=== PATIENT | female | born 1965 | race Caucasian/White ===

== ENCOUNTER 2016-08-19 09:04 | Emergency (ER) | payer MEDICARE ==
[~2016-08-19] VITALS: Ht 154.9 cm; Wt 74.4 kg
--- NOTE | ~2016-08-19 | EKG ---
[place], [place] ELECTROCARDIOGRAM REPORT NAME: JUDY ZAVALA UNIT #: [id number] ROOM: DOCTOR: NATALIIA JOHNSON MD BIRTHDATE: [birth year] DOS: 08/19/2016 TIME: 0922 hours. Sinus tachycardia at 115 beats per minute. The tracing is otherwise within normal limits. No previous tracing is available for comparison. NATALIIA JOHNSON MD CM:EKGRPT:ELECTROCARDIOGRAM REPORT [id number] NATALIIA JOHNSON MD
[~2016-08-19 09:04] MED LIST: ACETAMINOPHEN-H1 TA1 PO; ADVAIR 100/501 E1 INH; ADVAIR 100/501 EA INH; AEROSOL THERAPY1 DEV; ALBUTEROL; ANUSOL-HC25 MG RC; Anusol Hc,Anuco25 MG R; BACTRIM DS 8001 TA1 PO; CIPROFLOXACIN500 MG PO; CLARITIN-D 12 H1 TAB PO; CLARITIN10 MG PO; CYMBALTA60 M1 PO; CYMBALTA60 MG PO; DIAZEPAM10 MG PO; DOXYCYCLINE MO100 MG PO; FLONASE 0.05% 121 EA NAS; HYCODAN/HYDROMET5 ML PO; IMDUR ER30 MG PO; IMDUR30 MG PO; MEDROL DOSEPAK4 MG PO; MUCINEX600 MG PO; Miralax Powder255 GM PO; NATURE'S BLEND F1 MG PO; NEXIUM40 MG PO; NICOTINE T21 MG/24 H T; PHENERGAN25 M1 PO; PHENERGAN25 M3 PO; PREDNISONE10 MG PO; PROVENTIL0.09 MG/AC IH; PYRIDIUM200 MG PO; TALWIN NX PO; TRAMADOL HCL50 MG PO; TRICOR145 MG PO; VALIUM10 MG; VENTOLIN; VENTOLIN,PR2 MG/5 ML INH; VIBRA-TAB100 M1 PO; VICODIN 5/500 505 MG PO; VICODIN ES 7501 TA1 PO; VICODIN ES 7501 TAB PO; VIT D; VITAMIN D32000 IU PO; ZOFRAN ODT4 MG SL; ZOFRAN4 MG PO; Zofran4 MG PO
[2016-08-19] MEDS ORDERED: VALIUM10 MG PO (09:10)
[2016-08-19 09:41] LABS: BASO % 0.4 % (0.0-1.0); EOS # 0.1 10*3/uL (0.0-0.4); HEMOGLOBIN 13.6 g/dl (12.0-16.0); LYMPH # 0.9 10*3/uL (1.3-4.4); LYMPH % 12.2 % (27.0-41.0); MEAN CELL VOLUME 92.4 fl (81.0-99.0); MEAN CORPUSCULAR HGB 31.4 pg (27.0-31.0); MONO % 13.2 % (3.0-9.0); NEUT # 5.3 10*3/uL (2.3-7.9); NEUT % 72.8 % (47.0-73.0); PLATELET COUNT AUTOMATED 336 10*3/uL (130-400); RED BLOOD COUNT 4.33 10*6/uL (4.10-5.10); RED CELL DISTRI WIDTH 12.9 % (0-14.5); WHITE BLOOD COUNT 7.3 10*3/uL (4.8-10.8)
[2016-08-19 09:59] LABS: ALBUMIN 3.7 gm/dl (3.1-4.5); ALKALINE PHOSPHATASE 71 U/L (45-117); BILIRUBIN, TOTAL 0.2 mg/dl (0.2-1.0); BUN 10 mg/dl (7-24); CARBON DIOXIDE 22 mmol/L (21-32); CHLORIDE 105 mmol/L (98-107); EST GLOM FILT AFRICAN AMERICAN 56 ml/min; GLUCOSE 93 mg/dL (65-99); POTASSIUM 3.6 mmol/L (3.5-5.1); SGOT/AST 18 IU/L (3-35); SGPT/ALT 21 U/L (12-78); SODIUM 137 mmol/L (136-145); TOTAL PROTEIN 7.4 gm/dL (6.4-8.2); TROPONIN I < 0.015 ng/ml (<0.5)
== END 2016-08-19 10:42 | disposition home or self-care (01) ==
LOC: ED 09:04
PROVIDERS: Nurse Practitioner Family
DX: B34.9 Viral infection, unspecified (principal); R03.0 Elevated blood-pressure reading, without diagnosis of hypertension; F17.200 Nicotine dependence, unspecified, uncomplicated; Z98.51 Tubal ligation status; Z98.890 Other specified postprocedural states; Z88.0 Allergy status to penicillin; Z88.1 Allergy status to other antibiotic agents; Z88.6 Allergy status to analgesic agent; Z88.8 Allergy status to other drugs, medicaments and biological substances

== ENCOUNTER 2016-12-06 15:31 | Emergency (ER) | payer MEDICARE ==
[~2016-12-06] VITALS: Ht 165.1 cm; Wt 73.0 kg
[~2016-12-06 15:31] MED LIST changes: +VALIUM10 MG PO
[2016-12-06 16:42] LABS: BASO # 0.1 10*3/uL (0.0-0.1); BASO % 0.9 % (0.0-1.0); EOS # 0.4 10*3/uL (0.0-0.4); EOS % 4.1 % (1.0-4.0); HEMATOCRIT 42.2 % (37.0-47.0); HEMOGLOBIN 14.2 g/dl (12.0-16.0); LYMPH # 3.4 10*3/uL (1.3-4.4); LYMPH % 33.3 % (27.0-41.0); MEAN CORPUSCULAR HGB 31.3 pg (27.0-31.0); MEAN CORPUSCULAR HGB CONC 33.6 g/dl (33.0-37.0); MEAN PLATELET VOLUME 10.7 fl (9.6-12.3); MONO # 0.9 10*3/uL (0.1-1.0); MONO % 8.9 % (3.0-9.0); NEUT # 5.3 10*3/uL (2.3-7.9); NEUT % 52.5 % (47.0-73.0); PLATELET COUNT AUTOMATED 361 10*3/uL (130-400); RED BLOOD COUNT 4.54 10*6/uL (4.10-5.10); RED CELL DISTRI WIDTH 13.1 % (0-14.5); WHITE BLOOD COUNT 10.2 10*3/uL (4.8-10.8)
[2016-12-06 16:56] LABS: ALBUMIN 3.9 gm/dl (3.1-4.5); ALKALINE PHOSPHATASE 117 U/L (45-117); BILIRUBIN, TOTAL 0.2 mg/dl (0.2-1.0); BUN 5 mg/dl (7-24); CARBON DIOXIDE 23 mmol/L (21-32); CHLORIDE 106 mmol/L (98-107); EST GLOM FILT AFRICAN AMERICAN > 60 ml/min; GLUCOSE 83 mg/dL (65-99); POTASSIUM 3.8 mmol/L (3.5-5.1); SGOT/AST 17 IU/L (3-35); SGPT/ALT 20 U/L (12-78); SODIUM 141 mmol/L (136-145); TOTAL PROTEIN 7.6 gm/dL (6.4-8.2)
[2016-12-06 17:55] LABS: BILIRUBIN NEGATIVE (NEGATIVE); BLOOD NEGATIVE (NEGATIVE); CLARITY SL CLOUDY (CLEAR); COLOR YELLOW (YELLOW); GLUCOSE NEGATIVE (NEGATIVE); KETONE NEGATIVE (NEGATIVE); LEUKO ESTERASE NEGATIVE (NEGATIVE); NITRITE NEGATIVE (NEGATIVE); PH 5.5 (5.0-9.0); PROTEIN NEGATIVE (NEGATIVE); SPECIFIC GRAVITY <= 1.005 (1.005-1.030); UROBILINOGEN 0.2 E.U./dl (0.2-1.0)
[2016-12-06 18:09] LABS: RBC 0-2 rbc/hpf (0-2); WBC 0-2 wbc/hpf (0-5)
[2016-12-06 18:10] LABS: BACTERIA TRACE; URINE REFLEX COMMENT NO (NO)
[2016-12-06] MEDS ORDERED: SIMETHICONE PO (18:49)
[2016-12-06] MEDS ORDERED: PROBIOTIC & AC1 EACH PO (18:49)
[2016-12-06] MEDS ORDERED: ZOFRAN ODT4 MG SL (18:51)
== END 2016-12-06 19:16 | disposition home or self-care (01) ==
LOC: ED 15:31
PROVIDERS: Nurse Practitioner Family
DX: R10.9 Unspecified abdominal pain (principal); F17.200 Nicotine dependence, unspecified, uncomplicated; Z88.0 Allergy status to penicillin; Z88.1 Allergy status to other antibiotic agents; Z88.6 Allergy status to analgesic agent; Z88.8 Allergy status to other drugs, medicaments and biological substances; Z79.899 Other long term (current) drug therapy; Z90.49 Acquired absence of other specified parts of digestive tract

== ENCOUNTER → 2016-12-31 | Day surgery (SDC) | payer MEDICARE ==
[~2016-12-31] VITALS: Ht 160 cm; Wt 73.9 kg
[~2016-12-31] MED LIST changes: +DULOXETINE HCL30 MG PO; +ESOMEPRAZOLE MA40 M1 PO; +FENOFIBRATE145 M1 PO; +FLONASE ALLERG9.9 ML NAS; +IMDUR SA30 MG PO; +OHM ALLERGY REL10 MG PO; +PROBIOTIC & AC1 EACH PO; +SIMETHICONE PO; +VITAMIN D-32000 UNIT PO
--- NOTE | ~2016-12-31 | PROC NOTE ---
[place], [place] PROCEDURE NOTE [id number] UNIT #: [id number] ROOM: DOCTOR: CLAYTON MARTE MD BIRTHDATE: [birth year] DOS: 12/31/2016 PREOPERATIVE DIAGNOSIS: Screening examination. POSTOPERATIVE DIAGNOSIS: Screening examination. PROCEDURE: Colonoscopy. ENDOSCOPIST: Clayton Marte MD GROUP PROGRAM MANAGER: MS3. ANESTHESIA: MAC. INDICATIONS: This is a 51-year-old lady who is here for a screening examination. The procedure and its complications were explained to the patient in detail preoperatively. Complications that were discussed included but were not limited to bleeding, colon perforation, and missed lesions. She agreed to proceed. DESCRIPTION OF PROCEDURE: After identifying the patient, the patient was brought to the operating suite and laid in the left lateral position. After IV sedation was administered, a timeout procedure was called. A digital rectal exam was performed, which was within normal limits. An adult colonoscope was now introduced into the anal canal and advanced sequentially into the rectum, sigmoid colon, descending colon, transverse colon and ascending colon up to the cecum. The prep was found to be optimal. Upon reaching the cecum, the scope was withdrawn. There were no obvious mucosal lesions that could be identified or seen all throughout the colon. Total withdrawal time was approximately 7 minutes. Upon withdrawal of the scope, the patient was taken to the recovery room in stable fashion. There were no complications. Dr. Clayton Marte, the attending surgeon, was present throughout the operating case. Based on these findings, the patient is recommended to have another colonoscopy in 10 years or sooner if she has any new complications or new symptoms. These findings will be discussed with the patient herself in the recovery room and in my office in 3 weeks. Clayton Marte MD CM:PROCNOTE:PROCEDURE NOTE 2228 CLAYTON MARTE MD
[2016-12-31 08:46] VITALS: BP 131/83
[2016-12-31 09:37] VITALS: BP 93/49
[2016-12-31 09:50] VITALS: BP 109/65
[2016-12-31 10:02] VITALS: BP 118/75
== END | disposition home or self-care (01) ==
LOC: SDC 12-30 17:00
DX: Z12.11 Encounter for screening for malignant neoplasm of colon (principal); J44.9 Chronic obstructive pulmonary disease, unspecified; F41.9 Anxiety disorder, unspecified; K21.9 Gastro-esophageal reflux disease without esophagitis; F32.9 Major depressive disorder, single episode, unspecified; D64.9 Anemia, unspecified; Z98.51 Tubal ligation status; Z98.890 Other specified postprocedural states; Z83.3 Family history of diabetes mellitus; F17.210 Nicotine dependence, cigarettes, uncomplicated
CPT/HCPCS: 00810; G0121

== ENCOUNTER 2017-02-11 02:34 | Inpatient (IN) | payer MEDICARE ==
[~2017-02-11] VITALS: Ht 157.4 cm; Wt 73.5 kg
[2017-02-11] VITALS (8 sets, daily range): BP systolic 111–133; BP diastolic 61–95
--- NOTE | ~2017-02-11 | EKG ---
[place], [place] ELECTROCARDIOGRAM REPORT NAME: JUDY ZAVALA UNIT #: [id number] ROOM: [facility] DOCTOR: NATALIIA JOHNSON MD BIRTHDATE: [birth year] DOS: 02/11/2017 TIME: 0244 hours. Normal sinus rhythm at 89 beats per minute. The tracing is normal. No previous tracing is available for comparison. NATALIIA JOHNSON MD CM:EKGRPT:ELECTROCARDIOGRAM REPORT [id number] 1939 NATALIIA JOHNSON MD
--- NOTE | ~2017-02-11 | CON ---
[place], [place] REPORT OF CONSULTATION NAME: JUDY ZAVALA UNIT #: [id number] ROOM: 515 DOCTOR: OSIRIS HAIR MD BIRTHDATE: [birth year] DOS: 02/12/2017 HISTORY OF PRESENT ILLNESS: A 51-year-old female, apparently with a history of tobacco abuse without any significant coronary artery disease, admitted with ear pain, chest pain, abdominal pain, back pain. No acute EKG changes, suggestion of myocardial injury or infarction. The patient states that her chest pain is happening for a while; also reports to having lower back pain, very nonspecific symptoms. The patient is being treated for otitis media. Hemodynamically, she is stable. She is a smoker, history of [place] and oxygen dependent and COPD. While in the Emergency Room, the patient had an EKG and a CAT scan, showed no intra-abdominal process. PAST MEDICAL HISTORY: Depression, gastroesophageal reflux disease, tobacco abuse. PAST SURGICAL HISTORY: History of tubal ligation. SOCIAL HISTORY: Continues to smoke heavy. Denies any alcohol abuse. FAMILY HISTORY: Positive for coronary artery disease. ALLERGIES: PENICILLIN, AMPICILLIN AND AZITHROMYCIN. HOME MEDICATIONS: Folic acid, isosorbide, loratadine, promethazine and cholecalciferol. REVIEW OF SYSTEMS: CONSTITUTIONAL: No fever, no chills. HEENT: No visual disturbances or hearing problems. CARDIOVASCULAR: As per HPI. RESPIRATORY: Does have shortness of breath. GASTROINTESTINAL: No nausea, no vomiting. NEUROLOGIC: Intact. PSYCHIATRIC: Normal. ENDOCRINE: Intact. PHYSICAL EXAMINATION: VITAL SIGNS: Blood pressure is 130/70, in sinus rhythm. HEENT: Unremarkable. NECK: Supple, no JVD, no thyromegaly, no lymphadenopathy. LUNGS: Diminished breath sounds. HEART: Sounds are regular. ABDOMEN: Soft, nontender. NEUROLOGIC: Stable. LABORATORY DATA: Electrolytes are normal. Potassium is 3.0, which has been supplemented. Cardiac enzymes are all normal. EKG is not done. Rhythm strip shows sinus rhythm with nonspecific ST-T changes. ASSESSMENT: The patient with otitis media, ear pain, atypical chest pain, [place], [place] REPORT OF CONSULTATION NAME: JUDY ZAVALA UNIT #: [id number] ROOM: 515 DOCTOR: OSIRIS HAIR MD BIRTHDATE: [birth year] mildly abnormal EKG, hyperglycemia, tobacco abuse. RECOMMENDATIONS: Continue the treatment for the otitis media. We will schedule a stress test as an outpatient and I will closely follow up. Continue isosorbide. OSIRIS HAIR MD CM:CONSTR:REPORT OF CONSULTATION 0737 02/12/17 1457 interface
[2017-02-11 02:57] LABS: BASO # 0.1 10*3/uL (0.0-0.1); BASO % 0.6 % (0.0-1.0); EOS # 0.4 10*3/uL (0.0-0.4); EOS % 3.5 % (1.0-4.0); HEMATOCRIT 38.5 % (37.0-47.0); HEMOGLOBIN 13.1 g/dl (12.0-16.0); IG # 0.1 10*3/uL (0.0-0.1); LYMPH % 39.6 % (27.0-41.0); MEAN PLATELET VOLUME 10.6 fl (9.6-12.3); NEUT % 47.8 % (47.0-73.0); PLATELET COUNT AUTOMATED 349 10*3/uL (130-400); RED BLOOD COUNT 4.23 10*6/uL (4.10-5.10); RED CELL DISTRI WIDTH 13.2 % (0-14.5); WHITE BLOOD COUNT 12.5 10*3/uL (4.8-10.8)
[2017-02-11 03:07] LABS: INTERNATIONAL NORM RATIO 0.9 (2.0-3.5); PROTHROMBIN TIME 9.6 SECONDS (9.0-12.4)
[2017-02-11 03:13] LABS: ALBUMIN 3.5 gm/dl (3.1-4.5); ALKALINE PHOSPHATASE 127 U/L (45-117); BILIRUBIN, TOTAL 0.1 mg/dl (0.2-1.0); BUN 5 mg/dl (7-24); C-REACTIVE PROTEIN < 0.29 MG/DL (0-0.3); CARBON DIOXIDE 21 mmol/L (21-32); CHLORIDE 105 mmol/L (98-107); CKMB 0.6 ng/ml (0.5-3.6); CPK 94 U/L (26-192); EST GLOM FILT AFRICAN AMERICAN > 60 ml/min; GLUCOSE 115 mg/dL (65-99); MAGNESIUM 1.8 mg/dL (1.5-2.1); SGOT/AST 16 IU/L (3-35); SGPT/ALT 25 U/L (12-78); SODIUM 139 mmol/L (136-145); TOTAL PROTEIN 7.2 gm/dL (6.4-8.2); TROPONIN I < 0.015 ng/ml (<0.045)
[2017-02-11] MEDS ORDERED: LEXAPRO20 MG PO (10:23)
[2017-02-11] MEDS ORDERED: HYDROXYZINE HCL25 M1 PO (10:24)
[2017-02-12] VITALS: BP 105/60
[2017-02-12 06:56] LABS: BASO # 0.1 10*3/uL (0.0-0.1); BASO % 0.5 % (0.0-1.0); EOS # 0.5 10*3/uL (0.0-0.4); EOS % 4.3 % (1.0-4.0); HEMATOCRIT 33.8 % (37.0-47.0); HEMOGLOBIN 11.4 g/dl (12.0-16.0); IG # 0.1 10*3/uL (0.0-0.1); LYMPH # 3.4 10*3/uL (1.3-4.4); LYMPH % 28.3 % (27.0-41.0); MEAN CELL VOLUME 93.6 fl (81.0-99.0); MEAN CORPUSCULAR HGB 31.6 pg (27.0-31.0); MEAN CORPUSCULAR HGB CONC 33.7 g/dl (33.0-37.0); MEAN PLATELET VOLUME 11.2 fl (9.6-12.3); MONO # 1.1 10*3/uL (0.1-1.0); MONO % 8.8 % (3.0-9.0); NEUT % 57.7 % (47.0-73.0); PLATELET COUNT AUTOMATED 298 10*3/uL (130-400); RED BLOOD COUNT 3.61 10*6/uL (4.10-5.10); RED CELL DISTRI WIDTH 13.5 % (0-14.5); WHITE BLOOD COUNT 12.1 10*3/uL (4.8-10.8)
[2017-02-12 07:23] LABS: ALBUMIN 3.1 gm/dl (3.1-4.5); BILIRUBIN, TOTAL 0.2 mg/dl (0.2-1.0); BUN 12 mg/dl (7-24); CARBON DIOXIDE 26 mmol/L (21-32); CHLORIDE 105 mmol/L (98-107); EST GLOM FILT AFRICAN AMERICAN > 60 ml/min; GLUCOSE 94 mg/dL (65-99); MAGNESIUM 1.7 mg/dL (1.5-2.1); PHOSPHOROUS 4.4 mg/dL (2.5-4.9); SGOT/AST 19 IU/L (3-35); SGPT/ALT 26 U/L (12-78); SODIUM 140 mmol/L (136-145); TOTAL PROTEIN 6.2 gm/dL (6.4-8.2)
[2017-02-12 07:26] LABS: INTERNATIONAL NORM RATIO 0.9 (2.0-3.5); PROTHROMBIN TIME 9.8 SECONDS (9.0-12.4)
[2017-02-12 07:29] LABS: ALKALINE PHOSPHATASE 111 U/L (45-117); FREE T4 0.71 ng/dl (0.76-1.46)
[2017-02-12 07:34] LABS: FOLIC ACID 7.51 ng/mL (>5.38); POTASSIUM 4.1 mmol/L (3.5-5.1); VITAMIN D, 25-HYDROXY 30.3 ng/mL (30-100)
[2017-02-12 08:00] VITALS: BP 114/68
[2017-02-12 12:00] VITALS: BP 139/63
[2017-02-12] MEDS ORDERED: CEFDINIR300 MG PO (12:19)
[2017-02-15] MEDS ORDERED: NITROSTAT0.4 MG SL (06:14)
== END 2017-02-12 14:03 | disposition home or self-care (01) | DRG 872 ==
LOC: ED 02:34 → EDHOLD 04:36 → 5E 04:36
PROVIDERS: Internal Medicine; Student in an Organized Health Care Education/Training Program
DX: A41.9 Sepsis, unspecified organism (principal); J96.10 Chronic respiratory failure, unspecified whether with hypoxia or hypercapnia; Z99.81 Dependence on supplemental oxygen; F32.9 Major depressive disorder, single episode, unspecified; J44.9 Chronic obstructive pulmonary disease, unspecified; H66.91 Otitis media, unspecified, right ear; K21.9 Gastro-esophageal reflux disease without esophagitis; E87.6 Hypokalemia; F17.210 Nicotine dependence, cigarettes, uncomplicated; R73.9 Hyperglycemia, unspecified; E55.9 Vitamin D deficiency, unspecified; E78.5 Hyperlipidemia, unspecified; E53.8 Deficiency of other specified B group vitamins; E66.9 Obesity, unspecified; Z71.6 Tobacco abuse counseling; I25.2 Old myocardial infarction; Z82.49 Family history of ischemic heart disease and other diseases of the circulatory system; Z88.0 Allergy status to penicillin; Z88.1 Allergy status to other antibiotic agents; Z88.6 Allergy status to analgesic agent; Z88.8 Allergy status to other drugs, medicaments and biological substances; Z98.51 Tubal ligation status; Z83.3 Family history of diabetes mellitus; Z82.5 Family history of asthma and other chronic lower respiratory diseases; J30.2 Other seasonal allergic rhinitis

== ENCOUNTER → 2017-02-15 | Outpatient (CLI) | payer MEDICARE ==
[~2017-02-15] MED LIST changes: +CEFDINIR300 MG PO; +HYDROXYZINE HCL25 M1 PO; +LEXAPRO20 MG PO; +NITROSTAT0.4 MG SL
--- NOTE | ~2017-02-15 | ST ---
[place], [place] EXERCISE STRESS TEST REPORT NAME: JUDY ZAVALA UNIT #: [id number] ROOM: DOCTOR: OSIRIS HAIR MD BIRTHDATE: [birth year] DOS: Lexiscan portion of the Lexiscan Cardiolite. Baseline cardiogram sinus rhythm with nonspecific ST-T changes, 0.4 mg of Lexiscan, duration of 10 seconds of a 1 minute test duration. No new EKG changes. No chest discomfort. Blood pressure and heart rate response was normal. FINAL IMPRESSION: No EKG changes with Lexiscan. No chest pain with Lexiscan. No dysrhythmia with Lexiscan. Blood pressure and heart rate response was normal. Nuclear images will be reported separately. OSIRIS HAIR MD CM:STRESS:EXERCISE STRESS TEST REPORT [id number] RASHID CAREY MD
== END | disposition home or self-care (01) ==
LOC: CARD 02:08
DX: I25.10 Atherosclerotic heart disease of native coronary artery without angina pectoris (principal); R53.81 Other malaise

== ENCOUNTER 2017-03-17 22:36 | Inpatient (IN) | payer MEDICARE ==
[~2017-03-17] VITALS: Ht 154.9 cm; Wt 78.5 kg
--- NOTE | ~2017-03-17 | CON ---
[place], [place] REPORT OF CONSULTATION NAME: JUDY ZAVALA UNIT #: [id number] ROOM: [facility] DOCTOR: KHANH BROWN MD BIRTHDATE: [birth year] DOS: 03/19/2017 CHIEF COMPLAINT: "I just need to get help, I would never hurt myself." HISTORY OF PRESENT ILLNESS: This is a 52-year-old white female who presented to the [facility] via EMS with a complaint of alcohol intoxication and syncope. On the day of admission, it was her birthday and she celebrated by drinking in excess of five 12 ounce beers passed out. The patient reports that she has battled depression on and off throughout her life, most recently states that she has been depressed at least for the last several months. She endorses poor sleep with difficulty falling asleep, sleep continuity disturbance, power grader operator awakening, anergia, anhedonia, hopeless, helpless feelings, crying spells and inability to cope. She is bothered by increased stressors including chronic pain issues. She is open to receiving treatment and vehemently denies that she is actively suicidal, stating that she made the mistake of saying those things and has many things to live for. PAST MEDICAL HISTORY: Remarkable for COPD, depression, GERD, hyperlipidemia, obesity, vitamin D deficiency and nicotine abuse. MENTAL STATUS: She is alert and oriented. Mood is depressed. Affect is flat and blunted. There is no hypomania or leeanne. There are no overt auditory or visual hallucinations. No delusions. No paranoia. Memory is intact. DIAGNOSIS: Major depression, recurrent. PLAN: I will discontinue her Restoril and her Cymbalta, which was started in lieu of Remeron 15 mg at bedtime. This will more dramatically improve sleep and appetite. I will also augment with Zyprexa 2.5 mg twice daily. This should help speed the action of the antidepressant. One of her chief complaint to me was ongoing issues with GERD and an upset stomach that leads to nausea. Both of these have antinausea properties and should rapidly relieve all of her symptomatology. The patient is willing to follow up with Dr. Sandip Martinez, psychologist for counseling and willing to follow up in my office on [address] also for medication management. At this point, I do not see her as acutely lethal and would be comfortable with you discharging her home at this point. KHANH BROWN MD CM:CONSTR:REPORT OF CONSULTATION 1146 03/19/17 1338 interface
[~2017-03-17 22:36] MED LIST changes: +ADVAIR 250/501 EA INH; +CYMBALTA30 MG PO; -DULOXETINE HCL30 MG PO; -ESOMEPRAZOLE MA40 M1 PO; -FENOFIBRATE145 M1 PO; +TRICOR145 M1 PO
[2017-03-17 22:37] VITALS: BP 104/71
[2017-03-17 23:04] LABS: BASO # 0.1 10*3/uL (0.0-0.1); EOS # 0.2 10*3/uL (0.0-0.4); EOS % 2.5 % (1.0-4.0); HEMATOCRIT 39.5 % (37.0-47.0); HEMOGLOBIN 13.4 g/dl (12.0-16.0); LYMPH # 2.9 10*3/uL (1.3-4.4); LYMPH % 30.6 % (27.0-41.0); MEAN CELL VOLUME 91.6 fl (81.0-99.0); MEAN CORPUSCULAR HGB 31.1 pg (27.0-31.0); MEAN CORPUSCULAR HGB CONC 33.9 g/dl (33.0-37.0); MEAN PLATELET VOLUME 10.3 fl (9.6-12.3); MONO # 0.5 10*3/uL (0.1-1.0); MONO % 5.4 % (3.0-9.0); NEUT # 5.6 10*3/uL (2.3-7.9); NEUT % 60.1 % (47.0-73.0); PLATELET COUNT AUTOMATED 368 10*3/uL (130-400); RED BLOOD COUNT 4.31 10*6/uL (4.10-5.10); RED CELL DISTRI WIDTH 13.2 % (0-14.5); WHITE BLOOD COUNT 9.4 10*3/uL (4.8-10.8)
[2017-03-17 23:22] LABS: ALBUMIN 3.7 gm/dl (3.1-4.5); ALKALINE PHOSPHATASE 92 U/L (45-117); BUN 5 mg/dl (7-24); CHLORIDE 105 mmol/L (98-107); CREATININE 0.91 mg/dL (0.55-1.02); LIPASE 198 U/L (73-393); MAGNESIUM 2.2 mg/dL (1.5-2.1); POTASSIUM 3.2 mmol/L (3.5-5.1); SGOT/AST 21 IU/L (3-35); SGPT/ALT 18 U/L (12-78); SODIUM 140 mmol/L (136-145); TOTAL PROTEIN 7.4 gm/dL (6.4-8.2)
[2017-03-17 23:24] LABS: TROPONIN I < 0.015 ng/ml (<0.045)
--- NOTE | 2017-03-17 23:25 | NUR ---
Patient had unwitnessed fall in her room. Patient reports no headache. Patient reports she doesn't remember getting out of her bed. Patient continues to not know why she is here. Patient assisted back to bed. Reinforced call light use. Patient reports that she will not get out of bed without assitance. Dr. Ward notified. Nursing color making supervisor notified.
[2017-03-18 00:15] VITALS: BP 95/51
--- NOTE | 2017-03-18 00:15 | NUR ---
A 52, admitted to [facility]U, under the services of GREGORY Sims DO with a diagnosis of ALCOHOL INTOXICATION. Chief complaint is PATIENT WAS DRINKING FOR HER BIRTHDAY. SHE WAS PASSING OUT AT HOME. Patient arrived via stretcher from ER. Monitor applied. Initial assessment completed. Vital signs taken and recorded. RGEGORY SIMS DO notified of admission to the unit. Orders received. See assessment for past medical history, medications and allergies. Patient and/or family oriented to unit. [facility] visitation policy reviewed. Clothing/patient valuable form completed. PADDY GRAMAJO
--- NOTE | 2017-03-18 01:10 | NUR ---
MEDICATED WITH PO TYLENOL ORDERED PER PT REQUEST FOR C/O HEADACHE FROM HITTING HER HEAD EARLIER TONIGHT.
--- NOTE | 2017-03-18 01:54 | NUR ---
DR GUAN HERE AND NOTIFIED OF SUICIDE SCORE, INABILITY TO DO MED REC BECAUSE PT CANNOT VERIFY MEDS AND NO SCRIPTS ARE PRESENT, ALSO THAT PT ADMITS TO PASSING OUT "FOR MONTHS" AND THAT SHE DID NOT TELL DR HAIR LAST MONTH DURING HER VISIT/STRESS TEST.
--- NOTE | 2017-03-18 02:30 | NUR ---
MEDICATED WITH IV ZOFRAN ORDERED FOR C/O NAUSEA.
--- NOTE | 2017-03-18 03:00 | NUR ---
MEDICATED WITH PO RESTORIL ORDERED PER PT REQUEST FOR C/O INSOMNIA.
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
[2017-03-18 04:00] VITALS: BP 124/71
--- NOTE | 2017-03-18 04:04 | NUR ---
PROTONIX GIVEN EARLY FOR C/O HEARTBURN. PT EDUCATED ON CONTRIBUTING FACTORS SUCH ALCOHOL, COFFEE AND NICOTINE, WHICH SHE ADMITS TO CONSUMING ALL 3 AND STATES THAT AT HOME SHE TAKES NEXIUM TID. MEDICATED WITH PO VISTARIL ORDERED PER PT REQUEST FOR C/O ANXIETY. PREVIOUS MEDICATIONS NOT EFFECTIVE.
--- NOTE | 2017-03-18 06:34 | NUR ---
DR MCKEON INFORMED THAT DR PAINTING IS OUT OF TOWN. HE WILL SPEAK WITH DR GUAN REGARDING THIS MATTER.
[2017-03-18 08:00] VITALS: BP 115/71
--- NOTE | 2017-03-18 08:30 | NUR ---
WHEN QUESTIONED PT R/T HOME MEDS PT STATES HER BOYFRIEND IS GOING TO BRING IN HER BOTTLES. SHE GETS SOME MEDS FROM [facility] BUT OTHER THROUGH THE MAIL.
--- NOTE | 2017-03-18 09:50 | NUR ---
DR RUDOLPH IN TO SEE PT. DR RUDOLPH PINKED SLIPPED PT R/T PT VOICING SUICIDAL THOUGHTS. NEW ORDERS RECEIVED TO CONSULT DR BROWN R/T PT'S SUICIDAL THOUGHTS.
--- NOTE | 2017-03-18 10:18 | NUR ---
MEDICATED PT PER PRN ORDER WITH NORCO FOR C/O BILATERAL EAR PAIN THAT RATES A 10 ON PAIN SCALE 1-10. KDUR GVEN TO PT PER 1X ORDER ALSO.
--- NOTE | 2017-03-18 10:49 | NUR ---
Manometer Technician in to talk to patient. Patient states lives at home with boyfriend. There are 0 steps in the home. Physician: tiffanie Pharmacy: [facility] Home health services: no Patient's level of ADLs: INDEPENDENT Patient has working utilities: yes DME: none Follow-up physician's appointment after d/c: Mima, Does patient want to access PORTAL?: no Discharge plan Home, denies any needs at this time. ALEN JEAN
--- NOTE | 2017-03-18 10:59 | NUR ---
DR BROWN NOTIFIED OF CONSULT. HE STATED HE WILL SEE PT TOMORROW.
--- NOTE | 2017-03-18 11:00 | NUR ---
PT STATES LITTLE RELIEF OF EAR PAIN WITH EARLIER NORCO.
[2017-03-18 11:54] VITALS: BP 106/70
[2017-03-18 13:17] LABS: URINE AMPHETAMINES < 1000 (1000ng/ml); URINE BARBITURATES < 200 (200ng/ml); URINE BENZODIAZEPINES < 200 (200ng/ml); URINE CANNABINOIDS (THC) < 50 (50ng/ml); URINE COCAINE < 300 (300ng/ml); URINE METHADONE < 300 (300ng/ml); URINE OPIATES < 300 (300ng/ml)
[2017-03-18 13:18] LABS: URINE PHENCYCLIDINE < 25 (25ng/ml)
[2017-03-18] MEDS ORDERED: SINGULAIR10 M1 PO (13:30)
[2017-03-18] MEDS ORDERED: HYDROXYZINE HCL25 MG PO (13:39)
[2017-03-18] MEDS ORDERED: ACIDOPHILUS-PE1 EAC1 PO (13:42)
[2017-03-18] MEDS ORDERED: VENTOLIN,PR2 MG/5 ML PO (13:44)
[2017-03-18] MEDS ORDERED: AZELASTINE NAS (13:49)
--- NOTE | 2017-03-18 13:55 | NUR ---
PT'S BOYFRIEND BROUGHT HOME MEDS IN. REVEIWED MEDS WITH PT. PT IS UNSURE OF MEDS. STATES "I JUST TAKE THEM THE BOTTLE SAYS" MED REC UPDATED.
[2017-03-18 16:00] VITALS: BP 116/69
--- NOTE | 2017-03-18 19:33 | NUR ---
KIA DOSHI NOTIFED OF CONSULT.
[2017-03-18 19:50] VITALS: BP 126/63
--- NOTE | 2017-03-18 19:58 | NUR ---
pt medicated with norco 1 tab for c/o headache and abd pain.
--- NOTE | 2017-03-18 21:42 | NUR ---
PT STATED NORCO WAS EFFECTIVE IN HELPING TO EASE HER HEADACHE BUT THAT SHE IF FEELING ANXIOUS NOW. PT MEDICATED WITH PO VISTARIL ORDERED FOR ANXIETY.
[2017-03-19] VITALS: BP 116/63
--- NOTE | 2017-03-19 00:14 | NUR ---
MEDICATED WITH PO RESTORIL ORDERED PER PATIENT REQUEST WITH COMPLAINTS OF INSOMIA.
[2017-03-19 04:00] VITALS: BP 138/78
--- NOTE | 2017-03-19 04:00 | NUR ---
MEDICATION EFFECTED FOR INSOMNIA.
[2017-03-19 05:41] LABS: BASO # 0.1 10*3/uL (0.0-0.1); BASO % 0.9 % (0.0-1.0); EOS # 0.4 10*3/uL (0.0-0.4); EOS % 5.2 % (1.0-4.0); HEMOGLOBIN 11.1 g/dl (12.0-16.0); LYMPH # 3.9 10*3/uL (1.3-4.4); LYMPH % 47.9 % (27.0-41.0); MEAN CELL VOLUME 94.3 fl (81.0-99.0); MEAN CORPUSCULAR HGB 31.7 pg (27.0-31.0); MEAN CORPUSCULAR HGB CONC 33.6 g/dl (33.0-37.0); MEAN PLATELET VOLUME 10.7 fl (9.6-12.3); MONO # 0.7 10*3/uL (0.1-1.0); NEUT % 36.8 % (47.0-73.0); PLATELET COUNT AUTOMATED 294 10*3/uL (130-400); RED CELL DISTRI WIDTH 13.8 % (0-14.5)
[2017-03-19 05:51] LABS: ALBUMIN 3.1 gm/dl (3.1-4.5); ALKALINE PHOSPHATASE 100 U/L (45-117); BUN 6 mg/dl (7-24); CHLORIDE 108 mmol/L (98-107); CREATININE 1.02 mg/dL (0.55-1.02); MAGNESIUM 1.5 mg/dL (1.5-2.1); PHOSPHOROUS 3.8 mg/dL (2.5-4.9); POTASSIUM 3.8 mmol/L (3.5-5.1); SGOT/AST 12 IU/L (3-35); SGPT/ALT 17 U/L (12-78); SODIUM 143 mmol/L (136-145); TOTAL PROTEIN 6.1 gm/dL (6.4-8.2)
[2017-03-19 05:59] LABS: ETHYL ALCOHOL < 3.0 mg/dl (<3)
[2017-03-19 08:00] VITALS: BP 145/85
--- NOTE | 2017-03-19 08:10 | NUR ---
RESTING IN BED. PLEASANT AND COOPERATIVE. VITALS STABLE. PULSE OX 98% ON 3L NASAL CANNULA. DIMINISHED BILATERALLY. NO EDEMA NOTED. AFEBRILE.
--- NOTE | 2017-03-19 10:21 | NUR ---
MEDICATED WITH VISTARIL ORDERED FOR ANXIETY. DR. RUDOLPH HERE TO SEE PATIENT.
--- NOTE | 2017-03-19 10:42 | NUR ---
SPOKE WITH KIA DOSHI REGARDING PATIENT. DEMOGRAPHICS GIVEN TO HER VIA PHONE. SHE CALLED BACK AND STATES THAT A BED SHOULD BE AVAILABLE AT [facility]. DEMOS AND LABS FAXED TO [phone].
--- NOTE | 2017-03-19 11:45 | NUR ---
DR. BROWN HERE TO SEE PATIENT. HE STATES THAT PATIENT IS NOT HARM TO HERSELF AND THAT SHE IS WILLING TO ADJUST MED'S AND FOLLOW OUTPT. WITH DR. PAINTING.
[2017-03-19 16:00] VITALS: BP 133/76
--- NOTE | 2017-03-19 16:24 | NUR ---
MEDICATED WITH NORCO ORDERED FOR COMPLAINTS OF ABDOMINAL PAIN. RATES PAIN A 10 ON A PAIN SCALE OF 1-10.
--- NOTE | 2017-03-19 16:46 | NUR ---
MEDICATED WITH VISTARIL ORDERED FOR COMPLAINTS OF ANXIETY. VOICES THAT HER FEET ARE NUMB. VOICES THAT NORCO IS NOT EFFECTIVE YET FOR ABDOMINAL PAIN.
--- NOTE | 2017-03-19 17:18 | NUR ---
DR. BROWN HAS AGREED TO REMOVE PINK SLIP AND PATIENT CAN BE MOVED TO REGULAR MEDICAL FLOOR. AIR CONTROL ELECTRONICS OPERATOR NOTIFIED.
--- NOTE | 2017-03-19 17:40 | NUR ---
TRANSFERRED TO ROOM 403-2 VIA BED.
[2017-03-19 20:00] VITALS: BP 130/75
[2017-03-20] VITALS: BP 133/68
--- NOTE | 2017-03-20 00:21 | NUR ---
24 HR chart check completed.
--- NOTE | 2017-03-20 04:17 | NUR ---
Medicated with Tylenol po prn for c/o headache. Will monitor effectiveness. Call light within reach.
--- NOTE | 2017-03-20 05:20 | NUR ---
Patient resting quietly in bed with eyes closed. Tylenol effective. Will continue to monitor. Call light within reach.
[2017-03-20 08:00] VITALS: BP 154/80
--- NOTE | 2017-03-20 08:49 | NUR ---
ZOFRAN GIVEN FOR C/O NAUSEA. WILL MONITOR.
--- NOTE | 2017-03-20 08:51 | NUR ---
NORCO GIVEN FOR C/O GENERALIZED DISCOMFORT. WILL MONITOR.
--- NOTE | 2017-03-20 10:00 | NUR ---
BETTY AND LINN EFFECTIVE PER PT.
[2017-03-20] MEDS ORDERED: ZYPREXA2.5 MG PO (11:43)
--- NOTE | 2017-03-20 12:48 | NUR ---
MSDIS Discharge instructions reviewed with patient/family. Patient receptive and verbalizes understanding. Follow-up care arranged. Written instructions given to patient/family. ZEKE ROMERO
== END 2017-03-20 12:48 | disposition home or self-care (01) | DRG 896 ==
LOC: ED 22:36 → ICCU 23:42 → EDHOLD 23:42 → ICCU 23:57 → 4E 03-19 17:36
PROVIDERS: Family Medicine; Student in an Organized Health Care Education/Training Program; ADMIT Emergency Medicine
DX: F10.121 Alcohol abuse with intoxication delirium (principal); R40.20 Unspecified coma; G93.41 Metabolic encephalopathy; F33.9 Major depressive disorder, recurrent, unspecified; R45.851 Suicidal ideations; E83.41 Hypermagnesemia; E87.6 Hypokalemia; Y90.8 Blood alcohol level of 240 mg/100 ml or more; K21.9 Gastro-esophageal reflux disease without esophagitis; E78.5 Hyperlipidemia, unspecified; J44.9 Chronic obstructive pulmonary disease, unspecified; E66.9 Obesity, unspecified; I10 Essential (primary) hypertension; F17.200 Nicotine dependence, unspecified, uncomplicated; Z68.32 Body mass index [BMI] 32.0-32.9, adult; Z98.51 Tubal ligation status; Z88.0 Allergy status to penicillin; Z88.1 Allergy status to other antibiotic agents; Z99.81 Dependence on supplemental oxygen; Z88.6 Allergy status to analgesic agent; I25.2 Old myocardial infarction; Z88.8 Allergy status to other drugs, medicaments and biological substances; Z79.899 Other long term (current) drug therapy; Z82.49 Family history of ischemic heart disease and other diseases of the circulatory system; Z82.5 Family history of asthma and other chronic lower respiratory diseases

== ENCOUNTER 2017-04-08 22:58 | Inpatient (IN) | payer MEDICARE ==
[~2017-04-08] VITALS: Ht 157.4 cm; Wt 81.7 kg
--- NOTE | ~2017-04-08 | PR ---
[place], [place] PROGRESS NOTE NAME: JUDY ZAVALA UNIT #: [id number] ROOM: [facility] DOCTOR: MERT DAILEY,TONY RASHID) BIRTHDATE: [birth year] DOS: 04/11/2017 At the present time, this patient now states that she is suicidal. She will be held on an emergency psychiatric hold by Dr. Jacinto who is her attending physician. She stated that she is suicidal and if she leaves the hospital, she will kill herself. supervisor ship maintenance services/discharge planning will attempt to find her a bed in a psychiatric facility. DIAGNOSIS: Major depressive disorder, recurrent. Thank you very much for this consult. TONY PAINTING ED.D CM:ISHA 1725 [id number] TONY PAINTING ED (BOB).D 04/12/17 0056 interface
--- NOTE | ~2017-04-08 | CON ---
[place], [place] REPORT OF CONSULTATION NAME: [id number] UNIT #: [id number] ROOM: [facility] DOCTOR: TONY PAINTING ED.D) BIRTHDATE: [birth year] DOS: 04/11/2017 HISTORY OF PRESENT ILLNESS: The patient is a 52-year-old female referred by the hospitalist for psychological evaluation. At the present time, this patient is on the 5th floor at [facility] [place] [facility]. She states she is and has 2 children. She is on social security disability. Family physician is Dr. Kate and her medical history is pertinent for COPD, depression, GERD, morbid obesity, oxygen dependent, vitamin D deficiency. Her medications include Proventil, vitamin D, Cymbalta, Lexapro, Nexium, Nitrostat, vitamin D, Zyprexa, Phenergan, hydroxyzine, Singulair and Tricor. This patient did have a positive drug screen for cocaine, but denies using any cocaine whatsoever. She states she does drink a 6-pack of beer each week. This patient was awake, alert and oriented in all three spheres. She does admit to being depressed; however, she states she is not suicidal and will do nothing to harm herself. Apparently, she was admitted to the Behavioral Health Unit here at the hospital one time and states she did attempt suicide in the past, but is not suicidal at this time. She states she does not want to go to any type of psychiatric facility. I did suggest that she continues to follow up outpatient. She states that she had an appointment with me in several weeks. Since she is denying any suicidal ideation or plan, she may be discharged when she is medically stable. DIAGNOSES: 1. Major depressive disorder, recurrent. 2. Personality disorder, not otherwise specified. RECOMMENDATIONS: 1. The patient should follow up outpatient for psychotherapy. 2. The patient should take her psychotropic medications. Thank you very much for this consult. TONY PAINTING ED.D CM:CONSTR:REPORT OF CONSULTATION 1340 04/12/17 0021 interface
[~2017-04-08 22:58] MED LIST changes: +ACIDOPHILUS-PE1 EAC1 PO; +AZELASTINE NAS; +HYDROXYZINE HCL25 MG PO; +SINGULAIR10 M1 PO; +VENTOLIN,PR2 MG/5 ML PO; +ZYPREXA2.5 MG PO
[2017-04-08 23:05] VITALS: BP 132/98
[2017-04-08 23:22] LABS: BASO # 0.1 10*3/uL (0.0-0.1); BASO % 0.8 % (0.0-1.0); EOS # 0.4 10*3/uL (0.0-0.4); EOS % 2.8 % (1.0-4.0); HEMATOCRIT 41.3 % (37.0-47.0); HEMOGLOBIN 13.6 g/dl (12.0-16.0); LYMPH # 4.6 10*3/uL (1.3-4.4); LYMPH % 29.6 % (27.0-41.0); MEAN CELL VOLUME 93.9 fl (81.0-99.0); MEAN CORPUSCULAR HGB 30.9 pg (27.0-31.0); MEAN CORPUSCULAR HGB CONC 32.9 g/dl (33.0-37.0); MEAN PLATELET VOLUME 10.5 fl (9.6-12.3); MONO # 1.3 10*3/uL (0.1-1.0); MONO % 8.7 % (3.0-9.0); NEUT # 8.9 10*3/uL (2.3-7.9); NEUT % 57.7 % (47.0-73.0); PLATELET COUNT AUTOMATED 389 10*3/uL (130-400); RED CELL DISTRI WIDTH 13.6 % (0-14.5); WHITE BLOOD COUNT 15.5 10*3/uL (4.8-10.8)
[2017-04-08 23:37] LABS: ALKALINE PHOSPHATASE 96 U/L (45-117); BUN 12 mg/dl (7-24); CHLORIDE 105 mmol/L (98-107); CREATININE 1.36 mg/dL (0.55-1.02); POTASSIUM 3.8 mmol/L (3.5-5.1); SGOT/AST 21 IU/L (3-35); SGPT/ALT 20 U/L (12-78); SODIUM 141 mmol/L (136-145); TOTAL PROTEIN 7.7 gm/dL (6.4-8.2)
--- NOTE | 2017-04-08 23:37 | NUR ---
PT REMAINS W/O ACUTE DISTRESS NOTED AN W/O COMPLAINTS VOICED,PT POSITIONED FOR COMFORT SAFETY PRECAUTIONS INTACT,CALL LIGHT WITHIN REACH AND T.V. PROVIDED.
[2017-04-08 23:46] LABS: ACETAMINOPHEN (TYLENOL) < 2.0 ug/ml (10-30)
[2017-04-09] VITALS (8 sets, daily range): BP systolic 103–132; BP diastolic 46–78
[2017-04-09 00:26] LABS: BILIRUBIN NEGATIVE (NEGATIVE); BLOOD NEGATIVE (NEGATIVE); CLARITY CLEAR (CLEAR); COLOR YELLOW (YELLOW); GLUCOSE NEGATIVE (NEGATIVE); KETONE NEGATIVE (NEGATIVE); LEUKO ESTERASE NEGATIVE (NEGATIVE); NITRITE NEGATIVE (NEGATIVE); PH 5.5 (5.0-9.0); SPECIFIC GRAVITY <= 1.005 (1.005-1.030); UROBILINOGEN 0.2 E.U./dl (0.2-1.0)
[2017-04-09 00:37] LABS: BACTERIA 2+; YEAST 1+
[2017-04-09 00:46] LABS: URINE AMPHETAMINES < 1000 (1000ng/ml); URINE BARBITURATES < 200 (200ng/ml); URINE BENZODIAZEPINES < 200 (200ng/ml); URINE CANNABINOIDS (THC) < 50 (50ng/ml); URINE COCAINE > 300 (300ng/ml); URINE METHADONE < 300 (300ng/ml); URINE OPIATES < 300 (300ng/ml); URINE PHENCYCLIDINE < 25 (25ng/ml)
--- NOTE | 2017-04-09 01:40 | NUR ---
A 52, admitted to , under the services of TC Nieto DO with a diagnosis of CHEST PAIN. Chief complaint is CHEST PAIN. Patient arrived via wheel chair from ER. Monitor applied. Initial assessment completed. Vital signs taken and recorded. TC NIETO DO notified of admission to the unit. Orders received. See assessment for past medical history, medications and allergies. Patient and/or family oriented to unit. [facility] ICCU visitation policy reviewed. Clothing/patient valuable form completed. KYLE ROWE
--- NOTE | 2017-04-09 01:40 | NUR ---
PATIENTS MEDICATIONS REVIEWED WITH HER AT THIS TIME. PER PATIENT ALL MEDICATIONS ARE CORRECT . MED REC HAS BEEN UPDATED .
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
--- NOTE | 2017-04-09 02:15 | NUR ---
PT. REQUESTING MEDICATION FOR SLEEP & PAIN. UPON TAKING PATIENT BETTY PT. STATES "I CANNOT TAKE ANY TYLENOL OR ASPIRIN OR MOTRIN." "I DO NOT KNOW WHY NO ONE LISTENS TO ME." PT. ALSO STATES THAT SHE SMOKES AT HOME WHILE WEARING OXYGEN. THIS R.N. INFORMED PATIENT THAT THIS WAS A SAFETY ISSUE FOR HER. PT. IS UNWILLING TO LISTEN & IS NONCOMPLIANT.
[2017-04-09 05:46] LABS: BASO # 0.1 10*3/uL (0.0-0.1); BASO % 0.9 % (0.0-1.0); EOS # 0.5 10*3/uL (0.0-0.4); EOS % 4.3 % (1.0-4.0); HEMATOCRIT 36.9 % (37.0-47.0); HEMOGLOBIN 12.3 g/dl (12.0-16.0); LYMPH # 4.1 10*3/uL (1.3-4.4); LYMPH % 35.2 % (27.0-41.0); MEAN CELL VOLUME 93.4 fl (81.0-99.0); MEAN CORPUSCULAR HGB 31.1 pg (27.0-31.0); MEAN CORPUSCULAR HGB CONC 33.3 g/dl (33.0-37.0); MEAN PLATELET VOLUME 10.7 fl (9.6-12.3); MONO % 8.8 % (3.0-9.0); NEUT # 5.9 10*3/uL (2.3-7.9); NEUT % 50.3 % (47.0-73.0); PLATELET COUNT AUTOMATED 347 10*3/uL (130-400); RED BLOOD COUNT 3.95 10*6/uL (4.10-5.10); RED CELL DISTRI WIDTH 13.7 % (0-14.5); WHITE BLOOD COUNT 11.7 10*3/uL (4.8-10.8)
[2017-04-09 05:52] LABS: ALBUMIN 3.5 gm/dl (3.1-4.5); ALKALINE PHOSPHATASE 85 U/L (45-117); BUN 13 mg/dl (7-24); CHLORIDE 105 mmol/L (98-107); CREATININE 1.26 mg/dL (0.55-1.02); MAGNESIUM 1.9 mg/dL (1.5-2.1); PHOSPHOROUS 4.4 mg/dL (2.5-4.9); POTASSIUM 3.9 mmol/L (3.5-5.1); SGOT/AST 14 IU/L (3-35); SGPT/ALT 17 U/L (12-78); SODIUM 141 mmol/L (136-145); TOTAL PROTEIN 6.8 gm/dL (6.4-8.2)
[2017-04-09 05:53] LABS: FREE T4 0.73 ng/dl (0.76-1.46)
[2017-04-09 05:57] LABS: TROPONIN I < 0.015 ng/ml (<0.045)
--- NOTE | 2017-04-09 06:06 | NUR ---
CONSULTED JULIO CÉSAR FONG; DR. BROWN OUT OF TOWN.
--- NOTE | 2017-04-09 06:08 | NUR ---
CONSULTED KIA DOSHI.
--- NOTE | 2017-04-09 09:52 | NUR ---
PT REQUESTED AND RECEIVED IV MORPHINE SLOWLY PER PRN ORDER FOR C/O ALL OVER PAIN/DISCOMFORT. PATIENT RATES PAIN 9/10. WILL MONITOR EFFECTIVENESS. PT STATES SHE CAN'T TAKE NORCO AT ALL. CALL LIGHT WITHIN REACH.
--- NOTE | 2017-04-09 10:30 | NUR ---
MORPHINE RELIEVING PAIN PER PT.
--- NOTE | 2017-04-09 10:37 | NUR ---
JULIO CÉSAR FONG (PILOT) FOR IN TO SEE PATIENT REGARDING CONSULT.
--- NOTE | 2017-04-09 10:59 | NUR ---
IN TO SEE PATIENT.
--- NOTE | 2017-04-09 12:00 | NUR ---
PATIENT DENIES ANY SUICIDAL IDEATION AT THIS TIME. SUICIDE RISK ASSESSMENT UPDATED PER POLICY. WILL CONTINUE TO MONITOR. NO VOICED COMPLAINTS. CALL LIGHT WITHIN REACH.
--- NOTE | 2017-04-09 15:18 | NUR ---
PT REQUESTED IV MORPHINE SLOWLY PER PRN ORDER FOR C/O BACK PAIN. ALSO MEDICATED WITH IV ZOFRAN PER PRN ORDER FOR C/O NAUSEA. WILL MONITOR EFFECTIVENESS OF MEDS. CALL LIGHT WITHIN REACH.
--- NOTE | 2017-04-09 16:00 | NUR ---
EARLIER MEDICATIONS RELIEVING PAIN AND NAUSEA PER PT. WILL CONTINUE TO MONITOR.
[2017-04-09] MEDS ORDERED: ALBUTEROL2.5 MG/0.5 NEB (20:07)
--- NOTE | 2017-04-09 20:10 | NUR ---
PT SITTING UP IN BED. RESP-EASY AND REGULAR. OXYGEN IN USE. CALL LIGHT IN REACH. NO C/O AT THIS TIME. SHIFT ASSESSMENT.
--- NOTE | 2017-04-09 22:00 | NUR ---
RESTING IN BED. RESP-EASY AND REGULAR. NO C/O AT THIS TIME. CALL LIGHT IN REACH.
[2017-04-10] VITALS: BP 111/72
--- NOTE | 2017-04-10 00:10 | NUR ---
PT RESTING IN BED. RESP-EASY AND REGULAR. OXYGEN IN USE. C/O ABDOMINAL PAIN, RATES PAIN 10 ON PAIN SCALE 0-10. MEDICATED WITH NORCO PO PER PRN ORDER, SEE EMAR. CALL LIGHT IN REACH. SEE SHIFT ASSESSMENT.
--- NOTE | 2017-04-10 00:50 | NUR ---
PT RESTING IN BED WITH EYES CLOSED. RESP-EASY AND REGULAR. MEDICATION SEEMS TO BE EFFECTIVE. CALL LIGHT IN REACH.
--- NOTE | 2017-04-10 04:00 | NUR ---
PT RESTING IN BED WITH EYES CLOSED. RESP-EASY AND REGULAR. CALL LIGHT IN REACH.
--- NOTE | 2017-04-10 05:30 | NUR ---
RESTING IN BED. NO C/O AT THIS TIME. CALL LIGHT IN REACH.
[2017-04-10 06:00] LABS: BASO # 0.1 10*3/uL (0.0-0.1); BASO % 0.9 % (0.0-1.0); EOS # 0.4 10*3/uL (0.0-0.4); HEMATOCRIT 36.7 % (37.0-47.0); HEMOGLOBIN 12.3 g/dl (12.0-16.0); LYMPH # 3.7 10*3/uL (1.3-4.4); LYMPH % 43.1 % (27.0-41.0); MEAN CELL VOLUME 93.4 fl (81.0-99.0); MEAN CORPUSCULAR HGB 31.3 pg (27.0-31.0); MEAN CORPUSCULAR HGB CONC 33.5 g/dl (33.0-37.0); MEAN PLATELET VOLUME 10.4 fl (9.6-12.3); MONO # 0.9 10*3/uL (0.1-1.0); NEUT # 3.5 10*3/uL (2.3-7.9); NEUT % 40.7 % (47.0-73.0); PLATELET COUNT AUTOMATED 362 10*3/uL (130-400); RED BLOOD COUNT 3.93 10*6/uL (4.10-5.10); RED CELL DISTRI WIDTH 13.5 % (0-14.5); WHITE BLOOD COUNT 8.7 10*3/uL (4.8-10.8)
[2017-04-10 06:34] LABS: ALBUMIN 3.4 gm/dl (3.1-4.5); CREATININE 1.37 mg/dL (0.55-1.02); POTASSIUM 3.5 mmol/L (3.5-5.1); TOTAL PROTEIN 6.9 gm/dL (6.4-8.2)
--- NOTE | 2017-04-10 06:35 | NUR ---
PT C/O PAIN ALL OVER, RATES PAIN 10 ON PAIN SCALE 0-10. MEDICATED WITH NORCO PO PER PRN ORDER, SEE EMAR. CALL LIGHT IN REACH.
[2017-04-10 07:03] LABS: VITAMIN D, 25-HYDROXY 26.1 ng/mL (30-100)
[2017-04-10 08:00] VITALS: BP 118/60
--- NOTE | 2017-04-10 11:30 | NUR ---
met with client per consult to assess for suicide risk, this client denies to me that she feels suicidal, she reports that she has financial issues and doesnt have good ins, she reports that she will stay here until they decide that she is medically ok and then she will go home and she said that she is set to follow up with shirley saucedo, she reports to me that she feels safe and she does not want to kill or harm herself, she is alert and oriented x4, no delusions voiced, she is not a risk for suicide and can follow up as an outpatient at this point.
[2017-04-10 12:00] VITALS: BP 114/60
[2017-04-10 16:00] VITALS: BP 138/56
--- NOTE | 2017-04-10 19:33 | NUR ---
late entry: Dr. Martinez notified of consult, no new orders. No suicidal ideations noted this shift. Also continues to deny chest pain.
--- NOTE | 2017-04-10 19:50 | NUR ---
PT C/O STOMACH INDIGESTION/FLATUS. MEDICATED WITH PRN MAALOX ORDERED. ABD SOFT/DISTENDED/NONTENDER. BS X4 NORMO. ALSO C/O H/A ACHY 05/03. MEDICATED WITH PRN NORCO. PT QUESTIONING WHY NOT MORPHINE. PT TEACHING GIVEN ON PRN PAIN MED USAGE. PT NOT RECEPTIVE. PT ADMITS TO OCCASSIONAL SUICIDAL IDEATIONS AND CONTINUED DEPRESSION. WILL CONT. TO MONITOR CLOSELY.
[2017-04-10 20:00] VITALS: BP 122/63
[2017-04-11] VITALS: BP 92/53
--- NOTE | 2017-04-11 01:20 | NUR ---
PT C/O NAUSEA/COUGH/INSOMNIA. MEDICATED WITH PRN ZOFRAN/MUCINEX/VISTARIL. PT STATES SHE IS TOO WEAK TO ATTEMPT SUICIDE BUT IF SHE DID SHE WOULD SLIT HER THROAT WITH A KNIFE BECAUSE CUTTING YOUR WRIST DOESN'T WORK. ROOM SCANNED AND NO SHARP OBJECTS AVAILABLE. WILL CONT. TO MONITOR.
--- NOTE | 2017-04-11 02:00 | NUR ---
PT RESTING QUIETLY IN BED A THIS TIME. PRN MEDS EFFECTIVE.
[2017-04-11 06:34] LABS: BASO # 0.1 10*3/uL (0.0-0.1); BASO % 0.7 % (0.0-1.0); EOS # 0.4 10*3/uL (0.0-0.4); EOS % 4.6 % (1.0-4.0); HEMATOCRIT 37.5 % (37.0-47.0); HEMOGLOBIN 12.4 g/dl (12.0-16.0); LYMPH # 3.4 10*3/uL (1.3-4.4); LYMPH % 40.9 % (27.0-41.0); MEAN CELL VOLUME 95.9 fl (81.0-99.0); MEAN CORPUSCULAR HGB 31.7 pg (27.0-31.0); MEAN CORPUSCULAR HGB CONC 33.1 g/dl (33.0-37.0); MEAN PLATELET VOLUME 10.1 fl (9.6-12.3); MONO # 0.9 10*3/uL (0.1-1.0); MONO % 11.2 % (3.0-9.0); NEUT # 3.6 10*3/uL (2.3-7.9); NEUT % 42.2 % (47.0-73.0); PLATELET COUNT AUTOMATED 327 10*3/uL (130-400); RED BLOOD COUNT 3.91 10*6/uL (4.10-5.10); RED CELL DISTRI WIDTH 13.7 % (0-14.5); WHITE BLOOD COUNT 8.4 10*3/uL (4.8-10.8)
[2017-04-11 07:00] LABS: CREATININE 1.26 mg/dL (0.55-1.02); POTASSIUM 4.2 mmol/L (3.5-5.1)
--- NOTE | 2017-04-11 07:56 | NUR ---
MEDICATED WITH TYLENOL FOR HEADACHE OF 8/10.
[2017-04-11 08:00] VITALS: BP 115/63
--- NOTE | 2017-04-11 09:00 | NUR ---
Counterintelligence Analyst in to talk to patient. Patient states lives at home with boyfriend. There are few steps in the home. Physician: la moreno Pharmacy: [facility] Home health services: none Patient's level of ADLs: MINIMAL ASSIST Patient has working utilities: all working DME: cane Follow-up physician's appointment after d/c: will be made by hospitalist nurse director upon discharge Does patient want to access PORTAL?: no Discharge plan discussed with patient, patient lives at home with her boyfriend, she states she hasn't been getting around very well at this time, discussed with her going to a short term penitentiary for rehab prior to going back home, patient stated she was inagreement with this and would choose one after someone has talked to her boyfriend, financial planner will talk with patient's boyfriend regarding this. LOLY AGUILA
--- NOTE | 2017-04-11 09:04 | NUR ---
STATES THAT EARLIER TYLENOL HELPED HER HEADACHE A LITTLE.
--- NOTE | 2017-04-11 09:52 | NUR ---
MEDICATED FOR C/O NAUSEA WITH ZOFRAN
[2017-04-11 12:00] VITALS: BP 105/56
--- NOTE | 2017-04-11 12:22 | NUR ---
Earlier nausea med did help. has pain of ten out of ten all over. Medicated for c/o pain.
--- NOTE | 2017-04-11 13:05 | NUR ---
STATES THT EARLIER PAIN MED HELPED SOME. REQUESTED MUCINEX FOR C/O COUGH.
--- NOTE | 2017-04-11 13:48 | NUR ---
finished goods planner in to see patient. Explained to patient she does not qualify for snf, when she asked why I explained she had a positive drug screen upon admission. She stated she doesn't understand why people keep telling her that "I'm not a drug head like theses people keep saying I am" I also discussed with her if she walks independantely, she said she walks up a steep hill to get to her vehicle and then she is out of breath, but she doesn't need to use a walker or cane. I then explained that if she walks independent and doesn't require any physical therapy, that is another reason why she would not qualify for a nursing facility, nor would she qualify for vna because she is not home bound. She then asked if one of the nurses could walk outside with her so she could have a cigarette. I told her that the hospital doesn't allow that, but to discuss with her nurses.
--- NOTE | 2017-04-11 14:44 | NUR ---
Patient requested to speak to program services planner again. In to see patient, she stated again she is not doing drugs and something must have been messed up. She also stated it was in Tuesday's new paper and said alcohol and drugs. I again explained to her that she stated she can walk without assistance and she agreed, I stated detention placement is for people that are in need of physical therapy rehab and she doesn't require that right now. I also explained that medicare only pays for so many skilled days, so if she doesn't really need them, there may come a day when she does and she should not use them up. She agreed.
[2017-04-11 16:15] VITALS: BP 156/77
--- NOTE | 2017-04-11 16:15 | NUR ---
PT RECEIVED VIA WC FROM 5E WHERE SHE HAD EXPRESSED SUICIDAL FEELINGS. SHE APPEARS ANGRY THAT SHE'S IN THE [facility], DID NOT WANT TO BE PUT BACK ON STANDARDS ANALYST ("THEY JUST TOOK THAT OFF"). DR Deanna VAZQUEZ NOTIFIED OF THAT. SHE AND I WENT THROUGH HER BAGS OF BELONGINGS. NO WEAPONS FOUND. LOTS OF SNACKS FOUND. PT ASKED FOR AND GIVEN ZIA PADS AND PERSONAL WIPES. SHE ASKED FOR "SOMETHING TO MAKE MY BOWELS MOVE, SOMETHING FOR PAIN IN MY IV AND SOMETHING FOR NAUSEA". I GAVE HER A DULCOLAX TAB, IV MORPHINE AND IV ZOFRAN IN ADDITION TO HER EVENING PROTONIX AND SINGULAIR. HER MEAL ORDERED.
--- NOTE | 2017-04-11 17:31 | NUR ---
PT UP AND ABOUT IN ROOM, NO EMESIS, NO DISTRESS SINCE EARLIER MEDS.
--- NOTE | 2017-04-11 17:31 | NUR ---
Shift chart check completed.24 HR chart check completed.
--- NOTE | 2017-04-11 18:18 | NUR ---
FAMILY IN TO VISIT.
--- NOTE | 2017-04-11 18:29 | NUR ---
DR VAZQUEZ PHONED IN AND DISCUSSED THIS PT. SHE SAID I DON'T HAVE TO CALL [facility].
--- NOTE | 2017-04-11 19:48 | NUR ---
PT REQUESTING SOMETHING ELSE FOR BOWELS. DULCOLAX PO AND MOM HAVE NOT WORKED. DR. VALENZUELA CALLED AND NOTIFIED. ORDERS RECEIVED.
[2017-04-11 20:00] VITALS: BP 119/53
--- NOTE | 2017-04-11 20:06 | NUR ---
PT RESTING IN BED WATCHING TV. NO DISTRESS NOTED. HEP LOCK INTACT. NO C/O'S PAIN OR DISCOMFORT VOICED AT THIS TIME.
--- NOTE | 2017-04-11 22:05 | NUR ---
2129 ONE TIME DOSE OF SENEKOT GIVEN PER ORDER. 2199 RESTING IN BED WITHOUT C/O'S.
--- NOTE | 2017-04-11 23:18 | NUR ---
2310 VISTARIL GIVEN PER REQUEST FOR SLEEP. MORPHINE 2MG IV GIVEN FOR C/O'S GENERALIZED PAIN. DOES NOT RATE. WILL MONITOR.
[2017-04-12] VITALS: BP 119/63
--- NOTE | 2017-04-12 00:16 | NUR ---
EARLIER MEDS EFFECTIVE. RESTING IN BED WITH EYES CLOSED. APPEARS TO BE SLEEPING.
--- NOTE | 2017-04-12 06:07 | NUR ---
SLEPT WELL THIS SHIFT. REMAINS WITHOUT C/O'S.
[2017-04-12 08:00] VITALS: BP 110/70
--- NOTE | 2017-04-12 08:10 | NUR ---
ON ASSESSMENT PATIENT IS ALERT AND ORIENTED.WHEN ASKED ABOUT SUICIDAL FEELINGS PATIENT IS VAGUE, SAYS "I'M FEELING MORE SORRY FOR THAT OTHER PATIENT THAT YOU WERE WORKING ON". PT STILL C/O NAUSEA,CONSTIPATION AND ABDOMINAL PAIN. SEE ALL APPROPRIATE INTERVENTIONS.
--- NOTE | 2017-04-12 08:15 | NUR ---
Shift chart check completed.24 HR chart check completed.
--- NOTE | 2017-04-12 09:19 | NUR ---
KIA DOSHI HERE AND INFORMED THAT PT IS HERE, PINK SLIPPED. SHE ASKED THAT I CALL ATTENDING TO ASK WHAT THEY WANT HER TO DO. DR VAZQUEZ CALLED AND SAID PT NEEDS PSYCH PLACEMENT.
--- NOTE | 2017-04-12 09:24 | NUR ---
informed by nursing that client was moved to [facility] and pink slipped, i did see client again and she denies to me, she said they made me mad so i said that, i asked her if she had a plan and she said im not telling you, she is manipulative and said im not going unless i can smoke, nursing did check and doctor is requesting client go to a psych unit, so i will look for a bed.
--- NOTE | 2017-04-12 09:44 | NUR ---
MEDICATED WITH ZOFRAN FOR "NAUSEA" AND MORPHINE FOR "PAIN". OFFERED NORCO FIRST AND SHE SAID "THEY DON'T WORK AND I WON'T BE ABLE TO GET THE SHOTS AFTER I LEAVE". HAD OFFERED HER A DULCOLAX SUPPOSITORY BUT SHE DID MOVE HER BOWELS AFTER BREAKFAST FROM THE EARLIER MEDS IN THE LAST 24 HOURS. KIA DOSHI AGAIN ASKED THE PATIENT ABOUT URINE DRUG SCREEN POSITIVE FOR COCAINE AND PT VEHEMENTLY DENIES USE.
--- NOTE | 2017-04-12 11:11 | NUR ---
KIA DOSHI HAS NOT BEEN ABLE TO LOCATE A FACILITY THAT WILL ACCEPT PT AT THIS TIME. SHE HAS SHOWERED. EARLIER ZOFRAN AND MORPHINE APPARENTLY EFFECTIVE.
--- NOTE | 2017-04-12 13:06 | NUR ---
PT IS SLEEPING EASILY AT THIS TIME.
[2017-04-12 16:00] VITALS: BP 124/65
--- NOTE | 2017-04-12 16:01 | NUR ---
TWO MUCINEX FOR HARSH COUGH.
--- NOTE | 2017-04-12 19:40 | NUR ---
AT 1847 IV LINN FOR C/O NAUSEA ALTHOUGH SHE EATS LARGE AMOUNTS OF FOOD WITHOUT ANY VOMITING. SHE ALSO ASKED FOR THE "PAIN SHOT". INFORMED HER THAT THE MORPHINE HAS BEEN DISCONTINUED AND MEDICATED WITH NORCO. SHE DOESN'T RATE THE PAIN. SHE EXPRESSES ANGER THAT SHE'S STILL IN [facility]. SHE'S VERY VAGUE ABOUT SUICIDAL FEELINGS AND HAS NOT EXPRESSED ANY SUICIDAL PLANS TO ME.
[2017-04-12 20:06] VITALS: BP 101/52
--- NOTE | 2017-04-12 21:23 | NUR ---
VISTARIL FOR REST IN ADDITION TO HER ROUTINE HS MEDS.
[2017-04-13] VITALS: BP 108/55
--- NOTE | 2017-04-13 00:16 | NUR ---
EARLIER VISTRIL EFFECTIVE. RESTING IN BED WITH EYES CLOSED. APPEARS TO BE SLEEPING. HEP LOCK INTACT. NO DISTRESS NOTED.
--- NOTE | 2017-04-13 04:09 | NUR ---
0300 MEDICATED WITH NORCO PO FOR C/O'S GENERALIZED DISCOMFORT. 0400 EARLIER PAIN MED EFFECTIVE. RESTING IN BED WITH EYES CLOSED.
[2017-04-13 05:05] LABS: CREATININE 1.5 mg/dL (0.55-1.02); POTASSIUM 3.9 mmol/L (3.5-5.1)
--- NOTE | 2017-04-13 06:08 | NUR ---
REMAINS SLEEPING WITHOUT DISTRESS.
--- NOTE | 2017-04-13 07:51 | NUR ---
24 HR chart check completed.
[2017-04-13 08:00] VITALS: BP 134/65
--- NOTE | 2017-04-13 09:15 | NUR ---
PT SITTING UP IN BED WITH C/O HEAD TO TOE ACHING PAIN THAT IS CONSTANT. ALSO REQUESTING NICOTINE INHALER AND COUGH SYRUP. DR VAZQUEZ HAS ADDRESSED ALL OF THESE NEEDS. STATES THAT SHE IS NOT A HARM TO OTHERS BUT TO SELF ONLY. PT HAS OREDERED A VERY LG AMOUNT OF FOOD FOR BREAKFAST BUT STATED THAT SHE HAS NAUSEA.
--- NOTE | 2017-04-13 10:13 | NUR ---
unable to find a bed for client yesterday, she is now off of 02 so i will revisit those hospitals this am and see if there are any beds.
--- NOTE | 2017-04-13 10:45 | NUR ---
ASSESSED FOR HOME O2 FOLLOWS: BP 124/59 HR 83 SAT 96% RA AT REST SAT 93% RA DURING AMBULATION HR 102 SAT 96% RA AT REST DURING RECOVERY HR 89 BP 128/69 PT AMBULATED ONE COMPLETE LAP AROUND 4E. STATES BACK HURTING AND LEGS BURNING TOWARDS END OF WALK AND SLIGHT SOB NOTED. RN NOTIFIED. NOTIFIED.
[2017-04-13 12:00] VITALS: BP 124/70
--- NOTE | 2017-04-13 13:19 | NUR ---
PT GIVEN DULCOLAX TABLET SHE SAYS THAT SHE ONLY POOPED A SMALL BALL YESTERDAY.
[2017-04-13 16:00] VITALS: BP 112/79
--- NOTE | 2017-04-13 18:14 | NUR ---
Discharge instructions reviewed with patient/family. Patient receptive and verbalizes understanding. Follow-up care arranged. Written instructions given to patient/family. JOAQUINA HOSKINS
== END 2017-04-13 18:14 | disposition home or self-care (01) | DRG 313 ==
LOC: ED 22:58 → 5E 04-09 00:29 → ICCU 04-09 00:29 → EDHOLD 04-09 00:29 → 5E 04-09 00:39 → ICCU 04-11 16:08
PROVIDERS: Hospitalist; Internal Medicine; Internal Medicine Nephrology; Registered Nurse; Student in an Organized Health Care Education/Training Program; ADMIT Internal Medicine
DX: R07.89 Other chest pain (principal); J96.10 Chronic respiratory failure, unspecified whether with hypoxia or hypercapnia; F33.3 Major depressive disorder, recurrent, severe with psychotic symptoms; R45.851 Suicidal ideations; K21.9 Gastro-esophageal reflux disease without esophagitis; E78.5 Hyperlipidemia, unspecified; J43.9 Emphysema, unspecified; I48.91 Unspecified atrial fibrillation; E55.9 Vitamin D deficiency, unspecified; E66.01 Morbid (severe) obesity due to excess calories; F60.9 Personality disorder, unspecified; F14.10 Cocaine abuse, uncomplicated; Z88.6 Allergy status to analgesic agent; Z88.1 Allergy status to other antibiotic agents; Z88.0 Allergy status to penicillin; Z88.8 Allergy status to other drugs, medicaments and biological substances; Z79.899 Other long term (current) drug therapy; Z68.32 Body mass index [BMI] 32.0-32.9, adult; Z98.51 Tubal ligation status; Z72.89 Other problems related to lifestyle; Z83.3 Family history of diabetes mellitus; Z82.5 Family history of asthma and other chronic lower respiratory diseases; Z82.49 Family history of ischemic heart disease and other diseases of the circulatory system; Z80.9 Family history of malignant neoplasm, unspecified; Z72.0 Tobacco use; Z71.6 Tobacco abuse counseling

== ENCOUNTER 2017-06-22 11:55 | Emergency (ER) | payer MEDICARE ==
[~2017-06-22] VITALS: Ht 162.5 cm; Wt 76.2 kg
[~2017-06-22 11:55] MED LIST changes: +ALBUTEROL2.5 MG/0.5 NEB
[2017-06-22 12:33] LABS: BASO # 0.1 10*3/uL (0.0-0.1); BASO % 0.7 % (0.0-1.0); EOS # 0.2 10*3/uL (0.0-0.4); EOS % 2.2 % (1.0-4.0); HEMATOCRIT 40.7 % (37.0-47.0); HEMOGLOBIN 13.6 g/dl (12.0-16.0); LYMPH # 2.7 10*3/uL (1.3-4.4); LYMPH % 24.5 % (27.0-41.0); MEAN CELL VOLUME 90.4 fl (81.0-99.0); MEAN CORPUSCULAR HGB 30.2 pg (27.0-31.0); MEAN CORPUSCULAR HGB CONC 33.4 g/dl (33.0-37.0); MEAN PLATELET VOLUME 10.1 fl (9.6-12.3); MONO % 8.9 % (3.0-9.0); NEUT % 63.2 % (47.0-73.0); PLATELET COUNT AUTOMATED 484 10*3/uL (130-400); RED CELL DISTRI WIDTH 13.1 % (0-14.5)
[2017-06-22 12:48] LABS: ALBUMIN 3.9 gm/dl (3.1-4.5); ALKALINE PHOSPHATASE 111 U/L (45-117); BUN 9 mg/dl (7-24); CHLORIDE 103 mmol/L (98-107); CREATININE 1.08 mg/dL (0.55-1.02); LIPASE 195 U/L (73-393); POTASSIUM 3.8 mmol/L (3.5-5.1); SGOT/AST 23 IU/L (3-35); SGPT/ALT 33 U/L (12-78); SODIUM 136 mmol/L (136-145); TOTAL PROTEIN 7.8 gm/dL (6.4-8.2)
[2017-06-22 12:51] LABS: BILIRUBIN NEGATIVE (NEGATIVE); BLOOD NEGATIVE (NEGATIVE); CLARITY CLEAR (CLEAR); COLOR YELLOW (YELLOW); GLUCOSE NEGATIVE (NEGATIVE); KETONE NEGATIVE (NEGATIVE); LEUKO ESTERASE NEGATIVE (NEGATIVE); NITRITE NEGATIVE (NEGATIVE); SPECIFIC GRAVITY <= 1.005 (1.005-1.030); UROBILINOGEN 0.2 E.U./dl (0.2-1.0)
[2017-06-22 13:01] LABS: BACTERIA TRACE; WBC 0-2 wbc/hpf (0-5)
[2017-06-22] MEDS ORDERED: ZOFRAN ODT4 MG SL (15:26)
[2017-06-22] MEDS ORDERED: PEPCID20 MG PO (15:26)
== END 2017-06-22 15:12 | disposition home or self-care (01) ==
LOC: ED 11:55
PROVIDERS: Physician Assistant
DX: R10.13 Epigastric pain (principal); F17.200 Nicotine dependence, unspecified, uncomplicated; Z88.0 Allergy status to penicillin; Z88.1 Allergy status to other antibiotic agents; Z88.8 Allergy status to other drugs, medicaments and biological substances; Z88.6 Allergy status to analgesic agent; Z79.899 Other long term (current) drug therapy

== ENCOUNTER 2017-07-11 13:21 | Emergency (ER) | payer MEDICARE ==
[~2017-07-11] VITALS: Ht 160 cm; Wt 72.6 kg
[~2017-07-11 13:21] MED LIST changes: +PEPCID20 MG PO
[2017-07-11 13:52] LABS: BASO # 0.1 10*3/uL (0.0-0.1); BASO % 0.7 % (0.0-1.0); EOS # 0.3 10*3/uL (0.0-0.4); EOS % 3.2 % (1.0-4.0); HEMATOCRIT 40.4 % (37.0-47.0); HEMOGLOBIN 13.9 g/dl (12.0-16.0); LYMPH % 33.4 % (27.0-41.0); MEAN CELL VOLUME 88.8 fl (81.0-99.0); MEAN CORPUSCULAR HGB 30.5 pg (27.0-31.0); MEAN CORPUSCULAR HGB CONC 34.4 g/dl (33.0-37.0); MEAN PLATELET VOLUME 10.9 fl (9.6-12.3); MONO # 0.8 10*3/uL (0.1-1.0); NEUT # 4.8 10*3/uL (2.3-7.9); NEUT % 52.9 % (47.0-73.0); PLATELET COUNT AUTOMATED 336 10*3/uL (130-400); RED BLOOD COUNT 4.55 10*6/uL (4.10-5.10)
[2017-07-11 14:06] LABS: ALBUMIN 3.9 gm/dl (3.1-4.5); ALKALINE PHOSPHATASE 104 U/L (45-117); BUN 12 mg/dl (7-24); CHLORIDE 106 mmol/L (98-107); CREATININE 1.12 mg/dL (0.55-1.02); POTASSIUM 3.7 mmol/L (3.5-5.1); SGOT/AST 23 IU/L (3-35); SGPT/ALT 34 U/L (12-78); SODIUM 139 mmol/L (136-145); TOTAL PROTEIN 7.6 gm/dL (6.4-8.2)
== END 2017-07-11 15:37 | disposition home or self-care (01) ==
LOC: ED 13:21
PROVIDERS: Nurse Practitioner Family
DX: K21.9 Gastro-esophageal reflux disease without esophagitis (principal); R10.9 Unspecified abdominal pain; F17.200 Nicotine dependence, unspecified, uncomplicated; Z98.51 Tubal ligation status; Z79.899 Other long term (current) drug therapy; Z88.0 Allergy status to penicillin; Z88.6 Allergy status to analgesic agent; Z88.1 Allergy status to other antibiotic agents

== ENCOUNTER 2017-08-01 12:48 | Inpatient (IN) | payer MEDICARE ==
[~2017-08-01] VITALS: Ht 157.5 cm; Wt 80.9 kg
--- NOTE | ~2017-08-01 | PR ---
[place], [place] PROGRESS NOTE NAME: JUDY ZAVALA UNIT #: [id number] ROOM: 506 DOCTOR: NELSON WHELAN MD,JHOAN BIRTHDATE: [birth year] DOS: 08/08/2017 SUBJECTIVE: She has been noted comfortable, described complete resolution previous body ache yesterday. Coughing has improved was noted, minimal shortness breath was noted better. There were no symptoms of chest pain. OBJECTIVE: VITAL SIGNS: For the patient which were recorded. The temperature noted was normal, respiratory rate 18, heart rate 84, blood pressure 112/69, pulse oxygen saturation was noted on 2 liters and 95% saturation. HEENT: No acute change. NECK: Supple. CARDIOVASCULAR: S1, S2 audible. LUNGS: Clear with wheezing, no crackles. ABDOMEN: Soft, nontender. LABORATORY DATA: CBC: WBC count at 15.7, mild anemia, hemoglobin 10. Remaining CBC normal. BMP: BUN 18, creatinine 1.39. IMPRESSION: Progressive resolution of the acute exacerbation of chronic obstructive pulmonary disease, acute tracheobronchitis with marked improvement of coughing, wheezing, shortness breath was noted. PLAN OF TREATMENT: The patient has been planned for discharge by the primary care physician from the pulmonary standpoint, the patient could be discharged if noted when medically stable. JHOAN DAMON MD CM:PNTRANS [id number] JHOAN WHELAN MD [id number]/08/[id number] interface
--- NOTE | ~2017-08-01 | EKG ---
[place], [place] ELECTROCARDIOGRAM REPORT NAME: JUDY ZAVALA UNIT #: [id number] ROOM: 506 DOCTOR: NELSON WHELAN MD,JHOAN BIRTHDATE: [birth year] DOS: 08/01/2017 Electrocardiogram done on 08/01/2017 at 2:00 p.m. Mild sinus tachycardia noted, heart rate of 102 beats per minute. Nonspecific ST-T changes were noted in the chest leads. JHOAN DAMON MD CM:EKGRPT:ELECTROCARDIOGRAM REPORT [id number] JHOAN WHELAN MD
--- NOTE | ~2017-08-01 | PR ---
[place], [place] PROGRESS NOTE NAME: JUDY ZAVALA UNIT #: [id number] ROOM: 506 DOCTOR: RUDDY GUAN DO BIRTHDATE: [birth year] DOS: 08/05/2017 SUBJECTIVE: The patient us seen and examined at bedside. The patient is sitting upright. The patient reports mild improvement from a respiratory status, however, the patient complains of ongoing shortness of breath and cough and feels like she needs another day or two before she will be ready for discharge. No new complaints at this time. OBJECTIVE: VITAL SIGNS: Temperature 97.7, pulse is 98, respirations 20, blood pressure 132/88, pulse ox is 96% on 2 liters nasal cannula. GENERAL APPEARANCE: The patient alert and oriented x 3, in mild respiratory distress. HEENT: Eyes are clear. No injection. Nares are patent. Mucous membranes are moist. NECK: Supple, nontender. CARDIOVASCULAR: Regular rate and rhythm. No murmurs, gallops or rubs. PULMONARY: Lungs are with mild expiratory wheezing globally. No rales or rhonchi. ABDOMEN: Soft, nontender with positive bowel sounds. EXTREMITIES: No edema. No erythema. No clubbing. No cyanosis. NEUROLOGIC: Negative for focal deficits. SKIN: Negative for rashes or lesions. LABORATORY DATA: White count 24.5, hemoglobin 11.4, hematocrit 34.7, platelets 421. Chemistries are stable with mild elevated glucose of 170. Serologies are pending for acid fast staining. Blood cultures remain negative. Sputum cultures and bronch washing cultures are pending. Lower extremity ultrasound from sedation no evidence of DVT in the lower extremities. IMPRESSION: 1. Chronic obstructive pulmonary disease with acute exacerbation, status post bronchoscopy on 08/04/2017. The patient continues to improve. 2. Extensive mucus plugging. 3. Nicotine abuse. 4. Obesity. PLAN: Continue with patient's current antibiotics, steroids, breathing treatments and bronchodilators. The patient continues to improve, will likely need 1-2 more days before patient is medically stable for discharge. We will continue to follow. RUDDY GUAN DO [place], [place] PROGRESS NOTE NAME: JUDY ZAVALA UNIT #: [id number] ROOM: 506 DOCTOR: RUDDY GUAN DO BIRTHDATE: [birth year] JHOAN DAMON MD CM:ISHA [id number] RUDDY GUAN DO 08/05/17 2303 interface
--- NOTE | ~2017-08-01 | CON ---
[place], [place] REPORT OF CONSULTATION NAME: JUDY ZAVALA UNIT #: [id number] ROOM: 506 DOCTOR: JHOAN NATH MD BIRTHDATE: [birth year] DOS: 08/02/2017 PULMONARY CONSULTATION EVALUATION MANAGEMENT REASON FOR CONSULTATION: To assess the patient for current ongoing acute respiratory symptom for the past several days with exacerbation of COPD and bronchial asthma. HISTORY OF PRESENT ILLNESS: A 52-year-old white female who has been noted oxygen dependent at home, 3 liter nasal cannula, presented to the Emergency Room on 08/01/2017. The patient reported symptoms of having progressive increased cough started 3 weeks ago associated with wheezing and shortness of breath at times as well. The symptoms have been noted progressive nonresolving, cough was described as moderate severe, nonproductive, inability to expectorate sputum at this time. She has noted some sputum expectoration during acute illness in the first few days. She was also complaining of tightness in the chest as well. REVIEW OF SYSTEMS: CONSTITUTIONAL SYMPTOMS: Fatigue and tiredness reported for the patient without any symptoms of fever or chills at home. EYES: Denies any burning, redness, or tenderness. EARS, NOSE, THROAT: No sore throat, hoarseness, otalgia, postnasal drainage or epistaxis negative. CARDIOVASCULAR: Denies anginal pain, edema of the lower extremity, palpitation, acute. GASTROINTESTINAL: No dysphagia, nausea, vomiting, diarrhea, abnormal weight loss, dysphagia, hematemesis, melena, or hematochezia. GENITOURINARY: No dysuria, suprapubic pain, hematuria. MUSCULOSKELETAL: No acute joint pain, redness, or tenderness. SKIN: Denies lesions or rashes. CENTRAL NERVOUS SYSTEM: No dizziness, headache, diplopia, syncopal episode. Remaining systems were reviewed for the patient, they were noted all negative. PAST MEDICAL HISTORY: The patient has been reported as: 1. COPD. 2. Chronic hypoxic respiratory failure for this patient with oxygen use. 3. History of cocaine use. 4. History of depression and anxiety. 5. Gastroesophageal reflux disease. 6. Hyperlipidemia. 7. Moderate obesity. 8. Heavy nicotine dependence. 9. Vitamin D deficiency. PAST SURGICAL HISTORY: Reported tubal ligation. SOCIAL HISTORY: The patient stated she is , has 2 children. Smoking started since the teens up to 4 packs of cigarettes per day maximum, currently for the past few weeks decreased the tobacco use to a pack or more cigarettes [place], [place] REPORT OF CONSULTATION NAME: JUDY ZAVALA UNIT #: [id number] ROOM: 506 DOCTOR: JHOAN NATH MD BIRTHDATE: [birth year] per day. Denies any occupation related pulmonary exposure. Denies any history of chronic alcohol dependence. Denies history of illicit drug use. FAMILY HISTORY: For this patient was unknown. HOME MEDICATIONS: The patient reported at the time of admission use of albuterol sulfate nebulizer treatment p.r.n., Ventolin HFA inhaler p.r.n. use, Astelin nasal spray, vitamin D, Cymbalta, Lexapro, Nexium, famotidine, TriCor, Advair 250/50, hydroxyzine, Singulair, nitroglycerin and Zyprexa. DRUG ALLERGY HISTORY: Reported: 1. PENICILLIN. 2. Z-LESLIE. 3. ASPIRIN. 4. REGLAN. PHYSICAL EXAMINATION: GENERAL: This is a 52-year-old female who has been currently resting, sitting on the side of the bed without any acute distress. The patient's height recorded by the nursing staff with height of 5 feet 2 inches, weight of 178 pounds, BMI 32. VITAL SIGNS: Vital signs of the patient which was recorded. The patient showed the temperature noted as normal. Respiratory recorded 18-22. The heart rate ranging between 102 with sinus tachycardia to 82 beats per minute. The blood pressure ranging between 133/88 on admission to 118/85. HEENT: Examination shows head was atraumatic. Eyes: No icterus. NECK: Supple. CARDIOVASCULAR SYSTEM: S1, S2 is audible. LUNGS: The patient was noted with moderate decreased breath sound, diffuse expiratory wheezing. There were no crackles heard. ABDOMEN: Noted with moderate obesity, bowel sounds present without any tenderness. Examination of the visible skin was noted without any lesions, rashes or ulceration. MUSCULOSKELETAL SYMPTOM: Does not show any gross deformities. CENTRAL NERVOUS SYSTEM: Noted intact. LABORATORY DATA: The CBC that was done for the patient on 08/01/2017 WBC count 16.4, platelet count elevated 470 with normal hemoglobin, hematocrit and the differentials. The CMP done on the patient was normal. Creatinine was normal with normal troponin. Remaining CMP including the LFTs. CBC of the patient this morning: WBC count of 18.7, hemoglobin 11.7, hematocrit 33.4, platelet count was 419,000. BMP normal BUN and creatinine. Potassium 3.0. The sputum culture for the patient was pending at this time, which were sent to the lab. The lactic acid noted at 1.3. Chest x-ray of the patient that was done on 08/01/2017 was reviewed, 1-view x-ray of the patient does not show any acute infiltration or any gross visible pulmonary nodules. The B12, folic acid level was noted as normal. IMPRESSION: 1. The patient who has been currently admitted to the hospital was noted with [place], [place] REPORT OF CONSULTATION NAME: JUDY ZAVALA UNIT #: [id number] ROOM: 506 DOCTOR: JHOAN NATH MD BIRTHDATE: [birth year] acute exacerbation of chronic obstructive pulmonary disease/bronchial asthma with acute bronchitis, could be viral in origin. 2. Suspected mucus impaction as well because of the chronic symptom for the past 3 weeks without any resolution of symptoms. 3. Heavy nicotine dependence as well. 4. Moderate obesity in the patient was also noted as well. PLAN OF MANAGEMENT: She had been currently getting Solu-Medrol 60 mg IV b.i.d. that will be continued same dose and her home medication, most of them has been resumed. She has been getting Levaquin, which showed good coverage for the patient with current community-acquired infection for the bronchitis. Nicotine replacement patches will be ordered for the patient to overcome the nicotine withdrawal. Monitor the respiratory symptoms closely. The discussion about tobacco cessation has been done in detail. The risk and benefits of the tobacco cessation were discussed. Additional changes in the treatment for the patient will be made based on the progression of the illness. Thanks for allowing me to participate in the care of this patient. JHOAN DAMON MD CM:CONSTR:REPORT OF CONSULTATION 1636 08/03/17 0315 interface
--- NOTE | ~2017-08-01 | PR ---
[place], [place] PROGRESS NOTE NAME: [id number] UNIT #: [id number] ROOM: 506 DOCTOR: NELSON WHELAN MDJHOAN BIRTHDATE: [birth year] DOS: 08/05/2017 SUBJECTIVE: The patient was seen and examined on 08/05/2017 with a [id number] encounter. History was confirmed, physical exam performed, and all the labs reviewed. Assessed for today's visit were personally completed and recommendation to the medical management personally made as well. Note done by the medical office representative was approved. The patient was noted reduction in symptoms of coughing after bronchoscopy that was completed yesterday. The resolution noted complete reduction in the wheezing and shortness of breath were described. Denies symptoms of chest pain or hemoptysis. Denies any nausea or vomiting. Denies any abnormal skin changes noted with some edema of the lower extremity. No pain. No dizziness, headache, or diplopia. OBJECTIVE: VITAL SIGNS: Recorded showed normal temperature, respiratory rate of 20, heart rate of 102-107, blood pressure 127/57-132/88, and pulse oxygen saturation on 2 liters nasal cannula is 97% saturation. HEENT: Examination shows head was atraumatic. Moderate obesity. NECK: Supple. CARDIOVASCULAR: S1, S2 audible. LUNGS: Moderate decreased breath sounds with expiratory wheezing which are noted mild at the present time. Decreased wheezing was noted from previous exams. No crackles. ABDOMEN: Soft. Moderate obesity. Bowel sounds present. EXTREMITIES: Mild edema. CENTRAL NERVOUS SYSTEM: Cranial nerves are intact. MUSCULOSKELETAL: No deformities. SKIN: No lesions or rashes. LABORATORY DATA: CBC this morning, WBC count 24.5, hemoglobin 11.4, hematocrit of 34.7, platelet count 421,000. BMP this morning, normal BUN, creatinine 1.18, and glucose 170. The culture bronchial washing normal keyana. Gram stain of bronchial washing, many white blood cells with few gram-positive cocci in pairs and chains. IMPRESSION: 1. Slow resolution of severe acute exacerbation of bronchial asthma/chronic obstructive pulmonary disease; after bronchoscopy, culture results were pending. 2. Hypoglycemia that was noted mildly related to corticosteroids. 3. Edema, most likely related to corticosteroids. 4. Elevation of white blood cell count is related to either infection or from the corticosteroid combination. PLAN OF MANAGEMENT: The dose of Solu-Medrol at this time will be decreased to 40 mg b.i.d. with further progressive reduction will be done based on improvement in the symptoms. Continue bronchodilator treatment plan and management. The patient had ultrasound of lower extremity, which has been ordered by the primary care attending, and was noted negative for any evidence of deep venous thrombosis. [place], [place] PROGRESS NOTE NAME: SALLYJUDY A UNIT #: [id number] ROOM: [facility] DOCTOR: JHOAN NATH MD BIRTHDATE: [birth year] JHOAN DAMON MD CM:ISHA 1610 2 JHOAN WHELAN MD 08/06/173 interface
--- NOTE | ~2017-08-01 | PR ---
[place], [place] PROGRESS NOTE NAME: JUDY ZAVALA UNIT #: [id number] ROOM: 506 DOCTOR: RUDDY GUAN DO BIRTHDATE: [birth year] DOS: 08/04/2017 SUBJECTIVE: The patient was seen and examined at bedside. The patient was preparing for her bronchoscopy that was to be performed this morning. The patient has no new complaints today. She reports that her breathing has improved. LABORATORY DATA: White count 25, hemoglobin 10.6, hematocrit 32.3, platelets is 409. Chemistries: Sodium 140, potassium 4.8, chloride 102, carbon dioxide is 31, BUN is 16, creatinine is 1.1, glucose is 149. OBJECTIVE: VITAL SIGNS: Temperature 97.9, pulse is 102, respiration rate is 19, blood pressure is 101/62, pulse ox is 94% on 3 liters nasal cannula. HEENT: Eyes are clear. No injection. Nares are patent. Mucous membranes are moist. NECK: Supple, nontender. CARDIOPULMONARY: Lungs have mild expiratory wheezes in all lung villarreal, diminished breath sounds, no rhonchi or rales. S1 and S2 were noted. Regular rate and rhythm. No murmur, gallops or rubs. EXTREMITIES: No edema, no erythema, no clubbing or cyanosis. NEUROLOGIC: There are no focal deficits. Cranial nerves are grossly intact. SKIN: No rashes, no erythema. IMPRESSION: 1. Chronic obstructive pulmonary disease with acute exacerbation with bronchial asthma, likely secondary to a viral infection. 2. Mucus plugging. Mucus plugs were appreciated in all branches of the respiratory tree during bronchoscopy, anticipate patient will continue to improve status post bronchoscopy. 3. Nicotine abuse. 4. Obesity. PLAN OF CARE: At this time, the patient is to continue with her respiratory therapy including antibiotics, steroids, breathing treatments and bronchodilators. I anticipate patient will continue to improve and based on cultures from the bronchoscopy, anticipate patient will be cleared for discharge tomorrow for further care outpatient. RUDDY DO ROGE [place], [place] PROGRESS NOTE NAME: JUDY ZAVALA UNIT #: [id number] ROOM: [facility] DOCTOR: RUDDY GUAN DO BIRTHDATE: [birth year] JHOAN DAMON MD CM:ISHA [id number] RUDDY GUAN DO 08/04/17 1310 interface
--- NOTE | ~2017-08-01 | PR ---
[place], [place] PROGRESS NOTE NAME: JUDY ZAVALA UNIT #: [id number] ROOM: 506 DOCTOR: NELSON WHELAN MD,JHOAN BIRTHDATE: [birth year] DOS: 08/06/2017 SUBJECTIVE: She was seen and examined on 08/06/2017. She has been noted comfortable at this time without any acute distress. The coughing and shortness of breath and other symptoms have been slowly resolving. There were symptoms of chest pain reported by the patient. There were no symptoms of abdominal pain. OBJECTIVE: VITAL SIGNS: For the patient which were recorded. Temperature noted normal, respiratory rate 18, heart rate of 70, blood pressure 131/51. Pulse oxygen saturation on 2 liters nasal cannula 98% saturation. HEENT: No acute change. CARDIOVASCULAR: S1, S2 audible. LUNGS: Noted minimal wheezing. There were no crackles. ABDOMEN: Soft, nontender. Bowel sounds present. EXTREMITIES: Without any edema. LABORATORY DATA: CBC: WBC count 22.2, hemoglobin 11, hematocrit 32.9, platelet count was normal. BMP this morning, BUN 20, creatinine 1.16. IMPRESSION: The patient who had been noted with gradual reduction and improvement in acute exacerbation of chronic obstructive pulmonary disease with gradual reduction in leukocytosis. Culture of the bronchial washing noted as normal keyana. PLAN OF TREATMENT: Decrease the Solu-Medrol dose 40 mg daily at this time. Continue bronchodilators, oxygen supplementation. Monitor leukocytosis. Supportive therapy provided. The plan of care was discussed with the patient as in progress without any other changes. JHOAN DAMON MD CM:PNTRANS [id number] JHOAN WHELAN MD 08/07/17129 interface
--- NOTE | ~2017-08-01 | PR ---
[place], [place] PROGRESS NOTE NAME: [facility]Y [facility]AV[facility]A [facility] [id number] UNIT #: [id number] ROOM: 506 DOCTOR: RUDDY GUAN DO BIRTHDATE: [birth year] DOS: 08/03/2017 SUBJECTIVE: The patient is a 52-year-old female that was seen this morning. The patient is sitting upright in bed, no acute distress. The patient reports that her breathing has improved, but not dramatically and she continues to be short of breath; however, the patient has no new complaints this morning. LABORATORY DATA: White blood cell 23.7, hemoglobin 11, hematocrit 33, platelets 443. Chemistries were normal with the exception of mildly elevated creatinine at 1.1 and glucose of 156; however, all labs were improved from yesterday. OBJECTIVE: VITAL SIGNS: Temperature is 97.4, pulse is 97, respirations 20, blood pressure 134/62, pulse ox is 94% on 2 liters nasal cannula. GENERAL: The patient is alert and oriented times 3, no acute distress. HEENT: Eyes were clear. No injection. Nares were patent. Mucous membranes were moist. NECK: Supple, nontender. CARDIOVASCULAR: S1, S2 noted. No murmurs, gallops or rubs. Regular rate and rhythm. RESPIRATORY: Wheezes, diminished breath sounds in all lung villarreal. No rales were appreciated. ABDOMEN: Soft, nontender with positive bowel sounds. MUSCULOSKELETAL: Shows no deformities. NEUROLOGIC: Negative for any focal deficits. IMPRESSION: 1. Acute exacerbation of chronic obstructive pulmonary disease with bronchial asthma as well. This is likely due to a viral infection. 2. Mucus plugging. The patient likely will benefit from a bronchoscopy. These symptoms have been ongoing for about 3 weeks. 3. Nicotine abuse. 4. Obesity. PLAN OF CARE: The patient is scheduled for bronchoscopy tomorrow. Continue with current antibiotics, Levaquin 750, nicotine patch, Robitussin, Singulair, Dulera, DuoNeb and steroids. Blood cultures are pending. We will reassess the patient following the bronchoscopy tomorrow for improved respiratory status. RUDDY GUAN DO [place], [place] PROGRESS NOTE NAME: JUDY ZAVALA UNIT #: [id number] ROOM: 506 DOCTOR: RUDDY GUAN DO BIRTHDATE: [birth year] JHOAN DAMON MD CM:ISHA [id number] RUDDY GUAN DO 08/04/17 0429 interface
--- NOTE | ~2017-08-01 | PR ---
[place], [place] PROGRESS NOTE NAME: JUDY ZAVALA UNIT #: [id number] ROOM: 506 DOCTOR: JHOAN NATH MD BIRTHDATE: [birth year] DOS: 08/04/2017 ADDENDUM The patient was independently seen today with [id number] encounter, history was confirmed. Physical examination performed. All the available labs were reviewed. Assessment, medical management, and plan were personally made for today's visit. The note done by the medical billing coder was approved. She is currently noted n.p.o. past midnight bronchoscopy. The coughing remains persistent patient and nonproductive severe. Shortness of breath and wheezing was still described. Denies any chest pain. Denies symptoms of hemoptysis, nausea, vomiting or headache or diplopia. PHYSICAL EXAMINATION: VITAL SIGNS: Reviewed for the patient were noted as a normal temperature, respiratory rate of 20, heart rate of 90, blood pressure of 160/68 this morning. Pulse oxygen saturation on 2 liters nasal cannula 93% saturation. LUNGS: The patient was noted with expiratory wheezing, decreased breath sounds, moderately bilaterally. There were no crackles. ABDOMEN: Soft and obese. EXTREMITIES: Without any acute edema. SKIN: No lesions or rashes. MUSCULOSKELETAL: No deformities. CENTRAL NERVOUS SYSTEM: Intact. LABORATORY DATA: BMP today: BUN 16, creatinine 1.19. Remaining BMP was normal. Culture of the spontaneous sputum were noted as normal keyana. CBC this morning: WBC count was elevated 25,000, hemoglobin 10.6 and 32.3. Platelet count was normal with 81% segmented neutrophils were noted. IMPRESSION: Persistent severe cough for the patient related to mucus impaction with acute exacerbation of chronic obstructive pulmonary disease will be considered. Leukocytosis, multifactorial, majority most likely related to the corticosteroids use with rule out any occult new infection, which is not treated. PLAN OF TREATMENT: The patient will be undergoing bronchoscopy today for the patient. Further assessment, which will be therapeutic. Additional change in treatment will be made for the patient based on the progression of illness or after bronchoscopy. [place], [place] PROGRESS NOTE NAME: JUDY ZAVALA UNIT #: [id number] ROOM: 506 DOCTOR: JHOAN NATH MD BIRTHDATE: [birth year] JHOAN DAMON MD CM:ISHA 1504 15 JHOAN WHELAN MD 08/04/171615 interface
--- NOTE | ~2017-08-01 | PROC NOTE ---
[place], [place] PROCEDURE NOTE NAME: JUDY ZAVALA UNIT #: [id number] ROOM: 506 DOCTOR: NELSON WHELAN MD,JHOAN BIRTHDATE: [birth year] DOS: 08/04/2017 PREOPERATIVE DIAGNOSIS: Severe ineffective sputum expectoration with ongoing cough with maximum medical therapy. POSTOPERATIVE DIAGNOSIS: Removal of severe mucous impaction major airways bilaterally. PROCEDURE DESCRIPTION: Informed consent obtained from the patient. The patient brought to the OR and placed in supine physician. Conscious sedation administered by the Anesthesia Department. After achieving appropriate conscious sedation, a conscious sedation, airway introduced into the mouth. Bronchoscope advanced through the airway into laryngeal area. Epiglottis and vocal were seen. Bronchoscope advanced through the airway into laryngeal area. Epiglottis was noted as was noted normal. The vocal cord noted yellowish in color moving symmetrically with movements. Bronchoscope advanced to vocal cord and tracheal lumen. Tracheal lumen was noted with copious amount of thick mucus secretion with minimal pleural secretions suctioned out nemo level. Right upper, right middle, right lower, left upper, lingular lower bronchi were all examined. Large thick mucus plug of the patient in almost all of the endobronchial tree subsegments which was cleared of normal saline wash, sent for cultures. Procedure was well tolerated by the patient without any difficulty. Postoperative findings were discussed with the patient without any difficulty. The patient will be continued on current plan of treatment. The patient at this time, no changes in the treatment will be needed. JHOAN DAMON MD CM:PROCNOTE:PROCEDURE NOTE 1506 1658 JHOAN WHELAN MD
--- NOTE | ~2017-08-01 | PR ---
[place], [place] PROGRESS NOTE NAME: JUDY ZAVALA [facility] #: [id number] UNIT #: [id number] ROOM: 506 DOCTOR: NELSON WHELAN MDJHOAN BIRTHDATE: [birth year] DOS: 08/03/2017 SUBJECTIVE: The patient independently seen and examined in obzz-ma-gves encounter, history was taken from the patient. The physical examination was personally performed. All the lab data of the patient available today were personally reviewed as well. The assessment of this patient was personally completed and the management recommendation was made for the patient on today's visit. The note done by the medical laboratory technologist was approved. The patient continued to report symptoms of cough that remains persistent, nonproductive, which has been noted intermittently partial reduction in severity was noted. Shortness of breath and wheezing was also noted for this patient sometime at rest and definitively occurs with exertion. She is complaining of general weakness and fatigue. Denies symptoms of headache or diplopia. Denies any edema or pain of the lower extremities. Denies changes in the appetite. Denies any abnormal rashes on the skin. PHYSICAL EXAMINATION: VITAL SIGNS: Reviewed, was noted essentially normal vital signs for this patient. The pulse oxygen saturation of the patient recorded on 2 liters nasal cannula was 92% saturation. LUNGS: Noted with diffuse reduction in the breath sounds with moderate expiratory wheezing. ABDOMEN: Noted with moderate obesity. Bowel sounds present without any tenderness. EXTREMITIES: Without edema, clubbing, or cyanosis. SKIN: No visible lesions or rashes. MUSCULOSKELETAL: No deformities. CENTRAL NERVOUS SYSTEM: Intact. LABORATORY DATA: BMP today, glucose 157, mildly elevated, normal BUN and creatinine. CBC this morning, WBC count elevated significantly at 23.7, hemoglobin 11, hematocrit 33.0, platelet count 433,000. Sputum culture of the patient appeared to be normal keyana. Blood culture from 08/01/2017 preliminarily showing no bacterial growth in 2 sets of the patient's blood cultures taken on admission. IMPRESSION: Persistent acute exacerbation of COPD of the patient and bronchial asthma, combination noted with ongoing acute tracheobronchitis, suspected mucus impaction of the airways, history of chronic nicotine abuse, and obesity. PLAN OF MANAGEMENT: Continue current conservative treatment of the patient with current medications, corticosteroids, bronchodilators, and antibiotics. Therapeutic bronchoscopy of the patient was suggested to be done tomorrow morning. The risks and benefits were discussed with the patient and she was agreeable for the procedure. No changes in the immediate treatment will be necessary on today's visit. [place], [place] PROGRESS NOTE NAME: JUDY ZAVALA UNIT #: [id number] ROOM: [facility] DOCTOR: JHOAN NATH MD BIRTHDATE: [birth year] JHOAN DAMON MD CM:PNTRANS 1426 06 JHOAN WHELAN MD 08/03/17 230 interface
--- NOTE | ~2017-08-01 | PR ---
[place], [place] PROGRESS NOTE NAME: JUDY ZAVALA UNIT #: [id number] ROOM: 506 DOCTOR: NELSON WHELAN MD,JHOAN BIRTHDATE: [birth year] DOS: 08/07/2017 SUBJECTIVE: The patient was complaining of some generalized aches and pains. Respiratory torres, she has been doing very well. Acute symptoms of shortness breath were described. Denies symptoms of chest pain or hemoptysis. OBJECTIVE: VITAL SIGNS: For the patient which were recorded. The patient showed the temperature noted as normal. The respiratory rate of the patient recorded as 18, blood pressure 108/56, pulse ox 97% saturation on 2 liter nasal cannula. HEENT: Showed no new change. NECK: Supple. CARDIOVASCULAR: S1, S2 is audible. LUNGS: The patient noted without any wheeze or crackles at the present time. ABDOMEN: Soft, nontender. IMPRESSION: 1. Stable respiratory status noted from the pulmonary standpoint with progressive resolution, improvement in respiratory symptoms, coughing, wheezing are noted. 2. Pain for this patient described of unclear etiology, has been assessed by the primary care attending patient for medical management. PLAN OF TREATMENT: From the pulmonary standpoint, the patient will be continued on the current medical management, could be discharged home. The patient medically stable on tapering prednisone. Supportive care. JHOAN DAMON MD CM:PNTRANS 1507 09 JHOAN WHELAN MD 08/07/171809 interface
[2017-08-01 13:24] VITALS: BP 140/90
[2017-08-01 13:56] LABS: HEMATOCRIT 38.8 % (37.0-47.0); HEMOGLOBIN 13.5 g/dl (12.0-16.0); MEAN CELL VOLUME 85.3 fl (81.0-99.0); MEAN CORPUSCULAR HGB 29.7 pg (27.0-31.0); MEAN CORPUSCULAR HGB CONC 34.8 g/dl (33.0-37.0); MEAN PLATELET VOLUME 10.7 fl (9.6-12.3); PLATELET COUNT AUTOMATED 478 10*3/uL (130-400); RED BLOOD COUNT 4.55 10*6/uL (4.10-5.10); RED CELL DISTRI WIDTH 12.8 % (0-14.5); WHITE BLOOD COUNT 16.4 10*3/uL (4.8-10.8)
[2017-08-01 14:09] LABS: ALBUMIN 3.3 gm/dl (3.1-4.5); ALKALINE PHOSPHATASE 117 U/L (45-117); BUN 3 mg/dl (7-24); CHLORIDE 100 mmol/L (98-107); POTASSIUM 3.7 mmol/L (3.5-5.1); SGOT/AST 20 IU/L (3-35); SGPT/ALT 24 U/L (12-78); SODIUM 136 mmol/L (136-145); TOTAL PROTEIN 7.9 gm/dL (6.4-8.2)
[2017-08-01 14:11] LABS: TROPONIN I < 0.015 ng/ml (<0.045)
[2017-08-01 14:14] LABS: PLATELET SUFFICIENCY HIGH (NORMAL); TOTAL CELLS COUNTED 100 #CELLS
[2017-08-01 14:15] LABS: TOXIC GRANULATION SLIGHT
[2017-08-01 14:37] VITALS: BP 129/80
[2017-08-01 15:03] VITALS: BP 123/83
[2017-08-01 16:00] VITALS: BP 147/74
[2017-08-01] MEDS ORDERED: OLANZAPINE5 MG PO (16:43)
[2017-08-01] MEDS ORDERED: DUONEB 3 MG/3 ML3 M1 INH (17:05)
[2017-08-01] MEDS ORDERED: VITAMIN D-32000 UNI1 PO (17:07)
[2017-08-01 20:00] VITALS: BP 119/70
[2017-08-02] VITALS (7 sets, daily range): BP systolic 112–129; BP diastolic 63–85
[2017-08-02 07:00] LABS: HEMATOCRIT 33.4 % (37.0-47.0); HEMOGLOBIN 11.7 g/dl (12.0-16.0); MEAN CELL VOLUME 87.2 fl (81.0-99.0); MEAN CORPUSCULAR HGB 30.5 pg (27.0-31.0); MEAN PLATELET VOLUME 10.8 fl (9.6-12.3); PLATELET COUNT AUTOMATED 419 10*3/uL (130-400); RED BLOOD COUNT 3.83 10*6/uL (4.10-5.10); RED CELL DISTRI WIDTH 12.9 % (0-14.5); WHITE BLOOD COUNT 18.7 10*3/uL (4.8-10.8)
[2017-08-02 07:32] LABS: CREATININE 1.17 mg/dL (0.55-1.02); FREE T4 1.2 ng/dl (0.76-1.46)
[2017-08-02 07:38] LABS: PLATELET SUFFICIENCY HIGH (NORMAL); TOTAL CELLS COUNTED 100 #CELLS
[2017-08-02 07:39] LABS: THYROID STIM HORMONE (HS) 0.373 uIU/ml (0.358-4.75)
[2017-08-02 08:39] LABS: VITAMIN D, 25-HYDROXY 20.9 ng/mL (30-100)
[2017-08-03] VITALS: BP 117/55
[2017-08-03 06:57] LABS: MEAN CORPUSCULAR HGB 30.2 pg (27.0-31.0); MEAN CORPUSCULAR HGB CONC 33.3 g/dl (33.0-37.0); MEAN PLATELET VOLUME 11.3 fl (9.6-12.3); PLATELET COUNT AUTOMATED 443 10*3/uL (130-400); RED BLOOD COUNT 3.64 10*6/uL (4.10-5.10); RED CELL DISTRI WIDTH 13.4 % (0-14.5); WHITE BLOOD COUNT 23.7 10*3/uL (4.8-10.8)
[2017-08-03 07:02] LABS: MEAN CELL VOLUME 90.7 fl (81.0-99.0)
[2017-08-03 07:05] LABS: BUN 8 mg/dl (7-24); CHLORIDE 104 mmol/L (98-107); CREATININE 1.08 mg/dL (0.55-1.02); SODIUM 141 mmol/L (136-145)
[2017-08-03 07:16] LABS: POTASSIUM 4.3 mmol/L (3.5-5.1)
[2017-08-03 07:43] LABS: PLATELET SUFFICIENCY HIGH (NORMAL); POLYCHROMASIA SLIGHT; TOTAL CELLS COUNTED 100 #CELLS
[2017-08-03 08:00] VITALS: BP 125/67
[2017-08-03 12:00] VITALS: BP 134/62
[2017-08-03 16:00] VITALS: BP 108/54
[2017-08-03 20:00] VITALS: BP 123/57
[2017-08-04] VITALS (9 sets, daily range): BP systolic 101–133; BP diastolic 55–68
[2017-08-04 06:28] LABS: HEMATOCRIT 32.3 % (37.0-47.0); HEMOGLOBIN 10.6 g/dl (12.0-16.0); MEAN CELL VOLUME 90.7 fl (81.0-99.0); MEAN CORPUSCULAR HGB 29.8 pg (27.0-31.0); MEAN CORPUSCULAR HGB CONC 32.8 g/dl (33.0-37.0); MEAN PLATELET VOLUME 10.7 fl (9.6-12.3); PLATELET COUNT AUTOMATED 409 10*3/uL (130-400); RED BLOOD COUNT 3.56 10*6/uL (4.10-5.10); RED CELL DISTRI WIDTH 13.7 % (0-14.5)
[2017-08-04 06:43] LABS: CREATININE 1.19 mg/dL (0.55-1.02); POTASSIUM 4.8 mmol/L (3.5-5.1)
[2017-08-04 07:13] LABS: PLATELET SUFFICIENCY HIGH (NORMAL); TOTAL CELLS COUNTED 100 #CELLS; TOXIC GRANULATION SLIGHT; VACUOLATION OF NEUTROPHILS SLIGHT
[2017-08-05] VITALS: BP 127/57
[2017-08-05 06:39] LABS: BASO # 0.1 10*3/uL (0.0-0.1); BASO % 0.4 % (0.0-1.0); HEMATOCRIT 34.7 % (37.0-47.0); HEMOGLOBIN 11.4 g/dl (12.0-16.0); LYMPH % 8.2 % (27.0-41.0); MEAN CELL VOLUME 93.3 fl (81.0-99.0); MEAN CORPUSCULAR HGB 30.6 pg (27.0-31.0); MEAN CORPUSCULAR HGB CONC 32.9 g/dl (33.0-37.0); MONO # 0.9 10*3/uL (0.1-1.0); MONO % 3.8 % (3.0-9.0); NEUT # 19.5 10*3/uL (2.3-7.9); NEUT % 79.8 % (47.0-73.0); PLATELET COUNT AUTOMATED 421 10*3/uL (130-400); RED BLOOD COUNT 3.72 10*6/uL (4.10-5.10); RED CELL DISTRI WIDTH 13.7 % (0-14.5); WHITE BLOOD COUNT 24.5 10*3/uL (4.8-10.8)
[2017-08-05 06:57] LABS: CREATININE 1.18 mg/dL (0.55-1.02); POTASSIUM 4.4 mmol/L (3.5-5.1)
[2017-08-05 08:00] VITALS: BP 132/88
[2017-08-05 12:09] LABS: ACID FAST SMEAR Negative (.); ACID FAST SPEC PROCESSING Concentration (.)
[2017-08-05 16:01] VITALS: BP 152/67
[2017-08-05 20:00] VITALS: BP 135/70
[2017-08-06] VITALS: BP 136/66
[2017-08-06 06:49] LABS: HEMATOCRIT 32.9 % (37.0-47.0); MEAN CELL VOLUME 92.2 fl (81.0-99.0); MEAN CORPUSCULAR HGB 30.8 pg (27.0-31.0); MEAN CORPUSCULAR HGB CONC 33.4 g/dl (33.0-37.0); MEAN PLATELET VOLUME 10.6 fl (9.6-12.3); PLATELET COUNT AUTOMATED 381 10*3/uL (130-400); RED BLOOD COUNT 3.57 10*6/uL (4.10-5.10); RED CELL DISTRI WIDTH 13.5 % (0-14.5); WHITE BLOOD COUNT 22.2 10*3/uL (4.8-10.8)
[2017-08-06 07:14] LABS: PLATELET SUFFICIENCY NORMAL (NORMAL); TOTAL CELLS COUNTED 100 #CELLS
[2017-08-06 07:16] LABS: CREATININE 1.16 mg/dL (0.55-1.02); POTASSIUM 4.8 mmol/L (3.5-5.1)
[2017-08-06 07:41] VITALS: BP 140/84
[2017-08-06 11:37] VITALS: BP 146/57
[2017-08-06 15:40] VITALS: BP 131/51
[2017-08-06 20:00] VITALS: BP 115/53
[2017-08-07] VITALS: BP 124/56
[2017-08-07 05:57] LABS: HEMATOCRIT 33.3 % (37.0-47.0); MEAN CELL VOLUME 93.3 fl (81.0-99.0); MEAN CORPUSCULAR HGB 30.8 pg (27.0-31.0); MEAN PLATELET VOLUME 10.5 fl (9.6-12.3); PLATELET COUNT AUTOMATED 369 10*3/uL (130-400); RED BLOOD COUNT 3.57 10*6/uL (4.10-5.10); RED CELL DISTRI WIDTH 13.7 % (0-14.5); WHITE BLOOD COUNT 16.8 10*3/uL (4.8-10.8)
[2017-08-07 06:12] LABS: CREATININE 1.23 mg/dL (0.55-1.02); POTASSIUM 4.2 mmol/L (3.5-5.1)
[2017-08-07 06:31] LABS: TOTAL CELLS COUNTED 100 #CELLS
[2017-08-07 06:32] LABS: PLATELET SUFFICIENCY NORMAL (NORMAL)
[2017-08-07 08:00] VITALS: BP 108/56
[2017-08-07 12:00] VITALS: BP 110/54
[2017-08-07 16:00] VITALS: BP 114/56
[2017-08-07 20:00] VITALS: BP 106/54
[2017-08-08] VITALS: BP 116/52
[2017-08-08 06:56] LABS: HEMATOCRIT 33.6 % (37.0-47.0); HEMOGLOBIN 10.7 g/dl (12.0-16.0); MEAN CELL VOLUME 94.1 fl (81.0-99.0); MEAN CORPUSCULAR HGB CONC 31.8 g/dl (33.0-37.0); MEAN PLATELET VOLUME 10.5 fl (9.6-12.3); PLATELET COUNT AUTOMATED 325 10*3/uL (130-400); RED BLOOD COUNT 3.57 10*6/uL (4.10-5.10); RED CELL DISTRI WIDTH 13.5 % (0-14.5); WHITE BLOOD COUNT 15.7 10*3/uL (4.8-10.8)
[2017-08-08 07:28] LABS: CREATININE 1.39 mg/dL (0.55-1.02); POTASSIUM 4.3 mmol/L (3.5-5.1)
[2017-08-08 07:33] LABS: PLATELET SUFFICIENCY NORMAL (NORMAL); TOTAL CELLS COUNTED 100 #CELLS
[2017-08-08 08:00] VITALS: BP 112/69
[2017-08-08] MEDS ORDERED: LEVAQUIN750 M1 PO (10:04)
[2017-08-08] MEDS ORDERED: PREDNISONE10 MG PO (10:04)
[2017-08-08] MEDS ORDERED: GUAIFENESIN-COD10 ML PO (10:05)
== END 2017-08-08 11:22 | disposition home or self-care (01) | DRG 871 ==
LOC: ED 12:48 → 5E 14:23 → EDHOLD 14:23 → 5E 14:49
PROVIDERS: Family Medicine; Internal Medicine Critical Care Medicine; Nurse Practitioner Family; Student in an Organized Health Care Education/Training Program
PROC: 0BC48ZZ Extirpation of Matter from Right Upper Lobe Bronchus, Via Natural or Artificial Opening Endoscopic (ICD-10-PCS; principal; 2017-08-04)
PROC: 0BC98ZZ Extirpation of Matter from Lingula Bronchus, Via Natural or Artificial Opening Endoscopic (ICD-10-PCS; principal; 2017-08-04)
PROC: 0BC68ZZ Extirpation of Matter from Right Lower Lobe Bronchus, Via Natural or Artificial Opening Endoscopic (ICD-10-PCS; principal; 2017-08-04)
PROC: 0BC78ZZ Extirpation of Matter from Left Main Bronchus, Via Natural or Artificial Opening Endoscopic (ICD-10-PCS; principal; 2017-08-04)
PROC: 0BCB8ZZ Extirpation of Matter from Left Lower Lobe Bronchus, Via Natural or Artificial Opening Endoscopic (ICD-10-PCS; principal; 2017-08-04)
PROC: 0BC38ZZ Extirpation of Matter from Right Main Bronchus, Via Natural or Artificial Opening Endoscopic (ICD-10-PCS; principal; 2017-08-04)
PROC: 0BC88ZZ Extirpation of Matter from Left Upper Lobe Bronchus, Via Natural or Artificial Opening Endoscopic (ICD-10-PCS; principal; 2017-08-04)
PROC: 0BC18ZZ Extirpation of Matter from Trachea, Via Natural or Artificial Opening Endoscopic (ICD-10-PCS; principal; 2017-08-04)
DX: A41.9 Sepsis, unspecified organism (principal); J18.9 Pneumonia, unspecified organism; J96.10 Chronic respiratory failure, unspecified whether with hypoxia or hypercapnia; E44.0 Moderate protein-calorie malnutrition; E87.2 Acidosis; T17.590A Other foreign object in bronchus causing asphyxiation, initial encounter; J44.0 Chronic obstructive pulmonary disease with (acute) lower respiratory infection; J44.1 Chronic obstructive pulmonary disease with (acute) exacerbation; Z99.81 Dependence on supplemental oxygen; R65.20 Severe sepsis without septic shock; D47.3 Essential (hemorrhagic) thrombocythemia; E55.9 Vitamin D deficiency, unspecified; K21.9 Gastro-esophageal reflux disease without esophagitis; J40 Bronchitis, not specified as acute or chronic; F14.10 Cocaine abuse, uncomplicated; F32.9 Major depressive disorder, single episode, unspecified; E78.5 Hyperlipidemia, unspecified; X58.XXXA Exposure to other specified factors, initial encounter; E66.9 Obesity, unspecified; F17.200 Nicotine dependence, unspecified, uncomplicated; Z71.6 Tobacco abuse counseling; Z98.51 Tubal ligation status; Z90.49 Acquired absence of other specified parts of digestive tract; Z83.3 Family history of diabetes mellitus; Z80.8 Family history of malignant neoplasm of other organs or systems; Z80.52 Family history of malignant neoplasm of bladder; Z82.49 Family history of ischemic heart disease and other diseases of the circulatory system; Z79.899 Other long term (current) drug therapy; Y93.89 Activity, other specified; Z88.0 Allergy status to penicillin; Z88.6 Allergy status to analgesic agent; Z88.1 Allergy status to other antibiotic agents; Y92.89 Other specified places as the place of occurrence of the external cause; Y99.8 Other external cause status; Z68.29 Body mass index [BMI] 29.0-29.9, adult; R73.9 Hyperglycemia, unspecified

== ENCOUNTER 2017-08-22 18:56 | Inpatient (IN) | payer MEDICARE ==
[~2017-08-22] VITALS: Ht 157.4 cm; Wt 86.6 kg
[~2017-08-22 18:56] MED LIST changes: +DUONEB 3 MG/3 ML3 M1 INH; +GUAIFENESIN-COD10 ML PO; +LEVAQUIN750 M1 PO; +OLANZAPINE5 MG PO; +VITAMIN D-32000 UNI1 PO
[2017-08-22 18:58] VITALS: BP 150/70
[2017-08-22 19:22] LABS: BASO % 0.2 % (0.0-1.0); EOS % 0.1 % (1.0-4.0); HEMATOCRIT 37.2 % (37.0-47.0); HEMOGLOBIN 12.4 g/dl (12.0-16.0); LYMPH % 15.3 % (27.0-41.0); MEAN CELL VOLUME 90.3 fl (81.0-99.0); MEAN CORPUSCULAR HGB 30.1 pg (27.0-31.0); MEAN CORPUSCULAR HGB CONC 33.3 g/dl (33.0-37.0); MEAN PLATELET VOLUME 9.2 fl (9.6-12.3); MONO % 7.4 % (3.0-9.0); NEUT % 76.5 % (47.0-73.0); PLATELET COUNT AUTOMATED 406 10*3/uL (130-400); RED BLOOD COUNT 4.12 10*6/uL (4.10-5.10); RED CELL DISTRI WIDTH 15.1 % (0-14.5)
[2017-08-22 19:36] LABS: ACETAMINOPHEN (TYLENOL) < 2.0 ug/ml (10-30)
[2017-08-22 19:36] LABS: BILIRUBIN NEGATIVE (NEGATIVE); BLOOD NEGATIVE (NEGATIVE); CLARITY CLEAR (CLEAR); COLOR YELLOW (YELLOW); GLUCOSE NEGATIVE (NEGATIVE); KETONE NEGATIVE (NEGATIVE); LEUKO ESTERASE TRACE (NEGATIVE); NITRITE NEGATIVE (NEGATIVE); UROBILINOGEN 0.2 E.U./dl (0.2-1.0)
[2017-08-22 19:37] LABS: ALBUMIN 3.5 gm/dl (3.1-4.5); CREATININE 1.15 mg/dL (0.55-1.02); POTASSIUM 3.5 mmol/L (3.5-5.1)
[2017-08-22 19:43] LABS: BACTERIA TRACE; EPITHELIAL CELLS 31-40
[2017-08-22 19:45] LABS: URINE AMPHETAMINES < 1000 (1000ng/ml); URINE BARBITURATES < 200 (200ng/ml); URINE BENZODIAZEPINES < 200 (200ng/ml); URINE CANNABINOIDS (THC) < 50 (50ng/ml); URINE COCAINE < 300 (300ng/ml); URINE METHADONE < 300 (300ng/ml); URINE OPIATES < 300 (300ng/ml)
[2017-08-22 19:45] LABS: ACT PARTIAL THROMBO TIME 22.1 SECONDS (20.8-31.5); INTERNATIONAL NORM RATIO 0.9 (2.0-3.5)
[2017-08-22 19:46] LABS: URINE PHENCYCLIDINE < 25 (25ng/ml)
[2017-08-22 20:23] VITALS: BP 141/75
[2017-08-22 21:05] VITALS: BP 112/62
[2017-08-22 22:20] VITALS: BP 124/72
[2017-08-23] VITALS: BP 124/72
[2017-08-23 03:53] LABS: HEMOGLOBIN 11.5 g/dl (12.0-16.0); MEAN CELL VOLUME 91.9 fl (81.0-99.0); MEAN CORPUSCULAR HGB 30.2 pg (27.0-31.0); MEAN CORPUSCULAR HGB CONC 32.9 g/dl (33.0-37.0); MEAN PLATELET VOLUME 9.7 fl (9.6-12.3); PLATELET COUNT AUTOMATED 376 10*3/uL (130-400); RED BLOOD COUNT 3.81 10*6/uL (4.10-5.10); RED CELL DISTRI WIDTH 15.5 % (0-14.5); WHITE BLOOD COUNT 14.8 10*3/uL (4.8-10.8)
[2017-08-23 04:14] LABS: PLATELET SUFFICIENCY NORMAL (NORMAL); TOTAL CELLS COUNTED 100 #CELLS
[2017-08-23 04:20] LABS: INTERNATIONAL NORM RATIO 0.9 (2.0-3.5)
[2017-08-23 04:24] LABS: ALBUMIN 3.1 gm/dl (3.1-4.5); BUN 12 mg/dl (7-24); CHLORIDE 104 mmol/L (98-107); CHOLESTEROL 207 mg/dL (<200); CREATININE 1.12 mg/dL (0.55-1.02); PHOSPHOROUS 3.6 mg/dL (2.5-4.9); POTASSIUM 3.4 mmol/L (3.5-5.1); SGOT/AST 5 IU/L (3-35); SGPT/ALT 15 U/L (12-78); SODIUM 140 mmol/L (136-145); TOTAL PROTEIN 6.3 gm/dL (6.4-8.2); TRIGLYCERIDES 185 mg/dl (<150); VLDL CHOLESTEROL 37 mg/dL (6-40)
[2017-08-23 04:30] LABS: ALKALINE PHOSPHATASE 77 U/L (45-117); HDL CHOLESTEROL 62 mg/dl (40-60); LDL CHOLESTEROL 108 mg/dL (9-159)
[2017-08-23 06:32] LABS: VITAMIN D, 25-HYDROXY 18.8 ng/mL (30-100)
[2017-08-23 08:00] VITALS: BP 147/79
[2017-08-23 12:00] VITALS: BP 111/60
== END 2017-08-23 14:44 | disposition home or self-care (01) | DRG 391 ==
LOC: ED 18:56 → EDHOLD 21:14 → 5E 21:33
PROVIDERS: Hospitalist; Student in an Organized Health Care Education/Training Program
DX: K21.9 Gastro-esophageal reflux disease without esophagitis (principal); I21.9 Acute myocardial infarction, unspecified; E44.0 Moderate protein-calorie malnutrition; F32.2 Major depressive disorder, single episode, severe without psychotic features; R65.10 Systemic inflammatory response syndrome (SIRS) of non-infectious origin without acute organ dysfunction; N18.3 Chronic kidney disease, stage 3 (moderate); R55 Syncope and collapse; E66.9 Obesity, unspecified; R07.89 Other chest pain; F41.9 Anxiety disorder, unspecified; F10.920 Alcohol use, unspecified with intoxication, uncomplicated; Y90.6 Blood alcohol level of 120-199 mg/100 ml; D47.3 Essential (hemorrhagic) thrombocythemia; E78.2 Mixed hyperlipidemia; D64.9 Anemia, unspecified; E87.6 Hypokalemia; F17.210 Nicotine dependence, cigarettes, uncomplicated; E55.9 Vitamin D deficiency, unspecified; J44.9 Chronic obstructive pulmonary disease, unspecified; E78.5 Hyperlipidemia, unspecified; Z68.34 Body mass index [BMI] 34.0-34.9, adult; Z98.51 Tubal ligation status; Z82.5 Family history of asthma and other chronic lower respiratory diseases; Z82.49 Family history of ischemic heart disease and other diseases of the circulatory system; Z80.9 Family history of malignant neoplasm, unspecified; Z88.6 Allergy status to analgesic agent; Z88.1 Allergy status to other antibiotic agents; Z88.0 Allergy status to penicillin; Z88.8 Allergy status to other drugs, medicaments and biological substances; Z91.09 Other allergy status, other than to drugs and biological substances; Z79.899 Other long term (current) drug therapy; Z71.6 Tobacco abuse counseling

== ENCOUNTER 2017-10-18 02:53 | Emergency (ER) | payer MEDICARE ==
[~2017-10-18] VITALS: Ht 167.6 cm; Wt 81.6 kg
[2017-10-18 03:25] LABS: BASO # 0.1 10*3/uL (0.0-0.1); BASO % 0.8 % (0.0-1.0); EOS # 0.5 10*3/uL (0.0-0.4); EOS % 5.2 % (1.0-4.0); HEMATOCRIT 41.2 % (37.0-47.0); HEMOGLOBIN 13.7 g/dl (12.0-16.0); LYMPH # 4.2 10*3/uL (1.3-4.4); LYMPH % 43.6 % (27.0-41.0); MEAN CELL VOLUME 90.9 fl (81.0-99.0); MEAN CORPUSCULAR HGB 30.2 pg (27.0-31.0); MEAN CORPUSCULAR HGB CONC 33.3 g/dl (33.0-37.0); MEAN PLATELET VOLUME 11.1 fl (9.6-12.3); MONO # 0.7 10*3/uL (0.1-1.0); MONO % 7.4 % (3.0-9.0); NEUT # 4.1 10*3/uL (2.3-7.9); NEUT % 42.8 % (47.0-73.0); PLATELET COUNT AUTOMATED 352 10*3/uL (130-400); RED BLOOD COUNT 4.53 10*6/uL (4.10-5.10); RED CELL DISTRI WIDTH 14.5 % (0-14.5); WHITE BLOOD COUNT 9.7 10*3/uL (4.8-10.8)
[2017-10-18 03:35] LABS: ACT PARTIAL THROMBO TIME 25.9 SECONDS (20.8-31.5); INTERNATIONAL NORM RATIO 0.9 (2.0-3.5)
[2017-10-18 03:41] LABS: ALBUMIN 3.7 gm/dl (3.1-4.5); ALKALINE PHOSPHATASE 99 U/L (45-117); BUN 9 mg/dl (7-24); CHLORIDE 101 mmol/L (98-107); CREATININE 0.89 mg/dL (0.55-1.02); POTASSIUM 3.8 mmol/L (3.5-5.1); SGOT/AST 16 IU/L (3-35); SGPT/ALT 22 U/L (12-78); SODIUM 139 mmol/L (136-145); TOTAL PROTEIN 7.1 gm/dL (6.4-8.2)
[2017-10-18 03:44] LABS: TROPONIN I < 0.015 ng/ml (<0.045)
== END 2017-10-18 05:50 | disposition home or self-care (01) ==
LOC: ED 02:53
PROVIDERS: Student in an Organized Health Care Education/Training Program
DX: R10.84 Generalized abdominal pain (principal); R11.2 Nausea with vomiting, unspecified; F17.200 Nicotine dependence, unspecified, uncomplicated; N18.9 Chronic kidney disease, unspecified; J44.9 Chronic obstructive pulmonary disease, unspecified; K21.9 Gastro-esophageal reflux disease without esophagitis; E66.9 Obesity, unspecified; E78.5 Hyperlipidemia, unspecified; Z68.34 Body mass index [BMI] 34.0-34.9, adult; Z99.81 Dependence on supplemental oxygen; Z79.899 Other long term (current) drug therapy; Z88.0 Allergy status to penicillin; Z88.1 Allergy status to other antibiotic agents; Z98.51 Tubal ligation status; Z98.890 Other specified postprocedural states; Z88.6 Allergy status to analgesic agent; Z88.8 Allergy status to other drugs, medicaments and biological substances

== ENCOUNTER 2017-12-09 23:18 | Emergency (ER) | payer MEDICARE ==
[~2017-12-09] VITALS: Ht 157.4 cm; Wt 108.9 kg
--- NOTE | ~2017-12-09 | EKG ---
[place], [place] ELECTROCARDIOGRAM REPORT NAME: JUDY ZAVALA UNIT #: [id number] ROOM: DOCTOR: NELSON WHELAN MD,JHOAN BIRTHDATE: [birth year] DOS: 12/09/2017 Electrocardiogram was done on 12/09/2017 at 23:46 hours. Heart rate was noted as normal, sinus rhythm at 84 beats per minute. Nonspecific changes noted in some of the limb leads. JHOAN DAMON MD CM:EKGRPT:ELECTROCARDIOGRAM REPORT 1408 10 JHOAN WHELAN MD
[2017-12-10 00:23] LABS: BASO # 0.1 10*3/uL (0.0-0.1); BASO % 0.9 % (0.0-1.0); EOS # 0.2 10*3/uL (0.0-0.4); EOS % 1.9 % (1.0-4.0); HEMATOCRIT 42.9 % (37.0-47.0); HEMOGLOBIN 14.1 g/dl (12.0-16.0); LYMPH % 41.8 % (27.0-41.0); MEAN CELL VOLUME 91.5 fl (81.0-99.0); MEAN CORPUSCULAR HGB 30.1 pg (27.0-31.0); MEAN CORPUSCULAR HGB CONC 32.9 g/dl (33.0-37.0); MEAN PLATELET VOLUME 11.4 fl (9.6-12.3); MONO # 0.9 10*3/uL (0.1-1.0); MONO % 8.9 % (3.0-9.0); NEUT # 4.4 10*3/uL (2.3-7.9); NEUT % 46.2 % (47.0-73.0); PLATELET COUNT AUTOMATED 296 10*3/uL (130-400); RED BLOOD COUNT 4.69 10*6/uL (4.10-5.10); RED CELL DISTRI WIDTH 13.4 % (0-14.5); WHITE BLOOD COUNT 9.6 10*3/uL (4.8-10.8)
[2017-12-10 00:40] LABS: ALBUMIN 3.7 gm/dl (3.1-4.5); ALKALINE PHOSPHATASE 120 U/L (45-117); BUN 7 mg/dl (7-24); CHLORIDE 111 mmol/L (98-107); CREATININE 1.04 mg/dL (0.55-1.02); POTASSIUM 4.2 mmol/L (3.5-5.1); SGOT/AST 22 IU/L (3-35); SGPT/ALT 28 U/L (12-78); SODIUM 144 mmol/L (136-145); TOTAL PROTEIN 7.2 gm/dL (6.4-8.2)
[2017-12-10 00:41] LABS: ACETAMINOPHEN (TYLENOL) < 2.0 ug/ml (10-30)
[2017-12-10 01:09] LABS: BILIRUBIN NEGATIVE (NEGATIVE); BLOOD NEGATIVE (NEGATIVE); CLARITY CLEAR (CLEAR); COLOR YELLOW (YELLOW); GLUCOSE NEGATIVE (NEGATIVE); KETONE NEGATIVE (NEGATIVE); LEUKO ESTERASE NEGATIVE (NEGATIVE); NITRITE NEGATIVE (NEGATIVE); UROBILINOGEN 0.2 E.U./dl (0.2-1.0)
[2017-12-10 01:24] LABS: URINE AMPHETAMINES < 1000 (1000ng/ml); URINE BARBITURATES < 200 (200ng/ml); URINE CANNABINOIDS (THC) < 50 (50ng/ml); URINE COCAINE < 300 (300ng/ml); URINE METHADONE < 300 (300ng/ml); URINE OPIATES < 300 (300ng/ml)
[2017-12-10 01:29] LABS: URINE BENZODIAZEPINES < 200 (200ng/ml); URINE PHENCYCLIDINE < 25 (25ng/ml)
== END 2017-12-10 20:45 | disposition home health service (06) ==
LOC: ED 23:18
PROVIDERS: Emergency Medicine Emergency Medical Services
DX: F32.9 Major depressive disorder, single episode, unspecified (principal); R45.851 Suicidal ideations; N18.9 Chronic kidney disease, unspecified; J44.9 Chronic obstructive pulmonary disease, unspecified; K21.9 Gastro-esophageal reflux disease without esophagitis; E78.5 Hyperlipidemia, unspecified; E66.9 Obesity, unspecified; F17.200 Nicotine dependence, unspecified, uncomplicated; Z68.34 Body mass index [BMI] 34.0-34.9, adult; Z98.51 Tubal ligation status; Z79.899 Other long term (current) drug therapy; Z88.0 Allergy status to penicillin; Z88.1 Allergy status to other antibiotic agents; Z88.6 Allergy status to analgesic agent; Z88.8 Allergy status to other drugs, medicaments and biological substances

== ENCOUNTER 2018-04-21 11:27 | Emergency (ER) | payer MEDICARE ==
[~2018-04-21] VITALS: Ht 157.4 cm; Wt 91.6 kg
--- NOTE | ~2018-04-21 | EKG ---
[place], [place] ELECTROCARDIOGRAM REPORT NAME: JUDY ZAVALA UNIT #: [id number] ROOM: DOCTOR: EPIPHANY DRAFT REPORT BIRTHDATE: [birth year] [facility] Test Date: 2018-04-21 Test Time: 11:48:02 Pat Name: JUDY ZAVALA Department: Room: Gender: F Market Research Coordinator: ERNA : 1965 Requested By: GALEN COOPER Order Number: [id number] Reading MD: Keerthi Rico MD Measurements Intervals [place] Rate: 117 P: 68 [place]: 174 QRS: 66 QRSD: 83 T: 45 QT: 320 QTc: 447 Interpretive Statements Sinus tachycardia Consider right atrial enlargement Electronically Signed On 04-23-2018 12:22:51 PDT by Keerthi Rico MD CM:EKGRPT:ELECTROCARDIOGRAM REPORT [id number] 1222 GALEN COOPER EPIPHANY DRAFT REPORT GALEN COOPER
[2018-04-21 11:59] LABS: BASO # 0.1 10*3/uL (0.0-0.1); BASO % 0.6 % (0.0-1.0); EOS # 0.3 10*3/uL (0.0-0.4); EOS % 2.3 % (1.0-4.0); HEMATOCRIT 47.5 % (37.0-47.0); HEMOGLOBIN 16.2 g/dl (12.0-16.0); LYMPH # 2.5 10*3/uL (1.3-4.4); LYMPH % 22.2 % (27.0-41.0); MEAN CELL VOLUME 90.5 fl (81.0-99.0); MEAN CORPUSCULAR HGB 30.9 pg (27.0-31.0); MEAN CORPUSCULAR HGB CONC 34.1 g/dl (33.0-37.0); MEAN PLATELET VOLUME 11.7 fl (9.6-12.3); MONO # 1.1 10*3/uL (0.1-1.0); MONO % 9.6 % (3.0-9.0); NEUT # 7.2 10*3/uL (2.3-7.9); PLATELET COUNT AUTOMATED 361 10*3/uL (130-400); RED BLOOD COUNT 5.25 10*6/uL (4.10-5.10); RED CELL DISTRI WIDTH 13.1 % (0-14.5); WHITE BLOOD COUNT 11.1 10*3/uL (4.8-10.8)
[2018-04-21 12:15] LABS: ALBUMIN 4.4 gm/dl (3.1-4.5); ALKALINE PHOSPHATASE 123 U/L (45-117); BUN 8 mg/dl (7-24); CHLORIDE 106 mmol/L (98-107); CREATININE 0.97 mg/dL (0.55-1.02); LIPASE 210 U/L (73-393); POTASSIUM 3.6 mmol/L (3.5-5.1); SGOT/AST 18 IU/L (3-35); SGPT/ALT 29 U/L (12-78); SODIUM 138 mmol/L (136-145); TOTAL PROTEIN 8.3 gm/dL (6.4-8.2)
[2018-04-21 12:16] LABS: ETHYL ALCOHOL < 3.0 mg/dl (<3); TROPONIN I < 0.015 ng/ml (<0.045)
[2018-04-21 12:29] LABS: URINE AMPHETAMINES < 1000 (1000ng/ml); URINE BARBITURATES < 200 (200ng/ml); URINE BENZODIAZEPINES < 200 (200ng/ml); URINE CANNABINOIDS (THC) < 50 (50ng/ml); URINE COCAINE < 300 (300ng/ml); URINE METHADONE < 300 (300ng/ml); URINE OPIATES < 300 (300ng/ml)
[2018-04-21 12:32] LABS: CLARITY SL CLOUDY (CLEAR); COLOR YELLOW (YELLOW); URINE PHENCYCLIDINE < 25 (25ng/ml)
[2018-04-21 12:33] LABS: BACTERIA 3+; BILIRUBIN NEGATIVE (NEGATIVE); BLOOD NEGATIVE (NEGATIVE); GLUCOSE NEGATIVE (NEGATIVE); KETONE NEGATIVE (NEGATIVE); LEUKO ESTERASE TRACE (NEGATIVE); NITRITE NEGATIVE (NEGATIVE); SPECIFIC GRAVITY 1.005 (1.005-1.030); UROBILINOGEN 0.2 E.U./dl (0.2-1.0); YEAST 1+
[2018-04-21] MEDS ORDERED: CARAFATE1 G1 PO (13:47)
[2018-04-21] MEDS ORDERED: ZOFRAN4 MG PO (13:47)
[2018-04-21] MEDS ORDERED: ZANTAC 150150 MG PO (13:47)
[2018-05-09] MEDS ORDERED: GABAPENTIN100 M2 PO (10:06)
[2018-05-09] MEDS ORDERED: VITAMIN B121000 MC1 PO (10:07)
[2018-05-09] MEDS ORDERED: CLARITIN10 MG PO (10:07)
[2018-05-09] MEDS ORDERED: ZYPREXA15 M1 PO (10:08)
[2018-05-09] MEDS ORDERED: MINIPRESS1 MG PO (10:08)
[2018-05-09] MEDS ORDERED: TRILEPTAL300 MG PO (10:09)
[2018-05-09] MEDS ORDERED: SINGULAIR10 M1 PO (10:10)
[2018-05-09] MEDS ORDERED: TRILEPTAL600 MG PO (10:10)
[2018-05-09] MEDS ORDERED: COLACE100 MG PO (10:10)
[2018-05-09] MEDS ORDERED: NEXIUM40 MG PO (10:11)
[2018-05-09] MEDS ORDERED: TRICOR145 M1 PO (10:11)
== END 2018-04-21 14:10 | disposition home or self-care (01) ==
LOC: ED 11:27
PROVIDERS: Nurse Practitioner Family
DX: R10.84 Generalized abdominal pain (principal); R03.0 Elevated blood-pressure reading, without diagnosis of hypertension; F17.200 Nicotine dependence, unspecified, uncomplicated; N18.9 Chronic kidney disease, unspecified; J44.9 Chronic obstructive pulmonary disease, unspecified; K21.9 Gastro-esophageal reflux disease without esophagitis; E66.9 Obesity, unspecified; Z68.34 Body mass index [BMI] 34.0-34.9, adult; Z98.51 Tubal ligation status; Z98.890 Other specified postprocedural states; Z79.899 Other long term (current) drug therapy; Z88.0 Allergy status to penicillin; Z88.1 Allergy status to other antibiotic agents; Z88.8 Allergy status to other drugs, medicaments and biological substances

== ENCOUNTER → 2018-05-12 | Day surgery (SDC) | payer MEDICARE ==
[~2018-05-12] VITALS: Ht 162.5 cm; Wt 79.4 kg
[~2018-05-12] MED LIST changes: +CARAFATE1 G1 PO; +COLACE100 MG PO; +GABAPENTIN100 M2 PO; +IMODIUM A-D2 M2 PO; +MINIPRESS1 MG PO; +SEPTDS PO; +TRILEPTAL300 MG PO; +TRILEPTAL600 MG PO; +VITAMIN B121000 MC1 PO; +ZANTAC 150150 MG PO; +ZYPREXA15 M1 PO
--- NOTE | ~2018-05-12 | PROC NOTE ---
[place], [place] PROCEDURE NOTE [id number] UNIT #: [id number] ROOM: DOCTOR: ANSON KHAN MD BIRTHDATE: [birth year] DOS: 05/12/2018 PROCEDURES: 1. Esophagogastroduodenoscopy and biopsy. 2. Colonoscopy and biopsy. INDICATION: Abdominal pain, diarrhea and weight loss. An informed consent was obtained from the patient after indication of procedures, the alternatives and potential complications were explained to her. PROCEDURE MEDICATION: Sedation was administered by Anesthesiology Department. Scope used was Olympus pediatric colonoscope variable stiffness GIF-180, depth of insertion with upper endoscopy was to the descending duodenum. With the colonoscopy was to the cecum, which was identified by the usual landmarks, appendiceal orifice, ileocecal valve and triangular fold, in addition to transillumination in the right lower quadrant. FINDINGS: After adequate sedation, the patient was placed in left lateral decubitus position. The upper endoscopy was performed first. The scope was introduced under direct visualization through the upper esophageal sphincter into the esophagus. Esophageal mucosa appeared normal with no ulcerations or strictures. Lower esophageal sphincter was identified at 38 cm from incisors, normal-appearing Z line. Stomach was then intubated. Gastric mucosa inspected. Severe gastritis was seen with no discrete ulcers or active bleeding. A YUNIOR test was performed from the gastric antrum and body. Retroflex views in the fundus showed no evidence of hiatal hernia. The pylorus was intubated easily. The duodenal bulb and descending duodenum were within normal range. The scope was then withdrawn after the stomach was decompressed. We then proceeded with the colonoscopy. Rectal examination showed a normal sphincter tone and no external hemorrhoids. Scope was introduced into the rectum, then advanced to the cecum with no difficulty. The prep was good. The colon mucosa appeared normal with no evidence of polyps, diverticular or ulcerations. Random biopsies were obtained from the right and left colon to rule out microscopic colitis. Retroflex views in the rectum showed grade 1 internal hemorrhoids. The scope was then withdrawn after the rectum was decompressed. The patient tolerated the procedures well. IMPRESSION: 1. Gastritis, YUNIOR test performed. 2. Normal upper gastrointestinal tract otherwise. 3. Normal colon mucosa with no polyp seen, random biopsies obtained. 4. Small internal hemorrhoids. PLAN: There is no need for further GI workup at this time. We will review the YUNIOR test and histopathology reports and treat the patient accordingly. Repeat screening colonoscopy advised in 10 years with office followup scheduled in 2-3 weeks. [place], [place] PROCEDURE NOTE NAME: JUDY ZAVALA UNIT #: [id number] ROOM: DOCTOR: ANSON KHAN MD BIRTHDATE: [birth year] ANSON KHAN MD CM:PROCNOTE:PROCEDURE NOTE 0837 ANSON KHAN MD
[2018-05-12 08:10] VITALS: BP 160/82
[2018-05-12 08:35] VITALS: BP 101/63
[2018-05-12 08:50] VITALS: BP 102/64
[2018-05-12 09:05] VITALS: BP 126/77
[2018-05-12 10:03] LABS: ALBUMIN 3.5 gm/dl (3.1-4.5); ALKALINE PHOSPHATASE 131 U/L (45-117); BUN 5 mg/dl (7-24); CHLORIDE 106 mmol/L (98-107); CHOLESTEROL 245 mg/dL (<200); CREATININE 0.87 mg/dL (0.55-1.02); HDL CHOLESTEROL 34 mg/dl (40-60); HEMATOCRIT 42.5 % (37.0-47.0); HEMOGLOBIN 14.2 g/dl (12.0-16.0); MEAN CORPUSCULAR HGB 30.4 pg (27.0-31.0); MEAN CORPUSCULAR HGB CONC 33.4 g/dl (33.0-37.0); MEAN PLATELET VOLUME 11.4 fl (9.6-12.3); RED BLOOD COUNT 4.67 10*6/uL (4.10-5.10); SGOT/AST 15 IU/L (3-35); SGPT/ALT 26 U/L (12-78); SODIUM 140 mmol/L (136-145); TOTAL PROTEIN 7.2 gm/dL (6.4-8.2); TRIGLYCERIDES 599 mg/dl (<150)
== END | disposition home or self-care (01) ==
LOC: SDC 05-09 08:45
PROVIDERS: Internal Medicine Gastroenterology
DX: K52.9 Noninfective gastroenteritis and colitis, unspecified (principal); K29.50 Unspecified chronic gastritis without bleeding; K64.8 Other hemorrhoids; J44.9 Chronic obstructive pulmonary disease, unspecified; I25.2 Old myocardial infarction; G43.909 Migraine, unspecified, not intractable, without status migrainosus; D64.9 Anemia, unspecified; F32.9 Major depressive disorder, single episode, unspecified; F41.9 Anxiety disorder, unspecified; K21.9 Gastro-esophageal reflux disease without esophagitis; F17.210 Nicotine dependence, cigarettes, uncomplicated; Z86.73 Personal history of transient ischemic attack (TIA), and cerebral infarction without residual deficits; Z98.0 Intestinal bypass and anastomosis status; Z83.3 Family history of diabetes mellitus; Z82.5 Family history of asthma and other chronic lower respiratory diseases; Z79.82 Long term (current) use of aspirin; Z88.0 Allergy status to penicillin; Z88.8 Allergy status to other drugs, medicaments and biological substances; Z98.890 Other specified postprocedural states; Z79.899 Other long term (current) drug therapy

== ENCOUNTER 2018-05-16 12:48 | Emergency (ER) | payer MEDICARE ==
[~2018-05-16] VITALS: Ht 160 cm; Wt 85.3 kg
[~2018-05-16 12:48] MED LIST changes: -IMODIUM A-D2 M2 PO; -SEPTDS PO
[2018-05-16] MEDS ORDERED: SEPTDS PO (13:12)
[2018-05-16 14:15] LABS: BASO # 0.1 10*3/uL (0.0-0.1); BASO % 0.5 % (0.0-1.0); EOS # 0.2 10*3/uL (0.0-0.4); EOS % 1.7 % (1.0-4.0); HEMATOCRIT 43.3 % (37.0-47.0); HEMOGLOBIN 14.9 g/dl (12.0-16.0); LYMPH # 2.5 10*3/uL (1.3-4.4); LYMPH % 22.9 % (27.0-41.0); MEAN CELL VOLUME 89.1 fl (81.0-99.0); MEAN CORPUSCULAR HGB 30.7 pg (27.0-31.0); MEAN CORPUSCULAR HGB CONC 34.4 g/dl (33.0-37.0); MEAN PLATELET VOLUME 11.3 fl (9.6-12.3); MONO # 1.1 10*3/uL (0.1-1.0); MONO % 10.6 % (3.0-9.0); NEUT # 6.9 10*3/uL (2.3-7.9); PLATELET COUNT AUTOMATED 324 10*3/uL (130-400); RED BLOOD COUNT 4.86 10*6/uL (4.10-5.10); RED CELL DISTRI WIDTH 12.9 % (0-14.5); WHITE BLOOD COUNT 10.7 10*3/uL (4.8-10.8)
[2018-05-16 14:18] LABS: ALBUMIN 3.7 gm/dl (3.1-4.5); ALKALINE PHOSPHATASE 134 U/L (45-117); BUN 5 mg/dl (7-24); CHLORIDE 107 mmol/L (98-107); CREATININE 0.91 mg/dL (0.55-1.02); POTASSIUM 3.9 mmol/L (3.5-5.1); SGOT/AST 17 IU/L (3-35); SGPT/ALT 31 U/L (12-78); SODIUM 140 mmol/L (136-145); TOTAL PROTEIN 7.8 gm/dL (6.4-8.2)
[2018-05-16 14:21] LABS: BILIRUBIN NEGATIVE (NEGATIVE); BLOOD NEGATIVE (NEGATIVE); CLARITY CLEAR (CLEAR); COLOR YELLOW (YELLOW); GLUCOSE NEGATIVE (NEGATIVE); KETONE NEGATIVE (NEGATIVE); LEUKO ESTERASE NEGATIVE (NEGATIVE); NITRITE NEGATIVE (NEGATIVE); SPECIFIC GRAVITY <= 1.005 (1.005-1.030); UROBILINOGEN 0.2 E.U./dl (0.2-1.0)
[2018-05-16 14:41] LABS: BACTERIA 1+; WBC 0-2 wbc/hpf (0-5); YEAST 1+
[2018-05-16] MEDS ORDERED: Zofran4 MG PO (17:03)
[2018-05-16] MEDS ORDERED: IMODIUM A-D2 M2 PO (17:03)
== END 2018-05-16 17:17 | disposition home or self-care (01) ==
LOC: ED 12:48
PROVIDERS: Emergency Medicine
DX: K29.70 Gastritis, unspecified, without bleeding (principal); R19.7 Diarrhea, unspecified; M54.5 Low back pain; J44.9 Chronic obstructive pulmonary disease, unspecified; K21.9 Gastro-esophageal reflux disease without esophagitis; E78.5 Hyperlipidemia, unspecified; E66.9 Obesity, unspecified; N18.9 Chronic kidney disease, unspecified; F17.200 Nicotine dependence, unspecified, uncomplicated; Z88.0 Allergy status to penicillin; Z88.1 Allergy status to other antibiotic agents; Z88.8 Allergy status to other drugs, medicaments and biological substances; Z79.899 Other long term (current) drug therapy; Z68.30 Body mass index [BMI] 30.0-30.9, adult

== ENCOUNTER → 2018-09-21 | Outpatient (CLI) | payer MEDICARE ==
[~2018-09-21] MED LIST changes: +BENZONATATE100 M1 PO; +CYCLOBENZAPRINE10 MG PO; -GABAPENTIN100 M2 PO; +GABAPENTIN400 MG PO; +IMODIUM A-D2 M2 PO; +LIPITOR20 MG PO; +MOBIC7.5 MG PO; +MUCINEX ER600 MG PO; +NORCO 5-325 TA1 EACH PO; +PAXIL10 MG PO; +PRILOSEC20 M1 PO; +PROTONIX40 M1 IV; +SEPTDS PO; +TESSALON PERLE100 MG PO; -VENTOLIN,PR2 MG/5 ML PO; +VITAMIN D50000 UNIT PO; +VITAMIN E400 UNI1 PO; +ZANTAC 300300 MG PO; +ZESTRIL40 MG PO
[2018-09-21 10:33] LABS: ALKALINE PHOSPHATASE 112 U/L (45-117); BUN 7 mg/dl (7-24); CHLORIDE 105 mmol/L (98-107); CHOLESTEROL 256 mg/dL (<200); CREATININE 1.02 mg/dL (0.55-1.02); HDL CHOLESTEROL 48 mg/dl (40-60); LDL CHOLESTEROL 167 mg/dL (9-159); SGOT/AST 17 IU/L (3-35); SGPT/ALT 27 U/L (12-78); SODIUM 139 mmol/L (136-145); TOTAL PROTEIN 7.7 gm/dL (6.4-8.2); TRIGLYCERIDES 203 mg/dl (<150); VLDL CHOLESTEROL 41 mg/dL (6-40)
== END | disposition home or self-care (01) ==
LOC: LAB 09:40
PROVIDERS: Registered Nurse Flight
DX: E55.9 Vitamin D deficiency, unspecified (principal); E78.2 Mixed hyperlipidemia

== ENCOUNTER 2018-10-11 16:03 | Inpatient (IN) | payer MEDICARE ==
[~2018-10-11] VITALS: Ht 160 cm; Wt 83.0 kg
--- NOTE | ~2018-10-11 | PROC NOTE ---
[place], [place] PROCEDURE NOTE NAME: JUDY ZAVALA UNIT #: [id number] ROOM: 403 DOCTOR: NELSON WHELAN MD,JHOAN BIRTHDATE: [birth year] DOS: 10/13/2018 BRONCHOSCOPY NOTE PREOPERATIVE DIAGNOSIS: Severe excessive cough and wheezing. POSTOPERATIVE DIAGNOSIS: Removal of large mucus plugs from the endobronchial tree bilaterally. COMPLICATIONS: None. PROCEDURE DESCRIPTION: Informed consent was obtained. The patient was brought to the OR and placed in supine position. Conscious sedation was administered by the Anesthesia Department. After achieving proper sedation, the patient's airway introduced in the mouth, bronchoscope advanced to the airway into laryngeal area, epiglottis and vocal cords were seen. The bronchoscope was advanced to vocal cords into the tracheal lumen. The tracheal lumen was noted with a moderate amount of very thick mucoid secretions, which were suctioned out with the help of normal saline wash. Tanya was noted sharp. Right upper, right middle, right lower, left upper, lingular lower bronchi were noted with very thick mucus impactions in airways, which were removed with the help of normal saline wash and sent for culture. Procedure was well tolerated by the patient. Postoperative findings were discussed with the patient's family member after the completion of the procedure. The dose of the corticosteroids at this time will be decreased from 60 mg three times a day to 40 mg b.i.d. Continue bronchodilator treatments. JHOAN DAMON MD CM:PROCNOTE:PROCEDURE NOTE 1212 0053 JHOAN WHELAN MD
--- NOTE | ~2018-10-11 | EKG ---
[place], [place] ELECTROCARDIOGRAM REPORT NAME: JUDY ZAVALA UNIT #: [id number] ROOM: 403 DOCTOR: PAIGE DRAFT REPORT BIRTHDATE: [birth year] [facility] Test Date: 2018-10-11 Test Time: 16:48:14 Pat Name: JUDY ZAVALA Department: Room: 403 Gender: F Bleach Analyst: Raquel Garza : 1965 Requested By: AARON BUNCH PA-C Order Number: [id number] Reading MD: Jamaal Lopez MD Measurements Intervals [place] Rate: 103 P: 78 [place]: 152 QRS: 83 QRSD: 94 T: 57 QT: 333 QTc: 436 Interpretive Statements Sinus tachycardia Baseline wander in lead(s) V2 Compared to ECG 04/21/2018 11:48:02 No significant changes Electronically Signed On 10-13-2018 13:44:50 PDT by Jamaal Lopez MD CM:EKGRPT:ELECTROCARDIOGRAM REPORT [id number] 1344 AARON BUNCH PA-C EPIPHANY DRAFT REPORT AARON BUNCH PA-C
--- NOTE | ~2018-10-11 | PR ---
[place], [place] PROGRESS NOTE NAME: JUDY ZAVALA UNIT #: [id number] ROOM: 403 DOCTOR: NELSON WHELAN MD,JHOAN BIRTHDATE: [birth year] DOS: 10/18/2018 SUBJECTIVE: The patient has been noted comfortable at the time and rest in the bed, complaining of some weakness and fatigue. Shortness of breath and other symptoms have been gradually resolving. Coughing has improved significantly. OBJECTIVE: VITAL SIGNS: Normal temperature, respiratory rate 20, heart rate 91, blood pressure 118/68. Pulse oxygen saturation recorded as 98% at rest on room air. HEENT: Examination shows head was atraumatic. Eyes nonicterus. NECK: Supple. CARDIOVASCULAR: S1, S2 is audible. LUNGS: Without any wheezing or crackles at the present time. ABDOMEN: Soft, nontender. Bowel sounds present. EXTREMITIES: Without any acute edema. LABORATORY DATA: Today, WBC count 20,000, hemoglobin 11.8, platelet count 470,000, mildly elevated. BUN and creatinine was noted normal. IMPRESSION: 1. Acute gastrointestinal bleeding mostly rectal bleeding such as hemorrhoid mostly resolved. 2. Leukocytosis, most likely induced by the corticosteroids. 3. Resolving acute exacerbation of chronic obstructive pulmonary disease and bronchitis progressively and gradually. PLAN OF TREATMENT: Consideration for home discharge, abstinence tobacco was suggested and encouraged. No other change in treatment otherwise will be necessary. Supportive care, other plan of management and care. JHOAN DAMON MD CM:PNSHANIKA 1225 1617 JHOAN WHELAN MD 10/27/18 0814 interface
--- NOTE | ~2018-10-11 | EKG ---
[place], [place] ELECTROCARDIOGRAM REPORT NAME: JUDY ZAVALA UNIT #: [id number] ROOM: 403 DOCTOR: PAIGE DRAFT REPORT BIRTHDATE: [birth year] [facility] Test Date: 2018-10-11 Test Time: 23:29:52 Pat Name: JUDY ZAVALA Department: Room: [facility] 1 Gender: F Hvac Refrigeration Technician: SS RESP : 1965 Requested By: NGOZI HINOJOSA Order Number: [id number] Reading MD: Jamaal Lopez MD Measurements Intervals [place] Rate: 111 P: 70 [place]: 169 QRS: 74 QRSD: 102 T: 14 QT: 358 QTc: 487 Interpretive Statements Sinus tachycardia Minimal ST elevation, lateral leads Borderline prolonged QT interval Baseline wander in lead(s) V5,V6 Compared to ECG 04/21/2018 11:48:02 ST (T wave) deviation now present Electronically Signed On 10-13-2018 13:45:43 PDT by Jamaal Lopez MD CM:EKGRPT:ELECTROCARDIOGRAM REPORT [id number] 1345 NGOZI BRADFORD DRAFT REPORT NGOZI HINOJOSA DO
--- NOTE | ~2018-10-11 | PR ---
[place], [place] PROGRESS NOTE NAME: JUDY ZAVALA UNIT #: [id number] ROOM: 403 DOCTOR: JHOAN NATH MD BIRTHDATE: [birth year] DOS: 10/13/2018 PULMONARY PROGRESS NOTE SUBJECTIVE: The patient was noted comfortable at this time, resting on the bed. She has been still noted with coughing, which has been reported intermittent, not resolved. N.p.o. past midnight. Bronchoscopy was planned. There were no symptoms of chest pain. Shortness of breath was reported with exertion. No symptoms of fever or chills. The patient is sedated. Denies any headache or diplopia. Denies any pain of the lower extremity or any edema. Remaining systems reviewed. They were noted all negative. OBJECTIVE: VITAL SIGNS: For the patient this morning, normal temperature, respiratory rate 18, heart rate of 100-115, blood pressure 130/68-142/74. Pulse oxygen saturation on 3 liters nasal cannula 97% saturation this morning. HEENT: Chronic obesity. Head was atraumatic. Eyes: No icterus. NECK: Supple. CARDIOVASCULAR: S1, S2 is audible. LUNGS: The patient was noted with decreased breath sounds in the lungs bilaterally. There were no crackles. Expiratory wheezing. ABDOMEN: Soft and obese. EXTREMITIES: Show no edema. VISIBLE SKIN: No lesions or rashes. MUSCULOSKELETAL: Without any acute deformities. CENTRAL NERVOUS SYSTEM: The patient's cranial nerves 2-12 intact. LABORATORY DATA: BMP this morning, BUN 10, creatinine was normal, glucose 161. CBC of this morning: WBC count 15.6, hemoglobin 11.2, and platelet count was normal. IMPRESSION: 1. The patient has been currently noted with a stable respiratory status at the present time, but ongoing symptoms of coughing and wheezing remains persistent, not resolving. 2. Chronic obesity as well and other medical illnesses. PLAN OF TREATMENT: Proceed with fibrobronchoscopy as planned today. Modification of treatment, if necessary after the bronchoscopy. Usual care, other supportive plan of management, care plan and therapies and treatments. [place], [place] PROGRESS NOTE NAME: JUDY ZAVALA UNIT #: [id number] ROOM: 403 DOCTOR: JHOAN NATH MD BIRTHDATE: [birth year] JHOAN DAMON MD CM:ISHA [id number] JHOAN WHELAN MD 10/18/18 1644 interface
--- NOTE | ~2018-10-11 | CON ---
[place], [place] REPORT OF CONSULTATION NAME: JUDY ZAVALA UNIT #: [id number] ROOM: 403 DOCTOR: NELSON WHELAN MDJHOAN BIRTHDATE: [birth year] DOS: 10/12/2018 PULMONARY CONSULTATION, EVALUATION AND MANAGEMENT CONSULTATION REQUESTED BY: Hospitalist service. REASON FOR CONSULTATION: For assessment of currently nonresolving respiratory symptoms. HISTORY OF PRESENT ILLNESS: This is a 53-year-old white female patient admitted to the hospital. She has been noted with ongoing acute illness symptoms for the past 10 days or greater. She has started with symptoms of excessive chest congestion, nasal drainage with cough. The cough has been noted severe and nonproductive progressively. She was also complaining of tightness in chest, chest pain with coughing. Sputum expectoration noted minimal. She was also reporting symptoms of fatigue and tiredness, shortness of breath occurring with exertion. She was seen in the Emergency Room for assessment of current symptoms and admitted to the hospital for further care. This morning, the patient stated she has not felt any difference in symptoms since admission to the hospital, still complaining of symptoms, nonproductive cough with wheezing and shortness of breath. REVIEW OF SYSTEMS: CONSTITUTIONAL SYMPTOMS: Fatigue and tiredness reported without any symptoms of fever or chills. EYES: Denies burning, redness, or tenderness. EARS, NOSE, THROAT SYMPTOMS: No sore throat, hoarseness, otalgia, postnasal drainage or epistaxis. CARDIOVASCULAR SYSTEM: Denies anginal pain, edema, or pain of the lower extremities. GASTROINTESTINAL SYMPTOMS: Denies dysphagia, nausea, vomiting, diarrhea, abdominal pain, hematemesis, melena, or hematochezia. SKIN: Denies abnormal lesions or rashes. CENTRAL NERVOUS SYSTEM: Denies dizziness, headache, diplopia, or syncopal episodes. Remaining systems were reviewed, they were noted all negative. PAST MEDICAL HISTORY: Known with: 1. COPD. 2. Chronic hypoxic respiratory failure, use of oxygen supplementation at home. 3. History of cocaine use previously. 4. General anxiety disorder and depression. 5. Gastroesophageal reflux. 6. Hyperlipidemia. 7. Nicotine dependence. 8. Vitamin D deficiency. 9. Hyperlipidemia. PAST SURGICAL HISTORY: [place], [place] REPORT OF CONSULTATION NAME: [id number] UNIT #: [id number] ROOM: 403 DOCTOR: NELSON WHELAN MD,JHOAN BIRTHDATE: [birth year] 1. Therapeutic bronchoscopy done in 07/2017. 2. Tubal ligation. SOCIAL HISTORY: The patient is , has 2 children, lives at home. Smoking started as a teenager 4 pack of cigarettes per day. Currently, smoking a pack or less of cigarettes per day. No history of alcohol use or illicit drug use was reported. FAMILY HISTORY: Unknown. MEDICATIONS: Used for the patient on this admission are Solu-Medrol 60 mg t.i.d., Nicotine replacement patches 21 mg, Lovenox for DVT prophylaxis, Mucinex 1200 mg b.i.d., DuoNeb q.4 hours, magnesium hydroxide, Levaquin, Restoril and other p.r.n. medications. Solu-Medrol dose as stated 60 mg t.i.d., Megace 40 mg b.i.d. DRUG ALLERGIES: NOTED PENICILLINS, Z-LESLIE, ASPIRIN, AMPICILLIN, ERYTHROMYCIN AND REGLAN, ALL CAUSING SKIN ITCHING AND RASHES. PHYSICAL EXAMINATION: GENERAL: A 53-year-old female patient currently noted at this time on the bed, excessive coughing noted at the time of admission. Height of 5 feet 3 inches, weight 183 pounds, BUN 32.4. VITAL SIGNS: Normal temperature, respiratory rate 24-20, heart rate 113-99, sinus tachycardia, blood pressure 26-74/124-66. The pulse ox saturation on 3 liters nasal cannula is 97% saturation, at rest on room air 93% saturation. HEENT: Head was atraumatic. Eyes nonicterus. NECK: Supple and obese. CARDIOVASCULAR SYSTEM: S1, S2 audible. LUNGS: Decreased breath sounds noted in the lungs bilaterally, diffuse expiratory wheezing. There were no crackles. ABDOMEN: Soft, nontender. Bowel sounds present. EXTREMITIES: The patient with chronic obesity without any edema, clubbing, cyanosis. VISIBLE SKIN: No lesions or rashes. CENTRAL NERVOUS SYSTEM: The patient were noted as intact. There were no focal deficits. LABORATORY DATA: Influenza A and B, nasal washing antigen yesterday were noted as negative. CBC yesterday on admission; WBC count 4.2, hemoglobin and hematocrit normal, platelet count normal. CMP was noted as normal BUN and creatinine of 1.26. Sodium 132. AST 42. The troponin of 3 sets were normal. BMP this morning; BUN 11, creatinine 1.39, glucose 184, sodium 133. Chest x-ray 1 view, which was done on 10/11/2018 does not show any acute abnormalities. IMPRESSION: 1. The patient with ongoing acute exacerbation of chronic obstructive pulmonary disease, possibly bronchial asthma in combination with acute bronchitis, possible viral infection to be considered. Rule out superimposed bacterial [place], [place] REPORT OF CONSULTATION NAME: JUDY ZAVALA UNIT #: [id number] ROOM: 403 DOCTOR: NELSON WHELAN MD,JHOAN BIRTHDATE: [birth year] infection because of chronicity of symptom. 2. Suspicion of mucus impaction of major airways. 3. Chronic nicotine dependence. 4. Chronic moderate obesity and other medical illnesses. 5. Elevated BUN and creatinine, possible acute kidney injury. PLAN OF MANAGEMENT: The patient was assessed for bronchoscopy to be done tomorrow morning. Continue oxygen supplementation. Continue flutter valve to help mobilize secretion from the airways. Other treatment change will be done based on the progression of the illness. Sputum for Gram stain culture could be done in case the patient expectorates sputum in the next 24 hours. Usual care and other therapies. Thanks for allowing me to participate in care of this patient. JHOAN DAMON MD CM:CONSTR:REPORT OF CONSULTATION 1455 10/13/18 0052 interface
--- NOTE | ~2018-10-11 | PR ---
[place], [place] PROGRESS NOTE NAME: JUDY ZAVALA UNIT #: [id number] ROOM: 403 DOCTOR: NELSON WHELAN MDJHOAN BIRTHDATE: [birth year] DOS: 10/16/2018 SUBJECTIVE: The patient was still noted symptoms of coughing. The patient also complaining of some sore throat today. Denies symptoms of fever or chills. Chest pain reported because of the excessive cough. Denies symptoms of nausea, vomiting or diarrhea. Denies any symptoms of abdominal pain, hematemesis, melena, or hematochezia. Denies symptoms of headache or diplopia. Denies any pain of the lower extremities. Remaining systems were reviewed. They were noted all negative. PHYSICAL EXAMINATION: VITAL SIGNS: Normal temperature, respiratory rate 18, heart rate 86, blood pressure 118/51-131/68. Pulse oxygen saturation was recorded as 94% saturation on 3 liters nasal cannula. HEENT: Examination shows head was atraumatic. Eyes nonicterus. NECK: Supple. CARDIOVASCULAR: S1, S2 is audible. LUNGS: The patient noted decreased breath sounds, no wheezing. There were no crackles. ABDOMEN: Soft, nontender. Bowel sounds present. EXTREMITIES: The patient was noted without any acute edema. LABORATORY DATA: Respiratory virus panel noted positive for human metapneumovirus PCR. Stool for occult blood was also noted positive that was done yesterday. Acid fast bacillus bronchial washing 22nd negative with pending culture results. IMPRESSION: 1. The patient with gradual progressive resolution for patient of the acute exacerbation of chronic obstructive pulmonary disease, acute tracheobronchitis related to the human metapneumovirus. 2. The patient with chronic obesity. 3. History of past nicotine use. 4. Gastrointestinal bleeding for patient as well. 5. Sore throat. The patient acute pharyngitis, possibility of oropharyngeal candidiasis. PLAN OF TREATMENT: The patient will be started on nystatin swish and swallow. Further reduction of Solu-Medrol 40 mg daily dosing. Continuation of other therapy, plan of management and his workup, possible GI bleeding per primary care attending. [place], [place] PROGRESS NOTE NAME: JUDY ZAVALA UNIT #: [id number] ROOM: 403 DOCTOR: JHOAN NATH MD BIRTHDATE: [birth year] JHOAN DAMON MD CM:PNTRANS [id number] JHOAN WHELAN MD 10/17/18 0430 interface
--- NOTE | ~2018-10-11 | EKG ---
[place], [place] ELECTROCARDIOGRAM REPORT NAME: JUDY ZAVALA UNIT #: [id number] ROOM: 403 DOCTOR: PAIGE DRAFT REPORT BIRTHDATE: [birth year] [facility] Test Date: 2018-10-12 Test Time: 12:06:30 Pat Name: JUDY ZAVALA Department: Room: [facility] 1 Gender: F Podopediatrician: Melani Gallegos : 1965 Requested By: JHOAN WHELAN Order Number: [id number] Reading MD: Jhoan Malone MD Measurements Intervals [place] Rate: 114 P: 70 GA: 160 QRS: 67 QRSD: 96 T: 13 QT: 359 QTc: 495 Interpretive Statements Sinus tachycardia Borderline prolonged QT interval Compared to ECG 04/21/2018 11:48:02 No significant changes Electronically Signed On 10-12-2018 10:37:48 PDT by Jhoan Malone MD CM:EKGRPT:ELECTROCARDIOGRAM REPORT [id number] JHOAN GIBSON DRAFT REPORT JHOAN WHELAN MD
--- NOTE | ~2018-10-11 | EKG ---
[place], [place] ELECTROCARDIOGRAM REPORT NAME: JUDY ZAVALA UNIT #: [id number] ROOM: 403 DOCTOR: PAIGE DRAFT REPORT BIRTHDATE: [birth year] [facility] Test Date: 2018-10-11 Test Time: 21:41:17 Pat Name: JUDY ZAVALA Department: Room: 403 1 Gender: F Field Care Advocate: Raquel Garza : 1965 Requested By: NGOZI HINOJOSA Order Number: [id number] Reading MD: Jamaal Lopez MD Measurements Intervals [place] Rate: 106 P: 68 UT: 181 QRS: 72 QRSD: 100 T: 12 QT: 362 QTc: 481 Interpretive Statements Sinus tachycardia Low voltage, precordial leads Compared to ECG 04/21/2018 11:48:02 Low QRS voltage now present Electronically Signed On 10-13-2018 13:45:23 PDT by Jamaal Lopez MD CM:EKGRPT:ELECTROCARDIOGRAM REPORT 1345 NGOZI BRADFORD DRAFT REPORT NGOZI HINOJOSA DO
--- NOTE | ~2018-10-11 | PR ---
[place], [place] PROGRESS NOTE NAME: JUDY ZAVALA UNIT #: [id number] ROOM: 403 DOCTOR: NELSON WHELAN MD,JHOAN BIRTHDATE: [birth year] DOS: 10/15/2018 SUBJECTIVE: She has been showing gradual reduction of respiratory symptoms. Coughing and wheezing has been improving, but not completely resolved. She has not been reporting any symptoms of chest pain, fever or chills. Denies symptoms of abdominal pain, nausea or vomiting. OBJECTIVE: VITAL SIGNS: For the patient which are recorded showed normal temperature, respiratory rate 17, heart rate 92, blood pressure 144/70, pulse oxygen saturation 3 liters nasal cannula 97% saturation. HEENT: Head was atraumatic. Eyes nonicterus. NECK: Supple. CARDIOVASCULAR: S1, S2 is audible. LUNGS: The patient mild to moderate expiratory wheezing gradually resolving and improving. There were no crackles. ABDOMEN: Soft, nontender. Bowel sounds present. EXTREMITIES: No new changes. LABORATORY DATA: Culture of the bronchial washing were noted as normal keyana isolation. CBC this morning, WBC count 16.3, hemoglobin 11.3, platelet count were normal. BMP this morning, BUN 12, creatinine 1.11. CO2 of 34. IMPRESSION: 1. Resolving acute exacerbation of chronic obstructive pulmonary disease, acute tracheobronchitis gradually and progressively. 2. Chronic obesity with history of nicotine abuse previously. PLAN OF MANAGEMENT: The patient's steroid dose will be decreased to 40 mg 3 times a day to 40 mg b.i.d. Discharge planning, once the patient noted medically stable, possibly tomorrow. Other therapy, plan of management as well. Usual care. JHOAN DAMON MD CM:PNTRANS [phone] JHOAN WHELAN MD 10/16/18319 interface
--- NOTE | ~2018-10-11 | PR ---
[place], [place] PROGRESS NOTE [id number] UNIT #: [id number] ROOM: 403 DOCTOR: NELSON WHELAN MD,JHOAN BIRTHDATE: [birth year] DOS: 10/17/2018 SUBJECTIVE: The patient was comfortably resting at this time on the bed, has been reporting reduction in respiratory symptom gradually and progressively. There were no symptoms of chest pain, coughing, wheezing, and other symptoms were resolving. Chest pain reported secondary to cough at this time. His musculoskeletal seemed to be decreasing. OBJECTIVE: VITAL SIGNS: Normal temperature, respiratory rate 20, heart rate 98, blood pressure 129/71-125/75. The pulse oxygen saturation on room air was 94% saturation. HEENT: Head was atraumatic. Eyes: No icterus. NECK: Supple. CARDIOVASCULAR: S1, S2 audible. LUNGS: No wheeze or crackles. ABDOMEN: Soft, nontender and obese. EXTREMITIES: Noted without any acute edema. IMPRESSION: The patient has been noted with progressive resolution and improvement in acute exacerbation of chronic obstructive pulmonary disease. After bronchoscopy, the bronchial washing culture bacterial growths were noted negative. PLAN OF TREATMENT: No changes in the plan of care at this time. Continue GI workup as ordered for the rectal bleeding. Other therapy, plan of management, care plan to be continued without any changes. Consideration of home discharge per primary care attending. JHOAN DAMON MD CM:PNTRANS [id number] JHOAN WHELAN MD 10/27/18 0812 interface
--- NOTE | ~2018-10-11 | PR ---
[place], [place] PROGRESS NOTE NAME: JUDY ZAVALA UNIT #: [id number] ROOM: 403 DOCTOR: JHOAN NATH MD BIRTHDATE: [birth year] DOS: 10/14/2018 PULMONARY PROGRESS NOTE SUBJECTIVE: She has been noted comfortable at this time, resting on the bed, still noted symptoms of shortness of breath with some wheezing and cough. Bronchoscopy was completed. The finding of yesterday was discussed with the patient in detail. A large thick plugs of the mucus were removed from the endobronchial tree bilaterally, finding of acute tracheobronchitis. OBJECTIVE: GENERAL: The patient is currently sitting on the bed without any acute distress. VITAL SIGNS: For the patient normal temperature, respiratory rate of 18, heart rate 95, blood pressure 142/80-108/53. The pulse oxygen saturation recorded 3 liters nasal cannula 96% saturation. HEENT: Head was atraumatic. Eyes nonicterus. Chronic obesity. NECK: Supple. CARDIOVASCULAR: S1, S2 audible. LUNGS: Moderate decreased breath sounds with expiratory wheezing. No crackles. ABDOMEN: Soft and obese. EXTREMITIES: The patient without any acute edema. LABORATORY DATA: Cultures of the bronchial washing preliminary noted normal keyana. The Gram stain of the bronchial washing of yesterday, many white blood cell, few gram-positive cocci in pairs. IMPRESSION: The patient with: 1. Acute exacerbation of chronic obstructive pulmonary disease with acute bronchitis. 2. Chronic obesity. Status post bronchoscopy yesterday. PLAN OF TREATMENT: Continuation of the bronchodilators, oxygen supplementation, corticosteroids current dose. Monitor wheezing, respiratory symptoms until resolution. Follow the culture results. Continue nicotine replacement patches. [place], [place] PROGRESS NOTE NAME: JUDY ZAVALA UNIT #: [id number] ROOM: 403 DOCTOR: JHOAN NATH MD BIRTHDATE: [birth year] JHOAN DAMON MD CM:PNTRANS [phone] JHOAN WHELAN MD 10/14/181943 interface
--- NOTE | ~2018-10-11 | CON ---
[place], [place] REPORT OF CONSULTATION NAME: JUDY ZAVALA UNIT #: [id number] ROOM: 403 DOCTOR: CAMI THOMAS MD BIRTHDATE: [birth year] DOS: GASTROENDOSCOPIC REPORT: HISTORY OF PRESENT ILLNESS: This is a 53-year-old, who was presented with shortness of breath, aggressive, nicotine consumer of 2 packs a day up to recently. She has had guaiac positivity concerned, however, I will see her H and H is 11.7 and and 34, differential within normal limits. She has had a bowel movement has been slightly darker and she has had a colonoscopy last year and half done with no acute concerning findings as guaiac positivity has been positive. H and H essentially has been the same over the past few days and status post bronchoscopy by Dr. Malone results as identified in chart. Her CBC essentially the same over the past few days as well as over the past admission. Comprehensive metabolic panel is within normal limits. Electrolytes balanced. Troponin has been negative. PAST MEDICAL HISTORY: Associated with GERD, hypertension, hemorrhoid, gastritis, gastric bezoar, depression, COPD, renal insufficiency, anxiety. PAST SURGICAL HISTORY: Tubal ligation, bronchoscopy, colonoscopy. SOCIAL HISTORY: Aggressive smoker, social alcohol consumer. FAMILY HISTORY: Noncontributory. ALLERGIES: MULTIPLE MEDICATIONS INCLUDING ASPIRIN, AZITHROMYCIN, ERYTHROMYCIN, METOCLOPRAMIDE, Z-LESLIE, PENICILLINS. HOME MEDICATIONS: Reviewed and includes omeprazole, Zantac and multi other meds as reviewed and no anticoagulants, no nonsteroidal anti-inflammatory. REVIEW OF SYSTEMS: In general, HEENT: Denies double vision, blurred vision. RESPIRATORY: Denies acute shortness of breath; however, chronically short of breath. CARDIOVASCULAR: Denies chest pain. DIGESTIVE SYSTEM: Chronic dyspepsia, constipation that has been held. She had bowel movement. PHYSICAL EXAMINATION: VITAL SIGNS: Stable, obese patient. HEENT: Head normocephalic, nontraumatic. Mouth and buccal mucosa benign. NECK: Supple, no thyromegaly, no cervical lymphadenopathy. CHEST: Symmetric anatomy, decreased air entry bilaterally wheezes anteriorly and posteriorly was auscultated. EXTREMITIES: No cyanosis, no pedal edema. NEUROLOGIC: Alert, oriented to time, place, person. IMPRESSION: Bronchitis, wheeze, guaiac positivity. [place], [place] REPORT OF CONSULTATION NAME: JUDY ZAVALA UNIT #: [id number] ROOM: 403 DOCTOR: MARTHA GUSTAFSON,CAMI BIRTHDATE: [birth year] PLAN AND DISCUSSION: There is no acute drop in H and H. She has a hemorrhoid history. However, after her bronchitis issue has been responded to she can have an EGD organized as an inpatient or outpatient. Colonoscopy year and half ago with normal results. CAMI THOMAS MD CM:CONSTR:REPORT OF CONSULTATION 20 10/25/18 1304 interface
[~2018-10-11 16:03] MED LIST changes: -BENZONATATE100 M1 PO; -CYCLOBENZAPRINE10 MG PO; -LIPITOR20 MG PO; -MOBIC7.5 MG PO; -MUCINEX ER600 MG PO; -NORCO 5-325 TA1 EACH PO; -PAXIL10 MG PO; -PRILOSEC20 M1 PO; -PROTONIX40 M1 IV; -TESSALON PERLE100 MG PO; -VITAMIN D50000 UNIT PO; -VITAMIN E400 UNI1 PO; -ZANTAC 300300 MG PO; -ZESTRIL40 MG PO
[2018-10-11 16:07] VITALS: BP 135/84
[2018-10-11 16:38] LABS: HEMATOCRIT 37.7 % (37.0-47.0); HEMOGLOBIN 12.7 g/dl (12.0-16.0); MEAN CELL VOLUME 91.5 fl (81.0-99.0); MEAN CORPUSCULAR HGB 30.8 pg (27.0-31.0); MEAN CORPUSCULAR HGB CONC 33.7 g/dl (33.0-37.0); MEAN PLATELET VOLUME 10.9 fl (9.6-12.3); PLATELET COUNT AUTOMATED 292 10*3/uL (130-400); RED BLOOD COUNT 4.12 10*6/uL (4.10-5.10); RED CELL DISTRI WIDTH 12.8 % (0-14.5); WHITE BLOOD COUNT 4.2 10*3/uL (4.8-10.8)
[2018-10-11 16:46] LABS: INTERNATIONAL NORM RATIO 0.9 (2.0-3.5)
[2018-10-11 17:00] VITALS: BP 128/62
[2018-10-11 17:01] LABS: ATYPICAL LYMPHS 3 % (0-0); BASOPHILS 2 % (0-1); PLATELET SUFFICIENCY NORMAL (NORMAL); TOTAL CELLS COUNTED 100 #CELLS
[2018-10-11 17:05] LABS: ALBUMIN 3.3 gm/dl (3.1-4.5); ALKALINE PHOSPHATASE 71 U/L (45-117); BUN 9 mg/dl (7-24); CHLORIDE 98 mmol/L (98-107); CREATININE 1.26 mg/dL (0.55-1.02); LIPASE 277 U/L (73-393); POTASSIUM 3.8 mmol/L (3.5-5.1); SGOT/AST 42 IU/L (3-35); SGPT/ALT 23 U/L (12-78); SODIUM 132 mmol/L (136-145); TOTAL PROTEIN 7.1 gm/dL (6.4-8.2)
[2018-10-11 17:16] LABS: TROPONIN I < 0.015 ng/ml (<0.045)
[2018-10-11 18:00] VITALS: BP 121/64
[2018-10-11 19:02] VITALS: BP 92/64
[2018-10-11] MEDS ORDERED: ZOFRAN4 MG PO (19:58)
[2018-10-11 20:00] VITALS: BP 92/64
[2018-10-11] MEDS ORDERED: VITAMIN D50000 UNIT PO (20:01)
[2018-10-11] MEDS ORDERED: ZESTRIL40 MG PO (20:01)
[2018-10-11] MEDS ORDERED: ZANTAC 300300 MG PO (20:04)
[2018-10-11] MEDS ORDERED: LIPITOR20 MG PO (20:14)
[2018-10-11] MEDS ORDERED: CYCLOBENZAPRINE10 MG PO (20:15)
[2018-10-11] MEDS ORDERED: PAXIL10 MG PO (20:15)
[2018-10-11 21:27] LABS: BILIRUBIN NEGATIVE (NEGATIVE); BLOOD NEGATIVE (NEGATIVE); CLARITY CLEAR (CLEAR); COLOR YELLOW (YELLOW); GLUCOSE NEGATIVE (NEGATIVE); KETONE NEGATIVE (NEGATIVE); LEUKO ESTERASE NEGATIVE (NEGATIVE); NITRITE NEGATIVE (NEGATIVE); UROBILINOGEN 0.2 E.U./dl (0.2-1.0)
[2018-10-11 21:37] LABS: BACTERIA 1+
[2018-10-12] VITALS: BP 126/64
[2018-10-12 06:32] LABS: HEMATOCRIT 34.3 % (37.0-47.0); HEMOGLOBIN 11.3 g/dl (12.0-16.0); MEAN CELL VOLUME 93.5 fl (81.0-99.0); MEAN CORPUSCULAR HGB 30.8 pg (27.0-31.0); MEAN CORPUSCULAR HGB CONC 32.9 g/dl (33.0-37.0); MEAN PLATELET VOLUME 10.9 fl (9.6-12.3); PLATELET COUNT AUTOMATED 246 10*3/uL (130-400); RED BLOOD COUNT 3.67 10*6/uL (4.10-5.10); RED CELL DISTRI WIDTH 12.9 % (0-14.5); WHITE BLOOD COUNT 2.8 10*3/uL (4.8-10.8)
[2018-10-12 07:09] LABS: CREATININE 1.39 mg/dL (0.55-1.02); PHOSPHOROUS 2.3 mg/dL (2.5-4.9)
[2018-10-12 07:18] LABS: FREE T4 1.17 ng/dl (0.76-1.46); THYROID STIM HORMONE (HS) 0.558 uIU/ml (0.358-4.75)
[2018-10-12 07:53] LABS: ATYPICAL LYMPHS 1 % (0-0); BURR CELLS FEW; PLATELET SUFFICIENCY NORMAL (NORMAL); TOTAL CELLS COUNTED 100 #CELLS
[2018-10-12 08:00] VITALS: BP 110/79; BP 124/66
[2018-10-12 08:36] LABS: VITAMIN D, 25-HYDROXY 43.9 ng/mL (30-100)
[2018-10-12] MEDS ORDERED: PRILOSEC20 M1 PO (09:41)
[2018-10-12] MEDS ORDERED: VITAMIN E400 UNI1 PO (09:41)
[2018-10-12 12:00] VITALS: BP 134/69
[2018-10-12 16:00] VITALS: BP 138/67
[2018-10-12 20:00] VITALS: BP 139/81
[2018-10-13] VITALS (9 sets, daily range): BP systolic 111–149; BP diastolic 11–88
[2018-10-13 06:43] LABS: HEMATOCRIT 34.1 % (37.0-47.0); HEMOGLOBIN 11.2 g/dl (12.0-16.0); MEAN CELL VOLUME 93.4 fl (81.0-99.0); MEAN CORPUSCULAR HGB 30.7 pg (27.0-31.0); MEAN CORPUSCULAR HGB CONC 32.8 g/dl (33.0-37.0); PLATELET COUNT AUTOMATED 309 10*3/uL (130-400); RED BLOOD COUNT 3.65 10*6/uL (4.10-5.10); RED CELL DISTRI WIDTH 13.2 % (0-14.5); WHITE BLOOD COUNT 15.6 10*3/uL (4.8-10.8)
[2018-10-13 07:18] LABS: BUN 10 mg/dl (7-24); CHLORIDE 105 mmol/L (98-107); CREATININE 1.11 mg/dL (0.55-1.02); POTASSIUM 4.5 mmol/L (3.5-5.1); SODIUM 138 mmol/L (136-145)
[2018-10-13 07:47] LABS: ATYPICAL LYMPHS 2 % (0-0); PLATELET SUFFICIENCY NORMAL (NORMAL); TOTAL CELLS COUNTED 100 #CELLS
[2018-10-13 07:48] LABS: BURR CELLS FEW
[2018-10-14] VITALS: BP 108/53
[2018-10-14 08:00] VITALS: BP 142/80
[2018-10-14 12:00] VITALS: BP 137/71
[2018-10-14 13:04] LABS: ACID FAST SPEC PROCESSING Concentration (.)
[2018-10-14 16:00] VITALS: BP 145/85
[2018-10-14 20:00] VITALS: BP 135/68
[2018-10-15] VITALS: BP 130/85
[2018-10-15 05:53] LABS: HEMATOCRIT 34.9 % (37.0-47.0); HEMOGLOBIN 11.3 g/dl (12.0-16.0); MEAN CELL VOLUME 94.8 fl (81.0-99.0); MEAN CORPUSCULAR HGB 30.7 pg (27.0-31.0); MEAN CORPUSCULAR HGB CONC 32.4 g/dl (33.0-37.0); MEAN PLATELET VOLUME 10.9 fl (9.6-12.3); PLATELET COUNT AUTOMATED 341 10*3/uL (130-400); RED BLOOD COUNT 3.68 10*6/uL (4.10-5.10); RED CELL DISTRI WIDTH 13.2 % (0-14.5); WHITE BLOOD COUNT 16.3 10*3/uL (4.8-10.8)
[2018-10-15 06:13] LABS: BUN 12 mg/dl (7-24); CHLORIDE 100 mmol/L (98-107); CREATININE 1.11 mg/dL (0.55-1.02); PHOSPHOROUS 3.1 mg/dL (2.5-4.9); POTASSIUM 4.2 mmol/L (3.5-5.1); SODIUM 139 mmol/L (136-145)
[2018-10-15 06:44] LABS: PLATELET SUFFICIENCY NORMAL (NORMAL); TOTAL CELLS COUNTED 100 #CELLS
[2018-10-15 08:00] VITALS: BP 155/81
[2018-10-15 12:00] VITALS: BP 144/70
[2018-10-15 16:00] VITALS: BP 151/77
[2018-10-15 20:00] VITALS: BP 125/71
[2018-10-16] VITALS: BP 131/68
[2018-10-16 06:44] LABS: HEMATOCRIT 34.6 % (37.0-47.0); HEMOGLOBIN 11.7 g/dl (12.0-16.0); MEAN CELL VOLUME 93.8 fl (81.0-99.0); MEAN CORPUSCULAR HGB 31.7 pg (27.0-31.0); MEAN CORPUSCULAR HGB CONC 33.8 g/dl (33.0-37.0); MEAN PLATELET VOLUME 10.8 fl (9.6-12.3); PLATELET COUNT AUTOMATED 391 10*3/uL (130-400); RED BLOOD COUNT 3.69 10*6/uL (4.10-5.10); WHITE BLOOD COUNT 16.5 10*3/uL (4.8-10.8)
[2018-10-16 07:11] LABS: POTASSIUM 4.3 mmol/L (3.5-5.1)
[2018-10-16 07:26] LABS: CREATININE 1.2 mg/dL (0.55-1.02)
[2018-10-16 07:52] LABS: PLATELET SUFFICIENCY NORMAL (NORMAL); TOTAL CELLS COUNTED 100 #CELLS
[2018-10-16 08:00] VITALS: BP 118/51
[2018-10-16 10:08] LABS: ADENOVIRUS Negative (Negative); INFLUENZA A Negative (Negative); INFLUENZA B Negative (Negative); METAPNEUMOVIRUS Positive (Negative); PARAINFLUENZA 1 Negative (Negative); PARAINFLUENZA 2 Negative (Negative); PARAINFLUENZA 3 Negative (Negative); RHINOVIRUS Negative (Negative); RSV A Negative (Negative); RSV B Negative (Negative)
[2018-10-16 12:00] VITALS: BP 126/66
[2018-10-16 16:00] VITALS: BP 135/54
[2018-10-16 20:00] VITALS: BP 119/58
[2018-10-17] VITALS: BP 139/65
[2018-10-17 06:43] LABS: HEMATOCRIT 36.3 % (37.0-47.0); MEAN CELL VOLUME 94.3 fl (81.0-99.0); MEAN CORPUSCULAR HGB 31.2 pg (27.0-31.0); MEAN CORPUSCULAR HGB CONC 33.1 g/dl (33.0-37.0); MEAN PLATELET VOLUME 10.4 fl (9.6-12.3); PLATELET COUNT AUTOMATED 406 10*3/uL (130-400); RED BLOOD COUNT 3.85 10*6/uL (4.10-5.10); RED CELL DISTRI WIDTH 13.1 % (0-14.5); WHITE BLOOD COUNT 16.8 10*3/uL (4.8-10.8)
[2018-10-17 07:04] LABS: CREATININE 1.21 mg/dL (0.55-1.02); POTASSIUM 3.5 mmol/L (3.5-5.1)
[2018-10-17 07:53] LABS: ATYPICAL LYMPHS 2 % (0-0); TOTAL CELLS COUNTED 100 #CELLS
[2018-10-17 07:54] LABS: PLATELET SUFFICIENCY HIGH (NORMAL)
[2018-10-17 08:00] VITALS: BP 125/75
[2018-10-17 12:00] VITALS: BP 129/71
[2018-10-17 16:00] VITALS: BP 122/66
[2018-10-17 20:00] VITALS: BP 125/66
[2018-10-18] VITALS: BP 111/72
[2018-10-18 06:30] LABS: HEMATOCRIT 35.8 % (37.0-47.0); HEMOGLOBIN 11.8 g/dl (12.0-16.0); MEAN CELL VOLUME 95.5 fl (81.0-99.0); MEAN CORPUSCULAR HGB 31.5 pg (27.0-31.0); MEAN PLATELET VOLUME 10.3 fl (9.6-12.3); PLATELET COUNT AUTOMATED 417 10*3/uL (130-400); RED BLOOD COUNT 3.75 10*6/uL (4.10-5.10); RED CELL DISTRI WIDTH 13.1 % (0-14.5); WHITE BLOOD COUNT 20.5 10*3/uL (4.8-10.8)
[2018-10-18 06:48] LABS: ALBUMIN 2.9 gm/dl (3.1-4.5); BUN 13 mg/dl (7-24); CHLORIDE 98 mmol/L (98-107); CREATININE 1.08 mg/dL (0.55-1.02); POTASSIUM 3.9 mmol/L (3.5-5.1); SGOT/AST 9 IU/L (3-35); SODIUM 135 mmol/L (136-145)
[2018-10-18 06:50] LABS: ALKALINE PHOSPHATASE 82 U/L (45-117); PHOSPHOROUS 2.9 mg/dL (2.5-4.9); SGPT/ALT 18 U/L (12-78); TOTAL PROTEIN 5.8 gm/dL (6.4-8.2)
[2018-10-18 07:25] LABS: PLATELET SUFFICIENCY HIGH (NORMAL); TOTAL CELLS COUNTED 100 #CELLS
[2018-10-18 08:00] VITALS: BP 113/60
[2018-10-18] MEDS ORDERED: MUCINEX ER600 MG PO (11:33)
[2018-10-18] MEDS ORDERED: PREDNISONE10 MG PO (11:33)
[2018-10-18 12:00] VITALS: BP 118/68
[2018-11-13 11:05] LABS: ORGANISM ID, MOLD Final report (.); RESULT 1 Penicillium species (.)
[2018-11-23 09:10] LABS: ACID FAST CULTURE Negative (.)
[2019-02-27] MEDS ORDERED: TESSALON PERLE100 MG PO (18:01)
[2019-02-27] MEDS ORDERED: PRILOSEC20 M1 PO (18:06)
== END 2018-10-18 13:40 | disposition home or self-care (01) | DRG 871 ==
LOC: ED 16:03 → EDHOLD 18:07 → 4E 18:07
PROVIDERS: Internal Medicine; Internal Medicine Critical Care Medicine; Physician Assistant; ADMIT Internal Medicine
PROC: 0BC98ZZ Extirpation of Matter from Lingula Bronchus, Via Natural or Artificial Opening Endoscopic (ICD-10-PCS; principal; 2018-10-13)
PROC: 0BC68ZZ Extirpation of Matter from Right Lower Lobe Bronchus, Via Natural or Artificial Opening Endoscopic (ICD-10-PCS; principal; 2018-10-13)
PROC: 0BC48ZZ Extirpation of Matter from Right Upper Lobe Bronchus, Via Natural or Artificial Opening Endoscopic (ICD-10-PCS; principal; 2018-10-13)
PROC: 0BCB8ZZ Extirpation of Matter from Left Lower Lobe Bronchus, Via Natural or Artificial Opening Endoscopic (ICD-10-PCS; principal; 2018-10-13)
PROC: 0BC38ZZ Extirpation of Matter from Right Main Bronchus, Via Natural or Artificial Opening Endoscopic (ICD-10-PCS; principal; 2018-10-13)
PROC: 0BC88ZZ Extirpation of Matter from Left Upper Lobe Bronchus, Via Natural or Artificial Opening Endoscopic (ICD-10-PCS; principal; 2018-10-13)
PROC: 0BC58ZZ Extirpation of Matter from Right Middle Lobe Bronchus, Via Natural or Artificial Opening Endoscopic (ICD-10-PCS; principal; 2018-10-13)
PROC: 0BC78ZZ Extirpation of Matter from Left Main Bronchus, Via Natural or Artificial Opening Endoscopic (ICD-10-PCS; principal; 2018-10-13)
DX: A41.9 Sepsis, unspecified organism (principal); J18.9 Pneumonia, unspecified organism; N17.0 Acute kidney failure with tubular necrosis; E87.1 Hypo-osmolality and hyponatremia; F32.2 Major depressive disorder, single episode, severe without psychotic features; J44.0 Chronic obstructive pulmonary disease with (acute) lower respiratory infection; T17.590A Other foreign object in bronchus causing asphyxiation, initial encounter; J44.1 Chronic obstructive pulmonary disease with (acute) exacerbation; J96.11 Chronic respiratory failure with hypoxia; R73.9 Hyperglycemia, unspecified; R74.0 Nonspecific elevation of levels of transaminase and lactic acid dehydrogenase [LDH]; E66.09 Other obesity due to excess calories; E78.5 Hyperlipidemia, unspecified; J20.8 Acute bronchitis due to other specified organisms; K21.9 Gastro-esophageal reflux disease without esophagitis; F41.1 Generalized anxiety disorder; N18.9 Chronic kidney disease, unspecified; I12.9 Hypertensive chronic kidney disease with stage 1 through stage 4 chronic kidney disease, or unspecified chronic kidney disease; E55.9 Vitamin D deficiency, unspecified; K29.50 Unspecified chronic gastritis without bleeding; K64.8 Other hemorrhoids; E87.8 Other disorders of electrolyte and fluid balance, not elsewhere classified; R65.20 Severe sepsis without septic shock; D64.9 Anemia, unspecified; K59.00 Constipation, unspecified; Z68.32 Body mass index [BMI] 32.0-32.9, adult; Z87.891 Personal history of nicotine dependence; Z71.6 Tobacco abuse counseling; Z99.81 Dependence on supplemental oxygen; Z98.51 Tubal ligation status; Z88.0 Allergy status to penicillin; Z88.6 Allergy status to analgesic agent; Z88.1 Allergy status to other antibiotic agents; Z88.8 Allergy status to other drugs, medicaments and biological substances; Z82.49 Family history of ischemic heart disease and other diseases of the circulatory system; Z83.3 Family history of diabetes mellitus; Z82.5 Family history of asthma and other chronic lower respiratory diseases; Z80.9 Family history of malignant neoplasm, unspecified; X58.XXXA Exposure to other specified factors, initial encounter; Y93.89 Activity, other specified; Y92.89 Other specified places as the place of occurrence of the external cause; Y99.8 Other external cause status; Z79.899 Other long term (current) drug therapy

== ENCOUNTER 2018-11-09 10:23 | Inpatient (IN) | payer MEDICARE ==
[~2018-11-09] VITALS: Ht 160 cm; Wt 86.3 kg
--- NOTE | ~2018-11-09 | EKG ---
[place], [place] ELECTROCARDIOGRAM REPORT NAME: JUDY ZAVALA UNIT #: [id number] ROOM: 406 DOCTOR: PAIGE DRAFT REPORT BIRTHDATE: [birth year] [facility] Test Date: 2018-11-09 Test Time: 17:04:06 Pat Name: JUDY ZAVALA Department: Room: [facility] Gender: F Mold Runner: Raquel Garza : 1965 Requested By: DEX HAND Order Number: [id number] Reading MD: Alma Arreaga Measurements Intervals [place] Rate: 111 P: 76 [place]: 187 QRS: 79 QRSD: 93 T: 51 QT: 328 QTc: 446 Interpretive Statements Sinus tachycardia Baseline wander in lead(s) V3 Compared to ECG 10/12/2018 12:06:30 No significant changes Electronically Signed On 11-12-2018 8:57:12 PDT by Alma Arreaga CM:EKGRPT:ELECTROCARDIOGRAM REPORT [id number] DEX GIBSON DRAFT REPORT DEX HAND MD
--- NOTE | ~2018-11-09 | EKG ---
[place], [place] ELECTROCARDIOGRAM REPORT NAME: JUDY ZAVALA UNIT #: [id number] ROOM: 406 DOCTOR: PAIGE DRAFT REPORT BIRTHDATE: [birth year] [facility] Test Date: 2018-11-09 Test Time: 15:26:56 Pat Name: JUDY ZAVALA Department: Room: 406 Gender: F Strapper: Raquel Garza : 1965 Requested By: DEX HAND Order Number: [id number] Reading MD: Alma Arreaga Measurements Intervals [place] Rate: 105 P: 86 NE: 168 QRS: 86 QRSD: 97 T: 58 QT: 352 QTc: 466 Interpretive Statements Sinus tachycardia Baseline wander in lead(s) V6 Compared to ECG 10/12/2018 12:06:30 No significant changes Electronically Signed On 11-12-2018 8:56:57 PDT by Alma Arreaga CM:EKGRPT:ELECTROCARDIOGRAM REPORT [id number] DEX GIBSON DRAFT REPORT DEX HAND MD
--- NOTE | ~2018-11-09 | PR ---
[place], [place] PROGRESS NOTE NAME: JUDY ZAVALA UNIT #: [id number] ROOM: 406 DOCTOR: NELSON WHELAN MD,JHOAN BIRTHDATE: [birth year] DOS: 11/16/2018 PULMONARY PROGRESS NOTE SUBJECTIVE: She has a GI workup completed yesterday with polypectomy done as stated by the patient. Denies symptoms of fever or chills. Denies symptoms of hemoptysis. Denies symptoms of nausea or vomiting. The abdominal pain was still noted. The patient with musculoskeletal chest pain with coughing, which has been improving. OBJECTIVE: VITAL SIGNS: For the patient, which was recorded shows the temperature noted as normal. The respiratory rate recorded as 20, heart rate 92, blood pressure 150/77. The pulse oxygen saturation recorded room air as 93% saturation. HEENT: Head was atraumatic. Eyes nonicterus. NECK: Supple. CARDIOVASCULAR: S1, S2 is audible. LUNGS: The patient noted with occasional wheezing, no crackles. ABDOMEN: Soft, obese with some tenderness in the anterior abdominal wall. EXTREMITIES: Shows chronic obesity. No edema, clubbing or cyanosis. LABORATORY DATA: CBC: WBC count elevated at 23,000, mild anemia, hemoglobin of 11, normal platelet count. IMPRESSION: 1. Musculoskeletal pain. 2. Acute coughing with resolving acute exacerbation, uncomplicated severe persistent bronchial asthma and chronic obstructive pulmonary disease. PLAN OF TREATMENT: Discontinue the IV Solu-Medrol. Start the patient on tapering dose of prednisone tomorrow. Discharge planning per primary care attending. JHOAN DAMON MD CM:PNTRANS [phone] JHOAN WHELAN MD 11/16/18 1803 interface
--- NOTE | ~2018-11-09 | CON ---
[place], [place] REPORT OF CONSULTATION NAME: JUDY ZAVALA UNIT #: [id number] ROOM: 406 DOCTOR: MARTHA GUSTAFSONCAMI BIRTHDATE: [birth year] DOS: 11/13/2018 HISTORY OF PRESENT ILLNESS: The patient is 53 years old, who has presented with chief complaint of rectal bleed. The patient's initial H and H have been 12 and 38 on 11/09/2018, and on 11/13/2018, still the results are the same with H and H of 12 and 38; however, she has been having leukocytosis of 25,000. I have been asked for assessment of the patient regarding colonoscopy. Comprehensive metabolic panel essentially unremarkable, borderline findings. Creatinine is slightly elevated at 1.3. PAST MEDICAL HISTORY: Associated gastric bezoar, COPD, rectal bleed, obesity, hypertension, hyperlipidemia, and hemorrhoid. PAST SURGICAL HISTORY: Teeth extraction, tubal ligation, and bronchoscopy. SOCIAL HISTORY: Smoker, nonalcohol consumer. FAMILY HISTORY: Noncontributory. ALLERGIES: MULTIPLE MEDICATIONS, REVIEWED. HOME MEDICATIONS: Reviewed. The patient has been on Mobic 7.5 mg daily in addition to prednisone, Zantac, and vitamin E. REVIEW OF SYSTEMS: In general: HEENT: Denies double vision or blurred vision. RESPIRATORY: Denies acute shortness of breath. CARDIOVASCULAR: Denies acute chest pain. DIGESTIVE SYSTEM: Rectal bleed. PHYSICAL EXAMINATION: VITAL SIGNS: Stable. HEENT: Within normal limit. NECK: Supple. No thyromegaly. CHEST: Symmetric anatomy, equal expansion, COPD. HEART: Normal sinus rhythm. No gallop, no murmur. ABDOMEN: Soft. No hepato-organomegaly. Obesity is noticed. Bowel sounds are present. EXTREMITIES: No cyanosis, no pedal edema. NEUROLOGIC: Alert and oriented to time, place, and person. IMPRESSION AND PLAN: Rectal bleed. No change in her H and H. Elevated white blood cells. Labs reviewed and records reviewed. We are going to proceed with colonoscopy. The patient had numerous CT scan repeatedly done with normal findings. She has had bronchoscopy this morning as well. [place], [place] REPORT OF CONSULTATION NAME: JUDY ZAVALA UNIT #: [id number] ROOM: [facility] DOCTOR: MARTHA GUSTAFSON,CAMI BIRTHDATE: [birth year] CAMI THOMAS MD CM:CONSTR:REPORT OF CONSULTATION 1941 11/14/18 0541 interface
--- NOTE | ~2018-11-09 | O ---
[place], [place] OPERATIVE NOTE NAME: JUDY ZAVALA UNIT #: [id number] ROOM: 406 DOCTOR: CAMI THOMAS MD BIRTHDATE: [birth year] DOS: 11/15/2018 INDICATIONS: The patient has presented with chief complaint of epigastric distress, nausea, vomiting, and suspected hematemesis. PROCEDURE: Today's procedure part of investigation is panendoscopy plus biopsy and photographic series. PREMEDICATION: Propofol. SCOPE: Olympus forward-viewing gastroscope Q10 video. REPORT: After putting the patient in left lateral position and application of lubricant to the scope, the scope was introduced. Thereafter, under direct visualization, advanced through the length of esophagus without difficulty. Evidence of esophagitis and distal esophageal ulcerations was noticed, photographed. Hiatal hernia, which is approximately 2.5 cm was photographed. Gastric pouch was entered. Gastritis seen. Duodenal bulb, second and third part free of ulceration lesion. The patient extubated, tolerated the procedure well. IMPRESSION: Distal esophageal ulcer, hiatal hernia, gastritis. PLAN AND DISCUSSION: Protonix 40 mg IV b.i.d. and GERD diet, antireflux measure with elevation of the head up to 6 inches all time. CAMI THOMAS MD CM:OPRECORD:OPERATIVE NOTE 08 47 CAMI THOMAS MD 11/15/182046 interface
--- NOTE | ~2018-11-09 | PR ---
[place], [place] PROGRESS NOTE [id number] UNIT #: [id number] ROOM: 406 DOCTOR: JHOAN NATH MD BIRTHDATE: [birth year] DOS: 11/13/2018 PULMONARY PROGRESS NOTE SUBJECTIVE: The patient was still noted with similar symptoms of nonproductive cough, which was stated as severe. The musculoskeletal pain in the chest was also noted with excessive coughing. Minimal sputum expectoration noted. Denies symptoms of fever or chills. Denies symptoms of headache or diplopia. Denies any symptoms of nausea, vomiting or diarrhea. Denies any symptoms of sore throat or otalgia. Denies any pain of the lower extremity. The patient is n.p.o. past midnight for bronchoscopy, which was planned to be done today. Remaining systems were reviewed. They were noted all negative. OBJECTIVE: VITAL SIGNS: Normal temperature, respiratory rate of 16, heart rate 106-92, blood pressure 124/70-105/58. The pulse oxygen saturation recorded as 96% saturation on 3 liters nasal cannula. HEENT: Head was atraumatic. Eyes nonicterus. NECK: Supple. CARDIOVASCULAR SYSTEM: S1, S2 is audible. LUNGS: Expiratory wheezing, no crackles. ABDOMEN: Soft, nontender, moderate obesity. Bowel sounds present. EXTREMITIES: Without any acute edema. MUSCULOSKELETAL: Without any acute deformities. CENTRAL NERVOUS SYSTEM: Noted nonfocal. SKIN: Visible skin without any lesions or rashes. LABORATORY DATA: Penicillium species was isolated in bronchoscopy on 10/11/2018. Culture of the sputum that was done yesterday with normal keyana. Final culture results were pending. Gram stain; many white blood cells, moderate epithelial cells, moderate gram-positive cocci in pairs, chains and clusters. CBC of this morning; WBC count 25.4, hemoglobin 12.6, hematocrit normal, platelet count 460,000. BMP of the patient; BUN 8, creatinine 1.30. Glucose 128, sodium 131. IMPRESSION: 1. The patient who has been currently noted with ongoing acute exacerbation of chronic obstructive pulmonary disease also noted with acute exacerbation and complicated with persistent bronchial asthma, allergic-phenotype with eosinophilia. 2. Chronic obesity. 3. Inoculation of Penicillium, most likely colonization or hypersensitivity to the current mode for the patient would be considered. 3. Chronic nicotine dependence. 4. Persistent leukocytosis. Leukocytosis in differential was noted as 85% neutrophils. PLAN OF MANAGEMENT: Proceed with fiberoptic bronchoscopy. Continue bronchodilator. Order IgE level as well to assess the allergy burden for the [place], [place] PROGRESS NOTE NAME: JUDY ZAVALA UNIT #: [id number] ROOM: [facility] DOCTOR: NELSON WHELAN MD,JHOAN BIRTHDATE: [birth year] patient. Proceed with the bronchoscopy. Continue steroids. Any modification or treatment changes for the patient if necessary will be ordered after the bronchoscopy as needed. JHOAN DAMON MD CM:PNTRANS 1210 [id number] JHOAN WHELAN MD 11/14/18 0010 interface
--- NOTE | ~2018-11-09 | EKG ---
[place], [place] ELECTROCARDIOGRAM REPORT NAME: JUDY ZAVALA UNIT #: [id number] ROOM: 406 DOCTOR: PAIGE DRAFT REPORT BIRTHDATE: [birth year] [facility] Test Date: 2018-11-09 Test Time: 10:25:31 Pat Name: JUDY ZAVALA Department: Room: 406 Gender: F [place]: : 1965 Requested By: DEX HAND Order Number: [id number] Reading MD: Alma Arreaga Measurements Intervals [place] Rate: 110 P: 76 GA: 151 QRS: 82 QRSD: 85 T: 58 QT: 305 QTc: 413 Interpretive Statements Sinus tachycardia Compared to ECG 10/12/2018 12:06:30 No significant changes Electronically Signed On 11-12-2018 8:56:29 PDT by Alma Arreaga CM:EKGRPT:ELECTROCARDIOGRAM REPORT [id number] DEX GIBSON DRAFT REPORT DEX HAND MD
--- NOTE | ~2018-11-09 | PR ---
[place], [place] PROGRESS NOTE NAME: JUDY ZAVALA [facility] #: [id number] UNIT #: [id number] ROOM: 406 DOCTOR: JHOAN NATH MD BIRTHDATE: [birth year] DOS: 11/12/2018 SUBJECTIVE: The patient was noted comfortable at this time, but noted with severe coughing and also resulting in pain in the chest because of that. The coughing has been noted essentially nonproductive at this time. Denies symptoms of fever or chills, shortness breath was noted. The patient stated that symptoms have been noted significantly worse as compared with the previous admission in 09/2018. Denies symptoms of hemoptysis. Denies symptoms of hematemesis or melena. The patient has been also assessed by the GI service and the patient was planned for endoscopy for the assessment of anemia that was noted. Stool for occult blood was noted as positive. Denies symptoms of headache or diplopia. Remaining systems were reviewed and they were noted all negative. OBJECTIVE: VITAL SIGNS: Normal temperature, respiratory rate 16-18, heart rate of 110-106, and 134 noted previously. Blood pressure 150/85-177/80. Pulse oxygen saturation recorded on 3 liters nasal cannula of 97% saturation. HEENT: Examination shows head was atraumatic. Eyes nonicterus. NECK: Supple. CARDIOVASCULAR: S1, S2 audible without any signs. LUNGS: Noted decreased breath sounds, expiratory wheezing, no crackles. ABDOMEN: Soft, obese, nontender. Bowel sounds present. EXTREMITIES: Noted without any acute edema. MUSCULOSKELETAL: Noted without any acute deformities. CENTRAL NERVOUS SYSTEM: Noted without any focal neurologic deficit. LABORATORY DATA: The stool for occult blood was noted as positive. CBC: WBC count 20.2, hemoglobin 11.5, platelet count was normal. CMP done this morning, BUN 7, creatinine 1.11, sodium 134. The echocardiogram that was done on this admission for the patient was reported with findings of sinus tachycardia. IMPRESSION: 1. Persistent sinus tachycardia related to acute exacerbation of bronchial asthma, which noted chronic obstructive pulmonary disease combination, chronic nicotine dependence, musculoskeletal chest pain secondary to excessive coughing with expectorated sputum. 2. The patient with a possibility of gastrointestinal bleeding. PLAN OF MANAGEMENT: No changes for the patient in the medical plan of management at this time except assess the patient for bronchoscopy to be done tomorrow morning. The patient is agreeable for the bronchoscopy, which is scheduled to be done tomorrow morning, n.p.o. past midnight status will be achieved for that. Other additional treatment changes will be ordered based on the progression of the illness. Usual care. Supportive plan of management and care plan for this patient at this time. Symptomatic management of the chest pain needs to be done. Heating pad for was ordered for the medical management of chest pain. [place], [place] PROGRESS NOTE NAME: JUDY ZAVALA UNIT #: [id number] ROOM: [facility] DOCTOR: JHOAN NATH MD BIRTHDATE: [birth year] JHOAN DAMON MD CM:PNTRANS [id number] JHOAN WHELAN MD 11/30/18 1053 interface
--- NOTE | ~2018-11-09 | PR ---
[place], [place] PROGRESS NOTE NAME: [id number] UNIT #: [id number] ROOM: 406 DOCTOR: NELSON WHELAN MD,JHOAN BIRTHDATE: [birth year] DOS: 11/17/2018 PULMONARY PROGRESS NOTE SUBJECTIVE: The patient was noted comfortable at this time with noted progressive resolution of coughing, shortness of breath, and other symptoms. Denies symptoms of fever or chills. PHYSICAL EXAMINATION: VITAL SIGNS: Normal temperature, respiratory rate 20, heart rate 86, blood pressure 129/74, pulse oxygen saturation was recorded as 98% rest on room air. HEENT: Examination shows chronic obesity. NECK: Supple. CARDIOVASCULAR: S1, S2 is audible. LUNGS: The patient was noted without any wheezing or crackles at the present time. ABDOMEN: Soft, nontender. Bowel sounds present. EXTREMITIES: No acute change. IMPRESSION: The patient with gradual progressive resolution of the acute exacerbation of bronchial asthma and acute exacerbation of chronic obstructive pulmonary disease and bronchitis. PLAN OF MANAGEMENT: No change in pulmonary standpoint. Discharge planning with the patient's primary care attending was discussed. The patient could be discharged home today on oral medications and outpatient followup to be established in office in 1 week post-discharge. JHOAN DAMON MD CM:PNTRANS [id number] [id number] JHOAN WHELAN MD 11/30/18 1057 interface
--- NOTE | ~2018-11-09 | PR ---
[place], [place] PROGRESS NOTE NAME: JUDY ZAVALA UNIT #: [id number] ROOM: 406 DOCTOR: NELSON WHELAN MD,JHOAN BIRTHDATE: [birth year] DOS: 11/16/2018 PULMONARY PROGRESS NOTE SUBJECTIVE: The patient has GI workup done with the polyp removed yesterday. Denies symptoms of fever or chills, coughing has been subsiding complaining of musculoskeletal pain in the abdomen, lower portion of the chest with excessive cough. Denies symptoms of nausea, vomiting or diarrhea. PHYSICAL EXAMINATION: VITAL SIGNS: For the patient which were recorded shows a normal temperature, respiratory rate 20, heart rate 92, blood pressure 150/77. Pulse oxygen saturation recorded as 90% saturation. DICTATION ENDS HERE JHOAN DAMON MD CM:PNTRANS 1307 [id number] JHOAN WHELAN MD 11/16/18 1758 interface
--- NOTE | ~2018-11-09 | PR ---
[place], [place] PROGRESS NOTE NAME: JUDY ZAVALA UNIT #: [id number] ROOM: 406 DOCTOR: JHOAN NATH MD BIRTHDATE: [birth year] DOS: 11/15/2018 SUBJECTIVE: She has been reporting reduction in symptoms of shortness of breath, coughing, wheezing gradually after bronchoscopy, still complaining of chest pain. The patient with a cough, which has been noted at time. Plan for the endoscopy to be done for assessment of anemia. Denies symptoms of fever or chills. OBJECTIVE: VITAL SIGNS: Normal temperature, respiratory rate of 20, heart rate of 95, blood pressure 132/66 with pulse ox saturation on 2 liters nasal cannula 96% saturation. HEENT: Chronic obesity. NECK: Supple. CARDIOVASCULAR: S1, S2 audible. LUNGS: Without any wheezing or crackles today. ABDOMEN: Soft, nontender. Bowel sounds present. EXTREMITIES: No acute change. LABORATORY DATA: CBC of the patient this morning, WBC count was 18.9. Hemoglobin 11.6, platelet count normal. BMP this morning, BUN 14, creatinine 1.20. Sodium 134. Culture of the bronchial washing, normal keyana. IMPRESSION: 1. Resolving acute exacerbation of chronic obstructive pulmonary disease, acute tracheobronchitis. 2. Musculoskeletal pain of the chest secondary to coughing, which has been gradually improving. PLAN OF TREATMENT: No changes in the plan of care. Continue medical management of exacerbation of bronchial asthma and chronic obstructive pulmonary disease. Discharge planning. The patient could be started from the pulmonary standpoint once stable from the other consultants after the patient's opinion. [place], [place] PROGRESS NOTE NAME: JUDY ZAVALA UNIT #: [id number] ROOM: 406 DOCTOR: JHOAN NATH MD BIRTHDATE: [birth year] JHOAN DAMON MD CM:PNTRANS 1346 [id number] JHOAN WHELAN MD 11/30/18 1054 interface
--- NOTE | ~2018-11-09 | CON ---
[place], [place] REPORT OF CONSULTATION [facility]: [id number] UNIT #: [id number] ROOM: 406 DOCTOR: JHOAN NATH MD BIRTHDATE: [birth year] DOS: 11/11/2018 PULMONARY CONSULTATION, EVALUATION AND MANAGEMENT CONSULTATION REQUESTED BY: Hospitalist service. REASON FOR CONSULTATION: For the assessment of the recurrent acute exacerbation of chronic obstructive pulmonary disease and ongoing other respiratory symptoms. HISTORY OF PRESENT ILLNESS: This is a 53-year-old white female who has been known to nc, has been admitted in this hospital in 09/2018 treated with acute GI bleeding and exacerbation of COPD and acute bronchitis, discharged home stated that she started getting sick again for a few days after discharge from the hospital was spending a lot of time on the consultation. Does not wish to come to the hospital. The patient stated that she has been brought to the hospital by the family member because of the worsening of the respiratory symptoms. During last admission, she has a therapeutic bronchoscopy done on 10/13/2018 as well. She has been currently admitting symptoms of having coughing, which were noted with intermittent sputum expectoration moderate amount, sometimes purulent; otherwise mucus. Shortness of breath and wheezing was also reported with symptoms of the chest tightness. She stated not smoking any cigarettes to nc, but has been reported as active tobacco use. History obtained by the medical technologist clinical. She denies any symptoms of chest pain. REVIEW OF SYSTEMS: CONSTITUTIONAL SYMPTOMS: Fatigue and tiredness reported without any symptoms of fever or chills. EYES: Denies any burning, redness, or tenderness. EARS, NOSE, AND THROAT SYMTOMS: Denies sore throat, hoarseness, otalgia, postnasal drainage or epistaxis. CARDIOVASCULAR: Denies angina pain, edema, or pain of the lower extremities. GASTROINTESTINAL: Denies dysphagia, nausea, vomiting, diarrhea, abdominal pain, hematemesis, melena, or hematochezia. GENITOURINARY: Denies dysuria, urinary incontinence, or suprapubic pain. MUSCULOSKELETAL: No acute joint pain, redness, or tenderness. SKIN: No lesions or rashes. Remaining systems were reviewed. They were noted all negative. PAST MEDICAL HISTORY: 1. Chronic obstructive pulmonary disease. 2. Chronic hypoxic respiratory failure. 3. History of cocaine use in the past. 4. Generalized anxiety disorder. 5. Depression. 6. Gastroesophageal reflux disease. 7. Nicotine dependence. 8. Moderate obesity. 9. Hyperlipidemia. [place], [place] REPORT OF CONSULTATION NAME: JUDY ZAVALA UNIT #: [id number] ROOM: [facility] DOCTOR: JHOAN NATH MD BIRTHDATE: [birth year] PAST SURGICAL HISTORY: 1. Therapeutic bronchoscopy, last done in 09/2017. 2. Tubal ligation. SOCIAL HISTORY: The patient is , has 2 children, lives at home. Noted with tobacco use since earlier age 2 pack of cigarettes per day and later on smoking 1 pack or less of cigarettes per day to be stating not smoking any cigarettes. The patient denies alcohol use. FAMILY HISTORY: Unknown. CURRENT MEDICATIONS: Administered were noted use of Flonase, cetirizine, vitamin D, nicotine replacement with a Nicotrol inhaler, DuoNeb, famotidine, Paxil, omeprazole, lisinopril, fenofibrate, Lipitor, gabapentin, Mucinex, Solu-Medrol 60 mg q. 8 hours, Levaquin, and some other p.r.n. medications. DRUG ALLERGIES: The patient was noted as allergies to: 1. Z-LESLIE. 2. PENICILLINS. 3. REGLAN. PHYSICAL EXAMINATION: GENERAL: A 53-year-old female noted to be awake and alert, noted intermittent coughing. Height of 5 feet 3 inches, weight of 190 pounds, BMI 33.6. VITAL SIGNS: She has a normal temperature, respiratory rate 18, heart rate of 124-122. The blood pressure 144/69-142/70. Pulse oxygen saturation recorded on 2 liters nasal cannula was 98% saturation. HEENT: Examination shows head was atraumatic. Eyes nonicterus. NECK: Supple. CARDIOVASCULAR: S1, S2 is audible. LUNGS: Noted with moderate decreased breath sounds with expiratory wheezing without any crackles. ABDOMEN: Soft. Moderate obesity. Bowel sounds present. EXTREMITIES: Without any acute edema. MUSCULOSKELETAL: Without any acute deformities. CENTRAL NERVOUS SYSTEM: Cranial nerves 2-12 intact. SKIN: No lesions or rashes. LABORATORY DATA: CBC on 11/09/2018, WBC count 11,000, hemoglobin and hematocrit normal, platelet count normal. Eosinophils were 4.7%. The PT, PTT were noted as normal. CMP, BUN 10, creatinine 1.36. Sodium 131. CBC that was done on 11/10/2018, WBC count 12.1, hemoglobin 11.2, hematocrit 33.2, platelet count 323,000. CBC this morning: WBC count 20.0. Hemoglobin and hematocrit was normal. BMP this morning, normal BUN, and creatinine 1.10. Chest x-ray, which was done on 11/09/2018, one-view from the Emergency Room was reviewed, hyperinflated lungs without any evidence of acute pulmonary infiltration. IMPRESSION: 1. The patient who has been currently admitted to the hospital noted recurrent acute exacerbation of chronic obstructive pulmonary disease, possible bronchial [place], [place] REPORT OF CONSULTATION NAME: JUDY ZAVALA UNIT #: [id number] ROOM: [facility] DOCTOR: JOHAN NATH MD BIRTHDATE: [birth year] asthma exacerbation, eosinophilic type would be strongly considered, history of nicotine dependence as well. 2. Moderate obesity as well. PLAN OF MANAGEMENT: Continuation of bronchodilators, oxygen supplementation, and antibiotics. Collected sputum for Gram stain and culture. No change in antibiotics. Outpatient assessment for possible consideration of additional therapy for the long-term management of bronchial asthma because of frequent hospitalization. Abstinence tobacco was encouraged. Usual care. JHOAN DAMON MD CM:CONSTR:REPORT OF CONSULTATION 1606 11/12/18 0702 interface
--- NOTE | ~2018-11-09 | O ---
[place], [place] OPERATIVE NOTE NAME: JUDY ZAVALA UNIT #: [id number] ROOM: 406 DOCTOR: CAMI THOMAS MD BIRTHDATE: [birth year] DOS: 11/13/2018 INDICATION: A 53-year-old with underlying rectal bleed complaint. PROCEDURE: Today's procedure part of investigation is colonoscopy. PREMEDICATION: Propofol. SCOPE: Olympus forward-viewing colonoscope 10L video. REPORT: After putting the patient in left lateral position and application of lubricant to the scope, the scope was introduced. Thereafter, under direct visualization, advanced through the length of colon above the cecum. Liquid stool in here over runs the visualization despite numerous lavage. The scope was withdrawn. The patient was extubated. She tolerated the procedure well. IMPRESSION AND PLAN: Tortuous colon at hepatic flexure, otherwise retained liquid stool, otherwise normal colonoscopic examination except a small hemorrhoid. The patient most likely has been bleeding per rectum from hemorrhoid. Anucort-HC suppository p.r.n. is the choice of therapy. CAMI THOMAS MD CM:OPRECORD:OPERATIVE NOTE [id number] CAMI THOMAS MD 11/14/18 0548 interface
--- NOTE | ~2018-11-09 | PROC NOTE ---
[place], [place] PROCEDURE NOTE [id number] UNIT #: [id number] ROOM: 406 DOCTOR: NELSON WHELAN MD,JHOAN BIRTHDATE: [birth year] DOS: 11/13/2018 PROCEDURE: Bronchoscopy. PREOPERATIVE DIAGNOSES: Severe coughing, wheezing, musculoskeletal pain of the chest because of coughing, suspected mucous impaction in the major airways. POSTOPERATIVE DIAGNOSES: Removal of moderate amount of thick mucoid secretion, impaction from endobronchial tree bilaterally without any difficulty. COMPLICATIONS: None. ANESTHESIA: The procedure was done under local MAC. PROCEDURE DESCRIPTION: Informed consent obtained for the patient. The patient was given conscious sedation. After that, the bronchoscope was advanced through the airway, which was placed in the mouth into the laryngeal area. Epiglottis and vocal cords were seen. Vocal cord moving in symmetrical movement. Bronchoscope was advanced through the vocal cord and tracheal lumen. The tracheal lumen was identified. The tracheal lumen noted with moderate amount of thick mucus secretion, which was suctioned out with the help of normal saline wash. Tanya noted sharp. Moderate impaction of the mucus plugs noted in all of the endobronchial subsegments bilaterally cleared up with normal saline wash, sent for culture. Procedure well tolerated by the patient without any difficulty. Postoperative findings will be discussed with the patient once the patient recovers from the effects of acute sedation. JHOAN DAMON MD CM:PROCNOTE:PROCEDURE NOTE [id number] JHOAN WHELAN MD
--- NOTE | ~2018-11-09 | PR ---
[place], [place] PROGRESS NOTE NAME: JUDY ZAVALA UNIT #: [id number] ROOM: 406 DOCTOR: JHOAN NATH MD BIRTHDATE: [birth year] DOS: 11/14/2018 PULMONARY PROGRESS NOTE SUBJECTIVE: The patient was noted comfortable at this time, resting on the bed. Bronchoscopy completed yesterday. Reduction of the symptoms of cough and wheezing; however, the resolution reported by the patient is incomplete. She has not been noted any symptoms of chest pain this morning. OBJECTIVE: VITAL SIGNS: The vital signs of the patient, which were recorded shows normal temperature, respiratory rate of 18, heart of 104, blood pressure of 130/70-112/60. Pulse oxygen saturation on room air is 97% saturation. HEENT: Examination shows head was atraumatic. Eyes nonicterus. NECK: Supple. CARDIOVASCULAR SYSTEM: S1, S2 is audible. LUNGS: The patient was noted with occasional wheezing, no crackles. ABDOMEN: Soft, nontender. Bowel sounds present. EXTREMITIES: No new change. LABORATORY DATA: Cultures of the bronchial washing preliminary, normal keyana; final culture results were pending. IMPRESSION: 1. Status post bronchoscopy at the present time, which has been also noted with reduction of the respiratory symptoms, acute tracheobronchitis, and mucus impaction. 2. Acute exacerbation of chronic obstructive pulmonary disease and bronchial asthma. PLAN OF MANAGEMENT: No changes in the plan of care at this time. Continue the patient's current therapy, plan of management at this time. Usual care, other supportive plan of treatment and care. [place], [place] PROGRESS NOTE NAME: JUDY ZAVALA UNIT #: [id number] ROOM: 406 DOCTOR: JHOAN NATH MD BIRTHDATE: [birth year] JHOAN DAMON MD CM:PNTRANS [phone] JHOAN WHELAN MD 11/15/18 0241 interface
[~2018-11-09 10:23] MED LIST changes: +CYCLOBENZAPRINE10 MG PO; +LIPITOR20 MG PO; +MUCINEX ER600 MG PO; +PAXIL10 MG PO; +PRILOSEC20 M1 PO; +VITAMIN D50000 UNIT PO; +VITAMIN E400 UNI1 PO; +ZANTAC 300300 MG PO; +ZESTRIL40 MG PO
[2018-11-09 10:29] VITALS: BP 141/100
[2018-11-09] MEDS ORDERED: MOBIC7.5 MG PO (10:56)
[2018-11-09 11:00] LABS: BASO # 0.1 10*3/uL (0.0-0.1); BASO % 0.5 % (0.0-1.0); EOS # 0.5 10*3/uL (0.0-0.4); EOS % 4.7 % (1.0-4.0); HEMATOCRIT 38.6 % (37.0-47.0); HEMOGLOBIN 12.9 g/dl (12.0-16.0); LYMPH # 3.3 10*3/uL (1.3-4.4); LYMPH % 29.6 % (27.0-41.0); MEAN CELL VOLUME 94.6 fl (81.0-99.0); MEAN CORPUSCULAR HGB 31.6 pg (27.0-31.0); MEAN CORPUSCULAR HGB CONC 33.4 g/dl (33.0-37.0); MONO # 0.9 10*3/uL (0.1-1.0); MONO % 8.2 % (3.0-9.0); NEUT # 6.2 10*3/uL (2.3-7.9); NEUT % 56.5 % (47.0-73.0); PLATELET COUNT AUTOMATED 363 10*3/uL (130-400); RED BLOOD COUNT 4.08 10*6/uL (4.10-5.10); RED CELL DISTRI WIDTH 13.2 % (0-14.5)
[2018-11-09 11:10] LABS: ACT PARTIAL THROMBO TIME 24.7 SECONDS (20.8-31.5); INTERNATIONAL NORM RATIO 0.9 (2.0-3.5)
[2018-11-09 11:17] LABS: ALBUMIN 3.7 gm/dl (3.1-4.5); ALKALINE PHOSPHATASE 91 U/L (45-117); BUN 10 mg/dl (7-24); CHLORIDE 95 mmol/L (98-107); CREATININE 1.36 mg/dL (0.55-1.02); POTASSIUM 4.3 mmol/L (3.5-5.1); SGOT/AST 14 IU/L (3-35); SGPT/ALT 28 U/L (12-78); SODIUM 131 mmol/L (136-145); TOTAL PROTEIN 7.3 gm/dL (6.4-8.2)
[2018-11-09 11:19] LABS: TROPONIN I < 0.015 ng/ml (<0.045)
[2018-11-09 11:36] VITALS: BP 140/100
[2018-11-09 12:00] VITALS: BP 109/70
--- NOTE | 2018-11-09 12:20 | NUR ---
[place] 53, admitted to , under the services of GREGORY Sims DO with a diagnosis of COPD WITH EXACERBATION. Chief complaint is SOB/CHEST PAIN. Patient arrived via wheel chair from ER. Monitor applied. Initial assessment completed. Vital signs taken and recorded. GREGORY SIMS DO notified of admission to the unit. Orders received. See assessment for past medical history, medications and allergies. Patient and/or family oriented to unit. [facility] visitation policy reviewed. Clothing/patient valuable form completed. BELKYS RASMUSSEN
[2018-11-09 16:00] VITALS: BP 127/54
--- NOTE | 2018-11-09 17:09 | NUR ---
PATIENT REFUSING ORTHOS AT THIS TIME. WILL TRY AGAIN LATER.
--- NOTE | 2018-11-09 18:50 | NUR ---
PT MEDICATED WITH PO NORCO PER PRN ORDER FOR C/O ABD PAIN. RATES PAIN 04/03. WILL MONITOR EFFECTIVENESS.
[2018-11-09 20:00] VITALS: BP 136/63
--- NOTE | 2018-11-09 20:27 | NUR ---
NOTIFIED DR SHEIKH OF PATIENT REQUESTING COUGH MEDICINE FOR BEDTIME. C/O PRODUCTIVE COUGH FOR GREEN/YELLOW SPUTUM
[2018-11-10] VITALS: BP 136/56
[2018-11-10 05:52] LABS: HEMATOCRIT 33.2 % (37.0-47.0); HEMOGLOBIN 11.2 g/dl (12.0-16.0); MEAN CELL VOLUME 94.9 fl (81.0-99.0); MEAN CORPUSCULAR HGB CONC 33.7 g/dl (33.0-37.0); MEAN PLATELET VOLUME 10.4 fl (9.6-12.3); PLATELET COUNT AUTOMATED 323 10*3/uL (130-400); RED CELL DISTRI WIDTH 12.8 % (0-14.5); WHITE BLOOD COUNT 12.1 10*3/uL (4.8-10.8)
[2018-11-10 06:01] LABS: CREATININE 1.22 mg/dL (0.55-1.02); PHOSPHOROUS 2.4 mg/dL (2.5-4.9); POTASSIUM 4.3 mmol/L (3.5-5.1)
[2018-11-10 06:22] LABS: BURR CELLS FEW; PLATELET SUFFICIENCY NORMAL (NORMAL); POLYCHROMASIA SLIGHT; TOTAL CELLS COUNTED 100 #CELLS
[2018-11-10 08:00] VITALS: BP 146/72
--- NOTE | 2018-11-10 09:00 | NUR ---
Grain Shipper in to talk to patient. Patient states lives at home with boyfriend. There are few steps in the home. Physician: ruslan patel [facility]: [facility] Home health services: none Patient's level of ADLs: INDEPENDENT Patient has working utilities: all working DME: home oxygen, portable tanks, cane, nebulizer, from [facility] Follow-up physician's appointment after d/c: will be made by hospitalist nurse director upon discharge Does patient want to access PORTAL?: no Discharge plan discussed with patient, patient lives at home with boyfriend, she is independent in adls and ambulation, patient states she will be going home when able and denies any home services, case management will follow. LOLY AGUILA
--- NOTE | 2018-11-10 10:40 | NUR ---
ORTHOSTATIC BPs NEGATIVE. SEE RESULTS.
--- NOTE | 2018-11-10 10:53 | NUR ---
PHONE CALL PLACED TO [facility] TO VERIFY MEDICATION PROFILE. PHARMACY STAFF WILL FAX MEDICATION LIST TO [facility]. WILL REVIEW ONCE RECEIVED.
[2018-11-10 12:00] VITALS: BP 150/66
--- NOTE | 2018-11-10 13:38 | NUR ---
CONSULT FOR DR DAMON WAS ORDERED. DR DAMON NOTIFIED VIA CELL.
--- NOTE | 2018-11-10 14:44 | NUR ---
PATIENT C/O CONSTIPATION AND FULLNESS AND REQUESTS PRN DULCOLAX SUPPOSITORY. DULCOLAX ADMINISTERED RECTALLY AND PATIENT TOLERATED WELL.
[2018-11-10 16:00] VITALS: BP 143/57
--- NOTE | 2018-11-10 16:48 | NUR ---
PT STATES DULCOLAX SUPPOSITORY WAS INEFFECTIVE FOR C/O CONSTIPATION. REQUESTED "SOMETHING ELSE". PO DULCOLAX GIVEN. WILL MONTIOR FOR EFFECTIVENESS.
[2018-11-10 20:00] VITALS: BP 140/65
--- NOTE | 2018-11-10 21:04 | NUR ---
PLEASANT/COOPERATIVE FOR SHIFT ASSESSMENT. RESPIRATIONS EASY/REG ON 3L NC. IVF MAINTAINED PER ORDER. CALL LIGHT IN REACH
[2018-11-11] VITALS: BP 144/69
[2018-11-11 05:56] LABS: BASO % 0.1 % (0.0-1.0); HEMATOCRIT 35.6 % (37.0-47.0); HEMOGLOBIN 11.7 g/dl (12.0-16.0); LYMPH # 0.8 10*3/uL (1.3-4.4); LYMPH % 3.8 % (27.0-41.0); MEAN CELL VOLUME 94.7 fl (81.0-99.0); MEAN CORPUSCULAR HGB 31.1 pg (27.0-31.0); MEAN CORPUSCULAR HGB CONC 32.9 g/dl (33.0-37.0); MEAN PLATELET VOLUME 10.7 fl (9.6-12.3); NEUT % 89.8 % (47.0-73.0); PLATELET COUNT AUTOMATED 362 10*3/uL (130-400); RED BLOOD COUNT 3.76 10*6/uL (4.10-5.10); RED CELL DISTRI WIDTH 13.3 % (0-14.5)
[2018-11-11 06:32] LABS: BUN 7 mg/dl (7-24); CHLORIDE 103 mmol/L (98-107); POTASSIUM 4.2 mmol/L (3.5-5.1); SODIUM 134 mmol/L (136-145)
[2018-11-11 08:00] VITALS: BP 142/70
--- NOTE | 2018-11-11 10:01 | NUR ---
CALLED TO PTs ROOM, PT STATES SHE WAS UP TO THE RESTROOM TO HAVE A BM. STATED THE BM WAS "HARDER" THAN USUAL BTU REPORTS BRIGHT RED BLOOD STREAKS WHILE WIPPING. PT DENIES HX OF HEMMORHOIDS AND DENIES PERIOD AT THIS TIME. NOTIFIED. SAID SHE WOULD SEE THE PT.
--- NOTE | 2018-11-11 10:54 | NUR ---
Attempted to call . No answer. Left message for request to call back.
--- NOTE | 2018-11-11 11:57 | NUR ---
MADE AWARE OF CONSULT. NEW ORDER FOR MIRALAX DAILY, H&H WITH AM LABS, AND TO CALL WITH RESULTS AT 10AM TOMORROW.
[2018-11-11 12:00] VITALS: BP 143/66
--- NOTE | 2018-11-11 14:46 | NUR ---
SLEEPING, NO S/S OF DISTRESS NOTED. CALL LIGHT IN REACH.
[2018-11-11 16:00] VITALS: BP 139/67
[2018-11-11 20:00] VITALS: BP 156/77
--- NOTE | 2018-11-11 21:39 | NUR ---
PATIENT MEDICATED WITH PRN COUGH MEDICATION FOR C/O COUGH. WILL MONITOR
[2018-11-12] VITALS: BP 150/85
--- NOTE | 2018-11-12 01:07 | NUR ---
24 HR chart check completed.
[2018-11-12 06:04] LABS: HEMATOCRIT 34.5 % (37.0-47.0); HEMOGLOBIN 11.5 g/dl (12.0-16.0); MEAN CELL VOLUME 95.8 fl (81.0-99.0); MEAN CORPUSCULAR HGB 31.9 pg (27.0-31.0); MEAN CORPUSCULAR HGB CONC 33.3 g/dl (33.0-37.0); MEAN PLATELET VOLUME 10.6 fl (9.6-12.3); PLATELET COUNT AUTOMATED 378 10*3/uL (130-400); RED CELL DISTRI WIDTH 13.6 % (0-14.5); WHITE BLOOD COUNT 20.2 10*3/uL (4.8-10.8)
[2018-11-12 06:18] LABS: ALKALINE PHOSPHATASE 100 U/L (45-117); BUN 7 mg/dl (7-24); CHLORIDE 101 mmol/L (98-107); CREATININE 1.11 mg/dL (0.55-1.02); POTASSIUM 4.4 mmol/L (3.5-5.1); SGOT/AST 16 IU/L (3-35); SGPT/ALT 31 U/L (12-78); SODIUM 134 mmol/L (136-145); TOTAL PROTEIN 5.8 gm/dL (6.4-8.2)
[2018-11-12 06:35] LABS: PLATELET SUFFICIENCY NORMAL (NORMAL); TOTAL CELLS COUNTED 100 #CELLS
--- NOTE | 2018-11-12 10:18 | NUR ---
AND RESIDENTS IN TO SEE PT AT THIS TIME.
--- NOTE | 2018-11-12 10:24 | NUR ---
NOTIFIED OF LABS RESULTS AND PT COMPLAINTS THROUGH NIGHT. SAID TO PREP PT FOR COLONOSCOPY. SEE ORDERS.
[2018-11-12 12:00] VITALS: BP 177/80
--- NOTE | 2018-11-12 12:34 | NUR ---
TALKING ON CELL PHONE. CALL LIGHT IN REACH.
--- NOTE | 2018-11-12 14:30 | NUR ---
RED RASH FOUND TO LEFT UNDER BREAST AND BILAT GROIN AREAS. PT DECLINED MEASUREMENTS AND PICTURES TO BE TAKEN. NOTIFIED, SAID SHE WOULD ORDER NYSTATIN POWDER. SEE MAR.
[2018-11-12 16:00] VITALS: BP 145/70
--- NOTE | 2018-11-12 18:30 | NUR ---
TOLERATING COLO PREP WELL. 1/2 OF POWERADE BOTTLE/MIRALAX LEFT TO GO.
[2018-11-12 20:00] VITALS: BP 151/84; BP 165/87
--- NOTE | 2018-11-12 23:32 | NUR ---
PATIENT MEDICATED WITH PO NORCO FOR C/O ALL OVER ABD PAIN RATED 10/10. PO RESTORIL ALSO ADMINISTERED FOR C/O SLEEPLESSNESS. WILL MONITOR EFFECTIVENESS. CALL LIGHT LEFT IN REACH.
[2018-11-13] VITALS (12 sets, daily range): BP systolic 87–151; BP diastolic 39–78
--- NOTE | 2018-11-13 00:11 | NUR ---
EARLIER MEDICATIONS EFFECTIVE PER PT. WILL MONITOR. CALL LIGHT IN REACH.
--- NOTE | 2018-11-13 05:22 | NUR ---
PER YASMIN GAN TO REMOVE FIRE LOSS PREVENTION ENGINEER FOR PATIENT TO SHOWER.
[2018-11-13 06:05] LABS: HEMATOCRIT 38.8 % (37.0-47.0); HEMOGLOBIN 12.6 g/dl (12.0-16.0); MEAN CELL VOLUME 95.3 fl (81.0-99.0); MEAN CORPUSCULAR HGB CONC 32.5 g/dl (33.0-37.0); MEAN PLATELET VOLUME 10.2 fl (9.6-12.3); PLATELET COUNT AUTOMATED 460 10*3/uL (130-400); RED BLOOD COUNT 4.07 10*6/uL (4.10-5.10); RED CELL DISTRI WIDTH 13.3 % (0-14.5); WHITE BLOOD COUNT 25.4 10*3/uL (4.8-10.8)
[2018-11-13 06:12] LABS: CREATININE 1.3 mg/dL (0.55-1.02); POTASSIUM 3.7 mmol/L (3.5-5.1)
[2018-11-13 06:42] LABS: PLATELET SUFFICIENCY HIGH (NORMAL); TOTAL CELLS COUNTED 100 #CELLS
--- NOTE | 2018-11-13 08:39 | NUR ---
PATIENT IN SURGERY AT THIS TIME. WILL ASSESS AT A LATER TIME.
--- NOTE | 2018-11-13 09:00 | NUR ---
case mangement visits with patient, aptient will be [place] ghome when able and dneies any home needs
--- NOTE | 2018-11-13 17:10 | NUR ---
MORPHINE 2 MG GIVEN FOR C/O GENERALIZED PAIN,04/03.
--- NOTE | 2018-11-13 17:30 | NUR ---
PT TRANSPORTED VIA BED OFF FLOOR TO OR FOR COLO WITH DR THOMAS.
--- NOTE | 2018-11-13 18:58 | NUR ---
PT OFF FLOOR SATX NOT GIVEN AT THIS TIME
--- NOTE | 2018-11-13 19:31 | NUR ---
SPOKE TO AT THIS TIME. STATES PATIENT'S COLON IS NORMAL. REPORTS "NOT A DROP OF BLOOD IN HER COLON." DISCUSSED HOME MEDICATIONS. NOT ON A BLOOD THINNER PER HOME MED REC. INSTRUCTED TO GIVE PATIENT REGULAR DIET. TRAY IN ROOM AWAITING PATIENT'S RETURN.
--- NOTE | 2018-11-13 20:10 | NUR ---
PATIENT RETURNED TO FLOOR FROM SURGERY. VITAL SIGNS STABLE. DENIES ANY PAIN/GENERALIZED DISCOMFORT AT THIS TIME. STATES SHE IS HUNGRY. TRAY IN ROOM FOR PT TO EAT.
[2018-11-14 00:20] VITALS: BP 112/60
--- NOTE | 2018-11-14 06:00 | NUR ---
JUDY ZAVALA [id number] Please refer to the physician's history and physical for past medical history, comorbid conditions, and allergies. Diagnosis: COPD WITH EXACERBATON Erwin Score: 19,LOW OR NO RISK WOUND DESCRIPTIONS: Patient has red satellite areas located to bilateral breasts more so on the left, bilateral groins also have red satellite areas. No drainage noted slight musty odor noted. Patient stated she will care for this at home like she has in the past. Surface the patient is resting on: Isoflex SKIN PREVENTION RECOMMENDATION: 1. Pressure redistribution support surface as appropriate 2. Elevate heels 3. Remove boots/TEDS every shift and reapply 4. Head of bed 30 degrees as tolerated 5. Assess nutrition and hydration 6. Manage moisture 7. Avoid the use of containment devices while in bed 8. Use absorptive products on surfaces limit layers of linens on bed 9. Turn and reposition every 1-2 hours in bed and every 1 hour in chair as tolerated 10. Weight shifts every 15 minutes while up in chair 11. Offloading with pillows or device to keep heels elevated off bed 12. Monitor skin at least every shift 13. Inspect under medical devices twice a day WOUND TREATMENT RECOMMENDATIONS: Continue nystatin powder every 12 hours per orders.
--- NOTE | 2018-11-14 07:51 | NUR ---
Shift chart check completed.
[2018-11-14 08:00] VITALS: BP 130/70
--- NOTE | 2018-11-14 09:00 | NUR ---
PT COMPLAINED OF 10/10 RIGHT SIDE PAIN. NORCO ADMINISTERED PRESCRIBED. WILL REASSESS FOR EFFECTIVENESS.
--- NOTE | 2018-11-14 09:00 | NUR ---
case management visits with patient, patient states she will be going home when able and denies any home needs
--- NOTE | 2018-11-14 10:00 | NUR ---
PT STILL COMPLAINS OF UNRELIEVED RIGHT SIDE PAIN.
--- NOTE | 2018-11-14 11:04 | NUR ---
2 MG [id number] ADMINISTERED PRESCRIBED FOR UNRELIEVED PAIN. WILL REASSESS PT WITHIN THE NEXT HOUR.
--- NOTE | 2018-11-14 11:30 | NUR ---
Patient resting quietly with no c/o discomfort. Respirations easy and regular. Vital signs stable. No overt distress. JULIANNA MONTOYA
[2018-11-14 12:00] VITALS: BP 135/77
[2018-11-14 16:00] VITALS: BP 134/62
[2018-11-14 16:05] LABS: ACID FAST SPEC PROCESSING Concentration (.)
[2018-11-14 20:00] VITALS: BP 123/68
--- NOTE | 2018-11-14 22:16 | NUR ---
PO NORCO ADMINISTERED PER PRN ORDER FOR C/O PAIN IN BL RIBS FROM COUGHING. RATES PAIN 10/10. PO RESTORIL ALSO ADMINISTERED FOR C/O INSOMNIA. WILL MONITOR. CALL LIGHT LEFT IN REACH.
[2018-11-15] VITALS (9 sets, daily range): BP systolic 123–170; BP diastolic 64–90
--- NOTE | 2018-11-15 00:13 | NUR ---
EARLIER MEDICATION EFFECTIVE PER PT. WILL CONTINUE TO MONITOR. CALL LIGHT IN REACH.
--- NOTE | 2018-11-15 03:10 | NUR ---
PATIENT ASLEEP IN BED. RESPIRATIONS EASY. NO S/S OF DISTRESS NOTED. O2 IN USE VIA 3L NC. WILL CONTINUE TO MONITOR. BED LOCKED IN LOW POSITION, BED ALARM INTACT, CALL LIGHT IN REACH.
--- NOTE | 2018-11-15 03:10 | NUR ---
PATIENT ASLEEP IN BED. RESPIRATIONS EASY. NO S/S OF DISTRESS NOTED. O2 IN USE VIA 3L NC. WILL CONTINUE TO MONITOR. BED LOCKED IN LOW POSITION, CALL LIGHT IN REACH.
--- NOTE | 2018-11-15 04:16 | NUR ---
IV MORPHINE ADMINISTERED PER PRN ORDER FOR C/O BL RIB PAIN (R SIDE > SIDE). PT RATING PAIN 10/10. WILL MONITOR EFFECTIVENESS. CALL LIGHT LEFT IN REACH.
--- NOTE | 2018-11-15 05:29 | NUR ---
PATIENT RETURNED FROM SHOWER ROOM AFTER GETTING WASHED UP FOR EGD. STATES EARLIER MORPHINE WAS EFFECTIVE. KPAD IN USE. WILL MONITOR. CALL LIGHT LEFT IN REACH.
[2018-11-15 06:25] LABS: HEMATOCRIT 35.5 % (37.0-47.0); HEMOGLOBIN 11.6 g/dl (12.0-16.0); MEAN CELL VOLUME 94.2 fl (81.0-99.0); MEAN CORPUSCULAR HGB 30.8 pg (27.0-31.0); MEAN CORPUSCULAR HGB CONC 32.7 g/dl (33.0-37.0); MEAN PLATELET VOLUME 10.2 fl (9.6-12.3); PLATELET COUNT AUTOMATED 378 10*3/uL (130-400); RED BLOOD COUNT 3.77 10*6/uL (4.10-5.10); RED CELL DISTRI WIDTH 13.2 % (0-14.5); WHITE BLOOD COUNT 18.9 10*3/uL (4.8-10.8)
[2018-11-15 06:48] LABS: CREATININE 1.2 mg/dL (0.55-1.02); POTASSIUM 4.2 mmol/L (3.5-5.1)
[2018-11-15 07:04] LABS: PLATELET SUFFICIENCY NORMAL (NORMAL); TOTAL CELLS COUNTED 100 #CELLS
--- NOTE | 2018-11-15 08:45 | NUR ---
PT RESTING IN BED. C/O RIGHT SIDE/ABDOMINAL PAIN, RATES PAIN 10 ON PAIN SCALE 0-10. MEDICATED WITH MORPHINE IV PER PRN ORDER, SEE EMAR. OXYGEN IN USE. PT UPSET CAUSE NOT WENT TO SURGERY YET FOR PROCEDURE. MADE AWARE TIMES DR. THOMAS PROCEDURES ARE TODAY. TOLERATING IV ANTIBIOTIC. CALL LIGHT IN REACH. SEE SHIFT ASSESSMENT.
--- NOTE | 2018-11-15 09:30 | NUR ---
RESTING IN BED. STATES PAIN MEDICATION HELPS SOME. CALL LIGHT IN REACH.
--- NOTE | 2018-11-15 12:26 | NUR ---
PT ASSESSED FOR HOME OXYGEN. PT DID NOT QUALIFY FOR CONTINUEOUS OXYGEN. PT AT REST SPO2 94% RA, HR 99, B/P 170/88 PT AMBULATED SPO2 91-93% RA PT AT REST SPO2 91% RA, HR 111, RR 18, B/P 157/[address] NOTIFIED PT HAS O2 AT HOME FOR NIGHT TIME
--- NOTE | 2018-11-15 16:10 | NUR ---
WAITING FOR EGD. NPO. CALL LIGHT IN REACH.
--- NOTE | 2018-11-15 19:45 | NUR ---
Patient off floor for egd with Dr. Ayala.
--- NOTE | 2018-11-15 20:55 | NUR ---
PATIENT BACK IN ROOM.
--- NOTE | 2018-11-15 21:50 | NUR ---
PATIENT MEDICATED SLOWLY WITH MORPHINE 2 MG IV PER PRN ORDER AND PATIENT REQUEST FOR C/O ABDOMINAL PAIN . RATED PAIN A 8/10 WITH 10 BEING THE WORST. SEE EMAR. REINFORCED USE OF CALL LIGHT.
[2018-11-16] VITALS: BP 137/63
--- NOTE | 2018-11-16 | NUR ---
PATIENT RESTING QUIETLY. MEDICATION GIVEN EARLIER EFFECTIVE FOR PAIN.
--- NOTE | 2018-11-16 02:43 | NUR ---
24 HR chart check completed.
--- NOTE | 2018-11-16 05:45 | NUR ---
PATIENT MEDICATED WITH MORPHINE 2 MG IV PER PRN ORDER FOR C/O ABDOMINAL PAIN. RATED PAIN A 9/10 WITH 10 BEING THE WORST. SEE EMAR. REINFORCED USE OF CALL LIGHT.
[2018-11-16 06:44] LABS: HEMATOCRIT 35.6 % (37.0-47.0); HEMOGLOBIN 11.8 g/dl (12.0-16.0); MEAN CELL VOLUME 93.7 fl (81.0-99.0); MEAN CORPUSCULAR HGB 31.1 pg (27.0-31.0); MEAN CORPUSCULAR HGB CONC 33.1 g/dl (33.0-37.0); MEAN PLATELET VOLUME 10.2 fl (9.6-12.3); PLATELET COUNT AUTOMATED 389 10*3/uL (130-400); RED CELL DISTRI WIDTH 13.3 % (0-14.5); WHITE BLOOD COUNT 23.7 10*3/uL (4.8-10.8)
[2018-11-16 06:46] LABS: BUN 21 mg/dl (7-24); CHLORIDE 99 mmol/L (98-107); CREATININE 1.06 mg/dL (0.55-1.02); POTASSIUM 3.9 mmol/L (3.5-5.1); SODIUM 135 mmol/L (136-145)
[2018-11-16 07:28] LABS: TOTAL CELLS COUNTED 100 #CELLS
[2018-11-16 07:31] LABS: PLATELET SUFFICIENCY NORMAL (NORMAL)
[2018-11-16 08:00] VITALS: BP 150/77
--- NOTE | 2018-11-16 08:15 | NUR ---
PT RESTING IN BED. RESP-EASY AND REGULAR. NO C/O AT THIS TIME. CALL LIGHT IN REACH. SEE SHIFT ASSESSMENT.
--- NOTE | 2018-11-16 09:00 | NUR ---
TOLERATED ROUTINE MEDS WITH NO PROBLEM. CALL LIGHT IN REACH.
--- NOTE | 2018-11-16 09:00 | NUR ---
case management visits with patient, patient states she will be going home when able and denies any home needs
[2018-11-16 12:00] VITALS: BP 140/81
--- NOTE | 2018-11-16 13:00 | NUR ---
PT TOLERATED ROUTINE MEDS WITH NO PROBLEM. ALSO REQUESTING COUGH MEDICATION. MEDICATED WITH ROBITUSSION PO PER PRN ORDER, SEE EMAR. CALL LIGHT IN REACH.
[2018-11-16 16:00] VITALS: BP 159/98
[2018-11-16 20:00] VITALS: BP 134/83
[2018-11-17] VITALS: BP 136/56
--- NOTE | 2018-11-17 00:41 | NUR ---
MORPHINE GIVEN PER PT REQUEST FOR C/O PAIN TO RT ABDOMEN.
[2018-11-17 06:03] LABS: HEMATOCRIT 37.5 % (37.0-47.0); HEMOGLOBIN 12.3 g/dl (12.0-16.0); MEAN CORPUSCULAR HGB 30.8 pg (27.0-31.0); MEAN CORPUSCULAR HGB CONC 32.8 g/dl (33.0-37.0); PLATELET COUNT AUTOMATED 402 10*3/uL (130-400); RED BLOOD COUNT 3.99 10*6/uL (4.10-5.10); RED CELL DISTRI WIDTH 13.3 % (0-14.5); WHITE BLOOD COUNT 27.3 10*3/uL (4.8-10.8)
[2018-11-17 06:29] LABS: BUN 22 mg/dl (7-24); CHLORIDE 98 mmol/L (98-107); CREATININE 1.03 mg/dL (0.55-1.02); POTASSIUM 3.9 mmol/L (3.5-5.1); SODIUM 136 mmol/L (136-145)
[2018-11-17 06:40] LABS: PLATELET SUFFICIENCY HIGH (NORMAL); TOTAL CELLS COUNTED 100 #CELLS
[2018-11-17 08:00] VITALS: BP 129/74
[2018-11-17] MEDS ORDERED: PREDNISONE10 MG PO (10:05)
[2018-11-17] MEDS ORDERED: NORCO 5-325 TA1 EACH PO (10:05)
[2018-11-17] MEDS ORDERED: PROTONIX40 M1 IV (10:05)
[2018-11-17] MEDS ORDERED: BENZONATATE100 M1 PO (10:05)
--- NOTE | 2018-11-17 12:11 | NUR ---
PT DISCHARGED HOME AT THIS TIME. DISCHARGE INSTRUCTIONS REVIEWED. PRESCRIPTION GIVEN TO PATIENT. GREGOR MAK.
[2018-12-08 16:07] LABS: ACID FAST CULTURE Positive (.); M AVIUM COMPLEX Positive (.); M GORDONAE Not Indicated (.); M KANSASII Not Indicated (.); M TUBERCULOSIS COMPLEX Negative (.)
[2019-02-27] MEDS ORDERED: TESSALON PERLE100 MG PO (18:01)
[2019-02-27] MEDS ORDERED: PRILOSEC20 M1 PO (18:06)
== END 2018-11-17 12:12 | disposition home or self-care (01) | DRG 871 ==
LOC: ED 10:23 → 4E 11:42 → EDHOLD 11:42 → 4E 11:48
PROVIDERS: Emergency Medicine; Internal Medicine; Internal Medicine Critical Care Medicine; Internal Medicine Gastroenterology; Student in an Organized Health Care Education/Training Program; ADMIT Emergency Medicine
PROC: 0BC98ZZ Extirpation of Matter from Lingula Bronchus, Via Natural or Artificial Opening Endoscopic (ICD-10-PCS; principal; 2018-11-13)
PROC: 0BC38ZZ Extirpation of Matter from Right Main Bronchus, Via Natural or Artificial Opening Endoscopic (ICD-10-PCS; principal; 2018-11-13)
PROC: 0BC18ZZ Extirpation of Matter from Trachea, Via Natural or Artificial Opening Endoscopic (ICD-10-PCS; principal; 2018-11-13)
PROC: 0BC58ZZ Extirpation of Matter from Right Middle Lobe Bronchus, Via Natural or Artificial Opening Endoscopic (ICD-10-PCS; principal; 2018-11-13)
PROC: 0BC78ZZ Extirpation of Matter from Left Main Bronchus, Via Natural or Artificial Opening Endoscopic (ICD-10-PCS; principal; 2018-11-13)
PROC: 0BC88ZZ Extirpation of Matter from Left Upper Lobe Bronchus, Via Natural or Artificial Opening Endoscopic (ICD-10-PCS; principal; 2018-11-13)
PROC: 0BC48ZZ Extirpation of Matter from Right Upper Lobe Bronchus, Via Natural or Artificial Opening Endoscopic (ICD-10-PCS; principal; 2018-11-13)
PROC: 0DJD8ZZ Inspection of Lower Intestinal Tract, Via Natural or Artificial Opening Endoscopic (ICD-10-PCS; principal; 2018-11-13)
PROC: 0BC68ZZ Extirpation of Matter from Right Lower Lobe Bronchus, Via Natural or Artificial Opening Endoscopic (ICD-10-PCS; principal; 2018-11-13)
PROC: 0BCB8ZZ Extirpation of Matter from Left Lower Lobe Bronchus, Via Natural or Artificial Opening Endoscopic (ICD-10-PCS; principal; 2018-11-13)
PROC: 0DB38ZX Excision of Lower Esophagus, Via Natural or Artificial Opening Endoscopic, Diagnostic (ICD-10-PCS; 2018-11-15)
DX: A41.9 Sepsis, unspecified organism (principal); J18.9 Pneumonia, unspecified organism; N17.0 Acute kidney failure with tubular necrosis; K22.11 Ulcer of esophagus with bleeding; K29.71 Gastritis, unspecified, with bleeding; K25.4 Chronic or unspecified gastric ulcer with hemorrhage; J44.1 Chronic obstructive pulmonary disease with (acute) exacerbation; E87.1 Hypo-osmolality and hyponatremia; J44.0 Chronic obstructive pulmonary disease with (acute) lower respiratory infection; J96.10 Chronic respiratory failure, unspecified whether with hypoxia or hypercapnia; J45.51 Severe persistent asthma with (acute) exacerbation; T17.590A Other foreign object in bronchus causing asphyxiation, initial encounter; E66.9 Obesity, unspecified; F41.1 Generalized anxiety disorder; K13.79 Other lesions of oral mucosa; F32.9 Major depressive disorder, single episode, unspecified; K44.9 Diaphragmatic hernia without obstruction or gangrene; K63.89 Other specified diseases of intestine; R13.10 Dysphagia, unspecified; K64.9 Unspecified hemorrhoids; E78.5 Hyperlipidemia, unspecified; J20.9 Acute bronchitis, unspecified; K21.9 Gastro-esophageal reflux disease without esophagitis; R07.89 Other chest pain; I10 Essential (primary) hypertension; F17.210 Nicotine dependence, cigarettes, uncomplicated; X58.XXXA Exposure to other specified factors, initial encounter; Y93.89 Activity, other specified; Y92.89 Other specified places as the place of occurrence of the external cause; Y99.8 Other external cause status; Z71.6 Tobacco abuse counseling; Z87.01 Personal history of pneumonia (recurrent); Z88.0 Allergy status to penicillin; Z88.1 Allergy status to other antibiotic agents; Z88.6 Allergy status to analgesic agent; Z88.8 Allergy status to other drugs, medicaments and biological substances; Z98.51 Tubal ligation status; Z82.49 Family history of ischemic heart disease and other diseases of the circulatory system; Z82.5 Family history of asthma and other chronic lower respiratory diseases; Z80.8 Family history of malignant neoplasm of other organs or systems; Z83.3 Family history of diabetes mellitus; Z79.899 Other long term (current) drug therapy; Z68.33 Body mass index [BMI] 33.0-33.9, adult

== ENCOUNTER → 2019-02-20 | Outpatient (CLI) | payer MEDICARE ==
[~2019-02-20] MED LIST changes: +BENZONATATE100 M1 PO; +MOBIC7.5 MG PO; +NORCO 5-325 TA1 EACH PO; +PROTONIX40 M1 IV; +TESSALON PERLE100 MG PO
[2019-02-20 08:27] LABS: HEMATOCRIT 44.1 % (37.0-47.0); HEMOGLOBIN 14.5 g/dl (12.0-16.0); MEAN CELL VOLUME 92.3 fl (81.0-99.0); MEAN CORPUSCULAR HGB 30.3 pg (27.0-31.0); MEAN CORPUSCULAR HGB CONC 32.9 g/dl (33.0-37.0); MEAN PLATELET VOLUME 11.1 fl (9.6-12.3); RED BLOOD COUNT 4.78 10*6/uL (4.10-5.10); RED CELL DISTRI WIDTH 13.7 % (0-14.5); WHITE BLOOD COUNT 6.4 10*3/uL (4.8-10.8)
[2019-02-20 08:56] LABS: ALBUMIN 4.1 gm/dl (3.1-4.5); POTASSIUM 4.2 mmol/L (3.5-5.1)
[2019-02-20 09:01] LABS: CREATININE 1.39 mg/dL (0.55-1.02); TOTAL PROTEIN 7.6 gm/dL (6.4-8.2)
== END | disposition home or self-care (01) ==
LOC: LAB 07:50
PROVIDERS: Registered Nurse Flight
DX: J43.9 Emphysema, unspecified (principal); I10 Essential (primary) hypertension; E78.2 Mixed hyperlipidemia; R73.9 Hyperglycemia, unspecified

== ENCOUNTER → 2019-05-29 | Outpatient (CLI) | payer OTHER ==
[~2019-05-29] MED LIST changes: +GAVISCON LIQUI355 ML PO; +TYLENOL EXTRA500 MG PO
[2019-05-29 08:23] LABS: HEMATOCRIT 39.4 % (37.0-47.0); HEMOGLOBIN 12.7 g/dl (12.0-16.0); MEAN CELL VOLUME 92.1 fl (81.0-99.0); MEAN CORPUSCULAR HGB 29.7 pg (27.0-31.0); MEAN CORPUSCULAR HGB CONC 32.2 g/dl (33.0-37.0); MEAN PLATELET VOLUME 10.9 fl (9.6-12.3); RED BLOOD COUNT 4.28 10*6/uL (4.10-5.10); RED CELL DISTRI WIDTH 13.5 % (0-14.5); WHITE BLOOD COUNT 7.9 10*3/uL (4.8-10.8)
[2019-05-29 08:51] LABS: ALBUMIN 3.8 gm/dl (3.1-4.5); CREATININE 1.39 mg/dL (0.55-1.02); POTASSIUM 4.4 mmol/L (3.5-5.1); TOTAL PROTEIN 6.8 gm/dL (6.4-8.2)
== END | disposition home or self-care (01) ==
LOC: LAB 07:34
PROVIDERS: Registered Nurse Flight
DX: E55.9 Vitamin D deficiency, unspecified (principal); E78.2 Mixed hyperlipidemia; I10 Essential (primary) hypertension

== ENCOUNTER → 2019-06-25 | Outpatient (CLI) | payer OTHER | END | disposition home or self-care (01) | LOC: RAD 07:39 | DX: M47.16 Other spondylosis with myelopathy, lumbar region (principal) ==

== ENCOUNTER 2019-08-31 22:43 | Inpatient (IN) | payer MEDICARE ==
[~2019-08-31] VITALS: Ht 160 cm; Wt 94.1 kg
[2019-08-31 22:54] VITALS: BP 151/74
--- NOTE | 2019-08-31 23:06 | NUR ---
PT REPORTS SHE HAS HAD SEVERAL SYNCOPAL EPISODES LATELY.
[2019-08-31 23:31] LABS: BASO # 0.1 10*3/uL (0.0-0.1); BASO % 0.5 % (0.0-1.0); EOS # 0.2 10*3/uL (0.0-0.4); EOS % 1.5 % (1.0-4.0); HEMATOCRIT 33.8 % (37.0-47.0); HEMOGLOBIN 11.3 g/dl (12.0-16.0); LYMPH % 20.2 % (27.0-41.0); MEAN CELL VOLUME 91.6 fl (81.0-99.0); MEAN CORPUSCULAR HGB 30.6 pg (27.0-31.0); MEAN CORPUSCULAR HGB CONC 33.4 g/dl (33.0-37.0); MEAN PLATELET VOLUME 10.3 fl (9.6-12.3); MONO # 1.2 10*3/uL (0.1-1.0); MONO % 7.9 % (3.0-9.0); NEUT # 10.3 10*3/uL (2.3-7.9); NEUT % 69.5 % (47.0-73.0); PLATELET COUNT AUTOMATED 317 10*3/uL (130-400); RED BLOOD COUNT 3.69 10*6/uL (4.10-5.10); RED CELL DISTRI WIDTH 13.4 % (0-14.5); WHITE BLOOD COUNT 14.9 10*3/uL (4.8-10.8)
[2019-08-31 23:41] LABS: ACT PARTIAL THROMBO TIME 28.4 SECONDS (20.0-32.1); INTERNATIONAL NORM RATIO 0.9 (2.0-3.5)
[2019-08-31 23:47] LABS: ALBUMIN 3.5 gm/dl (3.1-4.5); ALKALINE PHOSPHATASE 65 U/L (45-117); BUN 13 mg/dl (7-24); CHLORIDE 102 mmol/L (98-107); CREATININE 1.48 mg/dL (0.55-1.02); POTASSIUM 3.8 mmol/L (3.5-5.1); SGOT/AST 12 IU/L (3-35); SGPT/ALT 19 U/L (12-78); SODIUM 134 mmol/L (136-145); TOTAL PROTEIN 6.4 gm/dL (6.4-8.2)
[2019-08-31 23:49] LABS: TROPONIN I < 0.015 ng/ml (<0.045)
--- NOTE | 2019-09-01 01:20 | NUR ---
FIELD CONTACT PERSON LEVY AT BEDSIDE FOR OCCULT STOOL TEST.NEGATIVE RESULT OBTAINED.
[2019-09-01 01:49] VITALS: BP 112/67
--- NOTE | 2019-09-01 01:53 | NUR ---
A 54, admitted to , under the services of GREGORY Sims DO with a diagnosis of COPD EXACERBATION, FAILURE OF OP TX. Chief complaint is SOB. Patient arrived via ambulatory from ER. Monitor applied. Initial assessment completed. Vital signs taken and recorded. GREGORY SIMS DO notified of admission to the unit. Orders received. See assessment for past medical history, medications and allergies. Patient and/or family oriented to unit. [facility] CCU visitation policy reviewed. Clothing/patient valuable form completed. ASHIA SHAW
[2019-09-01] MEDS ORDERED: BUSPAR15 MG PO (02:09)
[2019-09-01] MEDS ORDERED: MOBIC15 MG PO (02:13)
[2019-09-01] MEDS ORDERED: NEURONTIN800 MG PO (02:15)
[2019-09-01] MEDS ORDERED: PAXIL40 M1 PO (02:17)
[2019-09-01 05:28] LABS: ALBUMIN 3.4 gm/dl (3.1-4.5); CREATININE 1.69 mg/dL (0.55-1.02); POTASSIUM 4.1 mmol/L (3.5-5.1); TOTAL PROTEIN 6.3 gm/dL (6.4-8.2)
[2019-09-01 05:35] LABS: FREE T4 0.7 ng/dl (0.76-1.46); THYROID STIM HORMONE (HS) 1.05 uIU/ml (0.358-4.75)
[2019-09-01 06:16] LABS: HEMATOCRIT 34.4 % (37.0-47.0); HEMOGLOBIN 11.2 g/dl (12.0-16.0); MEAN CELL VOLUME 91.7 fl (81.0-99.0); MEAN CORPUSCULAR HGB 29.9 pg (27.0-31.0); MEAN CORPUSCULAR HGB CONC 32.6 g/dl (33.0-37.0); PLATELET COUNT AUTOMATED 342 10*3/uL (130-400); RED BLOOD COUNT 3.75 10*6/uL (4.10-5.10); RED CELL DISTRI WIDTH 13.6 % (0-14.5); WHITE BLOOD COUNT 14.5 10*3/uL (4.8-10.8)
[2019-09-01 07:22] LABS: TOTAL CELLS COUNTED 100 #CELLS
[2019-09-01 07:23] LABS: PLATELET SUFFICIENCY NORMAL (NORMAL); SCHISTOCYTES FEW
[2019-09-01 08:00] VITALS: BP 133/76
--- NOTE | 2019-09-01 08:04 | NUR ---
MEDICATED WITH NORCO FOR COMPLAINTS OF ALL OVER PAIN. RATES PAIN A 10 ON A PAIN SCALE OF 1-10
--- NOTE | 2019-09-01 09:00 | NUR ---
VOICES THAT NORCO WAS NOT EFFECTIVE
[2019-09-01 12:00] VITALS: BP 116/60
[2019-09-01 15:20] LABS: CLARITY CLEAR (CLEAR); COLOR YELLOW (YELLOW); GLUCOSE 3+ (NEGATIVE)
[2019-09-01 15:21] LABS: BILIRUBIN NEGATIVE (NEGATIVE); BLOOD NEGATIVE (NEGATIVE); EPITHELIAL CELLS 0-2; KETONE NEGATIVE (NEGATIVE); LEUKO ESTERASE NEGATIVE (NEGATIVE); NITRITE NEGATIVE (NEGATIVE); SPECIFIC GRAVITY 1.005 (1.005-1.030); UROBILINOGEN 0.2 E.U./dl (0.2-1.0)
[2019-09-01 16:00] VITALS: BP 110/53
[2019-09-01 20:00] VITALS: BP 123/66
--- NOTE | 2019-09-01 20:13 | NUR ---
PATIENT MEDICATED WITH NORCO AND FLEXERIL FOR C/O GENERALIZED PAIN AND MUSCLE SPASM. WILL MONITOR
--- NOTE | 2019-09-01 20:41 | NUR ---
MADE AWARE THAT PATIENT IS REQUESTING MEDICATION FOR SORE THROAT AND DRY MOUTH. STATED HE WILL LOOK AT CHART.
--- NOTE | 2019-09-01 21:13 | NUR ---
NORCO AND FLEXERIL EFFECTIVE
[2019-09-02] VITALS: BP 120/62
--- NOTE | 2019-09-02 02:31 | NUR ---
PATIENT GIVEN CEPACOL FOR SORE THROAT. WILL MONITOR
--- NOTE | 2019-09-02 04:00 | NUR ---
Hep Lock discontinued, RAN. Site symptomatic, PATIENT PULLED OUT. Pressure applied. Sterile dressing applied. CYRIL HYATT
--- NOTE | 2019-09-02 04:05 | NUR ---
IV started left wrist with #22 protective cath after 0 attempts. Site prepped with Chloroprep. Sterile dressing applied. Patient tolerated procedure well. CYRIL HYATT
--- NOTE | 2019-09-02 05:27 | NUR ---
PATIENT MEDICATED WITH DULCOLAX FOR CONSTIPATION. WILL MONITOR
[2019-09-02 07:18] LABS: CREATININE 1.21 mg/dL (0.55-1.02); POTASSIUM 4.2 mmol/L (3.5-5.1)
[2019-09-02 07:31] LABS: HEMOGLOBIN 10.2 g/dl (12.0-16.0); MEAN CELL VOLUME 91.4 fl (81.0-99.0); MEAN CORPUSCULAR HGB 30.1 pg (27.0-31.0); MEAN CORPUSCULAR HGB CONC 32.9 g/dl (33.0-37.0); MEAN PLATELET VOLUME 10.7 fl (9.6-12.3); PLATELET COUNT AUTOMATED 311 10*3/uL (130-400); RED BLOOD COUNT 3.39 10*6/uL (4.10-5.10); RED CELL DISTRI WIDTH 13.8 % (0-14.5); WHITE BLOOD COUNT 22.1 10*3/uL (4.8-10.8)
[2019-09-02 07:54] LABS: TOTAL CELLS COUNTED 100 #CELLS
[2019-09-02 07:55] LABS: PLATELET SUFFICIENCY NORMAL (NORMAL); VACUOLATION OF NEUTROPHILS SLIGHT
[2019-09-02 08:00] VITALS: BP 118/61
[2019-09-02 12:00] VITALS: BP 151/87
--- NOTE | 2019-09-02 13:01 | NUR ---
DR. DAMON NOTIFIED OF CONSULT
[2019-09-02 16:00] VITALS: BP 122/49
--- NOTE | 2019-09-02 16:43 | NUR ---
MEDICATED WITH MORPHINE FOR COMPLAINTS OF BACK PAIN AND ZOFRAN IV ORDERED FOR NAUSEA
--- NOTE | 2019-09-02 17:30 | NUR ---
VOICES THAT MORPHINE WAS EFFECTIVE A LITTLE BIT
[2019-09-02 20:00] VITALS: BP 120/56
[2019-09-03] VITALS: BP 121/65
--- NOTE | 2019-09-03 01:06 | NUR ---
PATIENT MEDICATED WITH ZOFRAN AND MORPHINE FOR C/O 10/10 AND NAUSEA. WILL MONITOR
--- NOTE | 2019-09-03 02:06 | NUR ---
MORPHINE AND ZOFRAN EFFECTIVE
[2019-09-03 06:00] LABS: CREATININE 1.2 mg/dL (0.55-1.02); POTASSIUM 4.5 mmol/L (3.5-5.1)
[2019-09-03 06:02] LABS: BASO % 0.1 % (0.0-1.0); HEMATOCRIT 32.4 % (37.0-47.0); HEMOGLOBIN 10.6 g/dl (12.0-16.0); LYMPH # 1.1 10*3/uL (1.3-4.4); LYMPH % 5.9 % (27.0-41.0); MEAN CELL VOLUME 92.6 fl (81.0-99.0); MEAN CORPUSCULAR HGB 30.3 pg (27.0-31.0); MEAN CORPUSCULAR HGB CONC 32.7 g/dl (33.0-37.0); MEAN PLATELET VOLUME 10.8 fl (9.6-12.3); MONO # 1.2 10*3/uL (0.1-1.0); MONO % 6.3 % (3.0-9.0); NEUT # 16.1 10*3/uL (2.3-7.9); NEUT % 86.2 % (47.0-73.0); PLATELET COUNT AUTOMATED 336 10*3/uL (130-400); RED CELL DISTRI WIDTH 13.9 % (0-14.5); WHITE BLOOD COUNT 18.7 10*3/uL (4.8-10.8)
[2019-09-03 08:00] VITALS: BP 140/72
--- NOTE | 2019-09-03 09:00 | NUR ---
Buffing Wheel Operator in to talk to patient. Patient states lives at home with boyfriend and grandson. There are few steps in the home. Physician: ruslan patel [facility] Home health services: none Patient's level of ADLs: INDEPENDENT Patient has working utilities: all working DME: home oxygen she wears at , portable tanks, nebulzier from [facility] Follow-up physician's appointment after d/c: will be made by hospitalist nurse director upon discharge Does patient want to access PORTAL?: no Discharge plan discussed with patient, she states she lives at home with family, is independent in adls and ambulation, she states she will return home when medically stable and denies any home needs, case management will follow. LOLY AGUILA
[2019-09-03 12:00] VITALS: BP 130/66
[2019-09-03 16:00] VITALS: BP 149/77
[2019-09-03 16:09] LABS: VITAMIN D, 25-HYDROXY 49.9 ng/mL (30-100)
[2019-09-03 20:00] VITALS: BP 135/58
--- NOTE | 2019-09-03 20:00 | NUR ---
AAOX3. C/O MS NOT WORKING. MEDICATED WITH MS FOR C/O BACK/STOMACH PAIN RATED A 10/10.
--- NOTE | 2019-09-03 21:30 | NUR ---
TOOK PO MEDICATIONS WITHOUT DIFFICULTY; VOICES NO C/O AT THIS TIME. RESTORIL GIVEN ALSO. CALL LIGHT WITHIN REACH.
[2019-09-04] VITALS: BP 142/56
--- NOTE | 2019-09-04 | NUR ---
RESTING IN BED WITH EYES CLOSED; PAIN MEDICATION GIVEN EARLIER APPARENTLY EFFECTIVE. CALL LIGHT WITHIN REACH. NPO STATUS STARTED FOR BRONCHOSCOPY IN THE MORNING.
--- NOTE | 2019-09-04 06:00 | NUR ---
MEDICATED WITH MS FOR C/O BACK & STOMACH PAIN.
[2019-09-04 08:00] VITALS: BP 142/82
[2019-09-04 08:12] VITALS: BP 133/73
[2019-09-04 08:59] VITALS: BP 118/77
--- NOTE | 2019-09-04 09:00 | NUR ---
case management visits with patient she states she will return home when medically stable and denies any home needs
[2019-09-04 16:00] VITALS: BP 140/67
[2019-09-04 20:00] VITALS: BP 135/71
--- NOTE | 2019-09-04 21:43 | NUR ---
MEDICATED WITH RESTORIL FOR INSOMNIA & NORCO FOR C/O PAIN.
[2019-09-05] VITALS: BP 113/72
--- NOTE | 2019-09-05 | NUR ---
RESTING IN BED WITH EYES CLOSED. RESTORIL/NORCO APPARENTLY EFFECTIVE. CALL LIGHT WITHIN REACH.
--- NOTE | 2019-09-05 04:57 | NUR ---
MEDICATED WITH ZOFRAN FOR C/O NAUSEA.
[2019-09-05 08:00] VITALS: BP 143/63
--- NOTE | 2019-09-05 09:00 | NUR ---
case management visits with patient, she states she will be discharged to home today and denies any home needs
--- NOTE | 2019-09-05 09:31 | NUR ---
MEDICATED WITH PO NORCO ORDERED PER PT REQUEST FOR C/O 05/03 PAIN "ALL OVER".
[2019-09-05] MEDS ORDERED: PREDNISONE10 MG PO (11:01)
[2019-09-05] MEDS ORDERED: LEVOFLOXACIN500 MG PO (11:01)
[2019-09-05] MEDS ORDERED: NORCO 5-325 TA1 EACH PO (11:01)
[2019-09-05] MEDS ORDERED: CITROMA296 ML PO (11:01)
[2019-09-05] MEDS ORDERED: MIRALAX119 GM PO (11:01)
[2019-09-05] MEDS ORDERED: MUCINEX1200 M1 PO (11:01)
[2019-09-05] MEDS ORDERED: PHARMASSURE V500 MCG PO (11:01)
[2019-09-05 12:00] VITALS: BP 129/50
--- NOTE | 2019-09-05 13:09 | NUR ---
MEDICATION EFFECTIVE FOR PAIN.
--- NOTE | 2019-09-05 13:59 | NUR ---
PT LEAVING IN CARE OR SELF.
[2019-09-05 14:06] LABS: ACID FAST SPEC PROCESSING Concentration (.)
== END 2019-09-05 13:59 | disposition home or self-care (01) | DRG 871 ==
LOC: ED 22:43 → 4E 09-01 01:06 → EDHOLD 09-01 01:06 → 4E 09-01 01:37
PROVIDERS: Emergency Medicine Emergency Medical Services; Internal Medicine; Internal Medicine Critical Care Medicine; Student in an Organized Health Care Education/Training Program; ADMIT Emergency Medicine
PROC: 0BC48ZZ Extirpation of Matter from Right Upper Lobe Bronchus, Via Natural or Artificial Opening Endoscopic (ICD-10-PCS; principal; 2019-09-04)
PROC: 0BC88ZZ Extirpation of Matter from Left Upper Lobe Bronchus, Via Natural or Artificial Opening Endoscopic (ICD-10-PCS; principal; 2019-09-04)
PROC: 0BC18ZZ Extirpation of Matter from Trachea, Via Natural or Artificial Opening Endoscopic (ICD-10-PCS; principal; 2019-09-04)
PROC: 0BC38ZZ Extirpation of Matter from Right Main Bronchus, Via Natural or Artificial Opening Endoscopic (ICD-10-PCS; principal; 2019-09-04)
PROC: 0BC98ZZ Extirpation of Matter from Lingula Bronchus, Via Natural or Artificial Opening Endoscopic (ICD-10-PCS; principal; 2019-09-04)
PROC: 0BC78ZZ Extirpation of Matter from Left Main Bronchus, Via Natural or Artificial Opening Endoscopic (ICD-10-PCS; principal; 2019-09-04)
PROC: 0BCB8ZZ Extirpation of Matter from Left Lower Lobe Bronchus, Via Natural or Artificial Opening Endoscopic (ICD-10-PCS; principal; 2019-09-04)
PROC: 0BC58ZZ Extirpation of Matter from Right Middle Lobe Bronchus, Via Natural or Artificial Opening Endoscopic (ICD-10-PCS; principal; 2019-09-04)
PROC: 0BC68ZZ Extirpation of Matter from Right Lower Lobe Bronchus, Via Natural or Artificial Opening Endoscopic (ICD-10-PCS; principal; 2019-09-04)
DX: A41.9 Sepsis, unspecified organism (principal); J18.9 Pneumonia, unspecified organism; J44.1 Chronic obstructive pulmonary disease with (acute) exacerbation; J44.0 Chronic obstructive pulmonary disease with (acute) lower respiratory infection; E87.1 Hypo-osmolality and hyponatremia; J96.11 Chronic respiratory failure with hypoxia; F32.9 Major depressive disorder, single episode, unspecified; E78.5 Hyperlipidemia, unspecified; J20.9 Acute bronchitis, unspecified; F41.1 Generalized anxiety disorder; K21.9 Gastro-esophageal reflux disease without esophagitis; E55.9 Vitamin D deficiency, unspecified; I12.9 Hypertensive chronic kidney disease with stage 1 through stage 4 chronic kidney disease, or unspecified chronic kidney disease; N18.3 Chronic kidney disease, stage 3 (moderate); E66.9 Obesity, unspecified; F17.210 Nicotine dependence, cigarettes, uncomplicated; Z99.81 Dependence on supplemental oxygen; Z71.6 Tobacco abuse counseling; Z88.0 Allergy status to penicillin; Z88.1 Allergy status to other antibiotic agents; Z88.6 Allergy status to analgesic agent; Z88.8 Allergy status to other drugs, medicaments and biological substances; Z98.51 Tubal ligation status; Z82.49 Family history of ischemic heart disease and other diseases of the circulatory system; Z82.5 Family history of asthma and other chronic lower respiratory diseases; Z80.8 Family history of malignant neoplasm of other organs or systems; Z83.3 Family history of diabetes mellitus; Z79.899 Other long term (current) drug therapy; Z68.36 Body mass index [BMI] 36.0-36.9, adult

== ENCOUNTER 2019-11-26 10:41 | Inpatient (IN) | payer MEDICARE ==
[~2019-11-26] VITALS: Ht 160 cm; Wt 92.5 kg
[2019-11-26 10:42] VITALS: BP 135/74
[2019-11-26 11:17] LABS: BASO # 0.1 10*3/uL (0.0-0.1); BASO % 0.8 % (0.0-1.0); EOS # 0.2 10*3/uL (0.0-0.4); EOS % 2.1 % (1.0-4.0); HEMATOCRIT 36.6 % (37.0-47.0); LYMPH % 20.6 % (27.0-41.0); MEAN CELL VOLUME 93.4 fl (81.0-99.0); MEAN CORPUSCULAR HGB 31.4 pg (27.0-31.0); MEAN CORPUSCULAR HGB CONC 33.6 g/dl (33.0-37.0); MONO # 0.9 10*3/uL (0.1-1.0); MONO % 9.3 % (3.0-9.0); NEUT # 6.5 10*3/uL (2.3-7.9); NEUT % 66.9 % (47.0-73.0); PLATELET COUNT AUTOMATED 432 10*3/uL (130-400); RED BLOOD COUNT 3.92 10*6/uL (4.10-5.10); RED CELL DISTRI WIDTH 13.5 % (0-14.5); WHITE BLOOD COUNT 9.8 10*3/uL (4.8-10.8)
[2019-11-26 11:26] LABS: ACT PARTIAL THROMBO TIME 28.3 SECONDS (20.0-32.1)
[2019-11-26 11:29] LABS: ALBUMIN 3.9 gm/dl (3.1-4.5); ALKALINE PHOSPHATASE 70 U/L (45-117); BUN 11 mg/dl (7-24); CHLORIDE 101 mmol/L (98-107); CREATININE 1.41 mg/dL (0.55-1.02); POTASSIUM 4.6 mmol/L (3.5-5.1); SGOT/AST 22 IU/L (3-35); SGPT/ALT 25 U/L (12-78); SODIUM 133 mmol/L (136-145); TOTAL PROTEIN 6.9 gm/dL (6.4-8.2)
[2019-11-26 11:31] LABS: TROPONIN I < 0.015 ng/ml (<0.045)
[2019-11-26 12:31] VITALS: BP 134/81
[2019-11-26 14:23] VITALS: BP 128/62
[2019-11-26 14:45] VITALS: BP 152/59
[2019-11-26 16:00] VITALS: BP 116/68
[2019-11-26 20:00] VITALS: BP 131/64
[2019-11-27] VITALS: BP 107/47
[2019-11-27 06:25] LABS: BASO % 0.1 % (0.0-1.0); HEMATOCRIT 33.9 % (37.0-47.0); LYMPH % 8.3 % (27.0-41.0); MEAN CELL VOLUME 91.9 fl (81.0-99.0); MEAN CORPUSCULAR HGB 31.4 pg (27.0-31.0); MEAN CORPUSCULAR HGB CONC 34.2 g/dl (33.0-37.0); MEAN PLATELET VOLUME 10.6 fl (9.6-12.3); MONO # 0.4 10*3/uL (0.1-1.0); NEUT % 87.6 % (47.0-73.0); PLATELET COUNT AUTOMATED 379 10*3/uL (130-400); RED BLOOD COUNT 3.69 10*6/uL (4.10-5.10); WHITE BLOOD COUNT 12.5 10*3/uL (4.8-10.8)
[2019-11-27 06:51] LABS: CREATININE 1.38 mg/dL (0.55-1.02); POTASSIUM 4.1 mmol/L (3.5-5.1)
[2019-11-27 07:12] LABS: ACT PARTIAL THROMBO TIME 28.2 SECONDS (20.0-32.1)
[2019-11-27 08:00] VITALS: BP 127/67
[2019-11-27 12:00] VITALS: BP 142/72
[2019-11-27 13:22] LABS: VITAMIN D, 25-HYDROXY 29.3 ng/mL (30-100)
[2019-11-27 16:00] VITALS: BP 119/67
[2019-11-27 20:00] VITALS: BP 130/58
[2019-11-28] VITALS: BP 117/62
[2019-11-28 06:25] LABS: POTASSIUM 4.5 mmol/L (3.5-5.1)
[2019-11-28 06:26] LABS: CREATININE 1.29 mg/dL (0.55-1.02)
[2019-11-28 06:29] LABS: HEMATOCRIT 35.4 % (37.0-47.0); MEAN CELL VOLUME 93.4 fl (81.0-99.0); MEAN CORPUSCULAR HGB 30.9 pg (27.0-31.0); MEAN CORPUSCULAR HGB CONC 33.1 g/dl (33.0-37.0); PLATELET COUNT AUTOMATED 420 10*3/uL (130-400); RED BLOOD COUNT 3.79 10*6/uL (4.10-5.10); RED CELL DISTRI WIDTH 13.3 % (0-14.5); WHITE BLOOD COUNT 18.5 10*3/uL (4.8-10.8)
[2019-11-28 07:26] LABS: PLATELET SUFFICIENCY HIGH (NORMAL); TOTAL CELLS COUNTED 100 #CELLS
[2019-11-28 08:00] VITALS: BP 125/60
[2019-11-28] MEDS ORDERED: NEURONTIN800 MG PO (11:28)
[2019-11-28] MEDS ORDERED: LEVOFLOXACIN500 MG PO (11:29)
[2019-11-28] MEDS ORDERED: TESSALON PERLE100 MG PO (12:52)
[2019-11-28] MEDS ORDERED: MUCINEX1200 M1 PO (12:52)
== END 2019-11-28 13:34 | disposition home or self-care (01) | DRG 191 ==
LOC: ED 10:41 → EDHOLD 13:35 → 4E 13:35
PROVIDERS: Emergency Medicine; Internal Medicine; ADMIT Internal Medicine
PROC: 3E073KZ Introduction of Other Diagnostic Substance into Coronary Artery, Percutaneous Approach (ICD-10-PCS; principal; 2019-11-27)
PROC: 4A02XM4 Measurement of Cardiac Total Activity, External Approach (ICD-10-PCS; principal; 2019-11-27)
DX: J44.1 Chronic obstructive pulmonary disease with (acute) exacerbation (principal); E87.1 Hypo-osmolality and hyponatremia; J96.10 Chronic respiratory failure, unspecified whether with hypoxia or hypercapnia; F33.2 Major depressive disorder, recurrent severe without psychotic features; R55 Syncope and collapse; F17.210 Nicotine dependence, cigarettes, uncomplicated; R00.0 Tachycardia, unspecified; R51 Headache; E78.5 Hyperlipidemia, unspecified; K21.9 Gastro-esophageal reflux disease without esophagitis; I12.9 Hypertensive chronic kidney disease with stage 1 through stage 4 chronic kidney disease, or unspecified chronic kidney disease; N18.3 Chronic kidney disease, stage 3 (moderate); J30.2 Other seasonal allergic rhinitis; D72.829 Elevated white blood cell count, unspecified; D64.9 Anemia, unspecified; R73.9 Hyperglycemia, unspecified; E53.8 Deficiency of other specified B group vitamins; G62.9 Polyneuropathy, unspecified; E83.39 Other disorders of phosphorus metabolism; R10.9 Unspecified abdominal pain; R11.2 Nausea with vomiting, unspecified; F41.1 Generalized anxiety disorder; R19.7 Diarrhea, unspecified; I34.0 Nonrheumatic mitral (valve) insufficiency; Z99.81 Dependence on supplemental oxygen; Z88.0 Allergy status to penicillin; Z88.1 Allergy status to other antibiotic agents; Z88.6 Allergy status to analgesic agent; Z88.8 Allergy status to other drugs, medicaments and biological substances; Z98.51 Tubal ligation status; Z90.49 Acquired absence of other specified parts of digestive tract; Z82.49 Family history of ischemic heart disease and other diseases of the circulatory system; Z82.5 Family history of asthma and other chronic lower respiratory diseases; Z80.8 Family history of malignant neoplasm of other organs or systems; Z83.3 Family history of diabetes mellitus; Z79.899 Other long term (current) drug therapy; Z87.11 Personal history of peptic ulcer disease

== ENCOUNTER → 2019-11-26 | Outpatient (CLI) | payer MEDICARE ==
[~2019-11-26] MED LIST changes: +BUSPAR15 MG PO; +CITROMA296 ML PO; +LEVOFLOXACIN500 MG PO; +MIRALAX119 GM PO; +MOBIC15 MG PO; +MUCINEX1200 M1 PO; +NEURONTIN800 MG PO; +PAXIL40 M1 PO; +PHARMASSURE V500 MCG PO
== END | disposition home or self-care (01) ==
LOC: COVID19 10:05
DX: B34.9 Viral infection, unspecified (principal); Z03.818 Encounter for observation for suspected exposure to other biological agents ruled out; Z78.9 Other specified health status

== ENCOUNTER 2020-04-07 14:51 | Inpatient (IN) | payer MEDICARE ==
[~2020-04-07] VITALS: Ht 157.4 cm; Wt 91.2 kg
[2020-04-07 15:01] VITALS: BP 121/78
[2020-04-07 15:15] LABS: HEMATOCRIT 36.2 % (37.0-47.0); MEAN CELL VOLUME 93.1 fl (81.0-99.0); MEAN CORPUSCULAR HGB 31.1 pg (27.0-31.0); MEAN CORPUSCULAR HGB CONC 33.4 g/dl (33.0-37.0); PLATELET COUNT AUTOMATED 492 10*3/uL (130-400); RED BLOOD COUNT 3.89 10*6/uL (4.10-5.10); RED CELL DISTRI WIDTH 13.2 % (0-14.5); WHITE BLOOD COUNT 11.5 10*3/uL (4.8-10.8)
[2020-04-07 15:34] LABS: ALBUMIN 4.1 gm/dl (3.1-4.5); ALKALINE PHOSPHATASE 69 U/L (45-117); BUN 10 mg/dl (7-24); CHLORIDE 99 mmol/L (98-107); CREATININE 1.36 mg/dL (0.55-1.02); POTASSIUM 3.8 mmol/L (3.5-5.1); SGOT/AST 21 IU/L (3-35); SGPT/ALT 34 U/L (12-78); SODIUM 130 mmol/L (136-145); TOTAL PROTEIN 7.7 gm/dL (6.4-8.2)
[2020-04-07 15:35] LABS: TROPONIN I < 0.015 ng/ml (<0.045)
[2020-04-07 15:36] LABS: BASOPHILS 1 % (0-1); PLATELET SUFFICIENCY HIGH (NORMAL); TOTAL CELLS COUNTED 100 #CELLS
[2020-04-07 19:17] VITALS: BP 113/65
--- NOTE | 2020-04-07 19:20 | NUR ---
NURSE TO NURSE REPORT GIVEN TO THIS RN.
--- NOTE | 2020-04-07 19:55 | NUR ---
PT REPORTS BURNING AND SWELLING AT INFUSION SITE ON RT LOWER ARM.IV LEVAQUIN INFUSION STOPPED.IV REMOVED.COOL COMPRESS APPLIED TO SITE.
--- NOTE | 2020-04-07 20:02 | NUR ---
PHARMACY CONTACTED REGARDING INFILTRAION OF IV SITE DURING INFUSION OF LEVAQUIN, ADVISED COOL COMPRESS APPLIED AT THIS TIME, WILL ADVISE IF ANY ADDITIONAL TX IS NECESSARY.
--- NOTE | 2020-04-07 20:16 | NUR ---
PHARMACY RETURNED CALL AND ADVISED CONTINUE COOL COMPRESS AND ELEVATION OF SITE FOR INFILTRATION WITH IV LEVAQUIN.
--- NOTE | 2020-04-07 20:24 | NUR ---
FLOOR RN GAL, CONTACTED AND ADVISED RADIOLOGY WISHES TO TAKE PT TO CT PRIOR TO GOING TO FLOOR.
--- NOTE | 2020-04-07 20:30 | NUR ---
ADDITIONAL ICE PACK APPLIED TO RT LOWER ARM.
[2020-04-07 20:33] VITALS: BP 137/57
--- NOTE | 2020-04-07 20:35 | NUR ---
PT TO CT AT THIS TIME VIA STRETCHER.
--- NOTE | 2020-04-07 21:01 | NUR ---
CALLED RAMU IN PHARMACY REGARDING SCHEDULED SOLUMEDROL. MADE HIM AWARE THAT PATIENT JUST GOT 125 MG AT 1900 IN THE ER. STATES IT WOULD BE BEST TO RESTART STEWART'S DOSE TO TOMORROW. STATES HE WILL RESCHEDULE IT
[2020-04-07 21:04] VITALS: BP 135/87
--- NOTE | 2020-04-07 21:04 | NUR ---
A 55, admitted to 4E, under the services of KADY Del Angel DO with a diagnosis of SHORTNESS OF BREATH. Chief complaint is SHORTNESS OF BREATH. Patient arrived via stretcher from ER. Monitor applied. Initial assessment completed. Vital signs taken and recorded. KADY DEL ANGEL DO notified of admission to the unit. Orders received. See assessment for past medical history, medications and allergies. Patient and/or family oriented to unit. visitation policy reviewed. Clothing/patient valuable form completed. GAL PINA
--- NOTE | 2020-04-07 21:20 | NUR ---
PATIENT STATES SHE DOES NOT KNOW HER HOME MEDICATIONS THAT SHE TAKES. DID NOT BRING A LIST FROM HOME
--- NOTE | 2020-04-07 21:45 | NUR ---
DR STEWART'S ANSWERING SERVICE AWARE OF CONSULT
--- NOTE | 2020-04-07 22:16 | NUR ---
PATIENT C/O PAIN AT IV SITE. FLUSHES WELL WITH GOOD BLOOD RETURN NOTED. PATIENT ALSO STATES "I DO NOT WANT THAT DAMN BED ALARM ON. YOU ALL TAKE TOO LONG TO GET HERE". THIS RN APOLOGIZED TO THE PATIENT FOR THINKING WE TAKE TO LONG TO ANSWER HER CALL LIGHT, BUT REMINDED PATIENT THAT SHE HAS NOT PUT HER CALL LIGHT ON TO ASK FOR HELP. SHE STATES "WELL THEY TOOK LONG IN THE ER SINCE I WAS DOWN THERE ALL DAY". THIS RN AGAIN APOLOGIZED FOR HER DISPLEASURE. PATIENT WAS REMINDED THAT SHE CAME IN FOR SYNCOPE AND THAT SHE CANNOT REMEMBER THE LAST TIME THAT SHE FELL. SHE STILL REFUSES TO HAVE BED ALARM ON. CALL LIGHT IN REACH
--- NOTE | 2020-04-07 23:35 | NUR ---
DR DOUGHERTY MADE AWARE OF PATIENT REQUESTING SOMETHING FOR PAIN, BUT REFUSING THE ALREADY ORDERED TYLENOL. PATIENT STATES SHE GETS A PAIN MEDICATION PRESCRIBED TO HER. NO PAIN MEDICATIONS IN CLAIM HISTORY. DR DOUGHERTY NOTIFIED
[2020-04-08] VITALS: BP 115/47
--- NOTE | 2020-04-08 00:03 | NUR ---
PATIENT MEDICATED WITH ONE TIME NORCO FOR C/O PAIN "ALL OVER" RATED 10/10 ON A 0/10 PAIN SCALE. PATIENT RESTING IN BED WATCHING TV WITH NO S/S OF DISTRESS. WILL MONITOR
--- NOTE | 2020-04-08 01:03 | NUR ---
PATIENT RESTING IN BED WITH EYES CLOSED. MEDICATION SEEMS EFFECTIVE
[2020-04-08 06:20] LABS: BASO % 0.2 % (0.0-1.0); HEMATOCRIT 35.4 % (37.0-47.0); LYMPH % 8.3 % (27.0-41.0); MEAN CELL VOLUME 92.9 fl (81.0-99.0); MEAN CORPUSCULAR HGB 31.2 pg (27.0-31.0); MEAN CORPUSCULAR HGB CONC 33.6 g/dl (33.0-37.0); MEAN PLATELET VOLUME 10.4 fl (9.6-12.3); MONO # 0.2 10*3/uL (0.1-1.0); MONO % 1.4 % (3.0-9.0); NEUT # 10.4 10*3/uL (2.3-7.9); NEUT % 89.3 % (47.0-73.0); PLATELET COUNT AUTOMATED 481 10*3/uL (130-400); RED BLOOD COUNT 3.81 10*6/uL (4.10-5.10); RED CELL DISTRI WIDTH 13.1 % (0-14.5); WHITE BLOOD COUNT 11.6 10*3/uL (4.8-10.8)
[2020-04-08 06:34] LABS: CREATININE 1.54 mg/dL (0.55-1.02); POTASSIUM 4.2 mmol/L (3.5-5.1)
[2020-04-08 08:00] VITALS: BP 139/57
--- NOTE | 2020-04-08 09:00 | NUR ---
Planning Engineer in to talk to patient. Patient states lives at home with family. There are no steps in the home. Physician: ruslan patel [facility]acy: [facility] Home health services: none Patient's level of ADLs: INDEPENDENT Patient has working utilities: all working DME: home oxygen 3l/min at , portable tanks and nebulizer from [facility] [place] Follow-up physician's appointment after d/c: will be made by hospitalist nurse director upon discharge Does patient want to access PORTAL?: no Discharge plan discussed with patient, she states she lives at home with family, she is independent in adls and ambulation, she states she has home oxygen she wears at 3l/min at night time, she states she will return home when discharged, she stated her doctor was ruslan patel. she would like a follow up appointment with the resident clinic and will would also like to have her prescriptions filled at [facility] pharmacy, hospitalist nurse director noted, case mangement will follow. LOLY AGUILA
[2020-04-08] MEDS ORDERED: BUSPAR15 MG PO (11:38)
[2020-04-08] MEDS ORDERED: MELOXICAM15 MG PO (11:40)
[2020-04-08] MEDS ORDERED: ROPINIROLE HYDRO2 M2 PO (11:41)
[2020-04-08] MEDS ORDERED: TRELEGY ELLIPT1 EACH INH (11:42)
[2020-04-08] MEDS ORDERED: TEMAZEPAM15 M1 PO (11:43)
[2020-04-08 11:58] VITALS: BP 137/63
[2020-04-08 16:00] VITALS: BP 133/65
--- NOTE | 2020-04-08 19:58 | NUR ---
PATIENT RESTING IN BED REFUSING TO WEAR HEART MONITOR. STATES "THERE IS NOTHING WRONG WITH MY HEART". STATES "MY THROAT HURTS, I NEED SPRAY". WILL NOTIFY ANALYTICAL LABORATORY TECHNICIAN RESIDENT. WALKER PLACED AT BEDSIDE PER PATIENT REQUEST. ENCOURAGED TO CALL WHEN NEEDING TO AMBULATED. REFUSING TO LET THIS RN PUT THE BED ALARM ON. BED IN LOWEST POSITION, CALL LIGHT IN REACH
[2020-04-08 20:00] VITALS: BP 149/63
--- NOTE | 2020-04-08 20:09 | NUR ---
DR DOUGHERTY AWARE OF PATIENT REFUSING TO WEAR HEART MONITOR
--- NOTE | 2020-04-08 20:32 | NUR ---
MEDICATED WITH PRN FLEXERIL FOR MUSCLE PAIN. WILL MONITOR
--- NOTE | 2020-04-08 21:11 | NUR ---
DR DOUGHERTY MADE AWARE THAT PATIENT IS REQUESTING SOMETHING FOR A SORE THROAT
--- NOTE | 2020-04-08 21:32 | NUR ---
FLEXERIL SOMEWHAT EFFECTIVE PER PATIENT
--- NOTE | 2020-04-08 21:32 | NUR ---
LOZENGE GIVEN PER REQUEST FOR SORE THROAT
--- NOTE | 2020-04-08 21:34 | NUR ---
MEDICATED WITH PRN RESTORIL FOR C/O SLEEPLESSNESS. WILL MONITOR
--- NOTE | 2020-04-08 22:32 | NUR ---
PATIENT RESTING IN BED WITH EYES CLOSED. RESTORIL AND LOZANGE SEEM EFFECTIVE
--- NOTE | 2020-04-08 22:59 | NUR ---
24 HR chart check completed.
[2020-04-09] VITALS: BP 128/54
--- NOTE | 2020-04-09 00:08 | NUR ---
DR DOUGHERTY AWARE OF PATIENT C/O SORE THROAT AND HEARTBURN
--- NOTE | 2020-04-09 00:47 | NUR ---
UPON ENTERING ROOM TO MEDICATE WITH PROTONIX FOR C/O HEARTBURN, PATIENT IS SLEEPING WITH SNORING NOTED.
--- NOTE | 2020-04-09 00:55 | NUR ---
DR DOUGHERTY AWARE OF PATIENT'S HEART RATE BEING 100-125
--- NOTE | 2020-04-09 01:39 | NUR ---
PATIENT RESTING IN BED WITH NO S/S OF DISTRESS. BED IN LOWEST POSITION, CALL LIGHT IN REACH
--- NOTE | 2020-04-09 01:56 | NUR ---
MEDICATED WITH PROTONIX EARLY PER DR DOUGHERTY FOR C/O HEARTBURN.
--- NOTE | 2020-04-09 02:56 | NUR ---
PATIENT MEDICATED WITH PRN ZOFRAN FOR C/O NAUSEA AND VOMITTING
--- NOTE | 2020-04-09 03:56 | NUR ---
PATIENT RESTING IN BED WITH EYES CLOSED. MEDICATION SEEMS EFFECTIVE
--- NOTE | 2020-04-09 06:28 | NUR ---
24G IV HEP LOCK REMOVED FROM LEFT ARM. CATHETER INTACT. SCANT BLEEDING NOTED. PATIENT TOLERATED WELL
[2020-04-09 06:33] LABS: CREATININE 1.35 mg/dL (0.55-1.02); POTASSIUM 4.1 mmol/L (3.5-5.1)
[2020-04-09 08:00] VITALS: BP 134/79
--- NOTE | 2020-04-09 09:00 | NUR ---
case management visits with patient, she will return home when discharged and denies any home needs, case management will cover
--- NOTE | 2020-04-09 09:17 | NUR ---
Pt returned from having KUB. Medicated with GI cocktail as ordered, zofran and dulcolax suppository per order.
--- NOTE | 2020-04-09 10:00 | NUR ---
States that meds given earlier helped with gi upset and nausea.
[2020-04-09 12:00] VITALS: BP 131/68
--- NOTE | 2020-04-09 14:29 | NUR ---
Pt requested mag citrate. States she has not had a bm yet and that always works for her. Given it per prn order.
[2020-04-09 16:00] VITALS: BP 115/55
[2020-04-09 20:00] VITALS: BP 119/66
[2020-04-10] VITALS (8 sets, daily range): BP systolic 115–135; BP diastolic 48–88
[2020-04-10 06:23] LABS: HEMATOCRIT 34.5 % (37.0-47.0); MEAN CELL VOLUME 95.3 fl (81.0-99.0); MEAN CORPUSCULAR HGB 31.5 pg (27.0-31.0); MEAN PLATELET VOLUME 10.4 fl (9.6-12.3); PLATELET COUNT AUTOMATED 455 10*3/uL (130-400); RED BLOOD COUNT 3.62 10*6/uL (4.10-5.10); RED CELL DISTRI WIDTH 13.6 % (0-14.5); WHITE BLOOD COUNT 19.2 10*3/uL (4.8-10.8)
[2020-04-10 06:55] LABS: CREATININE 1.22 mg/dL (0.55-1.02)
[2020-04-10 07:00] LABS: POTASSIUM 5.4 mmol/L (3.5-5.1)
[2020-04-10 07:18] LABS: PLATELET SUFFICIENCY HIGH (NORMAL); TOTAL CELLS COUNTED 100 #CELLS
--- NOTE | 2020-04-10 07:44 | NUR ---
PT OFF FLOOR TO SURGERY.
--- NOTE | 2020-04-10 10:22 | NUR ---
FLEXARIL GIVEN AT THIS TIME, FOR C/O BACK PAIN. WOULD NOT SCAN, PHARMACY NOTIFED.
--- NOTE | 2020-04-10 12:03 | NUR ---
DR PIERRE NOTIFIED OF CONSULT.
[2020-04-10 12:45] LABS: CREATININE 1.34 mg/dL (0.55-1.02)
[2020-04-10 12:49] LABS: POTASSIUM 4.3 mmol/L (3.5-5.1)
--- NOTE | 2020-04-10 20:37 | NUR ---
PT IS SITTING UP IN BED WATCHING TV AT THIS TIME. NO S/S OF DISTRESS NOTED. RESPS ARE EASY AND NONLABORED. NO C/O VOICED. BED IS LOW, CALL LIGHT WITHIN REACH. WILL CONTINUE TO MONITOR.
[2020-04-11] VITALS: BP 118/69
[2020-04-11 06:31] LABS: HEMATOCRIT 34.2 % (37.0-47.0); MEAN CELL VOLUME 95.5 fl (81.0-99.0); MEAN CORPUSCULAR HGB 30.7 pg (27.0-31.0); MEAN CORPUSCULAR HGB CONC 32.2 g/dl (33.0-37.0); MEAN PLATELET VOLUME 10.5 fl (9.6-12.3); PLATELET COUNT AUTOMATED 445 10*3/uL (130-400); RED BLOOD COUNT 3.58 10*6/uL (4.10-5.10); RED CELL DISTRI WIDTH 13.4 % (0-14.5); WHITE BLOOD COUNT 16.1 10*3/uL (4.8-10.8)
[2020-04-11 06:43] LABS: CREATININE 1.22 mg/dL (0.55-1.02)
[2020-04-11 06:48] LABS: POTASSIUM 5.3 mmol/L (3.5-5.1)
[2020-04-11 08:00] VITALS: BP 142/78
[2020-04-11 08:10] LABS: TOTAL CELLS COUNTED 100 #CELLS
[2020-04-11 08:12] LABS: PLATELET SUFFICIENCY HIGH (NORMAL)
--- NOTE | 2020-04-11 09:00 | NUR ---
case management visits with patient, she had a bronch yesterday, states feeling better, she will return home when discharged and denies any home needs
[2020-04-11 12:00] VITALS: BP 152/81
[2020-04-11 12:09] LABS: ACID FAST SPEC PROCESSING Concentration (.)
[2020-04-11] MEDS ORDERED: NEXIUM40 MG PO (13:40)
--- NOTE | 2020-04-11 14:10 | NUR ---
Discharge instructions reviewed with patient. Patient receptive and verbalizes understanding. Follow-up care arranged. Written instructions given to patient. VALERY BUENROSTRO
--- NOTE | 2020-04-11 14:20 | NUR ---
Pt left with belongings. Declined offered wheelchair. States she can walk out.
== END 2020-04-11 14:20 | disposition home or self-care (01) | DRG 190 ==
LOC: ED 14:51 → EDHOLD 18:53 → 4E 18:53
PROVIDERS: Emergency Medicine; Internal Medicine; Internal Medicine Critical Care Medicine; ADMIT Internal Medicine; ATTEND Internal Medicine
PROC: 0BC78ZZ Extirpation of Matter from Left Main Bronchus, Via Natural or Artificial Opening Endoscopic (ICD-10-PCS; principal; 2020-04-10)
PROC: 0BC48ZZ Extirpation of Matter from Right Upper Lobe Bronchus, Via Natural or Artificial Opening Endoscopic (ICD-10-PCS; principal; 2020-04-10)
PROC: 0BC58ZZ Extirpation of Matter from Right Middle Lobe Bronchus, Via Natural or Artificial Opening Endoscopic (ICD-10-PCS; principal; 2020-04-10)
PROC: 0BC88ZZ Extirpation of Matter from Left Upper Lobe Bronchus, Via Natural or Artificial Opening Endoscopic (ICD-10-PCS; principal; 2020-04-10)
PROC: 0BC68ZZ Extirpation of Matter from Right Lower Lobe Bronchus, Via Natural or Artificial Opening Endoscopic (ICD-10-PCS; principal; 2020-04-10)
PROC: 0BC18ZZ Extirpation of Matter from Trachea, Via Natural or Artificial Opening Endoscopic (ICD-10-PCS; principal; 2020-04-10)
PROC: 0BCB8ZZ Extirpation of Matter from Left Lower Lobe Bronchus, Via Natural or Artificial Opening Endoscopic (ICD-10-PCS; principal; 2020-04-10)
PROC: 0BC98ZZ Extirpation of Matter from Lingula Bronchus, Via Natural or Artificial Opening Endoscopic (ICD-10-PCS; principal; 2020-04-10)
PROC: 0BC38ZZ Extirpation of Matter from Right Main Bronchus, Via Natural or Artificial Opening Endoscopic (ICD-10-PCS; principal; 2020-04-10)
DX: J44.1 Chronic obstructive pulmonary disease with (acute) exacerbation (principal); N17.0 Acute kidney failure with tubular necrosis; E87.1 Hypo-osmolality and hyponatremia; J96.10 Chronic respiratory failure, unspecified whether with hypoxia or hypercapnia; J45.901 Unspecified asthma with (acute) exacerbation; D47.3 Essential (hemorrhagic) thrombocythemia; R79.82 Elevated C-reactive protein (CRP); F17.210 Nicotine dependence, cigarettes, uncomplicated; E78.49 Other hyperlipidemia; K21.9 Gastro-esophageal reflux disease without esophagitis; J20.9 Acute bronchitis, unspecified; E53.8 Deficiency of other specified B group vitamins; G62.9 Polyneuropathy, unspecified; E83.39 Other disorders of phosphorus metabolism; D72.829 Elevated white blood cell count, unspecified; I12.9 Hypertensive chronic kidney disease with stage 1 through stage 4 chronic kidney disease, or unspecified chronic kidney disease; N18.3 Chronic kidney disease, stage 3 (moderate); I34.0 Nonrheumatic mitral (valve) insufficiency; F32.9 Major depressive disorder, single episode, unspecified; J44.0 Chronic obstructive pulmonary disease with (acute) lower respiratory infection; E66.9 Obesity, unspecified; K59.00 Constipation, unspecified; R07.89 Other chest pain; E87.5 Hyperkalemia; K29.50 Unspecified chronic gastritis without bleeding; E83.42 Hypomagnesemia; F41.1 Generalized anxiety disorder; Z71.6 Tobacco abuse counseling; Z88.0 Allergy status to penicillin; Z88.1 Allergy status to other antibiotic agents; Z88.6 Allergy status to analgesic agent; Z88.8 Allergy status to other drugs, medicaments and biological substances; Z98.51 Tubal ligation status; Z82.5 Family history of asthma and other chronic lower respiratory diseases; Z80.8 Family history of malignant neoplasm of other organs or systems; Z83.3 Family history of diabetes mellitus; Z82.49 Family history of ischemic heart disease and other diseases of the circulatory system; Z86.73 Personal history of transient ischemic attack (TIA), and cerebral infarction without residual deficits; Z79.899 Other long term (current) drug therapy; Z87.11 Personal history of peptic ulcer disease; Z68.36 Body mass index [BMI] 36.0-36.9, adult; R05 Cough

== ENCOUNTER 2020-05-05 15:14 | Inpatient (IN) | payer MEDICARE ==
[~2020-05-05] VITALS: Ht 157.4 cm; Wt 96.3 kg
--- NOTE | 2020-05-05 21:56 | NUR ---
MED REC WILL NEED TO BE VERIFIED TOMORROW AM WITH [facility]. MED REC UPDATED PER PT RECALL, BUT PT STATES SHE DOES NOT KNOW EVERYTHING SHE TAKES BECAUSE SHE CANNOT READ THE BOTTLES.
--- NOTE | 2020-05-06 00:35 | NUR ---
EARLIER MEDS APPEAR EFFECTIVE. PT ASLEEP IN BED. NO S/S OF DISTRESS NOTED. WILL MONITOR. CALL LIGHT IN REACH.
--- NOTE | 2020-05-06 01:33 | NUR ---
PT REQUESTED AND RECEIVED PO TYLENOL FOR C/O PAIN "EVERYWHERE" RATED 10/10. PO RESTORIL ALSO GIVEN PER ONE TIME DOSE FOR C/O INSOMNIA. WILL MONITOR. CALL LIGHT IN REACH.
--- NOTE | 2020-05-06 04:21 | NUR ---
NOTIFIED OF PT'S REQUEST FOR SOMETHING FOR HER COUGH. NEW ORDER TO FOLLOW.
--- NOTE | 2020-05-06 04:22 | NUR ---
NOTIFIED OF PT'S REQUEST FOR SOMETHING FOR HER COUGH. NEW ORDER TO FOLLOW.
--- NOTE | 2020-05-06 04:51 | NUR ---
MAYANK BALES GIVEN FOR C/O COUGH. WILL MONITOR EFFECTIVENESS. CALL LIGHT IN REACH.
--- NOTE | 2020-05-06 08:08 | NUR ---
CONSULT CALLED TO DR CHICAS OFFICE ANSWERING SERVICE.
--- NOTE | 2020-05-06 08:25 | NUR ---
PT GIVEN NORCO AT THIS TIME FOR GENERALIZED PAIN. RATES PAIN /10. WILL MONITOR FOR EFFECTIVENESS. PT LYING IN BED. RESPIRATIONS UNLABORED. CALL LIGHT IN REACH.
--- NOTE | 2020-05-06 09:00 | NUR ---
DR DAMON IN TO SEE PATIENT.
--- NOTE | 2020-05-06 09:00 | NUR ---
[employer] in to talk to patient. Patient states lives at home with family. There are no steps in the home. Physician: [facility] Home health services: none Patient's level of ADLs: INDEPENDENT Patient has working utilities: all working DME: oxygen 3l/min hs, portable tanks, nebulizer from [facility] Follow-up physician's appointment after d/c: will be made by hospitalist nurse director upon discharge Does patient want to access PORTAL?: no Discharge plan discussed with patient,, she lives at home with family, she is independent in adls and ambulation, she wears home oxygen at 3l/min hs. she states she will return home when discharged and denies any home needs, discussed with her [facility] and educated her on the services they provide. she declines any home needs at this time, case management will follow. LOLY AGUILA
--- NOTE | 2020-05-06 09:25 | NUR ---
PT STATES THAT NORCO IS SOMEHWAT EFFECTIVE.
--- NOTE | 2020-05-06 10:21 | NUR ---
PT GIVEN MORPHINE FOR C/O PAIN R/T ULCERS IN HER MOUTH. WILL MONITOR FOR EFFECTIVENESS. CALL LIGHT IN REACH.
--- NOTE | 2020-05-06 11:21 | NUR ---
PT STATES THAT MORPHINE IS EFFECTIVE.
--- NOTE | 2020-05-06 11:35 | NUR ---
CALLED [facility] TO HAVE MEDICATION LIST FAXED TO HOSPITAL IN ORDER TO UPDATE MED REC.
--- NOTE | 2020-05-06 12:44 | NUR ---
PT GIVEN ZOFRAN FOR C/O NAUSEA. WILL MONITOR FOR EFFECTIVENESS. CALL LIGHT IN REACH.
--- NOTE | 2020-05-06 13:44 | NUR ---
PT STATES THAT MORPHINE IS EFFECTIVE.
--- NOTE | 2020-05-06 17:18 | NUR ---
PT GIVEN MORPHINE FOR GENERALIZED PAIN. WILL MONITOR FOR EFFECTIVENESS. CALL LIGHT IN REACH.
--- NOTE | 2020-05-06 18:18 | NUR ---
PT STATES THAT MORPHINE IS EFFECTIVE.
--- NOTE | 2020-05-06 19:56 | NUR ---
NOTIFIED OF PATIENT'S C/O OF ULCERS IN MOUTH AND WANTING MOUTHWASH. NEW ORDER RECEIVED FOR MAGIC MOUTHWASH.
--- NOTE | 2020-05-06 20:18 | NUR ---
MAGIC MOUTHWASH GIVEN PER PRN ORDER FOR C/O MOUTH PAIN. WILL MONITOR. CALL LIGHT IN REACH.
--- NOTE | 2020-05-06 21:10 | NUR ---
EARLIER MOUTHWASH EFFECTIVE PER PT.
--- NOTE | 2020-05-06 23:43 | NUR ---
PT REQUESTED AND RECEIVED IV MOPRHINE FOR C/O PAIN "EVERYWHERE" RATED 10/10. PT REFUSING NORCO WHEN OFFERED. WILL MONITOR EFFECTIVENESS. CALL LIGHT IN REACH.
--- NOTE | 2020-05-07 00:35 | NUR ---
EARLIER MEDS APPEAR EFFECTIVE. PT ASLEEP IN BED. NO S/S OF DISTRESS NOTED. WILL MONITOR. CALL LIGHT IN REACH.
--- NOTE | 2020-05-07 02:04 | NUR ---
PT ASLEEP IN BED. RESPIRATIONS EASY. NO S/S OF DISTRESS NOTED. WILL MONITOR. CALL LIGHT IN REACH.
--- NOTE | 2020-05-07 08:00 | NUR ---
PT RESTING IN BED/ NO DISTRESS NOTED. WILL MONITOR
--- NOTE | 2020-05-07 09:00 | NUR ---
case management visits with patient, discussed with her being admitted to the hospital several times in the past few months she may need to consider going to a short term [facility] for 24 hour care, pulmonary care and 5 days of rehab prior to returning home. she stated she was familiar with a short term skilled and would not go to one. also discussed [facility] and educated her about their services, she also declinied this. case management will follow
--- NOTE | 2020-05-07 09:57 | NUR ---
PT REQUESTED AND GIVEN MAGIC MOUTHWASH FOR SORE MOUTH. WILL MONITOR
--- NOTE | 2020-05-07 12:16 | NUR ---
PT REQUESTED AND GIVEN MORPHINE FOR C/O GEN PAIN PT RATES PAIN 8/10 WILL MONITOR
--- NOTE | 2020-05-07 13:00 | NUR ---
PT RESTINGI N BED, EYES CLOSED. MORPHINE APPEARS EFFECTIVE. WILL MONITOR
--- NOTE | 2020-05-07 18:37 | NUR ---
PT REQUESTEED AND GIVEN MORPHINE FOR C/O GEN PAIN PT RATES PAIN 8/10 WILL MONITOR
--- NOTE | 2020-05-07 19:30 | NUR ---
PATIENT LAYING IN BED. VOICES NO COMPLAINTS AT THIS TIME. RESPIRATIONS EASY, NON LABORED. VSS. NO SIGNS OF DISTRESS BED IN LOWEST POSITION,CALL LIGHT WITHIN REACH. WILL CONTINUE TO MONITOR.
--- NOTE | 2020-05-08 08:00 | NUR ---
PT RESTING IN BED/ NO DISTRESS NOTED. WILL MONITOR
--- NOTE | 2020-05-08 09:00 | NUR ---
case management visits with patient, she states she will return home and denies any home needs, case franky will follow
--- NOTE | 2020-05-08 09:07 | NUR ---
PT REQUESTED AND GIVEN MORPHINE FOR C/O GEN PAIN PT RATES PAIN 10/10 WILL MONITOR
--- NOTE | 2020-05-08 09:43 | NUR ---
DR BATISTA HERE TO SEE PT
--- NOTE | 2020-05-08 10:00 | NUR ---
PT STATES THAT MORPHINE HELPED A LITTLE WILL MONITOR
--- NOTE | 2020-05-08 13:56 | NUR ---
Clinicals faxed to Farnaz at [facility] per her request.
--- NOTE | 2020-05-08 16:30 | NUR ---
PT ASSESSED FOR HOME O2: RESTING RA SPO2: 94% HR 104 AMBULATING ON RA SPO2 : 91-95% HR 124 TAMARA 10 AT END OF WALK. PT WALKED AT A SLOW PACE FOR APPROX 50 YDS. PT DOES NOT QUALIFY FOR HOME O2. RN AWARE.
--- NOTE | 2020-05-08 20:00 | NUR ---
PATIENT AWAKE, SITTING UP IN BED. PATIENT HAS DRANK HALF OF THE COLO PREP. REMINDED HER IT MUST BE FINISHED BY MIDNIGHT. PATIENT STATES " I DONT THINK I CAN DRINK ANYMORE OF IT" THIS NURSE ENCOURAGED PATIENT TO FINISH REST. PATIENT STATED SHE WOULD TRY BUT STATES IT IS JUST TOO GROSS, MAYBE SHE COULD IF IT WAS BANANA FLAVORED. WILL CONTINUE TO MONITOR.
--- NOTE | 2020-05-08 21:53 | NUR ---
PATIENT C/O GENERALIZED PAIN. RATES 05/03. MEDICATED WITH NORCO. PATIENT ALSO REQUESTING A SLEEPING PILL. AMBIEN GIVEN AT THIS TIME WELL. WILL CHECK EFFECTIVENESS.
--- NOTE | 2020-05-08 22:53 | NUR ---
PATIENT STATES [facility] [employer] IS STARTING TO HELP.
--- NOTE | 2020-05-09 | NUR ---
PATIENT DID NOT FINISH COLO PREP STATED SHE JUST COULDNT DO IT. STATES SHE IS HAVING LOTS OF DIARRHEA THAT IS MOSTLY LIQUID. REMINDED PATIENT SHE IS NOW NPO FOR EGD/COLO AND CAN NOT HAVE ANYTHING ELSE TO DRINK. WILL CONTINUE TO MONITOR.
--- NOTE | 2020-05-09 07:15 | NUR ---
PT RESTING IN BED. RESPS EASY AND NON LABORED. NO S/S OF DISTRESS NOTED. VSS. WHITE BOARD UPDATED. POC DISCUSSED W PT. A/O X3. RHONCHI/WHEEZES NOTED.DENIES SOB @ REST. DYSPNEA ON EXERTION. C/O SLIGHT ABD PAIN. PT FOR EDG/COLO TODAY. WILL CONTINUE TO MONITOR. CALL LIGHT WITHIN REACH.
--- NOTE | 2020-05-09 07:30 | NUR ---
PT TAKEN OFF FLOOR FOR EGD/COLO
--- NOTE | 2020-05-09 10:36 | NUR ---
PT BACK FROM SURGERY. RESPS EASY AND NON LABORED. VSS. CALL LIGHT WITHIN REACH.
--- NOTE | 2020-05-09 12:49 | NUR ---
PT REQUESTING PRN PAIN MEDICATION FOR 10/10 ABDOMINAL PAIN. WILL REASSESS EFFECTIVENESS
--- NOTE | 2020-05-09 13:29 | NUR ---
MEDICATION EFFECTIVE PER PT
--- NOTE | 2020-05-09 20:55 | NUR ---
PATIENT LAYING IN BED. C/O 10/ GENERALIZED PAIN. MEDICATED WITH NORCO. WILL CONTINUE TO MONITOR.
--- NOTE | 2020-05-09 21:55 | NUR ---
PER PATIENT BETTY OTERO
--- NOTE | 2020-05-10 07:30 | NUR ---
PT RESTING IN BED. NO DISTRESS NOTED/ SEE SHIFT ASSESSMENT. WILL MONITOR
--- NOTE | 2020-05-10 09:51 | NUR ---
PT REQUESTED AND GIVEN MORPHINE FOR C/O, GEN PAIN . PT RATES PAIN 8/10 WILL MONITOR
--- NOTE | 2020-05-10 10:30 | NUR ---
PT STATES THAT MORPHINE HELPED A LITTLE. WILL MONITOR
--- NOTE | 2020-05-10 21:00 | NUR ---
PT SEEN AND ASSESSED, PT DENIES ANY NEED FOR ANYTHING AT THIS TIME.
--- NOTE | 2020-05-11 02:56 | NUR ---
24 HR chart check completed.
--- NOTE | 2020-05-11 03:15 | NUR ---
PT RESTING QUIETLY IN BED WITH EYES CLOSED.
--- NOTE | 2020-05-11 06:41 | NUR ---
PT REQUEST PRN IV PAIN MEDICATION FOR 8/10 GENERALIZED PAIN. WILL REASSESS.
--- NOTE | 2020-05-11 08:57 | NUR ---
PT RESTING IN BED. NO DISTRESS NOTED. WILL MONITOR
--- NOTE | 2020-05-11 14:00 | NUR ---
DR SHEIKH CALLED AND NOTIFIED OF PT BP. NEW ORDERS RECIEVED
--- NOTE | 2020-05-11 15:51 | NUR ---
pt requested and given morphine for c/o gen pain . pt rates pain 5/10 will monitor
--- NOTE | 2020-05-11 16:30 | NUR ---
PT STATES THAT MORPHINE HELPED A LITTLE. WILL MONITOR
--- NOTE | 2020-05-11 21:45 | NUR ---
PT REQUEST PRN IV PAIN MEDICATION FOR 10/10 PAIN TO HER ABDOMINAL AREA. PT DENIES N/V/D AND STATES SHE HAS NOT MOVED HER BOWELS FOR A COUPLE OF DAYS. WILL REASSESS
--- NOTE | 2020-05-12 09:00 | NUR ---
case management visits with patient, she states she will be discharged to home today and denies any home needs
--- NOTE | 2020-05-12 10:40 | NUR ---
PATIENT DISCHARGED TO HOME. IV DISCONTINUED. DISCHARGE INSTRUCTIONS GIVEN AND REVIEWED WITH PATIENT. PATIENT INFORMED OF PRESCRIPTIONS SENT TO [facility]. PATIENT INSTRUCTED TO FOLLOW UP WITH PCP, AND [facility] REGARDING DENTAL CARE. PATIENT ALSO INFORMED TO FOLLOW A 2L FLUID RESTRICTION. PATIENT REFUSED DISCHARGE WOUND PHOTOS.
== END 2020-05-12 10:40 | disposition home or self-care (01) | DRG 871 ==
LOC: ED 15:14 → 4E 17:41 → EDHOLD 17:41 → 4E 18:41
PROVIDERS: ADMIT Internal Medicine; ATTEND Internal Medicine
PROC: 0DB78ZX Excision of Stomach, Pylorus, Via Natural or Artificial Opening Endoscopic, Diagnostic (ICD-10-PCS; principal; 2020-05-09)
DX: A41.9 Sepsis, unspecified organism (principal); K29.01 Acute gastritis with bleeding; J44.1 Chronic obstructive pulmonary disease with (acute) exacerbation; E87.1 Hypo-osmolality and hyponatremia; J96.10 Chronic respiratory failure, unspecified whether with hypoxia or hypercapnia; J45.901 Unspecified asthma with (acute) exacerbation; N17.9 Acute kidney failure, unspecified; F32.9 Major depressive disorder, single episode, unspecified; N18.30 Chronic kidney disease, stage 3 unspecified; E83.42 Hypomagnesemia; D64.9 Anemia, unspecified; Y92.89 Other specified places as the place of occurrence of the external cause; E78.5 Hyperlipidemia, unspecified; E53.8 Deficiency of other specified B group vitamins; F17.210 Nicotine dependence, cigarettes, uncomplicated; G62.9 Polyneuropathy, unspecified; E83.39 Other disorders of phosphorus metabolism; I12.9 Hypertensive chronic kidney disease with stage 1 through stage 4 chronic kidney disease, or unspecified chronic kidney disease; F41.9 Anxiety disorder, unspecified; E66.9 Obesity, unspecified; K21.9 Gastro-esophageal reflux disease without esophagitis; K59.03 Drug induced constipation; K12.1 Other forms of stomatitis; T40.695A Adverse effect of other narcotics, initial encounter; Z99.81 Dependence on supplemental oxygen; Z88.0 Allergy status to penicillin; Z88.1 Allergy status to other antibiotic agents; Z88.6 Allergy status to analgesic agent; Z88.8 Allergy status to other drugs, medicaments and biological substances; Z98.51 Tubal ligation status; Z83.3 Family history of diabetes mellitus; Z82.49 Family history of ischemic heart disease and other diseases of the circulatory system; Z82.5 Family history of asthma and other chronic lower respiratory diseases; Z86.73 Personal history of transient ischemic attack (TIA), and cerebral infarction without residual deficits; Z79.899 Other long term (current) drug therapy; Z71.6 Tobacco abuse counseling; Z68.38 Body mass index [BMI] 38.0-38.9, adult

== ENCOUNTER → 2020-05-29 | Outpatient (CLI) | payer MEDICARE ==
[~2020-05-29] MED LIST changes: +Carafate1 GM PO; +DOXYCYCLINE100 M3 PO; +HYDROCODONE-AC1 EAC1 PO; +MELOXICAM15 MG PO; +PREDNISONE20 M1 PO; +ROPINIROLE HYDRO2 M2 PO; +TEMAZEPAM15 M1 PO; +TESSALON PERLE100 M1 PO; +TRELEGY ELLIPT1 EACH INH; +VITAMIN D31250 MC1 PO; -VITAMIN D50000 UNIT PO; +ZITHROMAX250 MG PO
== END | disposition home or self-care (01) ==
LOC: RESCLI 08:57
PROVIDERS: ATTEND Internal Medicine Nephrology
DX: K21.9 Gastro-esophageal reflux disease without esophagitis (principal); G89.29 Other chronic pain; M54.41 Lumbago with sciatica, right side; F17.200 Nicotine dependence, unspecified, uncomplicated; F41.1 Generalized anxiety disorder; E55.9 Vitamin D deficiency, unspecified; M54.42 Lumbago with sciatica, left side; I12.9 Hypertensive chronic kidney disease with stage 1 through stage 4 chronic kidney disease, or unspecified chronic kidney disease; N18.30 Chronic kidney disease, stage 3 unspecified; E78.00 Pure hypercholesterolemia, unspecified; J30.1 Allergic rhinitis due to pollen; G25.81 Restless legs syndrome; K92.2 Gastrointestinal hemorrhage, unspecified; R11.0 Nausea; F32.9 Major depressive disorder, single episode, unspecified; J44.9 Chronic obstructive pulmonary disease, unspecified; Z13.9 Encounter for screening, unspecified; Z79.899 Other long term (current) drug therapy; Z88.8 Allergy status to other drugs, medicaments and biological substances

== ENCOUNTER 2020-06-10 09:10 | Emergency (ER) | payer MEDICARE ==
[~2020-06-10] VITALS: Ht 157.4 cm; Wt 91.6 kg
[~2020-06-10 09:10] MED LIST changes: -DOXYCYCLINE100 M3 PO; -PREDNISONE20 M1 PO; -TESSALON PERLE100 M1 PO; -ZITHROMAX250 MG PO
[2020-06-10] MEDS ORDERED: ZITHROMAX250 MG PO (10:47)
[2020-06-10] MEDS ORDERED: PREDNISONE20 M1 PO (10:47)
== END 2020-06-10 11:01 | disposition home or self-care (01) ==
LOC: ED 09:10
DX: J45.909 Unspecified asthma, uncomplicated (principal); Z88.0 Allergy status to penicillin; Z88.8 Allergy status to other drugs, medicaments and biological substances; Z79.899 Other long term (current) drug therapy

== ENCOUNTER 2020-06-14 08:58 | Emergency (ER) | payer MEDICARE ==
[~2020-06-14] VITALS: Ht 157.4 cm; Wt 92.5 kg
[~2020-06-14 08:58] MED LIST changes: +PREDNISONE20 M1 PO; +ZITHROMAX250 MG PO
[2020-06-14 09:38] LABS: MEAN CELL VOLUME 92.1 fl (81.0-99.0); MEAN CORPUSCULAR HGB 30.4 pg (27.0-31.0); MEAN CORPUSCULAR HGB CONC 33.1 g/dl (33.0-37.0); MEAN PLATELET VOLUME 10.3 fl (9.6-12.3); PLATELET COUNT AUTOMATED 478 10*3/uL (130-400); RED BLOOD COUNT 3.91 10*6/uL (4.10-5.10); RED CELL DISTRI WIDTH 12.9 % (0-14.5); WHITE BLOOD COUNT 14.8 10*3/uL (4.8-10.8)
[2020-06-14 09:57] LABS: ALBUMIN 3.8 gm/dl (3.1-4.5); ALKALINE PHOSPHATASE 58 U/L (45-117); BUN 15 mg/dl (7-24); CHLORIDE 99 mmol/L (98-107); CREATININE 1.34 mg/dL (0.55-1.02); PLATELET SUFFICIENCY HIGH (NORMAL); POTASSIUM 3.9 mmol/L (3.5-5.1); SGOT/AST 14 IU/L (3-35); SGPT/ALT 19 U/L (12-78); SODIUM 134 mmol/L (136-145); TOTAL CELLS COUNTED 100 #CELLS; TOTAL PROTEIN 7.2 gm/dL (6.4-8.2)
[2020-06-14 09:58] LABS: TROPONIN I < 0.015 ng/ml (<0.045)
[2020-06-14 10:20] LABS: BILIRUBIN Negative (Negative); BLOOD Negative (Negative); CLARITY Clear (Clear); COLOR Yellow (Yellow); GLUCOSE Negative (Negative); KETONE Negative (Negative); LEUKO ESTERASE 2+ (Negative); NITRITE Negative (Negative); PH 6.5 (4.5-8.0); SPECIFIC GRAVITY 1.015 (1.001-1.030); UROBILINOGEN 0.2 E.U./dl (0.0-1.0)
[2020-06-14] MEDS ORDERED: DOXYCYCLINE100 M3 PO (10:20)
[2020-06-14 10:28] LABS: BACTERIA 2+; EPITHELIAL CELLS 21-30; WBC 21-30 wbc/hpf (0-5)
[2020-06-14] MEDS ORDERED: LEVOFLOXACIN500 MG PO (10:44)
[2020-06-14] MEDS ORDERED: TESSALON PERLE100 M1 PO (11:44)
== END 2020-06-14 11:51 | disposition home or self-care (01) ==
LOC: ED 08:58
PROVIDERS: Nurse Practitioner
DX: J45.909 Unspecified asthma, uncomplicated (principal); N39.0 Urinary tract infection, site not specified; Z20.828 Contact with and (suspected) exposure to other viral communicable diseases; Z88.0 Allergy status to penicillin; Z88.8 Allergy status to other drugs, medicaments and biological substances; Z88.5 Allergy status to narcotic agent; Z79.899 Other long term (current) drug therapy; Z79.2 Long term (current) use of antibiotics

== ENCOUNTER 2020-09-10 15:58 | Inpatient (IN) | payer OTHER ==
[~2020-09-10] VITALS: Ht 160 cm; Wt 107.3 kg
[2020-09-10] VITALS (10 sets, daily range): BP systolic 121–157; BP diastolic 52–91
[~2020-09-10 15:58] MED LIST changes: +DOXYCYCLINE100 M3 PO; +TESSALON PERLE100 M1 PO
[2020-09-10 16:31] LABS: BASO # 0.1 10*3/uL (0.0-0.1); BASO % 0.9 % (0.0-1.0); EOS # 0.5 10*3/uL (0.0-0.4); EOS % 6.6 % (1.0-4.0); HEMATOCRIT 35.7 % (37.0-47.0); LYMPH # 2.2 10*3/uL (1.3-4.4); LYMPH % 29.4 % (27.0-41.0); MEAN CELL VOLUME 93.7 fl (81.0-99.0); MEAN CORPUSCULAR HGB 30.4 pg (27.0-31.0); MEAN CORPUSCULAR HGB CONC 32.5 g/dl (33.0-37.0); MEAN PLATELET VOLUME 10.6 fl (9.6-12.3); MONO # 0.6 10*3/uL (0.1-1.0); MONO % 8.5 % (3.0-9.0); NEUT % 54.3 % (47.0-73.0); PLATELET COUNT AUTOMATED 367 10*3/uL (130-400); RED BLOOD COUNT 3.81 10*6/uL (4.10-5.10); RED CELL DISTRI WIDTH 13.8 % (0-14.5); WHITE BLOOD COUNT 7.4 10*3/uL (4.8-10.8)
[2020-09-10 16:42] LABS: ACT PARTIAL THROMBO TIME 28.2 SECONDS (20.0-32.1)
[2020-09-10 16:51] LABS: ALBUMIN 3.6 gm/dl (3.1-4.5); ALKALINE PHOSPHATASE 67 U/L (45-117); BUN 10 mg/dl (7-24); CREATININE 1.56 mg/dL (0.55-1.02); LIPASE 198 U/L (73-393); SGOT/AST 16 IU/L (3-35); TOTAL PROTEIN 6.5 gm/dL (6.4-8.2)
[2020-09-10 16:54] LABS: SGPT/ALT 18 U/L (12-78)
[2020-09-10 16:57] LABS: CHLORIDE 104 mmol/L (98-107); POTASSIUM 3.7 mmol/L (3.5-5.1); SODIUM 140 mmol/L (136-145)
[2020-09-10 16:58] LABS: TROPONIN I < 0.015 ng/ml (<0.045)
[2020-09-10] MEDS ORDERED: ZOFRAN4 MG PO (18:53)
[2020-09-10] MEDS ORDERED: LIPITOR20 MG PO (18:54)
[2020-09-10] MEDS ORDERED: OMEPRAZOLE40 MG PO (18:54)
[2020-09-10] MEDS ORDERED: LISINOPRIL40 MG PO (18:54)
[2020-09-10] MEDS ORDERED: CYCLOBENZAPRINE10 MG PO (18:56)
[2020-09-10] MEDS ORDERED: ROPINIROLE HYDRO2 MG PO (18:56)
[2020-09-10] MEDS ORDERED: Lopressor25 MG PO (18:57)
[2020-09-10] MEDS ORDERED: DOCUSATE SODIU100 MG PO (18:58)
[2020-09-10] MEDS ORDERED: VITAMIN E1000 UNI1 PO (18:59)
[2020-09-10] MEDS ORDERED: PAXIL40 M1 PO (18:59)
[2020-09-11] VITALS (7 sets, daily range): BP systolic 139–175; BP diastolic 57–99
[2020-09-11 01:09] LABS: BILIRUBIN Negative (Negative); BLOOD Negative (Negative); CLARITY Clear (Clear); COLOR Yellow (Yellow); GLUCOSE Negative (Negative); KETONE Negative (Negative); LEUKO ESTERASE 1+ (Negative); NITRITE Negative (Negative); PH 5.5 (4.5-8.0); UROBILINOGEN 0.2 E.U./dl (0.0-1.0)
[2020-09-11 06:18] LABS: HEMATOCRIT 37.5 % (37.0-47.0); MEAN CELL VOLUME 93.1 fl (81.0-99.0); MEAN CORPUSCULAR HGB 30.3 pg (27.0-31.0); MEAN CORPUSCULAR HGB CONC 32.5 g/dl (33.0-37.0); MEAN PLATELET VOLUME 11.4 fl (9.6-12.3); PLATELET COUNT AUTOMATED 387 10*3/uL (130-400); RED BLOOD COUNT 4.03 10*6/uL (4.10-5.10); RED CELL DISTRI WIDTH 13.5 % (0-14.5)
[2020-09-11 06:28] LABS: CREATININE 1.51 mg/dL (0.55-1.02); POTASSIUM 3.6 mmol/L (3.5-5.1)
[2020-09-11 07:33] LABS: PLATELET SUFFICIENCY NORMAL (NORMAL); TOTAL CELLS COUNTED 100 #CELLS
[2020-09-12] VITALS: BP 109/66
[2020-09-12 05:56] LABS: CREATININE 1.23 mg/dL (0.55-1.02); POTASSIUM 3.9 mmol/L (3.5-5.1)
[2020-09-12 08:00] VITALS: BP 136/64
[2020-09-12 12:00] VITALS: BP 145/66
[2020-09-12 16:00] VITALS: BP 158/62
[2020-09-12 20:00] VITALS: BP 123/75
[2020-09-13] VITALS: BP 141/80
[2020-09-13 06:58] LABS: CREATININE 1.22 mg/dL (0.55-1.02); POTASSIUM 3.9 mmol/L (3.5-5.1)
[2020-09-13 08:00] VITALS: BP 131/63
[2020-09-13] MEDS ORDERED: LEVOFLOXACIN500 MG PO (12:11)
[2020-09-13] MEDS ORDERED: TESSALON PERLE100 MG PO (12:11)
[2020-09-13] MEDS ORDERED: PREDNISONE50 MG PO (12:11)
[2020-09-13] MEDS ORDERED: MUCINEX1200 M1 PO (12:11)
== END 2020-09-13 13:34 | disposition home or self-care (01) | DRG 190 ==
LOC: ED 15:58 → EDHOLD 18:23 → 5E 18:23 → EDHOLD 09-11 09:55 → 5E 09-11 12:54
PROVIDERS: Emergency Medicine; Internal Medicine; Student in an Organized Health Care Education/Training Program; ADMIT Internal Medicine; ATTEND Internal Medicine
DX: J44.1 Chronic obstructive pulmonary disease with (acute) exacerbation (principal); N17.0 Acute kidney failure with tubular necrosis; E87.2 Acidosis; F33.0 Major depressive disorder, recurrent, mild; J96.11 Chronic respiratory failure with hypoxia; J45.41 Moderate persistent asthma with (acute) exacerbation; Z68.41 Body mass index [BMI] 40.0-44.9, adult; N18.32 Chronic kidney disease, stage 3b; D64.9 Anemia, unspecified; K21.9 Gastro-esophageal reflux disease without esophagitis; F41.9 Anxiety disorder, unspecified; K59.00 Constipation, unspecified; E78.5 Hyperlipidemia, unspecified; G62.9 Polyneuropathy, unspecified; I12.9 Hypertensive chronic kidney disease with stage 1 through stage 4 chronic kidney disease, or unspecified chronic kidney disease; R73.9 Hyperglycemia, unspecified; E55.9 Vitamin D deficiency, unspecified; E53.8 Deficiency of other specified B group vitamins; Z99.81 Dependence on supplemental oxygen; Z88.6 Allergy status to analgesic agent; Z88.1 Allergy status to other antibiotic agents; Z88.0 Allergy status to penicillin; Z88.8 Allergy status to other drugs, medicaments and biological substances; Z98.51 Tubal ligation status; Z90.49 Acquired absence of other specified parts of digestive tract; Z86.73 Personal history of transient ischemic attack (TIA), and cerebral infarction without residual deficits

== ENCOUNTER 2020-10-27 20:37 | Emergency (ER) | payer OTHER ==
[~2020-10-27] VITALS: Ht 160 cm; Wt 86.6 kg
[~2020-10-27 20:37] MED LIST changes: +DOCUSATE SODIU100 MG PO; +LISINOPRIL40 MG PO; +Lopressor25 MG PO; +OMEPRAZOLE40 MG PO; +PREDNISONE50 MG PO; +ROPINIROLE HYDRO2 MG PO; +VITAMIN E1000 UNI1 PO
[2020-10-27 21:24] LABS: BASO # 0.1 10*3/uL (0.0-0.1); BASO % 0.7 % (0.0-1.0); EOS # 0.4 10*3/uL (0.0-0.4); HEMATOCRIT 38.2 % (37.0-47.0); LYMPH # 2.9 10*3/uL (1.3-4.4); LYMPH % 22.8 % (27.0-41.0); MEAN CELL VOLUME 90.5 fl (81.0-99.0); MEAN CORPUSCULAR HGB 30.8 pg (27.0-31.0); MEAN PLATELET VOLUME 10.5 fl (9.6-12.3); MONO % 7.9 % (3.0-9.0); NEUT # 8.2 10*3/uL (2.3-7.9); PLATELET COUNT AUTOMATED 450 10*3/uL (130-400); RED BLOOD COUNT 4.22 10*6/uL (4.10-5.10); RED CELL DISTRI WIDTH 12.7 % (0-14.5); WHITE BLOOD COUNT 12.6 10*3/uL (4.8-10.8)
[2020-10-27 21:42] LABS: ALBUMIN 3.7 gm/dl (3.1-4.5); ALKALINE PHOSPHATASE 75 U/L (45-117); BUN 9 mg/dl (7-24); CHLORIDE 96 mmol/L (98-107); CREATININE 1.21 mg/dL (0.55-1.02); POTASSIUM 3.6 mmol/L (3.5-5.1); SGOT/AST 11 IU/L (3-35); SGPT/ALT 21 U/L (12-78); SODIUM 129 mmol/L (136-145)
[2020-10-27 21:43] LABS: TROPONIN I < 0.015 ng/ml (<0.045)
== END 2020-10-28 04:11 | disposition home or self-care (01) ==
LOC: ED 20:37
PROVIDERS: Emergency Medicine
DX: J44.1 Chronic obstructive pulmonary disease with (acute) exacerbation (principal); K21.9 Gastro-esophageal reflux disease without esophagitis; I12.9 Hypertensive chronic kidney disease with stage 1 through stage 4 chronic kidney disease, or unspecified chronic kidney disease; N18.30 Chronic kidney disease, stage 3 unspecified; E78.5 Hyperlipidemia, unspecified; G62.9 Polyneuropathy, unspecified; F17.210 Nicotine dependence, cigarettes, uncomplicated; Z88.0 Allergy status to penicillin; Z88.8 Allergy status to other drugs, medicaments and biological substances; Z88.1 Allergy status to other antibiotic agents; Z88.6 Allergy status to analgesic agent; Z79.2 Long term (current) use of antibiotics; Z79.899 Other long term (current) drug therapy; Z86.73 Personal history of transient ischemic attack (TIA), and cerebral infarction without residual deficits; Z98.51 Tubal ligation status; Z98.890 Other specified postprocedural states; Z90.49 Acquired absence of other specified parts of digestive tract

== ENCOUNTER 2021-02-11 17:04 | Inpatient (IN) | payer OTHER ==
[~2021-02-11] VITALS: Ht 160 cm; Wt 87.2 kg
[~2021-02-11 17:04] MED LIST changes: +ATARAX,VISTARIL50 MG PO; +FLUCONAZOLE100 MG PO; +METHOCARBAMOL750 M1 PO; +MUCUS RELIEF600 MG PO
[2021-02-11 17:24] VITALS: BP 159/89
[2021-02-11 18:11] LABS: BASO # 0.1 10*3/uL (0.0-0.1); BASO % 0.3 % (0.0-1.0); EOS # 0.1 10*3/uL (0.0-0.4); EOS % 0.7 % (1.0-4.0); HEMATOCRIT 34.5 % (37.0-47.0); LYMPH # 1.2 10*3/uL (1.3-4.4); LYMPH % 8.3 % (27.0-41.0); MEAN CELL VOLUME 91.5 fl (81.0-99.0); MEAN CORPUSCULAR HGB 30.8 pg (27.0-31.0); MEAN CORPUSCULAR HGB CONC 33.6 g/dl (33.0-37.0); MEAN PLATELET VOLUME 10.5 fl (9.6-12.3); MONO # 1.3 10*3/uL (0.1-1.0); MONO % 9.1 % (3.0-9.0); NEUT # 11.7 10*3/uL (2.3-7.9); NEUT % 80.6 % (47.0-73.0); PLATELET COUNT AUTOMATED 319 10*3/uL (130-400); RED BLOOD COUNT 3.77 10*6/uL (4.10-5.10); RED CELL DISTRI WIDTH 12.5 % (0-14.5); WHITE BLOOD COUNT 14.5 10*3/uL (4.8-10.8)
[2021-02-11 18:51] LABS: ALBUMIN 3.6 gm/dl (3.1-4.5); ALKALINE PHOSPHATASE 79 U/L (45-117); BUN 9 mg/dl (7-24); CHLORIDE 105 mmol/L (98-107); POTASSIUM 3.2 mmol/L (3.5-5.1); SGOT/AST 12 IU/L (3-35); SGPT/ALT 19 U/L (12-78); SODIUM 136 mmol/L (136-145); TOTAL PROTEIN 6.7 gm/dL (6.4-8.2)
[2021-02-11 18:53] LABS: TROPONIN I < 0.015 ng/ml (<0.045)
[2021-02-11 19:24] VITALS: BP 148/91
[2021-02-11 21:01] VITALS: BP 137/91
[2021-02-11 21:54] VITALS: BP 137/91
[2021-02-11 22:20] VITALS: BP 184/90
[2021-02-11 23:01] LABS: ARTERIAL BLOOD GAS PH 7.363 (7.35-7.45); ARTERIAL BLOOD GAS PO2 143.5 (80-90)
[2021-02-11 23:02] LABS: ABG BASE EXCESS -5.1 mmol/L (-2.0-2.0)
[2021-02-12] VITALS: BP 114/77
[2021-02-12] MEDS ORDERED: SINGULAIR10 M1 PO (00:36)
[2021-02-12] MEDS ORDERED: BUSPAR15 MG PO (00:39)
[2021-02-12] MEDS ORDERED: PROAIR HFA8.5 GM INH (00:48)
[2021-02-12 04:17] LABS: MEAN CELL VOLUME 93.4 fl (81.0-99.0); MEAN CORPUSCULAR HGB 31.3 pg (27.0-31.0); MEAN CORPUSCULAR HGB CONC 33.5 g/dl (33.0-37.0); MEAN PLATELET VOLUME 10.6 fl (9.6-12.3); PLATELET COUNT AUTOMATED 271 10*3/uL (130-400); RED BLOOD COUNT 3.32 10*6/uL (4.10-5.10); RED CELL DISTRI WIDTH 12.5 % (0-14.5)
[2021-02-12 04:27] LABS: ACT PARTIAL THROMBO TIME 27.8 SECONDS (20.0-32.1)
[2021-02-12 04:31] LABS: ALKALINE PHOSPHATASE 71 U/L (45-117); BUN 9 mg/dl (7-24); CHLORIDE 110 mmol/L (98-107); CREATININE 1.11 mg/dL (0.55-1.02); POTASSIUM 3.6 mmol/L (3.5-5.1); SGOT/AST 12 IU/L (3-35); SGPT/ALT 16 U/L (12-78); SODIUM 138 mmol/L (136-145); TOTAL PROTEIN 5.8 gm/dL (6.4-8.2)
[2021-02-12 04:34] LABS: PLATELET SUFFICIENCY NORMAL (NORMAL); TOTAL CELLS COUNTED 100 #CELLS
[2021-02-12 06:28] LABS: BILIRUBIN Negative (Negative); BLOOD Negative (Negative); CLARITY Clear (Clear); COLOR Yellow (Yellow); GLUCOSE 2+ (Negative); KETONE Negative (Negative); LEUKO ESTERASE Negative (Negative); NITRITE Negative (Negative); PH 5.5 (4.5-8.0); SPECIFIC GRAVITY 1.015 (1.001-1.030); UROBILINOGEN 0.2 E.U./dl (0.0-1.0)
[2021-02-12 07:27] LABS: ABG BASE EXCESS -6.8 mmol/L (-2.0-2.0); ARTERIAL BLOOD GAS PH 7.459 (7.35-7.45); ARTERIAL BLOOD GAS PO2 165.8 (80-90)
[2021-02-12 07:30] LABS: BACTERIA TRACE; RBC 0-2 rbc/hpf (0-2); YEAST TRACE
[2021-02-12 08:00] VITALS: BP 133/65
[2021-02-12 12:00] VITALS: BP 152/90
[2021-02-12 16:00] VITALS: BP 149/75
[2021-02-12 20:00] VITALS: BP 149/48
[2021-02-13] VITALS: BP 160/80
[2021-02-13 06:58] LABS: BASO % 0.1 % (0.0-1.0); LYMPH # 0.7 10*3/uL (1.3-4.4); LYMPH % 4.6 % (27.0-41.0); MEAN CELL VOLUME 93.3 fl (81.0-99.0); MEAN CORPUSCULAR HGB 30.6 pg (27.0-31.0); MEAN CORPUSCULAR HGB CONC 32.8 g/dl (33.0-37.0); MEAN PLATELET VOLUME 10.9 fl (9.6-12.3); MONO # 0.8 10*3/uL (0.1-1.0); MONO % 5.2 % (3.0-9.0); NEUT # 13.3 10*3/uL (2.3-7.9); NEUT % 88.8 % (47.0-73.0); PLATELET COUNT AUTOMATED 308 10*3/uL (130-400); RED BLOOD COUNT 3.43 10*6/uL (4.10-5.10); RED CELL DISTRI WIDTH 12.7 % (0-14.5); WHITE BLOOD COUNT 14.9 10*3/uL (4.8-10.8)
[2021-02-13 07:13] LABS: CHLORIDE 105 mmol/L (98-107); POTASSIUM 3.9 mmol/L (3.5-5.1); SODIUM 137 mmol/L (136-145)
[2021-02-13 07:19] LABS: ALBUMIN 3.2 gm/dl (3.1-4.5); ALKALINE PHOSPHATASE 69 U/L (45-117); BUN 14 mg/dl (7-24); CREATININE 0.87 mg/dL (0.55-1.02); SGOT/AST 14 IU/L (3-35); SGPT/ALT 19 U/L (12-78); TOTAL PROTEIN 6.2 gm/dL (6.4-8.2)
[2021-02-13 08:00] VITALS: BP 150/82
[2021-02-13 12:00] VITALS: BP 155/89; BP 177/89
[2021-02-13 16:00] VITALS: BP 152/87
[2021-02-13 20:00] VITALS: BP 151/80
[2021-02-14] VITALS: BP 152/66
[2021-02-14 06:13] LABS: HEMATOCRIT 32.2 % (37.0-47.0); MEAN CELL VOLUME 94.2 fl (81.0-99.0); MEAN CORPUSCULAR HGB 30.1 pg (27.0-31.0); PLATELET COUNT AUTOMATED 331 10*3/uL (130-400); RED BLOOD COUNT 3.42 10*6/uL (4.10-5.10); RED CELL DISTRI WIDTH 12.4 % (0-14.5); WHITE BLOOD COUNT 11.7 10*3/uL (4.8-10.8)
[2021-02-14 06:23] LABS: BUN 17 mg/dl (7-24); CHLORIDE 103 mmol/L (98-107); CREATININE 0.84 mg/dL (0.55-1.02); POTASSIUM 3.4 mmol/L (3.5-5.1); SODIUM 132 mmol/L (136-145)
[2021-02-14 06:50] LABS: TOTAL CELLS COUNTED 100 #CELLS
[2021-02-14 06:51] LABS: PLATELET SUFFICIENCY NORMAL (NORMAL)
[2021-02-14 08:00] VITALS: BP 174/86
[2021-02-14 12:00] VITALS: BP 183/90
[2021-02-14 16:00] VITALS: BP 169/98
[2021-02-14 20:00] VITALS: BP 154/77
[2021-02-15] VITALS: BP 115/42
[2021-02-15 06:13] LABS: BUN 16 mg/dl (7-24); CHLORIDE 102 mmol/L (98-107); POTASSIUM 3.6 mmol/L (3.5-5.1); SODIUM 135 mmol/L (136-145)
[2021-02-15 08:00] VITALS: BP 165/86
[2021-02-15 12:00] VITALS: BP 148/80
[2021-02-15 16:00] VITALS: BP 143/76
[2021-02-15 20:00] VITALS: BP 149/75
[2021-02-16] VITALS (9 sets, daily range): BP systolic 124–156; BP diastolic 68–93
[2021-02-17] VITALS: BP 131/65
[2021-02-17 05:23] LABS: BUN 18 mg/dl (7-24); CHLORIDE 99 mmol/L (98-107); CREATININE 0.87 mg/dL (0.55-1.02); POTASSIUM 3.8 mmol/L (3.5-5.1); SODIUM 135 mmol/L (136-145)
[2021-02-17 07:41] LABS: BASO # 0.1 10*3/uL (0.0-0.1); BASO % 0.5 % (0.0-1.0); HEMATOCRIT 33.8 % (37.0-47.0); LYMPH % 10.7 % (27.0-41.0); MEAN CELL VOLUME 90.6 fl (81.0-99.0); MEAN CORPUSCULAR HGB 30.3 pg (27.0-31.0); MEAN CORPUSCULAR HGB CONC 33.4 g/dl (33.0-37.0); MEAN PLATELET VOLUME 10.8 fl (9.6-12.3); MONO # 1.1 10*3/uL (0.1-1.0); MONO % 6.1 % (3.0-9.0); NEUT # 13.3 10*3/uL (2.3-7.9); NEUT % 73.1 % (47.0-73.0); NUCLEATED RED BLOOD CELL 0.1 % (0.0-0.0); PLATELET COUNT AUTOMATED 386 10*3/uL (130-400); RED BLOOD COUNT 3.73 10*6/uL (4.10-5.10); RED CELL DISTRI WIDTH 12.1 % (0-14.5); WHITE BLOOD COUNT 18.3 10*3/uL (4.8-10.8)
[2021-02-17 08:00] VITALS: BP 138/77
[2021-02-17 08:17] LABS: ATYPICAL LYMPHS 2 % (0-0); PLATELET SUFFICIENCY NORMAL (NORMAL); TOTAL CELLS COUNTED 100 #CELLS
[2021-02-17 12:00] VITALS: BP 127/56
[2021-02-17 14:08] LABS: ACID FAST SPEC PROCESSING Concentration (.)
[2021-02-17 16:00] VITALS: BP 121/63
[2021-02-17 20:00] VITALS: BP 134/74
[2021-02-18] VITALS: BP 144/74
[2021-02-18 06:06] LABS: BUN 17 mg/dl (7-24); CHLORIDE 100 mmol/L (98-107); CREATININE 0.91 mg/dL (0.55-1.02); POTASSIUM 3.4 mmol/L (3.5-5.1); SODIUM 133 mmol/L (136-145)
[2021-02-18 06:18] LABS: HEMATOCRIT 35.1 % (37.0-47.0); MEAN CELL VOLUME 91.4 fl (81.0-99.0); MEAN CORPUSCULAR HGB 30.2 pg (27.0-31.0); MEAN PLATELET VOLUME 11.1 fl (9.6-12.3); NUCLEATED RED BLOOD CELL 0.2 % (0.0-0.0); PLATELET COUNT AUTOMATED 393 10*3/uL (130-400); RED BLOOD COUNT 3.84 10*6/uL (4.10-5.10); RED CELL DISTRI WIDTH 12.2 % (0-14.5); WHITE BLOOD COUNT 19.8 10*3/uL (4.8-10.8)
[2021-02-18 07:40] LABS: TOTAL CELLS COUNTED 100 #CELLS
[2021-02-18 07:41] LABS: PLATELET SUFFICIENCY NORMAL (NORMAL)
[2021-02-18 08:00] VITALS: BP 174/67; BP 174/90
[2021-02-18] MEDS ORDERED: LEVOFLOXACIN750 M2 PO (11:10)
[2021-02-18] MEDS ORDERED: PREDNISONE10 MG PO (11:10)
[2021-02-18] MEDS ORDERED: AMLODIPINE BESYL5 MG PO (11:10)
[2021-02-18] MEDS ORDERED: Ipratropium Brom3 ML NEB (12:48)
[2021-03-19 15:07] LABS: ORGANISM ID, MOLD Final report (.)
== END 2021-02-18 13:15 | disposition home health service (06) | DRG 871 ==
LOC: ED 17:04 → EDHOLD 19:52 → 4E 19:52 → EDHOLD 20:25 → 5E 21:51 → 4E 21:52
PROVIDERS: Hospitalist; Internal Medicine Critical Care Medicine; Physician Assistant; Social Worker Clinical; Student in an Organized Health Care Education/Training Program; ADMIT Family Medicine; ATTEND Family Medicine
PROC: 5A09357 Assistance with Respiratory Ventilation, Less than 24 Consecutive Hours, Continuous Positive Airway Pressure (ICD-10-PCS; 2021-02-12)
PROC: 5A09357 Assistance with Respiratory Ventilation, Less than 24 Consecutive Hours, Continuous Positive Airway Pressure (ICD-10-PCS; 2021-02-13)
PROC: 5A09357 Assistance with Respiratory Ventilation, Less than 24 Consecutive Hours, Continuous Positive Airway Pressure (ICD-10-PCS; 2021-02-14)
PROC: 5A09357 Assistance with Respiratory Ventilation, Less than 24 Consecutive Hours, Continuous Positive Airway Pressure (ICD-10-PCS; 2021-02-15)
PROC: 0BC98ZZ Extirpation of Matter from Lingula Bronchus, Via Natural or Artificial Opening Endoscopic (ICD-10-PCS; principal; 2021-02-16)
PROC: 0BC48ZZ Extirpation of Matter from Right Upper Lobe Bronchus, Via Natural or Artificial Opening Endoscopic (ICD-10-PCS; 2021-02-16)
PROC: 0BC88ZZ Extirpation of Matter from Left Upper Lobe Bronchus, Via Natural or Artificial Opening Endoscopic (ICD-10-PCS; 2021-02-16)
PROC: 0BC58ZZ Extirpation of Matter from Right Middle Lobe Bronchus, Via Natural or Artificial Opening Endoscopic (ICD-10-PCS; 2021-02-16)
PROC: 0BC38ZZ Extirpation of Matter from Right Main Bronchus, Via Natural or Artificial Opening Endoscopic (ICD-10-PCS; 2021-02-16)
PROC: 0BC78ZZ Extirpation of Matter from Left Main Bronchus, Via Natural or Artificial Opening Endoscopic (ICD-10-PCS; 2021-02-16)
PROC: 0BC68ZZ Extirpation of Matter from Right Lower Lobe Bronchus, Via Natural or Artificial Opening Endoscopic (ICD-10-PCS; 2021-02-16)
PROC: 0BCB8ZZ Extirpation of Matter from Left Lower Lobe Bronchus, Via Natural or Artificial Opening Endoscopic (ICD-10-PCS; 2021-02-16)
PROC: 0BC28ZZ Extirpation of Matter from Carina, Via Natural or Artificial Opening Endoscopic (ICD-10-PCS; 2021-02-16)
PROC: 5A09357 Assistance with Respiratory Ventilation, Less than 24 Consecutive Hours, Continuous Positive Airway Pressure (ICD-10-PCS; 2021-02-16)
PROC: 5A09357 Assistance with Respiratory Ventilation, Less than 24 Consecutive Hours, Continuous Positive Airway Pressure (ICD-10-PCS; 2021-02-17)
PROC: 5A09357 Assistance with Respiratory Ventilation, Less than 24 Consecutive Hours, Continuous Positive Airway Pressure (ICD-10-PCS; 2021-02-18)
DX: A41.9 Sepsis, unspecified organism (principal); J15.6 Pneumonia due to other Gram-negative bacteria; E87.1 Hypo-osmolality and hyponatremia; J44.1 Chronic obstructive pulmonary disease with (acute) exacerbation; F33.9 Major depressive disorder, recurrent, unspecified; E87.2 Acidosis; J96.11 Chronic respiratory failure with hypoxia; R65.20 Severe sepsis without septic shock; G62.9 Polyneuropathy, unspecified; I12.9 Hypertensive chronic kidney disease with stage 1 through stage 4 chronic kidney disease, or unspecified chronic kidney disease; N18.31 Chronic kidney disease, stage 3a; E87.6 Hypokalemia; F10.10 Alcohol abuse, uncomplicated; F17.210 Nicotine dependence, cigarettes, uncomplicated; F41.9 Anxiety disorder, unspecified; K21.00 Gastro-esophageal reflux disease with esophagitis, without bleeding; Z71.6 Tobacco abuse counseling; Z99.81 Dependence on supplemental oxygen; Z88.0 Allergy status to penicillin; Z88.6 Allergy status to analgesic agent; Z88.1 Allergy status to other antibiotic agents; Z88.8 Allergy status to other drugs, medicaments and biological substances; Z90.49 Acquired absence of other specified parts of digestive tract; Z98.51 Tubal ligation status; Z79.51 Long term (current) use of inhaled steroids; Z79.899 Other long term (current) drug therapy; Z86.73 Personal history of transient ischemic attack (TIA), and cerebral infarction without residual deficits

== ENCOUNTER 2021-06-12 12:45 | Emergency (ER) | payer OTHER ==
[~2021-06-12] VITALS: Ht 162.5 cm; Wt 90.7 kg
[~2021-06-12 12:45] MED LIST changes: +AMLODIPINE BESYL5 MG PO; +Ipratropium Brom3 ML NEB; +LEVOFLOXACIN750 M2 PO; +PROAIR HFA8.5 GM INH
[2021-06-12 15:54] LABS: BASO % 0.6 % (0.0-1.0); EOS # 0.4 10*3/uL (0.0-0.4); EOS % 5.4 % (1.0-4.0); HEMATOCRIT 37.4 % (37.0-47.0); LYMPH # 2.1 10*3/uL (1.3-4.4); MEAN CELL VOLUME 89.9 fl (81.0-99.0); MEAN CORPUSCULAR HGB 29.6 pg (27.0-31.0); MEAN CORPUSCULAR HGB CONC 32.9 g/dl (33.0-37.0); MEAN PLATELET VOLUME 10.6 fl (9.6-12.3); MONO # 0.8 10*3/uL (0.1-1.0); MONO % 11.6 % (3.0-9.0); NEUT # 3.9 10*3/uL (2.3-7.9); NEUT % 53.1 % (47.0-73.0); PLATELET COUNT AUTOMATED 340 10*3/uL (130-400); RED BLOOD COUNT 4.16 10*6/uL (4.10-5.10); RED CELL DISTRI WIDTH 13.6 % (0-14.5); WHITE BLOOD COUNT 7.3 10*3/uL (4.8-10.8)
[2021-06-12 16:12] LABS: ALBUMIN 3.4 gm/dl (3.1-4.5); ALKALINE PHOSPHATASE 107 U/L (45-117); BUN 8 mg/dl (7-24); CHLORIDE 107 mmol/L (98-107); CREATININE 0.82 mg/dL (0.55-1.02); POTASSIUM 3.6 mmol/L (3.5-5.1); SGOT/AST 12 IU/L (3-35); SGPT/ALT 20 U/L (12-78); SODIUM 140 mmol/L (136-145); TOTAL PROTEIN 7.1 gm/dL (6.4-8.2)
[2021-06-12 16:17] LABS: TROPONIN I < 0.015 ng/ml (<0.045)
[2021-06-12] MEDS ORDERED: PREDNISONE50 MG PO (18:26)
== END 2021-06-12 18:56 | disposition home or self-care (01) ==
LOC: ED 12:45
PROVIDERS: Emergency Medicine
DX: U07.1 COVID-19 (principal); J44.1 Chronic obstructive pulmonary disease with (acute) exacerbation; K21.9 Gastro-esophageal reflux disease without esophagitis; E78.5 Hyperlipidemia, unspecified; J44.9 Chronic obstructive pulmonary disease, unspecified; I12.9 Hypertensive chronic kidney disease with stage 1 through stage 4 chronic kidney disease, or unspecified chronic kidney disease; N18.30 Chronic kidney disease, stage 3 unspecified; F17.200 Nicotine dependence, unspecified, uncomplicated; Z88.0 Allergy status to penicillin; Z88.8 Allergy status to other drugs, medicaments and biological substances; Z88.1 Allergy status to other antibiotic agents; Z88.6 Allergy status to analgesic agent

== ENCOUNTER 2021-06-27 11:43 | Emergency (ER) | payer OTHER ==
[~2021-06-27] VITALS: Ht 160 cm; Wt 90.7 kg
[2021-06-27 12:35] LABS: BASO # 0.1 10*3/uL (0.0-0.1); BASO % 0.6 % (0.0-1.0); EOS # 0.4 10*3/uL (0.0-0.4); EOS % 3.9 % (1.0-4.0); HEMATOCRIT 36.4 % (37.0-47.0); LYMPH % 18.3 % (27.0-41.0); MEAN CELL VOLUME 90.3 fl (81.0-99.0); MEAN CORPUSCULAR HGB CONC 33.2 g/dl (33.0-37.0); MEAN PLATELET VOLUME 10.2 fl (9.6-12.3); MONO % 9.5 % (3.0-9.0); NEUT # 7.2 10*3/uL (2.3-7.9); NEUT % 67.4 % (47.0-73.0); PLATELET COUNT AUTOMATED 341 10*3/uL (130-400); RED BLOOD COUNT 4.03 10*6/uL (4.10-5.10); RED CELL DISTRI WIDTH 13.7 % (0-14.5); WHITE BLOOD COUNT 10.7 10*3/uL (4.8-10.8)
[2021-06-27 12:54] LABS: ALBUMIN 3.3 gm/dl (3.1-4.5); ALKALINE PHOSPHATASE 113 U/L (45-117); BUN 6 mg/dl (7-24); CHLORIDE 109 mmol/L (98-107); CREATININE 0.91 mg/dL (0.55-1.02); POTASSIUM 3.5 mmol/L (3.5-5.1); SGOT/AST 9 IU/L (3-35); SGPT/ALT 18 U/L (12-78); SODIUM 138 mmol/L (136-145); TOTAL PROTEIN 7.2 gm/dL (6.4-8.2)
[2021-06-27] MEDS ORDERED: LEVOFLOXACIN500 MG PO (13:54)
[2021-06-27] MEDS ORDERED: PREDNISONE50 MG PO (13:54)
[2021-06-27] MEDS ORDERED: PROVENTIL HFA6.7 GM INH (13:54)
[2021-06-27] MEDS ORDERED: BENZONATATE100 M1 PO (13:54)
[2021-06-27] MEDS ORDERED: MUCINEX1200 M1 PO (13:54)
[2021-06-27 13:55] LABS: BILIRUBIN Negative (Negative); BLOOD Negative (Negative); CLARITY Cloudy (Clear); COLOR Yellow (Yellow); GLUCOSE Negative (Negative); KETONE Negative (Negative); LEUKO ESTERASE 1+ (Negative); NITRITE Negative (Negative); SPECIFIC GRAVITY <= 1.005 (1.001-1.030); UROBILINOGEN 0.2 E.U./dl (0.0-1.0)
[2021-06-27 14:07] LABS: RBC 0-2 rbc/hpf (0-2)
[2021-06-27 14:08] LABS: BACTERIA 2+
== END 2021-06-27 14:15 | disposition home or self-care (01) ==
LOC: ED 11:43
PROVIDERS: Nurse Practitioner Family
DX: U07.1 COVID-19 (principal); J44.1 Chronic obstructive pulmonary disease with (acute) exacerbation; E86.0 Dehydration; F17.200 Nicotine dependence, unspecified, uncomplicated; Z88.0 Allergy status to penicillin; Z88.1 Allergy status to other antibiotic agents; Z88.8 Allergy status to other drugs, medicaments and biological substances

== ENCOUNTER 2021-07-18 17:10 | Inpatient (IN) | payer OTHER ==
[~2021-07-18] VITALS: Ht 160 cm; Wt 84.0 kg
[~2021-07-18 17:10] MED LIST changes: +PROVENTIL HFA6.7 GM INH
[2021-07-18 17:42] LABS: BASO # 0.1 10*3/uL (0.0-0.1); BASO % 0.8 % (0.0-1.0); EOS # 0.4 10*3/uL (0.0-0.4); EOS % 4.2 % (1.0-4.0); HEMATOCRIT 37.6 % (37.0-47.0); LYMPH # 2.3 10*3/uL (1.3-4.4); LYMPH % 25.6 % (27.0-41.0); MEAN CELL VOLUME 88.5 fl (81.0-99.0); MEAN CORPUSCULAR HGB 29.6 pg (27.0-31.0); MEAN CORPUSCULAR HGB CONC 33.5 g/dl (33.0-37.0); MONO # 0.8 10*3/uL (0.1-1.0); MONO % 8.7 % (3.0-9.0); NEUT # 5.5 10*3/uL (2.3-7.9); NEUT % 60.5 % (47.0-73.0); PLATELET COUNT AUTOMATED 347 10*3/uL (130-400); RED BLOOD COUNT 4.25 10*6/uL (4.10-5.10); RED CELL DISTRI WIDTH 13.7 % (0-14.5); WHITE BLOOD COUNT 9.1 10*3/uL (4.8-10.8)
[2021-07-18 17:56] LABS: BILIRUBIN Negative (Negative); BLOOD Negative (Negative); CLARITY Cloudy (Clear); COLOR Yellow (Yellow); GLUCOSE Negative (Negative); KETONE Negative (Negative); LEUKO ESTERASE 3+ (Negative); NITRITE Negative (Negative); PH 5.5 (4.5-8.0); SPECIFIC GRAVITY 1.015 (1.001-1.030); UROBILINOGEN 0.2 E.U./dl (0.0-1.0)
[2021-07-18 17:57] LABS: ACT PARTIAL THROMBO TIME 26.8 SECONDS (20.0-32.1)
[2021-07-18 17:58] LABS: ALBUMIN 3.4 gm/dl (3.1-4.5); CREATININE 1.18 mg/dL (0.55-1.02); POTASSIUM 3.1 mmol/L (3.5-5.1); TOTAL PROTEIN 7.1 gm/dL (6.4-8.2)
[2021-07-18 18:13] LABS: BACTERIA 2+; WBC 31-40 wbc/hpf (0-5)
[2021-07-18 18:30] VITALS: BP 130/76
[2021-07-18 20:54] VITALS: BP 151/99
[2021-07-18 21:11] VITALS: BP 134/80; BP 154/64
[2021-07-18 22:11] VITALS: BP 153/89
[2021-07-19] VITALS (7 sets, daily range): BP systolic 117–154; BP diastolic 59–86
[2021-07-19 05:21] LABS: CREATININE 1.14 mg/dL (0.55-1.02); POTASSIUM 3.7 mmol/L (3.5-5.1)
[2021-07-19 06:21] LABS: HEMATOCRIT 36.4 % (37.0-47.0); MEAN CELL VOLUME 90.1 fl (81.0-99.0); MEAN CORPUSCULAR HGB 30.2 pg (27.0-31.0); MEAN CORPUSCULAR HGB CONC 33.5 g/dl (33.0-37.0); MEAN PLATELET VOLUME 11.9 fl (9.6-12.3); PLATELET COUNT AUTOMATED 334 10*3/uL (130-400); RED BLOOD COUNT 4.04 10*6/uL (4.10-5.10); RED CELL DISTRI WIDTH 13.9 % (0-14.5)
[2021-07-19 07:03] LABS: VITAMIN D, 25-HYDROXY 24.6 ng/mL (30-100)
[2021-07-19 07:12] LABS: BASOPHILS 1 % (0-1); TOTAL CELLS COUNTED 100 #CELLS
[2021-07-19 07:13] LABS: BURR CELLS FEW; PLATELET SUFFICIENCY NORMAL (NORMAL)
[2021-07-20] VITALS: BP 154/84
[2021-07-20 07:02] LABS: BASO # 0.1 10*3/uL (0.0-0.1); BASO % 0.5 % (0.0-1.0); EOS # 0.3 10*3/uL (0.0-0.4); EOS % 2.3 % (1.0-4.0); HEMATOCRIT 33.7 % (37.0-47.0); LYMPH # 3.2 10*3/uL (1.3-4.4); LYMPH % 27.2 % (27.0-41.0); MEAN CELL VOLUME 92.1 fl (81.0-99.0); MEAN CORPUSCULAR HGB 30.3 pg (27.0-31.0); MEAN CORPUSCULAR HGB CONC 32.9 g/dl (33.0-37.0); MEAN PLATELET VOLUME 11.8 fl (9.6-12.3); MONO % 8.4 % (3.0-9.0); NEUT # 7.2 10*3/uL (2.3-7.9); NEUT % 61.2 % (47.0-73.0); PLATELET COUNT AUTOMATED 306 10*3/uL (130-400); RED BLOOD COUNT 3.66 10*6/uL (4.10-5.10); RED CELL DISTRI WIDTH 14.2 % (0-14.5); WHITE BLOOD COUNT 11.7 10*3/uL (4.8-10.8)
[2021-07-20 07:08] LABS: ALBUMIN 3.2 gm/dl (3.1-4.5); ALKALINE PHOSPHATASE 90 U/L (45-117); BUN 9 mg/dl (7-24); CHLORIDE 110 mmol/L (98-107); CREATININE 0.79 mg/dL (0.55-1.02); SGOT/AST 16 IU/L (3-35); SGPT/ALT 23 U/L (12-78); SODIUM 141 mmol/L (136-145)
[2021-07-20 08:00] VITALS: BP 130/86
[2021-07-20 12:00] VITALS: BP 138/62
[2021-07-20 16:00] VITALS: BP 133/61
[2021-07-20 20:00] VITALS: BP 149/84
[2021-07-21] VITALS: BP 108/51
[2021-07-21 08:00] VITALS: BP 127/75
[2021-07-21 12:00] VITALS: BP 139/68
[2021-07-21] MEDS ORDERED: MUCINEX1200 M1 PO (12:19)
[2021-07-21] MEDS ORDERED: SINGULAIR10 M1 PO (12:19)
[2021-07-21] MEDS ORDERED: ATARAX,VISTARIL50 MG PO (12:19)
[2021-07-21] MEDS ORDERED: PREDNISONE10 MG PO (12:19)
[2021-07-21] MEDS ORDERED: METOPROLOL TART50 M1 PO (12:19)
[2021-07-21] MEDS ORDERED: METHOCARBAMOL750 M1 PO (12:19)
[2021-07-21] MEDS ORDERED: LISINOPRIL40 MG PO (12:19)
[2021-07-21] MEDS ORDERED: OMEPRAZOLE40 MG PO (12:19)
[2021-07-21] MEDS ORDERED: PAXIL40 M1 PO (12:19)
[2021-07-21] MEDS ORDERED: PROAIR HFA8.5 GM INH (12:19)
[2021-07-21] MEDS ORDERED: AMLODIPINE BESYL5 MG PO (12:19)
[2021-07-21] MEDS ORDERED: BUSPAR15 MG PO (12:19)
[2021-07-21] MEDS ORDERED: Ipratropium Brom3 ML NEB (12:19)
[2021-07-21] MEDS ORDERED: LIPITOR20 MG PO (12:19)
== END 2021-07-21 13:15 | disposition home or self-care (01) | DRG 871 ==
LOC: ED 17:10 → 4E 22:59 → EDHOLD 22:59 → 4E 07-19 19:45
PROVIDERS: Emergency Medicine; Hospitalist; Student in an Organized Health Care Education/Training Program; ADMIT Family Medicine; ATTEND Family Medicine
DX: A41.9 Sepsis, unspecified organism (principal); N17.0 Acute kidney failure with tubular necrosis; N30.00 Acute cystitis without hematuria; E87.2 Acidosis; J96.11 Chronic respiratory failure with hypoxia; I12.9 Hypertensive chronic kidney disease with stage 1 through stage 4 chronic kidney disease, or unspecified chronic kidney disease; Z20.822 Contact with and (suspected) exposure to COVID-19; N18.31 Chronic kidney disease, stage 3a; M94.0 Chondrocostal junction syndrome [Tietze]; E87.6 Hypokalemia; J41.0 Simple chronic bronchitis; E78.5 Hyperlipidemia, unspecified; K21.9 Gastro-esophageal reflux disease without esophagitis; F32.A Depression, unspecified; E55.9 Vitamin D deficiency, unspecified; G62.9 Polyneuropathy, unspecified; F17.210 Nicotine dependence, cigarettes, uncomplicated; F41.9 Anxiety disorder, unspecified; R65.20 Severe sepsis without septic shock; Z71.6 Tobacco abuse counseling; Z86.73 Personal history of transient ischemic attack (TIA), and cerebral infarction without residual deficits; Z99.81 Dependence on supplemental oxygen; Z88.0 Allergy status to penicillin; Z88.6 Allergy status to analgesic agent; Z88.1 Allergy status to other antibiotic agents; Z88.8 Allergy status to other drugs, medicaments and biological substances; Z79.899 Other long term (current) drug therapy; Z79.51 Long term (current) use of inhaled steroids

== ENCOUNTER 2021-10-30 08:37 | Inpatient (IN) | payer OTHER ==
[~2021-10-30] VITALS: Ht 160 cm; Wt 78.2 kg
[~2021-10-30 08:37] MED LIST changes: +METOPROLOL TART50 M1 PO
[2021-10-30 08:52] VITALS: BP 116/68
[2021-10-30 09:37] LABS: BASO # 0.1 10*3/uL (0.0-0.1); BASO % 0.5 % (0.0-1.0); EOS # 0.3 10*3/uL (0.0-0.4); HEMATOCRIT 42.1 % (37.0-47.0); LYMPH # 1.1 10*3/uL (1.3-4.4); LYMPH % 8.2 % (27.0-41.0); MEAN CELL VOLUME 90.5 fl (81.0-99.0); MEAN CORPUSCULAR HGB 30.3 pg (27.0-31.0); MEAN CORPUSCULAR HGB CONC 33.5 g/dl (33.0-37.0); MEAN PLATELET VOLUME 11.3 fl (9.6-12.3); MONO # 1.3 10*3/uL (0.1-1.0); MONO % 9.3 % (3.0-9.0); NEUT # 10.7 10*3/uL (2.3-7.9); NEUT % 79.6 % (47.0-73.0); PLATELET COUNT AUTOMATED 371 10*3/uL (130-400); RED BLOOD COUNT 4.65 10*6/uL (4.10-5.10); RED CELL DISTRI WIDTH 13.4 % (0-14.5); WHITE BLOOD COUNT 13.5 10*3/uL (4.8-10.8)
[2021-10-30 09:57] LABS: CREATININE 1.4 mg/dL (0.55-1.02); POTASSIUM 4.2 mmol/L (3.5-5.1); TOTAL PROTEIN 7.7 gm/dL (6.4-8.2)
[2021-10-30] MEDS ORDERED: PROMETHAZINE25 M1 PO (10:53)
[2021-10-30] MEDS ORDERED: ZOFRAN4 MG PO (10:53)
[2021-10-30] MEDS ORDERED: BUSPIRONE30 MG PO (10:54)
[2021-10-30] MEDS ORDERED: MONTELUKAST SOD10 MG PO (10:54)
[2021-10-30] MEDS ORDERED: METOPROLOL25 MG PO (10:54)
[2021-10-30] MEDS ORDERED: OMEPRAZOLE40 MG PO (10:55)
[2021-10-30] MEDS ORDERED: LIPITOR20 MG PO (10:55)
[2021-10-30] MEDS ORDERED: ATARAX,VISTARIL50 MG PO (10:56)
[2021-10-30] MEDS ORDERED: LOPRESSOR50 M1 PO (10:56)
[2021-10-30] MEDS ORDERED: SINGULAIR10 M1 PO (10:56)
[2021-10-30] MEDS ORDERED: PRINIVIL20 M1 PO (10:57)
[2021-10-30] MEDS ORDERED: AMLODIPINE BESYL5 MG PO (10:57)
[2021-10-30] MEDS ORDERED: CLARITIN10 MG PO (10:57)
[2021-10-30] MEDS ORDERED: PAXIL40 M1 PO (10:57)
[2021-10-30] MEDS ORDERED: METHOCARBAMOL750 M1 PO (10:59)
[2021-10-30 12:22] VITALS: BP 110/73
[2021-10-30 14:00] VITALS: BP 157/70
[2021-10-30] MEDS ORDERED: VENT7GM INH (16:43)
[2021-10-30] MEDS ORDERED: VENTOLIN 02.5 MG/3 M INH (16:46)
[2021-10-30 20:00] VITALS: BP 113/65; BP 113/658
[2021-10-31] VITALS: BP 123/65
[2021-10-31 06:06] LABS: CREATININE 1.13 mg/dL (0.55-1.02)
[2021-10-31 06:14] LABS: HEMATOCRIT 36.8 % (37.0-47.0); MEAN CELL VOLUME 90.6 fl (81.0-99.0); MEAN CORPUSCULAR HGB 30.5 pg (27.0-31.0); MEAN CORPUSCULAR HGB CONC 33.7 g/dl (33.0-37.0); MEAN PLATELET VOLUME 11.5 fl (9.6-12.3); PLATELET COUNT AUTOMATED 330 10*3/uL (130-400); RED BLOOD COUNT 4.06 10*6/uL (4.10-5.10); RED CELL DISTRI WIDTH 13.2 % (0-14.5); WHITE BLOOD COUNT 20.2 10*3/uL (4.8-10.8)
[2021-10-31 06:50] LABS: MANUAL DIFF REFLEX YES
[2021-10-31 07:38] LABS: BURR CELLS FEW; PLATELET SUFFICIENCY NORMAL (NORMAL); POLYCHROMASIA SLIGHT; TOTAL CELLS COUNTED 100 #CELLS; TOXIC GRANULATION SLIGHT
[2021-10-31 08:00] VITALS: BP 109/57
[2021-10-31 12:00] VITALS: BP 116/57
[2021-10-31 16:00] VITALS: BP 116/62
[2021-10-31 20:00] VITALS: BP 97/42
[2021-11-01] VITALS: BP 105/51
[2021-11-01 06:26] LABS: HEMATOCRIT 34.6 % (37.0-47.0); MEAN CELL VOLUME 92.5 fl (81.0-99.0); MEAN CORPUSCULAR HGB CONC 33.5 g/dl (33.0-37.0); MEAN PLATELET VOLUME 12.1 fl (9.6-12.3); PLATELET COUNT AUTOMATED 335 10*3/uL (130-400); RED BLOOD COUNT 3.74 10*6/uL (4.10-5.10); RED CELL DISTRI WIDTH 13.7 % (0-14.5); WHITE BLOOD COUNT 22.7 10*3/uL (4.8-10.8)
[2021-11-01 06:37] LABS: CREATININE 1.15 mg/dL (0.55-1.02)
[2021-11-01 06:58] LABS: MANUAL DIFF REFLEX YES
[2021-11-01 07:25] LABS: TOTAL CELLS COUNTED 100 #CELLS
[2021-11-01 07:26] LABS: OVALOCYTES FEW; PLATELET SUFFICIENCY NORMAL (NORMAL); POLYCHROMASIA SLIGHT; TOXIC GRANULATION SLIGHT
[2021-11-01 08:00] VITALS: BP 106/50
[2021-11-01 11:57] VITALS: BP 109/47
[2021-11-01 16:00] VITALS: BP 115/71
[2021-11-01 21:36] VITALS: BP 129/60
[2021-11-02] VITALS: BP 124/73
[2021-11-02 06:09] LABS: BASO % 0.1 % (0.0-1.0); HEMATOCRIT 34.4 % (37.0-47.0); LYMPH # 1.4 10*3/uL (1.3-4.4); LYMPH % 8.3 % (27.0-41.0); MEAN CORPUSCULAR HGB 30.5 pg (27.0-31.0); MEAN CORPUSCULAR HGB CONC 33.1 g/dl (33.0-37.0); MEAN PLATELET VOLUME 11.5 fl (9.6-12.3); MONO # 0.8 10*3/uL (0.1-1.0); MONO % 4.5 % (3.0-9.0); NEUT # 14.6 10*3/uL (2.3-7.9); NEUT % 85.5 % (47.0-73.0); PLATELET COUNT AUTOMATED 324 10*3/uL (130-400); RED BLOOD COUNT 3.74 10*6/uL (4.10-5.10); RED CELL DISTRI WIDTH 13.7 % (0-14.5); WHITE BLOOD COUNT 17.1 10*3/uL (4.8-10.8)
[2021-11-02 06:36] LABS: BUN 13 mg/dl (7-24); CHLORIDE 107 mmol/L (98-107); CREATININE 1.06 mg/dL (0.55-1.02); POTASSIUM 4.2 mmol/L (3.5-5.1); SODIUM 137 mmol/L (136-145)
[2021-11-02 08:00] VITALS: BP 133/64
[2021-11-02 12:00] VITALS: BP 128/67
[2021-11-02 16:00] VITALS: BP 129/65
[2021-11-02 20:00] VITALS: BP 108/51
[2021-11-03] VITALS (9 sets, daily range): BP systolic 130–147; BP diastolic 66–94
[2021-11-03 06:21] LABS: BUN 14 mg/dl (7-24); CHLORIDE 102 mmol/L (98-107); CREATININE 1.11 mg/dL (0.55-1.02); POTASSIUM 4.3 mmol/L (3.5-5.1); SODIUM 137 mmol/L (136-145)
[2021-11-03 06:34] LABS: HEMATOCRIT 35.6 % (37.0-47.0); MEAN CELL VOLUME 89.7 fl (81.0-99.0); MEAN CORPUSCULAR HGB CONC 33.4 g/dl (33.0-37.0); MEAN PLATELET VOLUME 11.4 fl (9.6-12.3); PLATELET COUNT AUTOMATED 361 10*3/uL (130-400); RED BLOOD COUNT 3.97 10*6/uL (4.10-5.10); RED CELL DISTRI WIDTH 13.3 % (0-14.5); WHITE BLOOD COUNT 15.2 10*3/uL (4.8-10.8)
[2021-11-03 06:38] LABS: MANUAL DIFF REFLEX YES
[2021-11-03 07:23] LABS: TOTAL CELLS COUNTED 100 #CELLS
[2021-11-03 07:24] LABS: OVALOCYTES FEW; PLATELET SUFFICIENCY NORMAL (NORMAL); POLYCHROMASIA SLIGHT; ROULEAUX SLIGHT; TOXIC GRANULATION SLIGHT
[2021-11-04] VITALS: BP 119/61
[2021-11-04 06:38] LABS: BUN 19 mg/dl (7-24); CHLORIDE 102 mmol/L (98-107); CREATININE 1.02 mg/dL (0.55-1.02); POTASSIUM 4.3 mmol/L (3.5-5.1); SODIUM 135 mmol/L (136-145)
[2021-11-04 06:52] LABS: HEMATOCRIT 36.4 % (37.0-47.0); MEAN CELL VOLUME 89.9 fl (81.0-99.0); MEAN CORPUSCULAR HGB 30.4 pg (27.0-31.0); MEAN CORPUSCULAR HGB CONC 33.8 g/dl (33.0-37.0); MEAN PLATELET VOLUME 11.7 fl (9.6-12.3); PLATELET COUNT AUTOMATED 372 10*3/uL (130-400); RED BLOOD COUNT 4.05 10*6/uL (4.10-5.10); RED CELL DISTRI WIDTH 13.3 % (0-14.5); WHITE BLOOD COUNT 17.8 10*3/uL (4.8-10.8)
[2021-11-04 07:12] LABS: MANUAL DIFF REFLEX YES
[2021-11-04 08:00] VITALS: BP 152/74
[2021-11-04 08:16] LABS: TOTAL CELLS COUNTED 100 #CELLS
[2021-11-04 08:17] LABS: PLATELET SUFFICIENCY NORMAL (NORMAL); POLYCHROMASIA SLIGHT; TOXIC GRANULATION SLIGHT
[2021-11-04 12:00] VITALS: BP 134/67
[2021-11-04 15:07] LABS: ACID FAST SPEC PROCESSING Concentration (.)
[2021-11-04 16:00] VITALS: BP 138/66
[2021-11-04 17:58] LABS: ABG BASE EXCESS 1.9 mmol/L (-2.0-2.0); ARTERIAL BLOOD GAS PH 7.508 (7.35-7.45); ARTERIAL BLOOD GAS PO2 113.5 (80-90)
[2021-11-04 20:00] VITALS: BP 116/64
[2021-11-05] VITALS: BP 131/73
[2021-11-05 06:02] LABS: HEMATOCRIT 36.7 % (37.0-47.0); MEAN CELL VOLUME 90.2 fl (81.0-99.0); MEAN CORPUSCULAR HGB 30.7 pg (27.0-31.0); MEAN CORPUSCULAR HGB CONC 34.1 g/dl (33.0-37.0); MEAN PLATELET VOLUME 10.9 fl (9.6-12.3); PLATELET COUNT AUTOMATED 358 10*3/uL (130-400); RED BLOOD COUNT 4.07 10*6/uL (4.10-5.10); RED CELL DISTRI WIDTH 13.2 % (0-14.5)
[2021-11-05 06:30] LABS: BUN 17 mg/dl (7-24); CHLORIDE 103 mmol/L (98-107); CREATININE 1.02 mg/dL (0.55-1.02); POTASSIUM 4.3 mmol/L (3.5-5.1); SODIUM 135 mmol/L (136-145)
[2021-11-05 06:36] LABS: MANUAL DIFF REFLEX YES
[2021-11-05 07:40] LABS: PLATELET SUFFICIENCY NORMAL (NORMAL); TOTAL CELLS COUNTED 100 #CELLS
[2021-11-05 08:00] VITALS: BP 167/79
[2021-11-05 12:00] VITALS: BP 140/70
[2021-11-05 16:00] VITALS: BP 145/72
[2021-11-05 20:00] VITALS: BP 145/55
[2021-11-06] VITALS: BP 107/62
[2021-11-06 06:30] LABS: HEMATOCRIT 36.4 % (37.0-47.0); MEAN CELL VOLUME 89.9 fl (81.0-99.0); MEAN CORPUSCULAR HGB 30.1 pg (27.0-31.0); MEAN CORPUSCULAR HGB CONC 33.5 g/dl (33.0-37.0); MEAN PLATELET VOLUME 10.8 fl (9.6-12.3); PLATELET COUNT AUTOMATED 376 10*3/uL (130-400); RED BLOOD COUNT 4.05 10*6/uL (4.10-5.10); RED CELL DISTRI WIDTH 13.1 % (0-14.5); WHITE BLOOD COUNT 23.6 10*3/uL (4.8-10.8)
[2021-11-06 06:34] LABS: MANUAL DIFF REFLEX YES
[2021-11-06 06:52] LABS: BILIRUBIN Negative (Negative); BLOOD Negative (Negative); CLARITY Clear (Clear); COLOR Yellow (Yellow); GLUCOSE Negative (Negative); KETONE Negative (Negative); LEUKO ESTERASE Trace (Negative); NITRITE Negative (Negative); PH 6.5 (4.5-8.0); UROBILINOGEN 0.2 E.U./dl (0.0-1.0)
[2021-11-06 07:20] LABS: BACTERIA TRACE; EPITHELIAL CELLS 0-2; WBC 0-2 wbc/hpf (0-5)
[2021-11-06 07:30] LABS: PLATELET SUFFICIENCY NORMAL (NORMAL); TOTAL CELLS COUNTED 100 #CELLS
[2021-11-06 07:49] LABS: BUN 22 mg/dl (7-24); CHLORIDE 102 mmol/L (98-107); CREATININE 1.07 mg/dL (0.55-1.02); POTASSIUM 4.2 mmol/L (3.5-5.1); SODIUM 136 mmol/L (136-145)
[2021-11-06 08:00] VITALS: BP 172/77
[2021-11-06 12:00] VITALS: BP 170/72
[2021-11-06] MEDS ORDERED: PREDNISONE10 MG PO (12:03)
== END 2021-11-06 13:45 | disposition home or self-care (01) | DRG 871 ==
LOC: ED 08:37 → EDHOLD 11:18 → 5E 11:18 → EDHOLD 11:43 → 5E 12:19
PROVIDERS: Internal Medicine; Internal Medicine Critical Care Medicine; Student in an Organized Health Care Education/Training Program; ADMIT Emergency Medicine; ATTEND Emergency Medicine
PROC: 5A09357 Assistance with Respiratory Ventilation, Less than 24 Consecutive Hours, Continuous Positive Airway Pressure (ICD-10-PCS; 2021-11-01)
PROC: 5A09357 Assistance with Respiratory Ventilation, Less than 24 Consecutive Hours, Continuous Positive Airway Pressure (ICD-10-PCS; 2021-11-02)
PROC: 0BC98ZZ Extirpation of Matter from Lingula Bronchus, Via Natural or Artificial Opening Endoscopic (ICD-10-PCS; principal; 2021-11-03)
PROC: 0BC48ZZ Extirpation of Matter from Right Upper Lobe Bronchus, Via Natural or Artificial Opening Endoscopic (ICD-10-PCS; 2021-11-03)
PROC: 0BC88ZZ Extirpation of Matter from Left Upper Lobe Bronchus, Via Natural or Artificial Opening Endoscopic (ICD-10-PCS; 2021-11-03)
PROC: 0BC58ZZ Extirpation of Matter from Right Middle Lobe Bronchus, Via Natural or Artificial Opening Endoscopic (ICD-10-PCS; 2021-11-03)
PROC: 0BC38ZZ Extirpation of Matter from Right Main Bronchus, Via Natural or Artificial Opening Endoscopic (ICD-10-PCS; 2021-11-03)
PROC: 0BC78ZZ Extirpation of Matter from Left Main Bronchus, Via Natural or Artificial Opening Endoscopic (ICD-10-PCS; 2021-11-03)
PROC: 0BC68ZZ Extirpation of Matter from Right Lower Lobe Bronchus, Via Natural or Artificial Opening Endoscopic (ICD-10-PCS; 2021-11-03)
PROC: 0BCB8ZZ Extirpation of Matter from Left Lower Lobe Bronchus, Via Natural or Artificial Opening Endoscopic (ICD-10-PCS; 2021-11-03)
PROC: 0BC18ZZ Extirpation of Matter from Trachea, Via Natural or Artificial Opening Endoscopic (ICD-10-PCS; 2021-11-03)
PROC: 5A09357 Assistance with Respiratory Ventilation, Less than 24 Consecutive Hours, Continuous Positive Airway Pressure (ICD-10-PCS; 2021-11-03)
PROC: 5A09357 Assistance with Respiratory Ventilation, Less than 24 Consecutive Hours, Continuous Positive Airway Pressure (ICD-10-PCS; 2021-11-04)
PROC: 5A09357 Assistance with Respiratory Ventilation, Less than 24 Consecutive Hours, Continuous Positive Airway Pressure (ICD-10-PCS; 2021-11-05)
PROC: 5A09357 Assistance with Respiratory Ventilation, Less than 24 Consecutive Hours, Continuous Positive Airway Pressure (ICD-10-PCS; 2021-11-06)
DX: A41.9 Sepsis, unspecified organism (principal); J18.9 Pneumonia, unspecified organism; J96.21 Acute and chronic respiratory failure with hypoxia; N17.0 Acute kidney failure with tubular necrosis; J44.1 Chronic obstructive pulmonary disease with (acute) exacerbation; J44.0 Chronic obstructive pulmonary disease with (acute) lower respiratory infection; J45.901 Unspecified asthma with (acute) exacerbation; T17.590A Other foreign object in bronchus causing asphyxiation, initial encounter; I12.9 Hypertensive chronic kidney disease with stage 1 through stage 4 chronic kidney disease, or unspecified chronic kidney disease; N18.32 Chronic kidney disease, stage 3b; R65.20 Severe sepsis without septic shock; R73.9 Hyperglycemia, unspecified; F17.210 Nicotine dependence, cigarettes, uncomplicated; E78.5 Hyperlipidemia, unspecified; E66.01 Morbid (severe) obesity due to excess calories; K21.9 Gastro-esophageal reflux disease without esophagitis; F41.9 Anxiety disorder, unspecified; R19.7 Diarrhea, unspecified; X58.XXXA Exposure to other specified factors, initial encounter; Z88.0 Allergy status to penicillin; Z88.1 Allergy status to other antibiotic agents; Z88.8 Allergy status to other drugs, medicaments and biological substances; Z98.51 Tubal ligation status; Z71.6 Tobacco abuse counseling; Z79.51 Long term (current) use of inhaled steroids; Z79.899 Other long term (current) drug therapy; Z88.6 Allergy status to analgesic agent; Z86.73 Personal history of transient ischemic attack (TIA), and cerebral infarction without residual deficits; Y93.89 Activity, other specified; Y92.89 Other specified places as the place of occurrence of the external cause; Y99.8 Other external cause status; Z68.30 Body mass index [BMI] 30.0-30.9, adult

== ENCOUNTER 2022-01-15 15:47 | Emergency (ER) | payer OTHER ==
[~2022-01-15] VITALS: Ht 157.4 cm; Wt 90.7 kg
[~2022-01-15 15:47] MED LIST changes: +BUSPIRONE30 MG PO; +LOPRESSOR50 M1 PO; +METOPROLOL25 MG PO; +MONTELUKAST SOD10 MG PO; +PRINIVIL20 M1 PO; +PROMETHAZINE25 M1 PO; +VENT7GM INH; +VENTOLIN 02.5 MG/3 M INH
[2022-01-15 17:04] LABS: BASO # 0.1 10*3/uL (0.0-0.1); BASO % 0.8 % (0.0-1.0); EOS # 0.4 10*3/uL (0.0-0.4); EOS % 3.6 % (1.0-4.0); HEMATOCRIT 35.6 % (37.0-47.0); LYMPH # 2.4 10*3/uL (1.3-4.4); LYMPH % 23.1 % (27.0-41.0); MEAN CELL VOLUME 93.2 fl (81.0-99.0); MEAN CORPUSCULAR HGB 30.9 pg (27.0-31.0); MEAN CORPUSCULAR HGB CONC 33.1 g/dl (33.0-37.0); MEAN PLATELET VOLUME 10.3 fl (9.6-12.3); MONO # 0.9 10*3/uL (0.1-1.0); MONO % 8.7 % (3.0-9.0); NEUT # 6.7 10*3/uL (2.3-7.9); NEUT % 63.4 % (47.0-73.0); PLATELET COUNT AUTOMATED 376 10*3/uL (130-400); RED BLOOD COUNT 3.82 10*6/uL (4.10-5.10); RED CELL DISTRI WIDTH 13.5 % (0-14.5); WHITE BLOOD COUNT 10.6 10*3/uL (4.8-10.8)
[2022-01-15 17:28] LABS: CREATININE 1.19 mg/dL (0.55-1.02); POTASSIUM 4.1 mmol/L (3.5-5.1); TOTAL PROTEIN 6.7 gm/dL (6.4-8.2)
[2022-01-15] MEDS ORDERED: VIBRAMYCIN100 MG PO (20:24)
[2022-01-15] MEDS ORDERED: PREDNISONE20 M1 PO (20:24)
== END 2022-01-15 20:27 | disposition home or self-care (01) ==
LOC: ED 15:47
PROVIDERS: Physician Assistant
DX: J44.1 Chronic obstructive pulmonary disease with (acute) exacerbation (principal); Z88.0 Allergy status to penicillin; Z88.1 Allergy status to other antibiotic agents; Z88.8 Allergy status to other drugs, medicaments and biological substances; Z79.899 Other long term (current) drug therapy; Z98.890 Other specified postprocedural states; Z98.51 Tubal ligation status; F17.200 Nicotine dependence, unspecified, uncomplicated

== ENCOUNTER → 2022-02-08 | Day surgery (SDC) | payer OTHER ==
[~2022-02-08] VITALS: Ht 160 cm; Wt 90.7 kg
[~2022-02-08] MED LIST changes: +VIBRAMYCIN100 MG PO
[2022-02-08 09:20] VITALS: BP 128/77
[2022-02-08 09:58] VITALS: BP 96/54
[2022-02-08 10:13] VITALS: BP 103/73
[2022-02-08 10:28] VITALS: BP 116/66
== END | disposition home or self-care (01) ==
LOC: SDC 02-04 14:00
PROVIDERS: ATTEND Surgery
DX: K59.00 Constipation, unspecified (principal); K21.9 Gastro-esophageal reflux disease without esophagitis; I25.2 Old myocardial infarction; J44.9 Chronic obstructive pulmonary disease, unspecified; I12.9 Hypertensive chronic kidney disease with stage 1 through stage 4 chronic kidney disease, or unspecified chronic kidney disease; N18.30 Chronic kidney disease, stage 3 unspecified; F32.9 Major depressive disorder, single episode, unspecified; F41.9 Anxiety disorder, unspecified; F17.210 Nicotine dependence, cigarettes, uncomplicated; E78.5 Hyperlipidemia, unspecified; Z86.73 Personal history of transient ischemic attack (TIA), and cerebral infarction without residual deficits; Z88.0 Allergy status to penicillin; Z88.6 Allergy status to analgesic agent; Z79.899 Other long term (current) drug therapy

== ENCOUNTER → 2022-02-22 | Outpatient (CLI) | payer OTHER | END | disposition home or self-care (01) | LOC: NM 07:00 | PROVIDERS: ATTEND Surgery | DX: K59.00 Constipation, unspecified (principal) ==

== ENCOUNTER → 2022-03-02 | Outpatient (CLI) | payer OTHER | END | disposition home or self-care (01) | LOC: MAMMO 03-01 13:30 | PROVIDERS: ATTEND Family Medicine | DX: Z12.31 Encounter for screening mammogram for malignant neoplasm of breast (principal) ==

== ENCOUNTER 2022-03-30 14:38 | Emergency (ER) | payer OTHER ==
[~2022-03-30] VITALS: Wt 89.8 kg
[2022-03-30 16:35] LABS: BASO # 0.1 10*3/uL (0.0-0.1); BASO % 0.9 % (0.0-1.0); EOS # 0.3 10*3/uL (0.0-0.4); EOS % 3.7 % (1.0-4.0); HEMATOCRIT 35.7 % (37.0-47.0); LYMPH # 2.1 10*3/uL (1.3-4.4); LYMPH % 23.5 % (27.0-41.0); MEAN CELL VOLUME 89.5 fl (81.0-99.0); MEAN CORPUSCULAR HGB 30.1 pg (27.0-31.0); MEAN CORPUSCULAR HGB CONC 33.6 g/dl (33.0-37.0); MEAN PLATELET VOLUME 10.6 fl (9.6-12.3); MONO # 0.7 10*3/uL (0.1-1.0); MONO % 7.8 % (3.0-9.0); NEUT # 5.8 10*3/uL (2.3-7.9); NEUT % 63.5 % (47.0-73.0); PLATELET COUNT AUTOMATED 355 10*3/uL (130-400); RED BLOOD COUNT 3.99 10*6/uL (4.10-5.10)
[2022-03-30 16:57] LABS: ALKALINE PHOSPHATASE 114 U/L (45-117); BUN 7 mg/dl (7-24); CHLORIDE 112 mmol/L (98-107); CREATININE 0.95 mg/dL (0.55-1.02); POTASSIUM 3.4 mmol/L (3.5-5.1); SGOT/AST 17 IU/L (3-35); SGPT/ALT 22 U/L (12-78); SODIUM 141 mmol/L (136-145)
[2022-03-30] MEDS ORDERED: TRAMADOL HCL50 MG PO (17:58)
== END 2022-03-30 18:10 | disposition home or self-care (01) ==
LOC: ED 14:38
PROVIDERS: Physician Assistant
DX: M85.842 Other specified disorders of bone density and structure, left hand (principal); M85.841 Other specified disorders of bone density and structure, right hand; Z88.0 Allergy status to penicillin; Z88.1 Allergy status to other antibiotic agents; Z88.6 Allergy status to analgesic agent; Z79.899 Other long term (current) drug therapy; Z98.51 Tubal ligation status; Z98.890 Other specified postprocedural states; Z90.49 Acquired absence of other specified parts of digestive tract; Z87.891 Personal history of nicotine dependence

== ENCOUNTER 2022-04-16 12:56 | Emergency (ER) | payer OTHER ==
[~2022-04-16] VITALS: Ht 167.6 cm; Wt 81.6 kg
[~2022-04-16 12:56] MED LIST changes: +VOLTAREN ARTHRI20 GM T
[2022-04-16] MEDS ORDERED: HYDROCODON-ACE1 EACH PO (13:52)
[2022-04-16] MEDS ORDERED: MEDROL DOSEPAK4 MG PO (13:52)
== END 2022-04-16 14:20 | disposition home or self-care (01) ==
LOC: ED 12:56
DX: M06.831 Other specified rheumatoid arthritis, right wrist (principal); M06.832 Other specified rheumatoid arthritis, left wrist; G89.29 Other chronic pain; R20.2 Paresthesia of skin; F17.200 Nicotine dependence, unspecified, uncomplicated; Z88.0 Allergy status to penicillin; Z88.1 Allergy status to other antibiotic agents; Z88.8 Allergy status to other drugs, medicaments and biological substances; Z79.899 Other long term (current) drug therapy; Z98.51 Tubal ligation status; Z90.49 Acquired absence of other specified parts of digestive tract

== ENCOUNTER 2022-06-18 15:04 | Emergency (ER) | payer OTHER ==
[~2022-06-18] VITALS: Ht 160 cm; Wt 90.7 kg
[~2022-06-18 15:04] MED LIST changes: +HYDROCODON-ACE1 EACH PO
[2022-06-18 16:09] LABS: HEMATOCRIT 35.9 % (37.0-47.0); MEAN CELL VOLUME 89.3 fl (81.0-99.0); MEAN CORPUSCULAR HGB 29.6 pg (27.0-31.0); MEAN CORPUSCULAR HGB CONC 33.1 g/dl (33.0-37.0); MEAN PLATELET VOLUME 10.1 fl (9.6-12.3); PLATELET COUNT AUTOMATED 441 10*3/uL (130-400); RED BLOOD COUNT 4.02 10*6/uL (4.10-5.10); RED CELL DISTRI WIDTH 13.8 % (0-14.5); WHITE BLOOD COUNT 11.4 10*3/uL (4.8-10.8)
[2022-06-18 16:12] LABS: MANUAL DIFF REFLEX YES
[2022-06-18 16:32] LABS: CREATININE 1.27 mg/dL (0.55-1.02); POTASSIUM 3.8 mmol/L (3.5-5.1); TOTAL PROTEIN 6.9 gm/dL (6.4-8.2)
[2022-06-18 16:49] LABS: ATYPICAL LYMPHS 3 % (0-0); PLATELET SUFFICIENCY HIGH (NORMAL); STOMATOCYTE FEW; TOTAL CELLS COUNTED 100 #CELLS
[2022-06-18 16:50] LABS: POLYCHROMASIA SLIGHT
[2022-06-18] MEDS ORDERED: MUCINEX1200 M1 PO (17:11)
[2022-06-18] MEDS ORDERED: LEVOFLOXACIN500 MG PO (17:11)
[2022-06-18] MEDS ORDERED: PREDNISONE10 MG PO (17:11)
== END 2022-06-18 17:46 | disposition home or self-care (01) ==
LOC: ED 15:04
PROVIDERS: Student in an Organized Health Care Education/Training Program
DX: J44.1 Chronic obstructive pulmonary disease with (acute) exacerbation (principal); Z88.0 Allergy status to penicillin; Z88.1 Allergy status to other antibiotic agents; Z88.8 Allergy status to other drugs, medicaments and biological substances; Z79.899 Other long term (current) drug therapy; Z98.51 Tubal ligation status; Z87.891 Personal history of nicotine dependence

== ENCOUNTER 2022-07-31 12:37 | Emergency (ER) | payer MEDICARE ==
[~2022-07-31] VITALS: Ht 160 cm; Wt 90.7 kg
[2022-07-31 15:14] LABS: BASO % 0.5 % (0.0-1.0); EOS # 0.1 10*3/uL (0.0-0.4); EOS % 0.8 % (1.0-4.0); HEMATOCRIT 39.1 % (37.0-47.0); LYMPH # 1.2 10*3/uL (1.3-4.4); LYMPH % 16.6 % (27.0-41.0); MEAN CELL VOLUME 85.9 fl (81.0-99.0); MEAN CORPUSCULAR HGB 28.4 pg (27.0-31.0); MEAN PLATELET VOLUME 10.6 fl (9.6-12.3); MONO % 13.9 % (3.0-9.0); NEUT % 67.3 % (47.0-73.0); PLATELET COUNT AUTOMATED 311 10*3/uL (130-400); RED BLOOD COUNT 4.55 10*6/uL (4.10-5.10); RED CELL DISTRI WIDTH 14.3 % (0-14.5); WHITE BLOOD COUNT 7.4 10*3/uL (4.8-10.8)
[2022-07-31 15:29] LABS: ALKALINE PHOSPHATASE 111 U/L (46-116); BUN 9 mg/dl (9-23); CHLORIDE 97 mmol/L (98-107); LIPASE 79 U/L (12-53); POTASSIUM 3.5 mmol/L (3.4-5.1); SGPT/ALT 26 U/L (10-49)
[2022-07-31 15:29] LABS: ACT PARTIAL THROMBO TIME 28.4 SECONDS (20.0-32.1)
[2022-07-31 15:54] LABS: BILIRUBIN Negative (Negative); BLOOD Negative (Negative); CLARITY Clear (Clear); COLOR Yellow (Yellow); GLUCOSE Negative (Negative); KETONE Negative (Negative); LEUKO ESTERASE 2+ (Negative); NITRITE Negative (Negative); PH 5.5 (4.5-8.0); UROBILINOGEN 0.2 E.U./dl (0.0-1.0)
[2022-07-31 16:16] LABS: BACTERIA 2+
[2022-07-31] MEDS ORDERED: PROVENTIL HFA6.7 GM INH (16:38)
[2022-07-31] MEDS ORDERED: PREDNISONE20 M1 PO (16:38)
== END 2022-07-31 16:42 | disposition home or self-care (01) ==
LOC: ED 12:37
PROVIDERS: Physician Assistant
DX: U07.1 COVID-19 (principal); J44.9 Chronic obstructive pulmonary disease, unspecified; Z88.0 Allergy status to penicillin; Z88.1 Allergy status to other antibiotic agents; Z88.8 Allergy status to other drugs, medicaments and biological substances; Z98.51 Tubal ligation status; Z90.49 Acquired absence of other specified parts of digestive tract; F10.10 Alcohol abuse, uncomplicated; F17.200 Nicotine dependence, unspecified, uncomplicated

== ENCOUNTER → 2022-09-13 | Outpatient (CLI) | payer MEDICARE | END | disposition home or self-care (01) | LOC: RESCLI 01:07 | PROVIDERS: ATTEND Family Medicine | DX: E11.9 Type 2 diabetes mellitus without complications (principal); E78.00 Pure hypercholesterolemia, unspecified; F41.9 Anxiety disorder, unspecified; G62.9 Polyneuropathy, unspecified; M79.89 Other specified soft tissue disorders; Z88.1 Allergy status to other antibiotic agents; Z88.8 Allergy status to other drugs, medicaments and biological substances; F17.210 Nicotine dependence, cigarettes, uncomplicated; F10.90 Alcohol use, unspecified, uncomplicated; Z98.890 Other specified postprocedural states; Z79.899 Other long term (current) drug therapy ==

== ENCOUNTER → 2022-10-22 | Outpatient (CLI) | payer MEDICARE | END | disposition home or self-care (01) | LOC: US 13:00 | PROVIDERS: ATTEND Family Medicine | DX: M79.89 Other specified soft tissue disorders (principal) ==

== ENCOUNTER → 2022-11-19 | Outpatient (CLI) | payer MEDICARE ==
[2022-11-19 10:10] LABS: BUN 8 mg/dl (9-23); CHLORIDE 102 mmol/L (98-107); POTASSIUM 3.8 mmol/L (3.4-5.1)
[2022-11-19 10:34] LABS: FREE T4 0.98 ng/dl (0.89-1.76)
== END | disposition home or self-care (01) ==
LOC: LAB 09:17
PROVIDERS: Student in an Organized Health Care Education/Training Program; ATTEND Student in an Organized Health Care Education/Training Program
DX: E11.9 Type 2 diabetes mellitus without complications (principal); E78.00 Pure hypercholesterolemia, unspecified; Z79.899 Other long term (current) drug therapy

== ENCOUNTER → 2022-12-07 | Outpatient (CLI) | payer MEDICARE | END | disposition home or self-care (01) | LOC: RESCLI 11:18 | PROVIDERS: ATTEND Internal Medicine | DX: E55.9 Vitamin D deficiency, unspecified (principal); K21.9 Gastro-esophageal reflux disease without esophagitis; E78.00 Pure hypercholesterolemia, unspecified; I10 Essential (primary) hypertension; J30.1 Allergic rhinitis due to pollen; G25.81 Restless legs syndrome; G89.29 Other chronic pain; J44.9 Chronic obstructive pulmonary disease, unspecified; K59.00 Constipation, unspecified; G56.00 Carpal tunnel syndrome, unspecified upper limb; G62.9 Polyneuropathy, unspecified; I12.9 Hypertensive chronic kidney disease with stage 1 through stage 4 chronic kidney disease, or unspecified chronic kidney disease; E11.22 Type 2 diabetes mellitus with diabetic chronic kidney disease; N18.9 Chronic kidney disease, unspecified; F41.9 Anxiety disorder, unspecified; F32.9 Major depressive disorder, single episode, unspecified; M79.89 Other specified soft tissue disorders; R11.0 Nausea; E63.9 Nutritional deficiency, unspecified; F17.210 Nicotine dependence, cigarettes, uncomplicated; Z98.890 Other specified postprocedural states; Z88.8 Allergy status to other drugs, medicaments and biological substances; Z79.899 Other long term (current) drug therapy ==

== ENCOUNTER → 2023-05-25 | Outpatient (CLI) | payer MEDICARE ==
[2023-05-25 11:17] LABS: BASO # 0.1 10*3/uL (0.0-0.1); BASO % 0.6 % (0.0-1.0); EOS # 0.3 10*3/uL (0.0-0.4); HEMATOCRIT 41.1 % (37.0-47.0); LYMPH # 2.3 10*3/uL (1.3-4.4); LYMPH % 21.3 % (27.0-41.0); MEAN CELL VOLUME 89.5 fl (81.0-99.0); MEAN CORPUSCULAR HGB 30.1 pg (27.0-31.0); MEAN CORPUSCULAR HGB CONC 33.6 g/dl (33.0-37.0); MEAN PLATELET VOLUME 10.5 fl (9.6-12.3); MONO # 0.8 10*3/uL (0.1-1.0); MONO % 7.5 % (3.0-9.0); NEUT # 7.3 10*3/uL (2.3-7.9); NEUT % 67.2 % (47.0-73.0); PLATELET COUNT AUTOMATED 451 10*3/uL (130-400); RED BLOOD COUNT 4.59 10*6/uL (4.10-5.10); RED CELL DISTRI WIDTH 14.9 % (0-14.5); WHITE BLOOD COUNT 10.9 10*3/uL (4.8-10.8)
[2023-05-25 11:29] LABS: URINE CREATININE RANDOM 25.95 mg/dL
[2023-05-25 12:14] LABS: ALKALINE PHOSPHATASE 128 U/L (46-116); BUN 5 mg/dl (9-23); CHLORIDE 104 mmol/L (98-107); CHOLESTEROL 166 mg/dL (<200); LDL CHOLESTEROL 81 mg/dL (9-159); POTASSIUM 3.2 mmol/L (3.4-5.1); TOTAL PROTEIN 6.8 gm/dL (6.0-8.0); TRIGLYCERIDES 217 mg/dl (<150)
[2023-05-25 12:48] LABS: SGPT/ALT < 7 U/L (5-49)
== END | disposition home or self-care (01) ==
LOC: RESCLI 00:59
PROVIDERS: Student in an Organized Health Care Education/Training Program; ATTEND Internal Medicine
DX: E11.22 Type 2 diabetes mellitus with diabetic chronic kidney disease (principal); E55.9 Vitamin D deficiency, unspecified; E78.5 Hyperlipidemia, unspecified; J44.9 Chronic obstructive pulmonary disease, unspecified; N18.9 Chronic kidney disease, unspecified; I25.10 Atherosclerotic heart disease of native coronary artery without angina pectoris; K21.9 Gastro-esophageal reflux disease without esophagitis; M54.50 Low back pain, unspecified; F41.9 Anxiety disorder, unspecified; F17.210 Nicotine dependence, cigarettes, uncomplicated; F10.90 Alcohol use, unspecified, uncomplicated; E78.00 Pure hypercholesterolemia, unspecified; J30.1 Allergic rhinitis due to pollen; G89.29 Other chronic pain; F32.9 Major depressive disorder, single episode, unspecified; K59.00 Constipation, unspecified; K58.9 Irritable bowel syndrome, unspecified; G62.9 Polyneuropathy, unspecified; G56.00 Carpal tunnel syndrome, unspecified upper limb; J44.1 Chronic obstructive pulmonary disease with (acute) exacerbation; H92.09 Otalgia, unspecified ear; E63.9 Nutritional deficiency, unspecified; R11.0 Nausea; Z13.6 Encounter for screening for cardiovascular disorders; I11.0 Hypertensive heart disease with heart failure; Z79.899 Other long term (current) drug therapy

== ENCOUNTER 2023-07-05 16:36 | Emergency (ER) | payer OTHER, MEDICAID ==
[~2023-07-05] VITALS: Ht 157.4 cm; Wt 90.7 kg
[~2023-07-05 16:36] MED LIST changes: +FLOVENT DISKUS50 MCG INH; +GABAPENTIN100 M2 PO; +INCRUSE ELLI62.5 MCG INH; +KLOR-CON M2020 ME1 PO; +LASIX20 MG PO; +METOCLOPRAMIDE5 MG PO; +Meclizine25 MG PO; +ONDANSETRON HYDR4 M1 PO; +OXYGEN NAS; +REMERON15 M2 PO; +REQUIP2 MG PO; +REXULTI2 MG PO; +SPIRIVA RESPIMAT4 GM INH; +TRESIBA FL100 UNIT/1 SQ; +VICTOZA 2-0.6 MG/0.1 SQ; +VITAMIN D250 MCG PO; +VITAMIN E400 UNIT PO
[2023-07-05 17:37] LABS: BASO # 0.1 10*3/uL (0.0-0.1); BASO % 0.6 % (0.0-1.0); EOS # 0.3 10*3/uL (0.0-0.4); HEMATOCRIT 44.9 % (37.0-47.0); LYMPH # 2.4 10*3/uL (1.3-4.4); LYMPH % 15.6 % (27.0-41.0); MEAN CELL VOLUME 88.2 fl (81.0-99.0); MEAN CORPUSCULAR HGB 30.1 pg (27.0-31.0); MEAN CORPUSCULAR HGB CONC 34.1 g/dl (33.0-37.0); MEAN PLATELET VOLUME 10.5 fl (9.6-12.3); MONO # 1.1 10*3/uL (0.1-1.0); MONO % 6.8 % (3.0-9.0); NEUT # 11.6 10*3/uL (2.3-7.9); NEUT % 74.7 % (47.0-73.0); PLATELET COUNT AUTOMATED 469 10*3/uL (130-400); RED BLOOD COUNT 5.09 10*6/uL (4.10-5.10); RED CELL DISTRI WIDTH 14.2 % (0-14.5); WHITE BLOOD COUNT 15.5 10*3/uL (4.8-10.8)
[2023-07-05 17:51] LABS: ACT PARTIAL THROMBO TIME 29.7 SECONDS (20.0-32.1)
[2023-07-05 17:54] LABS: ALKALINE PHOSPHATASE 146 U/L (46-116); BUN 5 mg/dl (9-23); CHLORIDE 99 mmol/L (98-107); POTASSIUM 3.2 mmol/L (3.4-5.1); SGPT/ALT 11 U/L (5-49); TOTAL PROTEIN 7.9 gm/dL (6.0-8.0)
[2023-07-05 21:41] LABS: BILIRUBIN Negative (Negative); BLOOD Negative (Negative); CLARITY Clear (Clear); COLOR Yellow (Yellow); GLUCOSE Negative (Negative); KETONE Negative (Negative); LEUKO ESTERASE 3+ (Negative); NITRITE Negative (Negative); UROBILINOGEN 0.2 E.U./dl (0.0-1.0)
[2023-07-05 21:57] LABS: BACTERIA 1+; MUCOUS 1+
[2023-07-05] MEDS ORDERED: CIPRO500 MG PO (22:07)
== END 2023-07-05 22:53 | disposition home or self-care (01) ==
LOC: ED 16:36
PROVIDERS: Family Medicine; Internal Medicine
DX: N39.0 Urinary tract infection, site not specified (principal); J44.9 Chronic obstructive pulmonary disease, unspecified; F41.9 Anxiety disorder, unspecified; K21.9 Gastro-esophageal reflux disease without esophagitis; F32.A Depression, unspecified; D64.9 Anemia, unspecified; E78.00 Pure hypercholesterolemia, unspecified; Z88.0 Allergy status to penicillin; Z88.1 Allergy status to other antibiotic agents; Z88.6 Allergy status to analgesic agent; Z88.8 Allergy status to other drugs, medicaments and biological substances; Z98.890 Other specified postprocedural states; Z98.51 Tubal ligation status; Z90.49 Acquired absence of other specified parts of digestive tract; F17.210 Nicotine dependence, cigarettes, uncomplicated

== ENCOUNTER 2023-07-21 11:02 | Emergency (ER) | payer OTHER, MEDICAID ==
[~2023-07-21] VITALS: Wt 90.7 kg
[~2023-07-21 11:02] MED LIST changes: +CIPRO500 MG PO
[2023-07-21] MEDS ORDERED: VIBRAMYCIN100 MG PO (12:52)
[2023-07-21] MEDS ORDERED: Bactroban Oint22 GM T (12:52)
== END 2023-07-21 13:00 | disposition home or self-care (01) ==
LOC: ED 11:02
DX: S30.851A Superficial foreign body of abdominal wall, initial encounter (principal); F41.9 Anxiety disorder, unspecified; D64.9 Anemia, unspecified; E78.00 Pure hypercholesterolemia, unspecified; J44.9 Chronic obstructive pulmonary disease, unspecified; F32.A Depression, unspecified; K21.9 Gastro-esophageal reflux disease without esophagitis; I10 Essential (primary) hypertension; Z88.0 Allergy status to penicillin; Z88.1 Allergy status to other antibiotic agents; Z88.6 Allergy status to analgesic agent; Z88.8 Allergy status to other drugs, medicaments and biological substances; Z98.890 Other specified postprocedural states; Z98.51 Tubal ligation status; Z90.49 Acquired absence of other specified parts of digestive tract; F17.200 Nicotine dependence, unspecified, uncomplicated; X58.XXXA Exposure to other specified factors, initial encounter; Y93.89 Activity, other specified; Y92.89 Other specified places as the place of occurrence of the external cause; Y99.8 Other external cause status

== ENCOUNTER 2024-01-18 16:58 | Emergency (ER) | payer OTHER, MEDICAID ==
[~2024-01-18] VITALS: Ht 157.4 cm; Wt 68.0 kg
[~2024-01-18 16:58] MED LIST changes: +Bactroban Oint22 GM T; +DOXYCYCLINE HY100 M3 PO
[2024-01-18] MEDS ORDERED: VIBRAMYCIN100 MG PO (18:59)
[2024-01-18] MEDS ORDERED: methylPREDNISolone sod succ 125 MG VIAL IM ONE (19:00)
[2024-01-18] MEDS ORDERED: Doxycycline Hyclate 100 MG CAP PO ONE (19:00)
== END 2024-01-18 19:20 | disposition home or self-care (01) ==
LOC: ED 16:58
DX: P38.9 Omphalitis without hemorrhage (principal); R20.2 Paresthesia of skin; J44.9 Chronic obstructive pulmonary disease, unspecified; F41.9 Anxiety disorder, unspecified; K21.9 Gastro-esophageal reflux disease without esophagitis; F32.A Depression, unspecified; D64.9 Anemia, unspecified; E78.00 Pure hypercholesterolemia, unspecified; F17.200 Nicotine dependence, unspecified, uncomplicated; Z88.0 Allergy status to penicillin; Z88.1 Allergy status to other antibiotic agents; Z88.6 Allergy status to analgesic agent; Z88.8 Allergy status to other drugs, medicaments and biological substances; Z98.51 Tubal ligation status; Z98.890 Other specified postprocedural states; Z90.49 Acquired absence of other specified parts of digestive tract

== ENCOUNTER 2024-01-22 23:03 | Emergency (ER) | payer OTHER, MEDICAID ==
[2024-01-22 23:25] LABS: HEMATOCRIT 37.5 % (37.0-47.0); MANUAL DIFF REFLEX YES; MEAN CELL VOLUME 91.5 fl (81.0-99.0); MEAN CORPUSCULAR HGB 31.2 pg (27.0-31.0); MEAN CORPUSCULAR HGB CONC 34.1 g/dl (33.0-37.0); MEAN PLATELET VOLUME 9.9 fl (9.6-12.3); PLATELET COUNT AUTOMATED 479 10*3/uL (130-400); RED CELL DISTRI WIDTH 16.4 % (0-14.5); WHITE BLOOD COUNT 20.6 10*3/uL (4.8-10.8)
[2024-01-22 23:36] LABS: BILIRUBIN Negative (Negative); BLOOD Negative (Negative); CLARITY Clear (Clear); COLOR Yellow (Yellow); GLUCOSE Negative (Negative); KETONE Negative (Negative); LEUKO ESTERASE Trace (Negative); NITRITE Negative (Negative); SPECIFIC GRAVITY <= 1.005 (1.001-1.030); UROBILINOGEN 0.2 E.U./dl (0.0-1.0)
[2024-01-22 23:42] LABS: BACTERIA 1+; MUCOUS 1+; RBC 0-2 rbc/hpf (0-2)
[2024-01-22 23:43] LABS: URINE AMPHETAMINES Negative (1000ng/ml); URINE BARBITURATES Negative (200ng/ml); URINE BENZODIAZEPINES Negative (200ng/ml); URINE CANNABINOIDS (THC) Negative (50ng/ml); URINE COCAINE Positive (300ng/ml); URINE METHADONE Negative (300ng/ml); URINE OPIATES Negative (300ng/ml); URINE PHENCYCLIDINE Negative (25ng/ml)
[2024-01-22 23:45] LABS: ALKALINE PHOSPHATASE 102 U/L (46-116); BUN 14 mg/dl (9-23); CHLORIDE 109 mmol/L (98-107); ETHYL ALCOHOL 97.8 mg/dl (<3); POTASSIUM 3.3 mmol/L (3.4-5.1); SGPT/ALT 8 U/L (5-49)
[2024-01-22 23:50] LABS: ATYPICAL LYMPHS 1 % (0-0); PLATELET SUFFICIENCY HIGH (NORMAL); TOTAL CELLS COUNTED 100 #CELLS
[2024-01-22 23:54] LABS: BURR CELLS FEW; POLYCHROMASIA SLIGHT; ROULEAUX SLIGHT
[2024-01-23] MEDS ORDERED: MAGNESIUM OXIDE 400 MG TAB PO ONE ×2 (01:45→06:45)
[2024-01-23] MEDS ORDERED: LORazepam 1 MG TAB PO ONE (01:45)
[2024-01-23] MEDS ORDERED: POTASSIUM CHLORIDE 20 MEQ TAB PO ONE (06:45)
== END 2024-01-23 11:17 | disposition home or self-care (01) ==
LOC: ED 23:03
PROVIDERS: Internal Medicine
DX: F43.20 Adjustment disorder, unspecified (principal); E11.9 Type 2 diabetes mellitus without complications; F17.200 Nicotine dependence, unspecified, uncomplicated; Z88.0 Allergy status to penicillin; Z88.8 Allergy status to other drugs, medicaments and biological substances; Z88.1 Allergy status to other antibiotic agents; Z88.6 Allergy status to analgesic agent; Z79.899 Other long term (current) drug therapy; Z79.2 Long term (current) use of antibiotics; Z79.4 Long term (current) use of insulin; Z98.51 Tubal ligation status

== ENCOUNTER → 2024-02-07 | Outpatient (CLI) | payer OTHER, MEDICAID | END | disposition home or self-care (01) | LOC: RESCLI 00:07 | PROVIDERS: ATTEND Student in an Organized Health Care Education/Training Program | DX: E11.9 Type 2 diabetes mellitus without complications (principal); K21.9 Gastro-esophageal reflux disease without esophagitis; I10 Essential (primary) hypertension; F17.210 Nicotine dependence, cigarettes, uncomplicated; J44.1 Chronic obstructive pulmonary disease with (acute) exacerbation; E63.9 Nutritional deficiency, unspecified; R11.0 Nausea; F41.9 Anxiety disorder, unspecified; G62.9 Polyneuropathy, unspecified; J30.1 Allergic rhinitis due to pollen; E55.9 Vitamin D deficiency, unspecified; G25.81 Restless legs syndrome; F32.9 Major depressive disorder, single episode, unspecified; E78.00 Pure hypercholesterolemia, unspecified; G89.29 Other chronic pain; Z79.899 Other long term (current) drug therapy; Z88.8 Allergy status to other drugs, medicaments and biological substances ==

== ENCOUNTER 2024-09-04 23:10 | Emergency (ER) | payer MEDICARE ==
[~2024-09-04] VITALS: Ht 160 cm
[2024-09-04 23:38] LABS: BASO # 0.1 10*3/uL (0.0-0.1); BASO % 0.9 % (0.0-1.0); EOS # 0.2 10*3/uL (0.0-0.4); HEMATOCRIT 39.1 % (37.0-47.0); MEAN CELL VOLUME 89.1 fl (81.0-99.0); MEAN CORPUSCULAR HGB 30.8 pg (27.0-31.0); MEAN CORPUSCULAR HGB CONC 34.5 g/dl (33.0-37.0); MEAN PLATELET VOLUME 11.4 fl (9.6-12.3); MONO # 0.8 10*3/uL (0.1-1.0); MONO % 8.3 % (3.0-9.0); NEUT # 5.7 10*3/uL (2.3-7.9); NEUT % 57.5 % (47.0-73.0); PLATELET COUNT AUTOMATED 327 10*3/uL (130-400); RED BLOOD COUNT 4.39 10*6/uL (4.10-5.10); RED CELL DISTRI WIDTH 13.2 % (0-14.5); WHITE BLOOD COUNT 9.9 10*3/uL (4.8-10.8)
[2024-09-04 23:52] LABS: BUN 11 mg/dl (9-23); CHLORIDE 102 mmol/L (98-107); POTASSIUM 3.6 mmol/L (3.4-5.1)
[2024-09-05] MEDS ORDERED: diazePAM 10 MG/2 ML SYR IV ONE (00:30)
[2024-09-05] MEDS ORDERED: MAGNESIUM SULFATE 50 ML IV ONE ×2 (00:30→01:45)
== END 2024-09-05 08:13 | disposition home or self-care (01) ==
LOC: ED 23:10
PROVIDERS: Internal Medicine
DX: R07.89 Other chest pain (principal); M54.9 Dorsalgia, unspecified; Z88.0 Allergy status to penicillin; Z88.1 Allergy status to other antibiotic agents; Z88.6 Allergy status to analgesic agent; Z88.8 Allergy status to other drugs, medicaments and biological substances; Z79.2 Long term (current) use of antibiotics; Z79.899 Other long term (current) drug therapy; Z79.4 Long term (current) use of insulin; Z87.891 Personal history of nicotine dependence

== ENCOUNTER 2025-02-10 21:20 | Emergency (ER) | payer MEDICARE ==
[~2025-02-10] VITALS: Ht 167.6 cm; Wt 63.5 kg
[2025-02-10 22:12] LABS: BASO # 0.1 10*3/uL (0.0-0.1); BASO % 1.0 % (0.0-1.0); EOS # 0.2 10*3/uL (0.0-0.4); EOS % 2.8 % (1.0-4.0); MEAN CELL VOLUME 92.4 fl (81.0-99.0); MEAN CORPUSCULAR HGB 31.0 pg (27.0-31.0); MEAN PLATELET VOLUME 11.2 fl (9.6-12.3); MONO # 0.7 10*3/uL (0.1-1.0); MONO % 8.1 % (3.0-9.0); NEUT # 3.9 10*3/uL (2.3-7.9); NEUT % 47.3 % (47.0-73.0); NUCLEATED RED BLOOD CELL 0.0 % (0.0-0.0); NUCLEATED RED BLOOD CELL 0.0 10*3/uL (0.0-0.0); PLATELET COUNT AUTOMATED 337 10*3/uL (130-400); RED CELL DISTRI WIDTH 12.8 % (0-14.5)
[2025-02-10 22:26] LABS: BUN 8 mg/dl (9-23); SGPT/ALT < 7 U/L (5-49)
[2025-02-10] MEDS ORDERED: POTASSIUM CHLORIDE 20 MEQ TAB PO ONE (23:15)
[2025-02-10] MEDS ORDERED: MAGNESIUM OXIDE 400 MG TAB PO ONE (23:15)
[2025-02-11] MEDS ORDERED: LORazepam 1 MG TAB PO ONE (00:15)
== END 2025-02-11 00:15 | disposition home or self-care (01) ==
LOC: ED 21:20
PROVIDERS: Internal Medicine
DX: R07.89 Other chest pain (principal); F41.9 Anxiety disorder, unspecified; E87.6 Hypokalemia; E83.42 Hypomagnesemia; R06.02 Shortness of breath; R11.0 Nausea; F17.200 Nicotine dependence, unspecified, uncomplicated; Z88.0 Allergy status to penicillin; Z88.6 Allergy status to analgesic agent; Z88.1 Allergy status to other antibiotic agents; Z88.8 Allergy status to other drugs, medicaments and biological substances; Z79.899 Other long term (current) drug therapy; Z79.4 Long term (current) use of insulin; Z90.49 Acquired absence of other specified parts of digestive tract

== ENCOUNTER → 2025-03-27 | Outpatient (CLI) | payer MEDICARE ==
[~2025-03-27] MED LIST changes: +Regadenoson 0.4 MG/5 ML SYR IV ONE
== END ==
LOC: CARD 02-27 08:00
PROVIDERS: ATTEND Family Medicine
DX: R07.9 Chest pain, unspecified (principal)

== ENCOUNTER 2025-04-21 15:27 | Emergency (ER) | payer MEDICARE ==
[~2025-04-21] VITALS: Ht 157.4 cm; Wt 54.0 kg
[~2025-04-21 15:27] MED LIST changes: -Regadenoson 0.4 MG/5 ML SYR IV ONE
[2025-04-21] MEDS ORDERED: MAGNESIUM SULFATE 50 ML IV ONE (16:00)
[2025-04-21 16:15] LABS: BASO # 0.1 10*3/uL (0.0-0.1); BASO % 0.7 % (0.0-1.0); EOS # 0.1 10*3/uL (0.0-0.4); EOS % 0.8 % (1.0-4.0); MEAN CELL VOLUME 91.2 fl (81.0-99.0); MEAN CORPUSCULAR HGB 30.6 pg (27.0-31.0); MEAN PLATELET VOLUME 10.2 fl (9.6-12.3); MONO # 0.5 10*3/uL (0.1-1.0); MONO % 7.3 % (3.0-9.0); NEUT # 4.5 10*3/uL (2.3-7.9); NEUT % 60.5 % (47.0-73.0); NUCLEATED RED BLOOD CELL 0.0 % (0.0-0.0); NUCLEATED RED BLOOD CELL 0.0 10*3/uL (0.0-0.0); PLATELET COUNT AUTOMATED 366 10*3/uL (130-400); RED CELL DISTRI WIDTH 13.0 % (0-14.5)
[2025-04-21 17:13] LABS: BUN < 5 mg/dl (9-23)
[2025-04-21] MEDS ORDERED: POTASSIUM CHLORIDE 20 MEQ TAB PO ONE (17:25)
[2025-04-21] MEDS ORDERED: VIBRA-TAB100 MG PO (17:35)
[2025-04-21] MEDS ORDERED: PREDNISONE20 M1 PO (17:35)
[2025-04-21] MEDS ORDERED: POTASSIUM CHLO20 ME3 PO (17:35)
== END 2025-04-21 17:50 | disposition home or self-care (01) ==
LOC: ED 15:27
PROVIDERS: Emergency Medicine
DX: J44.1 Chronic obstructive pulmonary disease with (acute) exacerbation (principal); E87.6 Hypokalemia; F41.9 Anxiety disorder, unspecified; K21.9 Gastro-esophageal reflux disease without esophagitis; F32.A Depression, unspecified; F17.210 Nicotine dependence, cigarettes, uncomplicated; E78.00 Pure hypercholesterolemia, unspecified; Z98.890 Other specified postprocedural states; Z88.0 Allergy status to penicillin; Z88.1 Allergy status to other antibiotic agents; Z88.6 Allergy status to analgesic agent; Z88.8 Allergy status to other drugs, medicaments and biological substances; Z90.49 Acquired absence of other specified parts of digestive tract

== ENCOUNTER 2025-07-05 23:39 | Emergency (ER) | payer MEDICARE ==
[~2025-07-05 23:39] MED LIST changes: +POTASSIUM CHLO20 ME3 PO; +VIBRA-TAB100 MG PO
== END 2025-07-06 01:14 | disposition left against medical advice (07) ==
LOC: ED 23:39
DX: F10.129 Alcohol abuse with intoxication, unspecified (principal); Z53.21 Procedure and treatment not carried out due to patient leaving prior to being seen by health care provider

== ENCOUNTER 2025-07-20 16:01 | Emergency (ER) | payer MEDICARE ==
[~2025-07-20] VITALS: Ht 157.4 cm; Wt 55.8 kg
[2025-07-20] MEDS ORDERED: Albuterol Sulf/Ipratropium 3 ML VIAL NEB ONE (19:15)
[2025-07-20 19:48] LABS: BASO # 0.1 10*3/uL (0.0-0.1); BASO % 0.6 % (0.0-1.0); EOS # 0.3 10*3/uL (0.0-0.4); EOS % 3.2 % (1.0-4.0); MEAN CELL VOLUME 93.5 fl (81.0-99.0); MEAN CORPUSCULAR HGB 31.3 pg (27.0-31.0); MEAN PLATELET VOLUME 10.1 fl (9.6-12.3); MONO # 1.0 10*3/uL (0.1-1.0); MONO % 10.7 % (3.0-9.0); NEUT # 5.5 10*3/uL (2.3-7.9); NEUT % 59.7 % (47.0-73.0); NUCLEATED RED BLOOD CELL 0.0 % (0.0-0.0); NUCLEATED RED BLOOD CELL 0.0 10*3/uL (0.0-0.0); PLATELET COUNT AUTOMATED 315 10*3/uL (130-400); RED CELL DISTRI WIDTH 13.3 % (0-14.5)
[2025-07-20 20:03] LABS: BUN 7 mg/dl (9-23)
[2025-07-20 21:07] LABS: BILIRUBIN Negative (Negative); BLOOD Negative (Negative); CLARITY Clear (Clear); COLOR Yellow (Yellow); KETONE Negative (Negative); LEUKO ESTERASE Trace (Negative); NITRITE Negative (Negative); PH 7.0 (4.5-8.0); SPECIFIC GRAVITY 1.010 (1.001-1.030); UROBILINOGEN 0.2 E.U./dl (0.0-1.0)
[2025-07-20 21:29] LABS: BACTERIA TRACE; EPITHELIAL CELLS 16-20
[2025-07-20] MEDS ORDERED: ACETAMINOPHEN 325 MG TAB PO ONE (21:35)
[2025-07-20] MEDS ORDERED: Ondansetron Hydrochloride 4 MG TAB PO ONE (21:35)
[2025-07-20] MEDS ORDERED: LEVOFLOXACIN500 MG PO (21:41)
== END 2025-07-20 21:53 | disposition home or self-care (01) ==
LOC: ED 16:01
PROVIDERS: Student in an Organized Health Care Education/Training Program
DX: J44.1 Chronic obstructive pulmonary disease with (acute) exacerbation (principal); R10.9 Unspecified abdominal pain; F41.9 Anxiety disorder, unspecified; K21.9 Gastro-esophageal reflux disease without esophagitis; F32.A Depression, unspecified; E78.00 Pure hypercholesterolemia, unspecified; F17.200 Nicotine dependence, unspecified, uncomplicated; Z90.49 Acquired absence of other specified parts of digestive tract; Z88.0 Allergy status to penicillin; Z88.6 Allergy status to analgesic agent; Z88.8 Allergy status to other drugs, medicaments and biological substances; Z20.822 Contact with and (suspected) exposure to COVID-19